=== PATIENT | male | born 1945 | race Caucasian/White ===

== ENCOUNTER → 2017-03-11 11:00 | Outpatient (CLI) | payer MEDICARE, SELFPAY ==
--- NOTE | 2017-03-11 | PROSBIL_PTH ---
PATIENT: MAXIMILIAN NIÑO LOC: [facility] U#:[id number] AGE/SX: 79/M ROOM: RE03/11/[address]: Dr. Benji Tineo MD : 1945 BED: DIS: SPEC #: [id number] RECD: 03/11/17 14:27 STATUS: SHANNA RAE #: [id number] TIMOTEO: 03/11/17 00:[address]: Benji Tineo DEPT: SURGICAL PATHOLOGY RECD BY: Yohan Celaya ENTERED: 03/11/17 14:28 SP TYPE: PROST BX SRINI DR: Dr. Dave Fajardo MD Tissues: A - PROSTATE RIGHT B - PROSTATE RIGHT C - PROSTATE RIGHT D - PROSTATE LEFT E - PROSTATE LEFT F - PROSTATE LEFT Procedures: PROSTATE BX HEADER OPERATION: Prostate biopsy PRE-OP DIAGNOSIS: Elevated PSA TISSUE SUBMITTED: A - Right apex, B - Right mid, C - Right base, D - Left apex, E - Left mid, F - Left base MICROSCOPIC DIAGNOSIS A. Right prostate, apex, core biopsy: Focal high-grade prostatic intraepithelial neoplasia (HGPIN). B. Right prostate, mid, core biopsy: Focal high-grade prostatic intraepithelial neoplasia (HGPIN). C. 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 D. Left prostate, apex, core biopsy: Prostatic tissue, negative for malignancy. E. Left prostate, mid, core biopsy: Prostatic tissue, negative for malignancy. F. Left prostate, base, core biopsy: Focal high-grade prostatic intraepithelial neoplasia (HGPIN). Focal acute and chronic inflammation. SJ:martin 03/12/17 COMMENT Please make reference to previous specimen ([id number]) right prostate, apex, right prostate, mid and left prostate, base, core biopsies with diagnosis of focal high-grade prostatic intraepithelial neoplasia. MICROSCOPIC DESCRIPTION Slides are reviewed. GROSS DESCRIPTION A - Received is one container designated prostate, right apex. The specimen consists of two elongated fragments of light monzon-white soft tissue each measuring 1 cm in length and 0.1 cm in diameter. The specimen is totally submitted in one cassette. B - Received is one container designated prostate, right mid. The specimen consists of one elongated fragment of light monzon-white soft tissue measuring 2 cm in length and 0.1 cm in diameter. The specimen is totally submitted in one cassette. C - Received is one container designated prostate, right base. The specimen consists of one elongated fragment of light monzon-white soft tissue measuring 1 cm in length and 0.1 cm in diameter. The specimen is totally submitted in one cassette. D - Received is one container designated prostate, left apex. The specimen consists of one elongated fragment of light monzon-white soft tissue measuring 1 cm in length and 0.1 cm in diameter. The specimen is totally submitted in one cassette. E - Received is one container designated prostate, left mid. The specimen consists of two elongated fragments of light monzon-white soft tissue each measuring 1 cm in length and 0.1 cm in diameter. The specimen is totally submitted in one cassette. F - Received is one container designated prostate, left base. The specimen consists of two elongated fragments of light monzon-white soft tissue each measuring 1 cm in length and 0.1 cm in diameter. The specimen is totally submitted in one cassette. / AM:martin 03/11/17 TC:5 CPT: G0146 ADDENDUM ADDENDUM ADDENDUM ADDENDUM ADDENDUM ADDENDUM ADDENDUM ADDENDUM ADDENDUM ADDENDUM 05/22/2017 14:19 ADDENDUM 05/22/2017 14:19 ADDENDUM 05/22/2017 14:19 ADDENDUM 05/22/2017 14:19 ADDENDUM 05/22/2017 14:19 CONFIRM MDX FOR PROSTATE CANCER RESULT: DNA Methylation positive (blocks A-F) The DNA methylation positive test result for this patient indicates a 67% likelihood of detecting prostate cancer, with a 29% probability for low-grade disease (GS =6) versus a 38% probability of high-grade disease (GS =7), on repeat biopsy. Please see complete report in e-chart or EMR for further details
== END ==
PROVIDERS: Family Provider Family Medicine Geriatric Medicine; PCP Family Medicine Geriatric Medicine; Visit Provider Urology
DX: R97.20 Elevated prostate specific antigen [PSA] (principal)
CPT/HCPCS: 88305; G0416

== ENCOUNTER → 2017-05-22 10:25 | Outpatient (CLI) | payer MEDICARE, OTHER, SELFPAY ==
[2017-05-22 14:01] LABS: Absolute Lymphocyte Count 2.39 X10^3/ul (0.83-4.51); Absolute Neutrophil Count 5.3 X10^3/uL (2.0-7.7); Basophil# 0.02 X10^3/uL; Basophil% 0.2 % (0-1); Eosinophil# 0.13 X10^3/uL; Eosinophils% 1.6 % (0-5); Hematocrit 41.3 % (40-54); Hemoglobin 13.6 g/dl (13.0-16.5); Lymphocyte # 2.39 X10^3/ul (4.0); Lymphocyte % 28.8 % (19-41); Mean Corp Hgb Conc 32.9 g/gl (32-36); Mean Corpuscular Hgb 31.9 pg (27.0-32.0); Mean Corpuscular Volume 96.7 fL (80-94); Monocyte# 0.48 X10^3/uL; Monocyte% 5.8 % (0-10); Neutrophil # 5.25 X10^3/uL (2.7-7.7); Neutrophil % 63.4 % (47-70); Platelet Count 208 K/mm3 (150-450); RBC Distribution Width CV 12.9 % (11.6-14.6); RBC Distribution Width SD 44.6 fl (35.1-43.9); Red Blood Count 4.27 M/mm3 (4.6-6.2); White Blood Count 8.3 K/mm3 (4.4-11.0)
[2017-05-22 14:03] LABS: POSITIVE COUNT NO; POSITIVE DIFFERENTIAL NO; POSITIVE MORPHOLOGY NO
[2017-05-22 14:14] LABS: Vitamin D,25 Hydroxy 28.1 ng/mL (29.95-100.01)
[2017-05-22 14:19] LABS: ALB/GLOB Ratio 1.2 RATIO (0.9-2.4); AST(SGOT) 19 U/L (15-37); Alanine Aminotransfer ALT/SGPT 23 U/L (16-61); Albumin, Serum 3.8 g/dL (3.2-5.0); Alkaline Phosphatase 89 U/L (45-117); Anion Gap 10 (5-15); BUN 30 mg/dL (7-18); BUN/Creat Ratio 26.8 RATIO (10-20); Calcium,Total 8.7 mg/dL (8.5-10.1); Chloride 104 mmol/L (98-107); Creatinine, Serum 1.12 mg/dL (0.70-1.30); EST Glomerular Filtration Rate 69 mL/min (>60); Est Glom Filt Rate - Afr Amer 83 mL/min (>60); Globulin 3.3 g/dL (2.2-4.2); Glucose 143 mg/dL (74-106); Potassium 4.1 mmol/L (3.5-5.1); Protein, Total 7.1 g/dL (6.4-8.2); Sodium Level 139 mmol/L (136-145); Thyroid Stim Hormone (TSH) 1.15 uIU/mL (0.358-3.74)
== END ==
PROVIDERS: Family Provider Family Medicine Geriatric Medicine; PCP Family Medicine Geriatric Medicine; Visit Provider Family Medicine Geriatric Medicine
DX: E55.9 Vitamin D deficiency, unspecified (principal); I10 Essential (primary) hypertension
CPT/HCPCS: 36415; 80053; 82306; 84443; 85025

== ENCOUNTER → 2017-06-25 12:51 | Outpatient (CLI) | payer MEDICARE, OTHER, SELFPAY ==
--- NOTE | 2017-06-25 | PROSBIL_PTH ---
PATIENT: MAXIMILIAN NIÑO LOC: [facility] U#:[id number] AGE/SX: 79/M ROOM: RE06/25/[address]: Dr. Benji Tineo MD : 1945 BED: DIS: SPEC #: [id number] RECD: 06/25/17 13:34 STATUS: SHANNA RAE #: [id number] TIMOTEO: 06/25/17 00:[address]: Benji Tineo DEPT: SURGICAL PATHOLOGY RECD BY: Romero Gilliland ENTERED: 06/25/17 13:36 SP TYPE: PROST BX SRINI DR: Dr. Dave Fajardo MD Tissues: A - PROSTATE RIGHT B - PROSTATE RIGHT C - PROSTATE RIGHT D - PROSTATE LEFT E - PROSTATE LEFT F - PROSTATE LEFT Procedures: PROSTATE BX HEADER OPERATION: Prostate biopsy PRE-OP DIAGNOSIS: Elevated PSA TISSUE SUBMITTED: A - Right apex, B - Right mid, C - Right base, D - Left apex, E - Left mid, F - Left base MICROSCOPIC DIAGNOSIS A. Right prostate, apex, core biopsy: Prostatic adenocarcinoma: [place] grade: 3+3=6 Number of cores involved: 1 out of 4 Proportion of tissue involved: <5% Perineural invasion: Not identified. Greatest tumor length: ~0.1 cm Focal high-grade prostatic intraepithelial neoplasia (HGPIN). See comment. B. 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 See comment. C. Right prostate, base, core biopsy: Prostatic tissue, negative for malignancy. D. Left prostate, apex, core biopsy: A minute focus of prostatic adenocarcinoma: [place] grade: 3+4=7 Number of cores involved: 1 out of 2 Proportion of tissue involved: <5% Perineural invasion: Not identified. Greatest tumor length: ~ 0.1 cm Focal calcification. See comment. E. Left prostate, mid, core biopsy: A minute focus of prostatic adenocarcinoma: [place] grade: 3+3=6 Number of cores involved: 1 out of 1 Proportion of tissue involved: <5% Perineural invasion: Not seen. Greatest tumor length: < 0.1 cm Focal high-grade prostatic intraepithelial neoplasia (HGPIN). See comment. F. 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 See comment. SJ:martin 06/26/17 COMMENT A, B, D, E & F - Immunohistochemistry ([id number]) supports the above diagnosis. Please make reference to previous specimen ([id number]) right prostate, apex, mid, left prostate, base, core biopsies with diagnosis of focal high-grade prostatic intraepithelial neoplasia (HGPIN). MICROSCOPIC DESCRIPTION Slides are reviewed. GROSS DESCRIPTION A - Received is one container designated prostate, right apex. The specimen consists of four variable sized pieces of monzon soft tissue measuring 0.3 to 0.5 cm in length and 0.1 cm in diameter. The specimen is totally submitted in one cassette. B - Received is one container designated prostate, right mid. The specimen consists of four variable sized pieces of monzon elongated soft tissue measuring 0.6 to 1 cm in length and 0.1 cm in diameter. The specimen is totally submitted in one cassette. C - Received is one container designated prostate, right base. The specimen consists of one fragment of monzon soft tissue measuring 1.2 cm in length and 0.1 cm in diameter. The specimen is totally submitted in one cassette. D - Received is one container designated prostate, left apex. The specimen consists of two elongated fragments of monzon soft tissue each measuring 0.8 cm in length and 0.1 cm in diameter. The specimen is totally submitted in one cassette. E - Received is one container designated prostate, left mid. The specimen consists of one elongated fragment of monzon soft tissue measuring 1.2 cm in length and 0.1 cm in diameter. The specimen is totally submitted in one cassette. F - Received is one container designated prostate, left base. The specimen consists of one elongated fragment of monzon soft tissue measuring 1.5 cm in length and 0.1 cm in diameter. The specimen is totally submitted in one cassette. / TAISHA:martin 06/25/17 TC:0 CPT: G0146
--- NOTE | 2017-06-25 | IMM_PTH ---
PATIENT: MAXIMILIAN NIÑO LOC: [facility] U#:[id number] AGE/SX: 79/M ROOM: RE06/25/[address]: Dr. Benji Tineo MD : 1945 BED: DIS: SPEC #: [id number] RECD: 06/26/17 12:46 STATUS: SHANNA REQ #: [id number] TIMOTEO: 06/25/17 00:[address]: Benji Tineo DEPT: IMMUNOHISTOCHEMISTRY RECD BY: Irasema Rubio ENTERED: 06/26/17 12:47 SP TYPE: IMMUNO OTHR DR: Dr. Dave Fajardo MD Tissues: A - PROSTATE RIGHT B - PROSTATE RIGHT D - PROSTATE LEFT E - PROSTATE LEFT F - PROSTATE LEFT Procedures: CK8 (add) 34BE12 (add) P40 (add) 34BE12 (initial) PHYSICIAN & INSTITUTION [place] [id number] SPECIMEN INFORMATION: Tissue Source: A - Right apex, B - Right mid, D - Left apex, E - Left mid, F - Left base Clinical Info: Elevated PSA Specimen Number: [id number] A, B, D-F CPT code: 45877, 02780 x10 METHODOLOGY: Deparaffinized sections of prefer/formalin-fixed tissue or PAP/DQ stained slides are incubated with monoclonal/polyclonal antibodies/oligonucleotide probes. Localization is made via biotin free immunoperoxidase method. Appropriate controls are performed and reacted as expected. Results on target cell population are indicated in the following table: RESULTS: ANTIBODY / CLONE RESULT Block A P40 (BC28) negative 34BE12 (34BE12) negative Block B P40 (BC28) positive 34BE12 (34BE12) positive Block D P40 (BC28) negative 34BE12 (34BE12) negative Block E P40 (BC28) negative 34BE12 (34BE12) negative CK8 ([id number]) positive Block F P40 (BC28) positive 34BE12 (34BE12) positive These tests were developed and their performance characteristics determined by [facility]. They may not have been cleared or approved by the U.S. Food and Drug Administration. The FDA has determined that such clearance or approval is not necessary. INTERPRETATION: A. Right prostate, apex, core biopsy: Adenocarcinoma. B. Right prostate, mid, core biopsy: Consistent with focal high-grade prostatic intraepithelial neoplasia (HGPIN). D. Left prostate, apex, core biopsy: A minute focus of adenocarcinoma. E. Left prostate, mid, core biopsy: A minute focus of adenocarcinoma. Consistent with focal high-grade prostatic intraepithelial neoplasia (HGPIN). F. Left prostate, base, core biopsy: Consistent with focal high-grade prostatic intraepithelial neoplasia (HGPIN). SJ:martin 06/26/17
== END ==
PROVIDERS: Family Provider Family Medicine Geriatric Medicine; PCP Family Medicine Geriatric Medicine; Visit Provider Urology
DX: R97.20 Elevated prostate specific antigen [PSA] (principal)
CPT/HCPCS: 88305; 88341; 88342; G0416

== ENCOUNTER → 2017-07-04 09:54 | Outpatient (CLI) | payer MEDICARE, OTHER, SELFPAY ==
--- NOTE | 2017-07-04 09:57 | CDU_ITS ---
Reason For Study: carotid stenosis Rt. Velocities/BP Lt. Velocities/BP Prox CCA 78.6/10.6 cm/sec. Prox CCA 132/27.5 cm/sec. Mid CCA 61.6/11.1 cm/sec. Mid CCA 139/23.6 cm/sec. Dist CCA 60.4/14.1 cm/sec. Dist CCA 147/19.6 cm/sec. Prox ICA 122/27.5 cm/sec. Prox ICA 190/50.3 cm/sec. Mid ICA 168/41.3 cm/sec. Mid ICA 136/48.1 cm/sec. Dist ICA 115/33.4 cm/sec. Dist ICA 118/28.5 cm/sec. Rt. ICA/CCA = 2.7. Lt. ICA/CCA = 1.4. Prox ECA 180/30.4 cm/sec. Prox ECA 207/19.6 cm/sec. Rt. Vert. 220/28.8 cm/sec. Right Extracranial There is heterogeneous, irregular atherosclerotic plaque noted in the right common carotid artery. There is heterogeneous, irregular atherosclerotic plaque noted in the right internal carotid artery. There is heterogeneous, irregular atherosclerotic plaque noted in the right external carotid artery. Antegrade flow is noted in the right vertebral artery. Left Extracranial There is heterogeneous, irregular atherosclerotic plaque noted in the left common carotid artery. There is heterogeneous, irregular atherosclerotic plaque noted in the left internal carotid artery. There is heterogeneous, irregular atherosclerotic plaque noted in the left external carotid artery. retrograde flow noted in the left vertebral artery. Procedure Carotid Duplex 38594. The exam was diagnostic. Exam performed in department. Interpretation Summary Moderate (50-69%) stenosis right extracranial internal carotid. Moderate (50-69%) stenosis left extracranial internal carotid. Flow within the right verterbral artery is antegrade. Flow within the left verterbral artery is retrograde, consistent with a subclavian steal phenomenon. Ordering Physician: Aries Garg Performed By: Asif Irvin RVT
== END ==
PROVIDERS: Family Provider Family Medicine Geriatric Medicine; PCP Family Medicine Geriatric Medicine; Visit Provider Surgery Vascular Surgery
DX: I65.23 Occlusion and stenosis of bilateral carotid arteries (principal); I10 Essential (primary) hypertension; Z87.891 Personal history of nicotine dependence
CPT/HCPCS: 93880

== ENCOUNTER → 2017-11-14 10:45 | Outpatient (CLI) | payer MEDICARE, OTHER, SELFPAY ==
--- NOTE | 2017-11-14 10:46 | ECHOD_ITS ---
Reason For Study: AVR Procedure This was a 2D Doppler, Color Flow transthoracic echocardiogram. Exam performed in department. Left Ventricle Normal LV size. Severe concentric left ventricular hypertrophy. Left ventricular systolic function is normal. The estimated ejection fraction is 65 %. Transmitral diastolic flow velocities suggest moderate (stage 2) diastolic dysfunction (pseudonormal pattern). No regional wall motion abnormalities noted. Atria The left atrium is severely enlarged. Normal right atrium. Mitral Valve There is mild to moderate mitral annular calcification. Mild (1+) eccentric mitral valve insufficiency. Tricuspid Valve Normal tricuspid valve. Mild to moderate (1-2+) tricuspid valve insufficiency. Pulmonary artery systolic pressure is 39 mmHg. Aortic Valve Mean aortic valve gradient 20 mmHg. Peak aortic valve gradient 37 mmHg. Calculated aortic valve area (continuity equation) is 1.3 cm2. Mild-Moderate (1-2+) eccentric aortic valve insufficiency. Stable appearing bioprosthetic aortic valve apparatus. Pulmonic Valve Normal pulmonic valve. Mild (1+) pulmonic valve insufficiency. Great Vessels Normal aortic root. The pulmonary artery is normal size. Normal inferior vena cava. Pericardium/Pleural No pericardial effusion. MMode/2D Measurements & Calculations LVIDd: 4.1 cm IVSd: 1.5 cm LVOT diam: 2.0 cm LVIDs: 2.4 cm LVPWd: 1.7 cm LVOT area: 3.1 cm2 RVDd: 4.1 cm FS: 40.4 % Ao root diam: 2.3 cm LAV(MOD-bp): 97.7 ml LA A4 area: 33.3 cm2 LAV(MOD-bp) Indexed: 49.4 ml/m2 LAV(MOD-sp2): 67.5 ml LAV(MOD-sp4): 129.1 ml RA A4 area: 19.6 cm2 Time Measurements MV dec time: 0.40 sec Doppler Measurements & Calculations MV E max andrea: 178.2 cm/sec Lat Peak E' Andrea: 6.5 cm/sec Med Peak E' Andrea: 5.7 cm/sec MV A max andrea: 121.5 cm/sec E/E' lat: 27.6 E/E' med: 31.4 MV E/A: 1.5 MV V2 max: 188.5 cm/sec Ao V2 max: 303.3 cm/sec LV V1 max: 122.9 cm/sec MV max P.2 mmHg Ao max P.8 mmHg LV V1 max P.0 mmHg MV V2 mean: 91.0 cm/sec Ao V2 mean: 211.1 cm/sec LV V1 mean P.3 mmHg MV mean P.3 mmHg Ao mean P.1 mmHg LV V1 mean: 83.4 cm/sec MV V2 VTI: 70.5 cm Ao V2 VTI: 69.3 cm LV V1 VTI: 32.5 cm MVA(VTI): 1.4 cm2 CESAR(I,D): 1.5 cm2 CESAR(V,D): 1.3 cm2 SV(LVOT): 101.7 ml PA V2 max: 105.7 cm/sec TR max andrea: 292.3 cm/sec TR max P.2 mmHg Interpretation Summary Normal LV size. Severe concentric left ventricular hypertrophy. Left ventricular systolic function is normal. The estimated ejection fraction is 65 %. Transmitral diastolic flow velocities suggest moderate (stage 2) diastolic dysfunction (pseudonormal pattern). Mild (1+) eccentric mitral valve insufficiency. Mild to moderate (1-2+) tricuspid valve insufficiency. Stable appearing bioprosthetic aortic valve apparatus. Peak aortic valve gradient 37 mmHg. Mild-Moderate (1-2+) eccentric aortic valve insufficiency. Ordering Physician: Valentino Machado/Kwabena Nelson Referring Physician: Dave Fajardo Chi Performed By: Maribel Her, CHINTANCS, RVT
== END ==
PROVIDERS: Family Provider Family Medicine Geriatric Medicine; PCP Family Medicine Geriatric Medicine; Referring Provider Nurse Practitioner Family; Visit Provider Nurse Practitioner Family
DX: I06.0 Rheumatic aortic stenosis (principal); I10 Essential (primary) hypertension; R06.02 Shortness of breath
CPT/HCPCS: 93306

== ENCOUNTER → 2017-11-25 12:08 | Outpatient (CLI) | payer MEDICARE, OTHER, SELFPAY ==
[2017-11-25 16:32] LABS: Absolute Lymphocyte Count 2.18 X10^3/ul (0.83-4.51); Absolute Neutrophil Count 5.9 X10^3/uL (2.0-7.7); Basophil# 0.04 X10^3/uL; Basophil% 0.4 % (0-1); Eosinophil# 0.21 X10^3/uL; Eosinophils% 2.3 % (0-5); Hematocrit 41.6 % (40-54); Hemoglobin 13.2 g/dl (13.0-16.5); Lymphocyte # 2.18 X10^3/ul (4.0); Lymphocyte % 23.5 % (19-41); Mean Corp Hgb Conc 31.7 g/gl (32-36); Mean Corpuscular Hgb 31.6 pg (27.0-32.0); Mean Corpuscular Volume 99.5 fL (80-94); Mean Platelet Vol. 10.9 fl (6.2-12.0); Monocyte# 0.98 X10^3/uL; Monocyte% 10.5 % (0-10); Neutrophil # 5.86 X10^3/uL (2.7-7.7); Neutrophil % 63.1 % (47-70); Platelet Count 211 K/mm3 (150-450); RBC Distribution Width CV 13.3 % (11.6-14.6); RBC Distribution Width SD 48.1 fl (35.1-43.9); Red Blood Count 4.18 M/mm3 (4.6-6.2); White Blood Count 9.3 K/mm3 (4.4-11.0)
[2017-11-25 16:45] LABS: Vitamin D,25 Hydroxy 26.9 ng/mL (29.95-100.01)
[2017-11-25 17:08] LABS: ALB/GLOB Ratio 1.2 RATIO (0.9-2.4); AST(SGOT) 21 U/L (15-37); Alanine Aminotransfer ALT/SGPT 24 U/L (16-61); Albumin, Serum 4.1 g/dL (3.2-5.0); Alkaline Phosphatase 93 U/L (45-117); Anion Gap 10 (5-15); BUN 27 mg/dL (7-18); BUN/Creat Ratio 23.7 RATIO (10-20); Calcium,Total 9.3 mg/dL (8.5-10.1); Chloride 105 mmol/L (98-107); Creatinine, Serum 1.14 mg/dL (0.70-1.30); EST Glomerular Filtration Rate 67 mL/min (>60); Est Glom Filt Rate - Afr Amer 81 mL/min (>60); Globulin 3.5 g/dL (2.2-4.2); Glucose 76 mg/dL (74-106); Potassium 4.7 mmol/L (3.5-5.1); Protein, Total 7.6 g/dL (6.4-8.2); Sodium Level 141 mmol/L (136-145); Thyroid Stim Hormone (TSH) 1.22 uIU/mL (0.358-3.74)
[2017-11-25 17:11] LABS: POSITIVE COUNT NO; POSITIVE DIFFERENTIAL NO; POSITIVE MORPHOLOGY NO
== END ==
PROVIDERS: Family Provider Family Medicine Geriatric Medicine; PCP Family Medicine Geriatric Medicine; Visit Provider Family Medicine Geriatric Medicine
DX: I10 Essential (primary) hypertension (principal); E55.9 Vitamin D deficiency, unspecified
CPT/HCPCS: 36415; 80053; 82306; 84443; 85025

== ENCOUNTER → 2018-01-04 07:11 | Outpatient (CLI) | payer MEDICARE, OTHER, SELFPAY | PROVIDERS: Family Provider Family Medicine Geriatric Medicine; PCP Family Medicine Geriatric Medicine; Referring Provider Urology; Visit Provider Urology | DX: C61 Malignant neoplasm of prostate (principal) | CPT/HCPCS: 36415; 84153 ==

== ENCOUNTER → 2018-01-13 17:32 | Outpatient (CLI) | payer MEDICARE, OTHER, SELFPAY ==
--- NOTE | 2018-01-13 17:37 | CT_ITS ---
STUDY: CT ABDOMEN AND PELVIS WITH CONTRAST REASON FOR EXAM: Male, 72 years old. Prostate cancer RADIATION DOSAGE (If Supplied By Facility): CTDIvol = ( 19.33 ) mGy, DLP = ( 1096.29 ) mGycm TECHNIQUE: Transaxial images were obtained from the dome of the diaphragm to the symphysis pubis without oral contrast. 100CC ml of Isovue 300 contrast was administered. Sagittal and coronal images were reconstructed. Individualized dose optimization techniques were used for this CT. COMPARISON: None. FINDINGS: The visualized lung bases are unremarkable. The visualized portions of the heart are within normal limits. Normal liver. Normal gallbladder and extrahepatic biliary system. Normal spleen. Normal pancreas. Normal bilateral adrenal glands. Normal right kidney. Normal left kidney. Normal visualized stomach. Normal small intestine. There are multiple colonic diverticula consistent with diverticulosis. There is NO acute diverticulitis or colitis. There has been an appendectomy. There is diffuse atherosclerotic calcification of the abdominal aorta, without a demonstrated aneurysm. Normal inferior vena cava. Normal retroperitoneum. Normal urinary bladder. Prostate is unremarkable. There is NO pelvic mass or fluid collection. There is NO adenopathy. There bilateral inguinal hernias containing fat only and greater on the RIGHT. Normal osseous structures. CT/Abdomen/Pelvis WITH Contrast IMPRESSION: There are multiple colonic diverticula consistent with diverticulosis. There is NO acute diverticulitis or colitis. There has been an appendectomy. There is diffuse atherosclerotic calcification of the abdominal aorta, without a demonstrated aneurysm. Prostate is unremarkable. There is NO pelvic mass or fluid collection. There is NO adenopathy. There bilateral inguinal hernias containing fat only and greater on the RIGHT. Electronically Signed: Fabian Chaudhary MD at 7:44 EST , Service support ,
[2018-01-13 17:50] LABS: CREATININE FINGERSTICK 1.4 mg/dL (0.70-1.30)
== END ==
PROVIDERS: Family Provider Family Medicine Geriatric Medicine; PCP Family Medicine Geriatric Medicine; Referring Provider Urology; Visit Provider Urology
DX: C61 Malignant neoplasm of prostate (principal)
CPT/HCPCS: 74177; Q9967

== ENCOUNTER → 2018-01-16 10:19 | Outpatient (CLI) | payer MEDICARE, OTHER, SELFPAY ==
--- NOTE | 2018-01-16 10:23 | NM_ITS ---
CLINICAL: 72-year-old male with history of carcinoma of the prostate. WHOLE BODY 99m Tc MDP RADIONUCLIDE BONE SCINTIGRAPHY COMPARISON: CT of the abdomen-pelvis report 01/13/2018 FINDINGS: Following the intravenous administration of 27.1 mCi of 99m Tc MDP, whole body bone images reveal: 1. Focal increased radiopharmaceutical concentration is defined in the left posterior ninth rib, linear-elongated in presentation. 2. An increase in uptake is visualized in the lateral glenohumeral compartment of the right shoulder, acromioclavicular and sternoclavicular compartments of both shoulders, the left elbow, right and left wrist articulations, bilateral knees, the left ankle, left sacroiliac joint, 10th thoracic vertebra posteriorly on the right, mid cervical spine posteriorly on the left and right. 3. The remaining skeletal structures are scintigraphically unremarkable with normal-appearing renal images and urinary bladder activity identified. NM/Bone Scan Whole Body IMPRESSION: 1. The increase in radiopharmaceutical concentration identified in the left posterior ninth rib may be further investigated with plain radiography secondary to the linear distribution. 2. 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 Electronically Signed: Kwaku Rivera DO at 23:50 EST Tel , Service support ,
== END ==
PROVIDERS: Family Provider Family Medicine Geriatric Medicine; PCP Family Medicine Geriatric Medicine; Referring Provider Urology; Visit Provider Urology
DX: C61 Malignant neoplasm of prostate (principal)
CPT/HCPCS: 78306

== ENCOUNTER 2018-02-21 22:28 | Inpatient (IN) | payer MEDICARE, OTHER, SELFPAY ==
[2018-02-21 22:29] VITALS: BP 115/89; PULSE 138; RESP 20; TEMP 36.9; O2SAT 95; BMI 33.3
--- NOTE | 2018-02-21 22:42 | RAD_ITS ---
STUDY: X-RAY CHEST REASON FOR EXAM: Male, 72 years old. Chest pain TECHNIQUE: Single AP portable view of the chest. COMPARISON: 10/10/2016 FINDINGS: There are areas of hyperinflation. There is no demonstrated pleural abnormality. The cardiac size and prior sternotomy. Normal mediastinum and heber. Normal visualized pulmonary arteries. There is atherosclerotic calcification of the aortic arch with tortuosity. There are diffuse degenerative changes of the visualized thoracic spine. There is degenerative osteoarthritis of the bilateral shoulders. There is no demonstrated abnormality of the visualized soft tissue structures of the upper abdomen. RAD/Chest 1 View (Portable) IMPRESSION: No pulmonary edema, congestive heart failure or confluent pneumonia. Stable findings as above. Electronically Signed: Kira Alonzo MD at 23:35 EST , Service support ,
--- NOTE | 2018-02-21 22:42 | EKG12_ITS ---
Test Reason : CHEST PAIN Blood Pressure : / mmHG Vent. Rate : 134 BPM Atrial Rate : 268 BPM P-R Int : 000 ms QRS Dur : 142 ms QT Int : 386 ms P-R-T Axes : 000 036 115 degrees QTc Int : 576 ms Atrial flutter with 2:1 A-V conduction Left ventricular hypertrophy with QRS widening and repolarization abnormality Cannot rule out Septal infarct , age undetermined Abnormal ECG Confirmed by GUERDA WILSON, CHIQUITA ([id number]), sound editor JACKELINE ABEL ([id number]) on 02/25/2018 4:36:02 PM Referred By: MELY Confirmed By:CHIQUITA CROFT MD
[2018-02-21] MEDS: Aspirin 81 MG TAB.CHEW 324 MG PO (22:53)
[2018-02-21 22:54] LABS: Absolute Neutrophil Count 8.1 X10^3/uL (2.0-7.7); Basophil# 0.03 X10^3/uL; Basophil% 0.3 % (0-1); Eosinophils% 1.7 % (0-5); Hematocrit 40.5 % (40-54); Hemoglobin 13.2 g/dl (13.0-16.5); Lymphocyte % 18.4 % (19-41); Mean Corp Hgb Conc 32.6 g/gl (32-36); Mean Corpuscular Hgb 32.3 pg (27.0-32.0); Mean Platelet Vol. 10.3 fl (6.2-12.0); Monocyte% 8.7 % (0-10); Neutrophil # 8.08 X10^3/uL (2.7-7.7); Neutrophil % 70.6 % (47-70); Platelet Count 214 K/mm3 (150-450); RBC Distribution Width SD 46.2 fl (35.1-43.9); Red Blood Count 4.09 M/mm3 (4.6-6.2); White Blood Count 11.4 K/mm3 (4.4-11.0)
[2018-02-21 22:55] VITALS: BP 129/82; PULSE 126; RESP 17; O2SAT 96
[2018-02-21] MEDS: Metoprolol Tartrate 5 MG/5 ML Vial IV ×3 (22:56→23:42)
[2018-02-21 22:57] LABS: POSITIVE COUNT NO; POSITIVE DIFFERENTIAL NO; POSITIVE MORPHOLOGY NO
[2018-02-21 23:02] VITALS: BP 98/69; PULSE 131; RESP 23; O2SAT 97
[2018-02-21 23:04] LABS: Anion Gap 9 (5-15); BUN 32 mg/dL (7-18); BUN/Creat Ratio 26.4 RATIO (10-20); Calcium,Total 8.6 mg/dL (8.5-10.1); Chloride 110 mmol/L (98-107); Creatinine, Serum 1.21 mg/dL (0.70-1.30); EST Glomerular Filtration Rate 63 mL/min (>60); Est Glom Filt Rate - Afr Amer 76 mL/min (>60); Estimated Creatinine Clearance 48.71 ml/min; Glucose 199 mg/dL (74-106); Potassium 3.9 mmol/L (3.5-5.1); Sodium Level 142 mmol/L (136-145)
--- NOTE | 2018-02-21 23:13 | ED.VISSUMM ---
- ER Visit Summary Date of Service: 02/21/18 Chief Complaint: Chest pain History of Present Illness: The patient is a 72 M presenting for evaluation secondary to chest pain. Patient reports that at 2100 this evening he was awoken suddenly with a significant burning type sensation in his chest. He reports that it is continuous and does not have any sort of exacerbating relieving factors. He has never had any prior similar episodes in the past. Denies any associated nausea lightheadedness diaphoresis or shortness of breath. Patient does have a underlying history of mild coronary artery disease with no stents, in the past aortic valve replacement. He denies any recent illnesses. Denies any recent long travel or admissions to the hospital. Physical Examination: Vital signs notable for heart rate of 131. Well-nourished male no acute distress. No conjunctival pallor or scleral icterus, moist mucous membranes no JVD. Heart was irregular and tachycardic with a 1 out of 6 systolic murmur noted. Lungs are clear. Abdomen was soft and nontender. Peripheral pulses mildly asymmetric with the left radial being +1 in the right radial being +2 which the patient states is baseline. No peripheral edema. Remainder of physical otherwise unremarkable. Test Results: EKG demonstrates A. fib with a rapid ventricular response at a rate of [address] depressions. CBC and chemistry essentially unremarkable, troponin mildly elevated at 0.04. Emergency Department Course and Treatment: Patient presented secondary to chest pain. He was found to be in new onset atrial fibrillation with rapid ventricular response. Patient is already on metoprolol, so beta-blockers were initially utilized for rate control. 2 doses of Lopressor because the patient to flip into atrial flutter with rapid ventricular response. A third dose of Lopressor because the patient to convert to sinus rhythm. The patient then spontaneously converted again back to atrial fibrillation. Patient was given a dose of Cardizem per the request of Dr. Zamudio and was started on a heparin drip. Cardizem caused the patient's rate to improved to the 80s but he continued to be in atrial fibrillation. I believe the patient requires admission. I discussed this with the hospitalist. Disposition: Admission Impression: 1. New onset A. fib with rapid ventricular response 2. Ischemic EKG changes 3. IV antiarrhythmic therapy Critical care time 40 minutes This note was generated with [employer] software. It may contain incorrect words, spelling, and punctuation that were not noted in review of the chart prior to signing ED Disposition - Plan for ED Patient: Disposition: Acute Care Hospital [facility] Chief Complaint: Chest Pain
--- NOTE | 2018-02-21 23:16 | ED.DCSUM_ITS ---
- ER Visit Summary Date of Service: 02/21/18 Chief Complaint: Chest pain History of Present Illness: The patient is a 72 M presenting for evaluation secondary to chest pain. Patient reports that at 2100 this evening he was awoken suddenly with a significant burning type sensation in his chest. He reports that it is continuous and does not have any sort of exacerbating relieving factors. He has never had any prior similar episodes in the past. Denies any associated nausea lightheadedness diaphoresis or shortness of breath. Patient does have a underlying history of mild coronary artery disease with no stents, in the past aortic valve replacement. He denies any recent illnesses. Denies any recent long travel or admissions to the hospital. Physical Examination: Vital signs notable for heart rate of 131. Well-nourished male no acute distress. No conjunctival pallor or scleral icterus, moist mucous membranes no JVD. Heart was irregular and tachycardic with a 1 out of 6 systolic murmur noted. Lungs are clear. Abdomen was soft and nontender. Peripheral pulses mildly asymmetric with the left radial being +1 in the right radial being +2 which the patient states is baseline. No peripheral edema. Remainder of physical otherwise unremarkable. Test Results: EKG demonstrates A. fib with a rapid ventricular response at a rate of [address] depressions. CBC and chemistry essentially unremarkable, troponin mildly elevated at 0.04. Emergency Department Course and Treatment: Patient presented secondary to chest pain. He was found to be in new onset atrial fibrillation with rapid ventricul ar response. Patient is already on metoprolol, so beta-blockers were initially utilized for rate control. 2 doses of Lopressor because the patient to flip into atrial flutter with rapid ventricular response. A third dose of Lopressor because the patient to convert to sinus rhythm. The patient then spontaneously converted again back to atrial fibrillation. Patient was given a dose of Cardizem per the request of Dr. Zamudio and was started on a heparin drip. Cardizem caused the patient's rate to improved to the 80s but he continued to be in atrial fibrillation. I believe the patient requires admission. I discussed this with the hospitalist. Disposition: Admission Impression: 1. New onset A. fib with rapid ventricular response 2. Ischemic EKG changes 3. IV antiarrhythmic therapy Critical care time 40 minutes This note was generated with Spontlyation software. It may contain incorrect words, spelling, and punctuation that were not noted in review of the chart prior to signing ED Disposition - Plan for ED Patient: Disposition: Acute Care Hospital [facility] Chief Complaint: Chest Pain
[2018-02-21 23:17] VITALS: BP 105/80; PULSE 128; RESP 20; O2SAT 96
--- NOTE | 2018-02-21 23:29 | EKG12_ITS ---
Test Reason : CP Blood Pressure : / mmHG Vent. Rate : 138 BPM Atrial Rate : 133 BPM P-R Int : 000 ms QRS Dur : 098 ms QT Int : 316 ms P-R-T Axes : 000 030 171 degrees QTc Int : 478 ms Atrial fibrillation with rapid ventricular response Marked ST abnormality, possible inferior subendocardial injury Marked ST abnormality, possible anterolateral subendocardial injury Abnormal ECG Confirmed by GUERDA WILSON, CHIQUITA ([id number]), editorial intern JACKELINE ABEL ([id number]) on 02/25/2018 4:36:24 PM Referred By: LATOYA Confirmed By:CHIQUITA CROFT MD
[2018-02-21 23:41] VITALS: BP 128/62; PULSE 134; RESP 20; O2SAT 96
[2018-02-22] VITALS (40 sets, daily range): BP systolic 73–158; BP diastolic 43–123; PULSE 36–142; RESP 15–25; TEMP 36.4–36.9; O2SAT 89–96; BMI 34.7
--- NOTE | 2018-02-22 | PCM.HP.STD ---
Problem List (1) Atrial fibrillation with RVR Status: Acute History of Present Illness Date of Admission: 02/22/18 Chief Complaint: palpitations The patient is a 72 year old M with a significant history of Prostate Cancer; tobacco abuse; hypertension; and aortic valve stenosis status post bovine aortic valve replacement who presented with palpitations. Symptoms started few hours before presentation.Patient reported that he woke up from sleep and was having a burning sensation from his abdomen to his chest. Also he reported a burning sensation in his arms with left worse than on right. Patient was brought to the emergency department by the paramedics. At the emergency department patient was noted to be in atrial fibrillation with rapid ventricular response. Because patient is on home metoprolol and he was given metoprolol IV x3 times. While at the emergency department patient was noted to convert to sinus rhythm with a disappearance of his chest discomfort. Patient converted back to A. fib and he was symptomatic for chest discomfort. At emergency department patient alternated between A. fib; sinus rhythm and A flutter. Cardiology was consulted and the patient received Cardizem bolus. Also patient was started on heparin drip. Past Medical History Past Medical History (Chronic Problems): Chronic Problems (Last Reviewed 02/22/18 @ 01:31 by Akbar Todd MD) Pure hypercholesterolemia (Chronic) Essential (primary) hypertension (Chronic) History of left heart catheterization (Chronic ~10/19/16) History of aortic valve replacement (Chronic) AVR with 21 mm Cuco Karimi Perimount magna valve 08/15/2012 @ [facility] per Dr. Benji Dent Aortic valve stenosis, rheumatic (Chronic) Carotid artery disease (Chronic) Occlusion and stenosis of bilateral carotid arteries (Chronic) H/O carotid endarterectomy (Chronic) 12/14/2015, Rt with patch by Dr. 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) Z79.899 Occlusion and stenosis of bilateral carotid arteries (Chronic) I65.23 Fatigue (Inactive) R53.83 Other forms of dyspnea (Inactive) R06.09 Abnormal nuclear stress test (Inactive) R94.39 Cough (Inactive) R05 History of left leg surgeries 8-9 surgeries following accident Allergies atorvastatin [From Lipitor] Adverse Reaction (Severe, Verified 02/21/18 22:35) Severe myalgias Home Medications: Ambulatory Orders Medication Instructions Recorded Nitroglycerin [Nitrostat] 0.4 mg SUBLINGUAL Q5M PRN 10/18/16 chlorthalidone 25 mg tablet 25 mg PO DAILY #90 tab 03/20/17 lisinopril 20 mg tablet 20 mg PO DAILY #90 tab 05/03/17 metoprolol tartrate 25 mg tablet 25 mg PO BID #180 tab 05/03/17 aspirin 81 mg tablet,delayed 81 mg PO .every other day tab 11/04/17 release pravastatin 40 mg tablet 40 mg PO QHS 11/04/17 Surgical History: Surgical History (Last Reviewed 02/22/18 @ 01:31 by Akbar Todd MD) History of left heart catheterization (Chronic) Onset Date: ~10/19/16 Z98.890 History of aortic valve replacement (Chronic) Z95.2 AVR with 21 mm Cuco Karimi Perimount magna valve 08/15/2012 @ [facility] per Dr. Benji Dent H/O carotid endarterectomy (Chronic) Z98.890 12/14/2015, Rt with patch by Dr. Aries Grag History of appendectomy Z90.49 Lives: Spouse/ Significant Other Smoking Status: Current every day smoker Tobacco Use: Cigarettes - *Family History Maternal Family History: Family History (Last Reviewed 02/22/18 @ 07:35 by Akbar Todd MD) Mother CAD (coronary artery disease) Myocardial infarction Brother Atrial fibrillation Cancer Brother Cancer Review of Systems Constitutional: Denies: Chills, Fever, Weight Change HEENT: Denies: Head Aches, Sinus Congestion, Sinus Drainage Cardiovascular: Reports: Palpitations. Denies: Chest Pain Respiratory: Denies: Cough, Shortness of breath at rest, Sputum production Gastrointestinal: Denies: Abdominal Pain, Nausea, Vomiting Genitourinary: Denies: Dysuria Musculoskeletal: Denies: Joint Pain, Joint Tenderness Skin: Denies: Rash, Wounds Neurological: Denies: Numbness, Tingling, Focal weakness Psychiatric: Denies: Anxiety, Depression, Homicidal Ideations, Suicidal Ideations Hematologic/ Lymphatic: Denies: Easy Bruising, Easy Bleeding VTE Information - Inpt Only VTE Present on Admission: No VTE Mechan Device Prophylaxis: None VTE Pharm Prophylaxis ordered?: No Reason prophylaxis not ordered:: Treatment Not Indicated - Started on heparin drip for A. fib. Patient Problems: Active and Suspected Problems (Last Reviewed 02/22/18 @ 01:31 by Akbar Todd MD) Atrial fibrillation with RVR (Acute) - Physical Exam General: Alert, Oriented x3, Cooperative HEENT: Atraumatic, PERRLA, EOMI, Normocephalic Neck: Supple, No JVD, Negative Carotid Bruits Lungs: Clear to auscultation, Normal air movement Cardiovascular: Regular rate, No murmurs, Irregular Rate Abdomen: Bowel Sounds Present, Soft, Non Tender Extremities: No edema, Capillary Refill Less than 3 Seconds Skin: No rashes, No breakdown Musculoskeletal: No Tenderness to Palpation of Joints or Extremities Neurological: Neuro grossly intact Psych/Mental Status: Normal Affect, Appropriate Vital Signs Temp Pulse Resp BP Pulse Ox 98.5 F 134 H 20 H 128/62 H 96 02/21/18 22:29 02/21/18 23:41 02/21/18 23:41 02/21/18 23:41 02/21/18 23:41 Oxygen Flow Rate (L/min) 2 Oxygen Delivery Method Nasal Cannula Weight: 90.718 kg Body Mass Index (BMI) 33.3 Laboratory Tests Past 24 Hrs 02/21/18 02/21/18 22:35 22:35 WBC 11.4 H RBC 4.09 L Hgb 13.2 Hct 40.5 MCV 99.0 H MCH 32.3 H MCHC 32.6 RDW 13.0 RDW Differential 46.2 H Plt Count 214 MPV 10.3 Immature Gran % (Auto) 0.300 Neut % (Auto) 70.6 H Lymph % (Auto) 18.4 L [place] % (Auto) 8.7 Eos % (Auto) 1.7 Baso % (Auto) 0.3 Absolute Neuts (auto) 8.1 H Absolute Lymphs (auto) 2.10 Total Counted Not Reportable Sodium 142 Potassium 3.9 Chloride 110 H Carbon Dioxide 23.0 Anion Gap 9 BUN 32 H Creatinine 1.21 Estim Creat Clear Calc 48.71 Est GFR (MDRD) Af Amer 76 Est GFR (MDRD) Non-Af 63 BUN/Creatinine Ratio 26.4 H Glucose 199 H Calcium 8.6 Troponin I 0.040 Assessment/Plan All Active Problems (Last Reviewed 02/22/18 @ 01:31 by Akbar Todd MD) Atrial fibrillation with RVR (Acute) [employer]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 fib with rapid ventricular response. A. fib with rapid ventricular response At emergency department after a Cardizem bolus patient was noted to have heart rate of below 90 but he was in a flutter. While on the floor nurse reported that patient's heart rate would drop into the 30s and then go back into 120s. We will start patient on amiodarone bolus and drip. Echocardiogram ordered. Patient received heparin bolus and heparin drip was started in the emergency department. Heparin drip continued. We will check magnesium and TSH. Lipid level ordered. Initial troponin was negative. Serial cardiac enzymes ordered. Cardiology consult. Hypertension On admission his blood pressure was within goal with anti-arrhythmics (Cardizem and metoprolol) Home lisinopril, metoprolol, and chlorthalidone continued with parameters. Hyperlipidemia: statin continued Tobacco abuse: Patient smokes about 3-4 sticks cigarette per day. Counseled. Nicotine patch ordered. Prostate Cancer: Patient reported that he follows with Dr. Tineo and supposed to have a PSA on 02/22/2018. And he is to follow-up with the eufemia on 02/27/2018. We will go ahead and get a PSA while patient is inpatient. Patient to follow-up with Dr. Tineo. DVT prophylaxis: Not indicated because patient is on therapeutic treatment for A. fib with heparin. Miscellaneous: I personally discussed the case with Dr. Zamudio after patient's troponin trended up to 1.89. Importantly patient is on heparin drip. Code Visit Inpatient E&M: 54571 Init Hosp L3
[2018-02-22] MEDS: dilTIAZem 25 MG/5 ML Vial 20 MG IV BOLUS (00:22)
[2018-02-22] MEDS: Heparin Injection (Vial) 5,000 UNIT/ML VIAL 6000 UNIT IV (00:27)
[2018-02-22 00:34] LABS: Partial Thromboplast Time 28.4 Seconds (24.1-36.2)
[2018-02-22] MEDS: HEPARIN/D5w 25,000 UNITS 25,000 UNITS/250 ML IV.SOLN. 12 UNITS IV (00:34)
--- NOTE | 2018-02-22 00:50 | ECHOCS_ITS ---
Reason For Study: Afib, Aflutter Procedure This was a 2D Doppler, Color Flow transthoracic echocardiogram. The study was technically difficult. Contrast injection was performed. Exam performed portable in patient room. Left Ventricle Normal LV size. Severe concentric left ventricular hypertrophy. Left ventricular systolic function is hyperdynamic. The estimated ejection fraction is 75 %. Unable to assess diastolic dysfunction. No regional wall motion abnormalities noted. Right Ventricle Normal RV size. Normal systolic function. Atria The left atrium is severely enlarged. Normal right atrium. No doppler evidence for ASD. Mitral Valve There is moderate mitral annular calcification. Extension of the mitral annular calcification onto the posterior mitral valve leaflet. Mild diffuse mitral valve thickening. The mitral valve chordae are thickened and/or calcified. Moderate mitral valve stenosis. Mild (1+) mitral valve insufficiency. Tricuspid Valve Normal tricuspid valve. Mild tricuspid valve insufficiency. Right ventricular systolic pressure estimated to be 39 mmHg. Aortic Valve Mild aortic stenosis. Stable appearing bioprosthetic aortic valve apparatus. Trivial transvalvular insufficiency of the aortic valve. Pulmonic Valve The pulmonic valve is not well visualized. Great Vessels Normal sized aortic root. Pericardium/Pleural No pericardial effusion. Medication Definity0.2ml given slow IV push to enhance endocardial definition. MMode/2D Measurements & Calculations LVIDd: 3.5 cm IVSd: 2.2 cm LVOT diam: 2.0 cm LVIDs: 1.9 cm LVPWd: 1.8 cm RVDd: 3.6 cm FS: 45.6 % LVOT area: 3.1 cm2 Ao root diam: 3.0 cm LAV(MOD-bp): 83.7 ml LVAd ap4: 25.3 cm2 LAV(MOD-bp) Indexed: 42.5 ml/m2 EDV(MOD-sp4): 68.5 ml LAV(MOD-sp2): 68.8 ml EDV(sp4-el): 70.1 ml LAV(MOD-sp4): 84.9 ml LVAs ap4: 8.5 cm2 ESV(MOD-sp4): 11.5 ml ESV(sp4-el): 11.0 ml EF(MOD-sp4): 83.2 % EF(sp4-el): 84.3 % SV(MOD-sp4): 57.0 ml SV(sp4-el): 59.1 ml LA A4 area: 27.9 cm2 LA dimension(2D): 5.5 cm RA A4 area: 15.5 cm2 Time Measurements MV dec time: 0.13 sec Doppler Measurements & Calculations MV E max bandar: 151.7 cm/sec MV V2 max: 235.4 cm/sec MV P1/2t max bandar: 241.3 cm/sec MV max P.2 mmHg MV P1/2t: 80.8 msec MV V2 mean: 138.3 cm/sec MV dec slope: 874.2 cm/sec2 MV mean P.0 mmHg MV V2 VTI: 50.2 cm MVA(P1/2t): 2.7 cm2 MVA(VTI): 1.6 cm2 Ao V2 max: 321.8 cm/sec LV V1 max: 151.6 cm/sec SV(LVOT): 82.3 ml Ao max P.5 mmHg LV V1 max P.4 mmHg Ao V2 mean: 221.4 cm/sec LV V1 mean P.7 mmHg Ao mean P.2 mmHg LV V1 mean: 111.9 cm/sec Ao V2 VTI: 60.3 cm LV V1 VTI: 26.5 cm CESAR(I,D): 1.4 cm2 CESAR(V,D): 1.5 cm2 PA V2 max: 103.5 cm/sec TR max bandar: 301.2 cm/sec TR max P.3 mmHg Interpretation Summary The study was technically difficult. Contrast injection was performed. Left ventricular systolic function is hyperdynamic. The estimated ejection fraction is 75 %. Severe concentric left ventricular hypertrophy. The left atrium is severely enlarged. There is moderate mitral annular calcification. Extension of the mitral annular calcification onto the posterior mitral valve leaflet. Mild diffuse mitral valve thickening. The mitral valve chordae are thickened and/or calcified. Moderate mitral valve stenosis. Mild (1+) mitral valve insufficiency. Mild tricuspid valve insufficiency. Stable appearing bioprosthetic aortic valve apparatus. Mild aortic stenosis. Trivial transvalvular insufficiency of the aortic valve. Right ventricular systolic pressure estimated to be 39 mmHg. Unable to assess diastolic dysfunction. Ordering Physician: Christopher Todd Referring Physician: Dave Fajardo Chi Performed By: Tabatha Machado, LYNDA, RVT
[2018-02-22 01:33] LABS: Magnesium 2.2 mg/dL (1.6-2.6); Thyroid Stim Hormone (TSH) 0.86 uIU/mL (0.358-3.74)
[2018-02-22 04:48] LABS: Hematocrit 37.7 % (40-54); Hemoglobin 12.2 g/dl (13.0-16.5); Mean Corp Hgb Conc 32.4 g/gl (32-36); Mean Corpuscular Hgb 32.2 pg (27.0-32.0); Mean Corpuscular Volume 99.5 fL (80-94); Mean Platelet Vol. 10.2 fl (6.2-12.0); Platelet Count 201 K/mm3 (150-450); RBC Distribution Width CV 13.1 % (11.6-14.6); RBC Distribution Width SD 46.4 fl (35.1-43.9); Red Blood Count 3.79 M/mm3 (4.6-6.2); White Blood Count 9.4 K/mm3 (4.4-11.0)
[2018-02-22 04:55] LABS: Scan Indicated on CBC? Y/N NO
[2018-02-22 05:06] LABS: Anion Gap 9 (5-15); BUN 30 mg/dL (7-18); BUN/Creat Ratio 29.1 RATIO (10-20); Calcium,Total 8.2 mg/dL (8.5-10.1); Chloride 112 mmol/L (98-107); Cholesterol 113 mg/dL (200); Creatinine, Serum 1.03 mg/dL (0.70-1.30); EST Glomerular Filtration Rate 76 mL/min (>60); Est Glom Filt Rate - Afr Amer 92 mL/min (>60); Estimated Creatinine Clearance 57.22 ml/min; Glucose 108 mg/dL (74-106); High Density Lipoprotein 28 mg/dL; Potassium 4.3 mmol/L (3.5-5.1); Sodium Level 143 mmol/L (136-145); Triglycerides 98 mg/dL; Very Low Density Lipoprotein 20 mg/dL (5-40)
[2018-02-22 07:38] LABS: Partial Thromboplast Time 68.3 Seconds (24.1-36.2)
--- NOTE | 2018-02-22 09:26 | EKG12_ITS ---
Test Reason : RHYTHM Blood Pressure : / mmHG Vent. Rate : 053 BPM Atrial Rate : 053 BPM P-R Int : 148 ms QRS Dur : 092 ms QT Int : 436 ms P-R-T Axes : 071 028 140 degrees QTc Int : 409 ms Sinus bradycardia Possible Left atrial enlargement Left ventricular hypertrophy with repolarization abnormality Abnormal ECG When compared with ECG of 21-FEB-2018 23:32, MANUAL COMPARISON REQUIRED, DATA IS UNCONFIRMED Confirmed by GUERDA WILSON, CHIQUITA ([id number]), science editor JACKELINE ABEL ([id number]) on 02/25/2018 5:33:09 PM Referred By: GRAY Confirmed By:CHIQUITA CROFT MD
[2018-02-22] MEDS: Chlorthalidone 50 MG Tablet 25 MG PO (09:58)
[2018-02-22] MEDS: Lisinopril 20 MG Tablet PO (09:58)
--- NOTE | 2018-02-22 10:35 | PCM.PN.HOSP ---
Patient Problems: Active and Suspected Problems (Last Reviewed 02/22/18 @ 01:31 by Akbar Todd MD) Atrial fibrillation with RVR (Acute) Subjective: Patient seen and examined. He was admitted with complaint of palpitations and found to be in A. fib with RVR. He was admitted to monitored bed and started on amiodarone drip and heparin drip. Patient seen and examined this morning. Palpitations have resolved. Labs and vitals reviewed. Cardiology on board. Vitals/I&O's: Vital Signs Temp Pulse Resp BP Pulse Ox 97.6 F L 52 L 20 H 115/54 L 95 02/22/18 10:00 02/22/18 10:00 02/22/18 10:00 02/22/18 10:00 02/22/18 10:00 Oxygen Flow Rate (L/min) 2 Oxygen Delivery Method Room Air Weight: 208 lb 5.389 oz Body Mass Index (BMI) 34.7 Intake and Output for Last 24 Hours 02/20/18 02/21/18 02/22/18 23:59 23:59 23:59 Intake Total 206.3 / 206.3 Balance 206.3 / 206.3 General: Alert, Oriented x3, Cooperative, No apparent distress HEENT: Atraumatic, PERRLA, EOMI, Normocephalic Oral: Moist Mucosa Neck: Supple, No JVD, Negative Carotid Bruits Lungs: Clear to auscultation, Normal air movement, No rhonchi, No wheeze, No rales Cardiovascular: Normal S1, Normal S2, No murmurs, Irregular Rate - and rhythm. Afib, rate controlled. On amiodarone drip Abdomen: Bowel Sounds Present, Soft, Non Tender, Non-Distended, No Hepato-splenomegaly Extremities: No clubbing, No cyanosis, No edema, Capillary Refill Less than 3 Seconds Skin: No rashes, No breakdown Musculoskeletal: No Tenderness to Palpation of Joints or Extremities Lymphatic: No Cervical, Supraclavicular, or Inguinal Adenopathy Neurological: Cranial nerves II-XII grossly intact, Neuro grossly intact, Motor Exam 5/5 strength throughout Psych/Mental Status: Normal Affect, Appropriate, Alert and oriented to time, place, person, mood and affect Laboratory Results 02/21/18 22:35: WBC 11.4 H, RBC 4.09 L, Hgb 13.2, Hct 40.5, MCV 99.0 H, MCH 32.3 H, MCHC 32.6, RDW 13.0, RDW Differential 46.2 H, Plt Count 214, MPV 10.3, Immature Gran % (Auto) 0.300, Neut % (Auto) 70.6 H, Lymph % (Auto) 18.4 L, [place] % (Auto) 8.7, Eos % (Auto) 1.7, Baso % (Auto) 0.3, Absolute Neuts (auto) 8.1 H, Absolute Lymphs (auto) 2.10, Total Counted Not Reportable 02/21/18 22:35: Sodium 142, Potassium 3.9, Chloride 110 H, Carbon Dioxide 23.0, Anion Gap 9, BUN 32 H, Creatinine 1.21, Estim Creat Clear Calc 48.71, Est GFR (MDRD) Af Amer 76, Est GFR (MDRD) Non-Af 63, BUN/Creatinine Ratio 26.4 H, Glucose 199 H, Calcium 8.6, Troponin I 0.040 02/21/18 22:35: APTT 28.4 02/21/18 22:35: Magnesium 2.2, TSH 0.86 02/22/18 01:29: Troponin I 0.436 H 02/22/18 04:36: WBC 9.4, RBC 3.79 L, Hgb 12.2 L, Hct 37.7 L, MCV 99.5 H, MCH 32.2 H, MCHC 32.4, RDW 13.1, RDW Differential 46.4 H, Plt Count 201, MPV 10.2 02/22/18 04:36: Sodium 143, Potassium 4.3, Chloride 112 H, Carbon Dioxide 22.0, Anion Gap 9, BUN 30 H, Creatinine 1.03, Estim Creat Clear Calc 57.22, Est GFR (MDRD) Af Amer 92, Est GFR (MDRD) Non-Af 76, BUN/Creatinine Ratio 29.1 H, Glucose 108 H, Calcium 8.2 L, Triglycerides 98, Cholesterol 113, LDL Cholesterol 65, VLDL Cholesterol 20, HDL Cholesterol 28 L, Total PSA 11.50 H 02/22/18 04:36: Troponin I 1.890 H* 02/22/18 06:57: APTT 68.3 H Diagnostic Data Chest X-Ray 02/21/18 22:42 IMPRESSION: No pulmonary edema, congestive heart failure or confluent pneumonia. Stable findings as above. Electronically Signed: Kira Alonzo MD at 23:35 EST , Service support , Current Medications Acetaminophen (Tylenol) 650 mg PO Q6H PRN PRN PRN Reason: Mild Pain (scale 0-3)/T>100.7 Aspirin (Ecotrin) 81 mg PO QODAY@0800 [facility] Chlorthalidone (Hygroton) 25 mg PO DAILY [facility] Last Admin: 02/22/18 09:58 Dose: 25 mg Heparin Sodium (Porcine) (Heparin Na) 0 unit IV UD PRN; Protocol Heparin Sodium/Dextrose () 25,000 units in 250 mls @ 12 mls/hr IV .[id number] [facility]; Protocol Last Admin: 02/22/18 00:34 Dose: 12 mls/hr Amiodarone HCl 360 mg/ (Dextrose) 200 mls @ 16.67 mls/hr CONT INF .Q12H1M [facility] Stop: 02/23/18 02:15 Last Admin: 02/22/18 09:22 Dose: 16.67 mls/hr Lisinopril (Zestril) 20 mg PO DAILY [facility] Last Admin: 02/22/18 09:58 Dose: 20 mg Magnesium Hydroxide (Milk Of Magnesia) 30 ml PO DAILY PRN PRN Reason: Constipation Metoprolol Tartrate (Lopressor (Beta Avery)) 25 mg PO BID [facility] Last Admin: 02/22/18 09:57 Dose: Not Given Nicotine (Nicoderm Cq (Pbkc)) 14 mg TRANSDERM. DAILY [facility] Last Admin: 02/22/18 09:57 Dose: Not Given Pravastatin Sodium (Pravachol) 40 mg PO DAILY@2200 [facility] Sodium Chloride () 5 - 15 ml IV UD PRN PRN Reason: SALINE FLUSH Medical Necessity - Tobacco Use Smoking Status: Current every day smoker Tobacco Use: Cigarettes Assessment/Plan All Active Problems (Last Reviewed 02/22/18 @ 01:31 by Akbar Todd MD) Atrial fibrillation with RVR (Acute) exterminator use of drug (Acute) 1. Afib with RVR newly diagnosed with Afib was put on amiodarone drip and heparin drip patient just converted to sinus rhythm this morning cardiology on board; 2D echo pending TSH WNL K and magnesium were also WNL. 2. NSTEMI troponins trended up from 0.040->0.436->1.890. Denies any chest pain EKG showed Afib with RVR on heparin drip and aspirin cardiology on board allergic to atorvastatin; we dont have rosuvastatin in our formulary. Will therefore continue pravastatin. elevated troponin could also be due to troponin leak from Afib 2D echo pending 3. Hypertension: controlled. On lisinopril, metoprolol and chlorthalidone. 5. Hyperlipidemia: on pravastatin. Patient allergic to atorvastatin, so cannot give high intensity statin. Lipid panel showed cholesterol of 113, LDL of 65, HDL of 20 6. history of prostate cancer follows up with Dr Tineo. PSA on admission was 11.5 to follow up with Dr Tineo on discharge 7. Nicotine abuse: counselled to quit. Nicotine patch 21mg daily DVT prophylaxis: on heparin drip Code Visit Inpatient E&M: 58209 [facility] Hosp L3
--- NOTE | 2018-02-22 10:47 | PN_ITS ---
Patient Problems: Active and Suspected Problems (Last Reviewed 02/22/18 @ 01:31 by Akbar Todd MD) Atrial fibrillation with RVR (Acute) Subjective: Patient seen and examined. He was admitted with complaint of palpitations and found to be in A. fib with RVR. He was admitted to monitored bed and started on amiodarone drip and heparin drip. Patient seen and examined this morning. Palpitations have resolved. Labs and vitals reviewed. Cardiology on board. Vitals/I&O's: Vital Signs Temp Pulse Resp BP Pulse Ox 97.6 F L 52 L 20 H 115/54 L 95 02/22/18 10:00 02/22/18 10:00 02/22/18 10:00 02/22/18 10:00 02/22/18 10:00 Oxygen Flow Rate (L/min) 2 Oxygen Delivery Method Room Air Weight: 208 lb 5.389 oz Body Mass Index (BMI) 34.7 Intake and Output for Last 24 Hours 02/20/18 02/21/18 02/22/18 23:59 23:59 23:59 Intake Total 206.3 / 206.3 Balance 206.3 / 206.3 General: Alert, Oriented x3, Cooperative, No apparent distress HEENT: Atraumatic, PERRLA, EOMI, Normocephalic Oral: Moist Mucosa Neck: Supple, No JVD, Negative Carotid Bruits Lungs: Clear to auscultation, Normal air movement, No rhonchi, No wheeze, No rales Cardiovascular: Normal S1, Normal S2, No murmurs, Irregular Rate - and rhythm. Afib, rate controlled. On amiodarone drip Abdomen: Bowel Sounds Present, Soft, Non Tender, Non-Distended, No Hepato- splenomegaly Extremities: No clubbing, No cyanosis, No edema, Capillary Refill Less than 3 Seconds Skin: No rashes, No breakdown Musculoskeletal: No Tenderness to Palpation of Joints or Extremities Lymphatic: No Cervical, Supraclavicular, or Inguinal Adenopathy Neurological: Cranial nerves II-XII grossly intact, Neuro grossly intact, Motor Exam 5/5 strength throughout Psych/Mental Status: Normal Affect, Appropriate, Alert and oriented to time, place, person, mood and affect Laboratory Results 02/21/18 22:35: WBC 11.4 H, RBC 4.09 L, Hgb 13.2, Hct 40.5, MCV 99.0 H, MCH 32.3 H, MCHC 32.6, RDW 13.0, RDW Differential 46.2 H, Plt Count 214, MPV 10.3, Immature Gran % (Auto) 0.300, Neut % (Auto) 70.6 H, Lymph % (Auto) 18.4 L, [place] % (Auto) 8.7, Eos % (Auto) 1.7, Baso % (Auto) 0.3, Absolute Neuts (auto) 8.1 H, Absolute Lymphs (auto) 2.10, Total Counted Not Reportable 02/21/18 22:35: Sodium 142, Potassium 3.9, Chloride 110 H, Carbon Dioxide 23.0, Anion Gap 9, BUN 32 H, Creatinine 1.21, Estim Creat Clear Calc 48.71, Est GFR (MDRD) Af Amer 76, Est GFR (MDRD) Non-Af 63, BUN/Creatinine Ratio 26.4 H, Glucose 199 H, Calcium 8.6, Troponin I 0.040 02/21/18 22:35: APTT 28.4 02/21/18 22:35: Magnesium 2.2, TSH 0.86 02/22/18 01:29: Troponin I 0.436 H 02/22/18 04:36: WBC 9.4, RBC 3.79 L, Hgb 12.2 L, Hct 37.7 L, MCV 99.5 H, MCH 32.2 H, MCHC 32.4, RDW 13.1, RDW Differential 46.4 H, Plt Count 201, MPV 10.2 02/22/18 04:36: Sodium 143, Potassium 4.3, Chloride 112 H, Carbon Dioxide 22.0, Anion Gap 9, BUN 30 H, Creatinine 1.03, Estim Creat Clear Calc 57.22, Est GFR (MDRD) Af Amer 92, Est GFR (MDRD) Non-Af 76, BUN/Creatinine Ratio 29.1 H, Glucose 108 H, Calcium 8.2 L, Triglycerides 98, Cholesterol 113, LDL Cholesterol 65, VLDL Cholesterol 20, HDL Cholesterol 28 L, Total PSA 11.50 H 02/22/18 04:36: Troponin I 1.890 H* 02/22/18 06:57: APTT 68.3 H Diagnostic Data Chest X-Ray 02/21/18 22:42 IMPRESSION: No pulmonary edema, congestive heart failure or confluent pneumonia. Stable findings as above. Electronically Signed: Kira Alonzo MD at 23:35 EST , Service support , Current Medications Acetaminophen (Tylenol) 650 mg PO Q6H PRN PRN PRN Reason: Mild Pain (scale 0-3)/T>100.7 Aspirin (Ecotrin) 81 mg PO QODAY@0800 [facility] Chlorthalidone (Hygroton) 25 mg PO DAILY [facility] Last Admin: 02/22/18 09:58 Dose: 25 mg Heparin Sodium (Porcine) (Heparin Na) 0 unit IV UD PRN; Protocol Heparin Sodium/Dextrose () 25,000 units in 250 mls @ 12 mls/hr IV .[id number] [facility]; Protocol Last Admin: 02/22/18 00:34 Dose: 12 mls/hr Amiodarone HCl 360 mg/ (Dextrose) 200 mls @ 16.67 mls/hr CONT INF .Q12H1M [facility] Stop: 02/23/18 02:15 Last Admin: 02/22/18 09:22 Dose: 16.67 mls/hr Lisinopril (Zestril) 20 mg PO DAILY [facility] Last Admin: 02/22/18 09:58 Dose: 20 mg Magnesium Hydroxide (Milk Of Magnesia) 30 ml PO DAILY PRN PRN Reason: Constipation Metoprolol Tartrate (Lopressor (Beta Avery)) 25 mg PO BID [facility] Last Admin: 02/22/18 09:57 Dose: Not Given Nicotine (Nicoderm Cq (Pbkc)) 14 mg TRANSDERM. DAILY [facility] Last Admin: 02/22/18 09:57 Dose: Not Given Pravastatin Sodium (Pravachol) 40 mg PO DAILY@2200 [facility] Sodium Chloride () 5 - 15 ml IV UD PRN PRN Reason: SALINE FLUSH Medical Necessity - Tobacco Use Smoking Status: Current every day smoker Tobacco Use: Cigarettes Assessment/Plan All Active Problems (Last Reviewed 02/22/18 @ 01:31 by Akbar Todd MD) Atrial fibrillation with RVR (Acute) care home use of drug (Acute) 1. Afib with RVR * newly diagnosed with Afib * was put on amiodarone drip and heparin drip * patient just converted to sinus rhythm this morning * cardiology on board; 2D echo pending * TSH WNL * K and magnesium were also WNL. 2. NSTEMI * troponins trended up from 0.040->0.436->1.890. Denies any chest pain * EKG showed Afib with RVR * on heparin drip and aspirin * cardiology on board * allergic to atorvastatin; we dont have rosuvastatin in our formulary. Will therefore continue pravastatin. * elevated troponin could also be due to troponin leak from Afib * 2D echo pending * 3. Hypertension: controlled. On lisinopril, metoprolol and chlorthalidone. 5. Hyperlipidemia: * on pravastatin. * Patient allergic to atorvastatin, so cannot give high intensity statin. * Lipid panel showed cholesterol of 113, LDL of 65, HDL of 20 6. history of prostate cancer * follows up with Dr Tineo. PSA on admission was 11.5 * to follow up with Dr Tineo on discharge * 7. Nicotine abuse: counselled to quit. Nicotine patch 21mg daily DVT prophylaxis: on heparin drip Code Visit Inpatient E&M: [id number] [facility] Hosp L3
[2018-02-22 13:47] LABS: Partial Thromboplast Time 53.3 Seconds (24.1-36.2)
--- NOTE | 2018-02-22 14:44 | PCM.CONS.C ---
Problem List (1) NSTEMI (non-ST elevated myocardial infarction) Status: Acute (2) CAD (coronary artery disease) Status: Chronic Qualifiers: Coronary Disease-Associated Artery/Lesion type: [place] artery [place] vs. transplanted heart: l[place] heart (3) Atrial flutter Status: Acute (4) History of aortic valve replacement Status: Chronic Comment: AVR with 21 mm Cuco Karimi Perimount magna valve 08/15/2012 @ [facility] per Dr. Benji Dent (5) H/O carotid endarterectomy Status: Chronic Comment: 12/14/2015, Rt with patch by Dr. Aries Garg (6) Pure hypercholesterolemia Status: Chronic (7) Essential (primary) hypertension Status: Chronic Reason for Consult Date of Consultation: 02/22/18 History of Present Illness: The patient is a 72 year old M White male with a past medical history of hyperlipidemia, hypertension, CAD (mild), aortic valve stenosis status post aortic valve replacement (bioprosthetic), status post carotid endarterectomy, who presents for concerns of chest discomfort, palpitations, subsequent findings of atrial flutter with rapid ventricular response, and subsequent abnormal troponin I levels compatible with a non-ST segment elevation PA. The patient noted that he felt fine yesterday prior to retiring for the evening. He states he awoke approximately 30 minutes later noting that something did not feel right. He states he had discomfort in his chest which may be radiated to his left upper extremity. He denied any associated nausea, emesis, or dyspnea. His states that he may have been somewhat diaphoretic. He did sound palpitations. He did not lose consciousness. He presented to [facility] for further evaluation. At that time he was found to be in atrial flutter with rapid ventricular response. He was treated medically with rate control therapy and anticoagulant therapy. He eventually required an attempted IV antiarrhythmic therapy. He was placed in the PCU for further evaluation and care. He states overall he feels better at this time. He denies any ongoing symptoms as he had prior to arriving at the hospital. He denies any history of orthopnea, PND, or peripheral pitting edema. He has not lost consciousness. His troponin I levels have been monitored. They did increase compatible with a non-ST segment elevation PA. He was noted to have subsequent spontaneous conversion to sinus rhythm with his medications. Past Medical History Allergies/Adverse Reactions: Allergies atorvastatin [From Lipitor] Adverse Reaction (Severe, Verified 02/21/18 22:35) Severe myalgias Home Medications: Ambulatory Orders Medication Instructions Recorded Nitroglycerin [Nitrostat] 0.4 mg SUBLINGUAL Q5M PRN 10/18/16 chlorthalidone 25 mg tablet 25 mg PO DAILY #90 tab 03/20/17 lisinopril 20 mg tablet 20 mg PO DAILY #90 tab 05/03/17 metoprolol tartrate 25 mg tablet 25 mg PO BID #180 tab 05/03/17 aspirin 81 mg tablet,delayed 81 mg PO .every other day tab 11/04/17 release pravastatin 40 mg tablet 40 mg PO QHS 11/04/17 Past Medical History (Chronic Problems): Chronic Problems (Last Reviewed 02/22/18 @ 01:31 by Akbar Todd MD) CAD (coronary artery disease) (Chronic) Pure hypercholesterolemia (Chronic) Essential (primary) hypertension (Chronic) History of left heart catheterization (Chronic ~10/19/16) History of aortic valve replacement (Chronic) AVR with 21 mm Cuco Karimi Perimount magna valve 08/15/2012 @ [facility] per Dr. Benji Dent Aortic valve stenosis, rheumatic (Chronic) Carotid artery disease (Chronic) Occlusion and stenosis of bilateral carotid arteries (Chronic) H/O carotid endarterectomy (Chronic) 12/14/2015, Rt with patch by Dr. Aries Garg - *Family History Maternal Family History: Family History (Last Reviewed 02/22/18 @ 07:35 by Akbar Todd MD) Mother CAD (coronary artery disease) Myocardial infarction Brother Atrial fibrillation Cancer Brother Cancer Lives: Spouse/ Significant Other Smoking Status: Current every day smoker Tobacco Use: Cigarettes Alcohol: None Drugs: None Review of Systems - Review of Systems General: Denies: Fever, Night Sweats, Fatigue Cardiovascular: Reports: Chest Discomfort, Chest Discomfort at Rest, Palpitations. Denies: Shortness of Breath, Orthopnea, PND, Peripheral Edema, Lightheadedness, Dizziness, Near Syncope, Syncope Respiratory: Denies: Cough, Sputum Production, Hemoptysis Gastrointestinal: Denies: Hematemesis, Hematochezia, Melena Genitourinary: Denies: Dysuria, Hematuria Skin: Denies: Rash Subjectve: This is a 72-year-old white male who appears to be resting comfortably at the moment in no acute distress. Objective: Vital Signs Temp Pulse Resp BP Pulse Ox 97.6 F L 52 L 20 H 115/54 L 95 02/22/18 10:00 02/22/18 11:00 02/22/18 10:00 02/22/18 10:00 02/22/18 10:00 Oxygen Flow Rate (L/min) 2 Oxygen Delivery Method Room Air Weight: 208 lb 5.389 oz Body Mass Index (BMI) 34.7 Intake and Output for Last 24 Hours 02/20/18 02/21/18 02/22/18 23:59 23:59 23:59 Intake Total 206.3 / 206.3 Balance 206.3 / 206.3 General: Awake, Alert, Oriented x 3, Cooperative, No Acute Distress HEENT: Atraumatic, Normocephalic, PERRL, EOMI, Sclera Non Icteric Oral: Moist Mucosa Neck: Supple, Good ROM, No JVD Lungs: Clear to auscultation Cardiovascular: Regular Rhythm, Normal S1, Normal S2 Murmur Murmur: Grade 2/6, Soft, Mid Systolic, LLSB, LVOT Abdomen: Bowel Sounds Present, Soft, Non Tender Extremities: No edema Psych/Mental Status: Appropriate 02/21/18 22:35: WBC 11.4 H, RBC 4.09 L, Hgb 13.2, Hct 40.5, MCV 99.0 H, MCH 32.3 H, MCHC 32.6, RDW 13.0, RDW Differential 46.2 H, Plt Count 214, MPV 10.3, Immature Gran % (Auto) 0.300, Neut % (Auto) 70.6 H, Lymph % (Auto) 18.4 L, [place] % (Auto) 8.7, Eos % (Auto) 1.7, Baso % (Auto) 0.3, Absolute Neuts (auto) 8.1 H, Total Counted Not Reportable 02/21/18 22:35: Sodium 142, Potassium 3.9, Chloride 110 H, Carbon Dioxide 23.0, Anion Gap 9, BUN 32 H, Creatinine 1.21, Est GFR (MDRD) Af Amer 76, Est GFR (MDRD) Non-Af 63, BUN/Creatinine Ratio 26.4 H, Glucose 199 H, Calcium 8.6, Troponin I 0.040 02/21/18 22:35: APTT 28.4 02/21/18 22:35: Magnesium 2.2 02/22/18 01:29: Troponin I 0.436 H 02/22/18 04:36: WBC 9.4, RBC 3.79 L, Hgb 12.2 L, Hct 37.7 L, MCV 99.5 H, MCH 32.2 H, MCHC 32.4, RDW 13.1, RDW Differential 46.4 H, Plt Count 201, MPV 10.2 02/22/18 04:36: Sodium 143, Potassium 4.3, Chloride 112 H, Carbon Dioxide 22.0, Anion Gap 9, BUN 30 H, Creatinine 1.03, Est GFR (MDRD) Af Amer 92, Est GFR (MDRD) Non-Af 76, BUN/Creatinine Ratio 29.1 H, Glucose 108 H, Calcium 8.2 L, Triglycerides 98, Cholesterol 113, LDL Cholesterol 65, VLDL Cholesterol 20, HDL Cholesterol 28 L 02/22/18 04:36: Troponin I 1.890 H* 02/22/18 06:57: APTT 68.3 H 02/22/18 13:24: APTT 53.3 H 02/22/18 14:00: Troponin I 2.780 H* Rhythm:Sinus rhythm EKG:Atrial flutter with variable ventricular response with consideration for voltage criteria for LVH with nonspecific ST and T-wave abnormality; sinus rhythm with consideration for voltage criteria for LVH with nonspecific ST and T-wave abnormality ECHO:11/14/2017: Left ventricle with normal systolic function with an LVEF of 65%; severe concentric LVH; mild MR; mild to moderate TR; stable appearing bioprosthetic aortic valve apparatus; [id number] AI; decrease diastolic compliance Stress Test:A 20 03/02/16: Stress nuclear imaging study: Considered to have ECG changes suggestive of ischemia at a moderate workload with myocardial perfusion images demonstrating no obvious ischemia and a gait and LVEF 59% Cardiac Cath:10/19/2016: Left main normal; LAD mild luminal irregularities; LCX with distal mild luminal irregularities less than 30%; OM1 with ostial 60% stenosis; intermediate ramus with ostial 50% stenosis; RCA with proximal mild luminal irregularities less than 30%, minute with minor luminal irregularities up to 50%, and distal with mild luminal irregularities less than 30%; aortic root angiographically normal; valve findings compatible with a bioprosthesis CT Surgery:08/15/2012: [facility]: Aortic valve replacement with a 21 mm Cuco-Karimi Perimount magna valve CXR:Preliminary evaluation: Post open-heart surgery changes: Please see official report Assessment/Plan 1. Non st segment elevation PA The patient presents with a clinical course and objective findings compatible with a non st segment elevation PA. It is unclear at this time whether this is a primary acute coronary syndrome or event or a secondary type 2 event possibly secondary the patient's atrial flutter with rapid ventricular response superimposed upon his underlying cardiovascular condition. At the present time the patient will continue to be monitored. His cardiac enzymes and ECG will be followed. An echocardiogram has been requested to further evaluate his left ventricular wall motion and systolic function. He will continue medical management. This will include a combination of agents which may include aspirin, antiplatelet therapy, nitrates is needed, beta blockers, lipid lowering agents, anticoagulants, except her period He should be considered for reevaluation in the cardiac catheterization laboratory. 2. CAD He does have a history of COPD. The past was considered to be mild. Again it is unclear whether this has progressed and is the culprit for his ongoing issues or if it is not significantly changed and his findings are now secondary to his atrial dysrhythmia with elevated ventricular rate. At the present time he will continue evaluation care as described above. 3. Atrial flutter The patient presented with atrial flutter with rapid ventricular response. He is now converted to sinus rhythm. He will continue to be followed. He will continue medical management. 4. Aortic valve disorder status post aortic valve replacement-bioprosthesis The patient has a bioprosthetic aortic valve. It was evaluated in November 2012 and was deemed stable at the time. It can be reassessed with echocardiographic study. The patient will need to continue [employer] antibiotic prophylaxis protocol. 5. Carotid artery disease status post carotid endarterectomy The patient will continue to have peripheral arterial occlusive disease evaluated as deemed appropriate. 6. Hyperlipidemia Patient will continue medical management. 7. Hypertension Patient's blood pressure should be followed. Continue medical therapy with adjustment as needed. Comment: The above was discussed with the patient and as multiple family members present. The above was also previously discussed with a [facility] hospital staff. This note was generated using a voice recognition system and there may be incorrect words, spelling or punctuation that were not noted when reviewing the office note prior to saving.
--- NOTE | 2018-02-22 14:49 | CON.PCM_ITS ---
Problem List (1) NSTEMI (non-ST elevated myocardial infarction) Status: Acute (2) CAD (coronary artery disease) Status: Chronic Qualifiers: Coronary Disease-Associated Artery/Lesion type: [place] artery [place] vs. transplanted heart: [place] heart (3) Atrial flutter Status: Acute (4) History of aortic valve replacement Status: Chronic Comment: AVR with 21 mm Cuco Karimi Perimount magna valve 08/15/2012 @ [facility] per Dr. Benji Dent (5) H/O carotid endarterectomy Status: Chronic Comment: 12/14/2015, Rt with patch by Dr. Aries Garg (6) Pure hypercholesterolemia Status: Chronic (7) Essential (primary) hypertension Status: Chronic Reason for Consult Date of Consultation: 02/22/18 History of Present Illness: The patient is a 72 year old M White male with a past medical history of hyperlipidemia, hypertension, CAD (mild), aortic valve stenosis status post aortic valve replacement (bioprosthetic), status post carotid endarterectomy, who presents for concerns of chest discomfort, palpitations, subsequent findings of atrial flutter with rapid ventricular response, and subsequent abnormal troponin I levels compatible with a non-ST segment elevation [place]. The patient noted that he felt fine yesterday prior to retiring for the evening. He states he awoke approximately 30 minutes later noting that something did not feel right. He states he had discomfort in his chest which may be radiated to his left upper extremity. He denied any associated nausea, emesis, or dyspnea. His states that he may have been somewhat diaphoretic. He did sound palpitations. He did not lose consciousness. He presented to [facility] for further evaluation. At that time he was found to be in atrial flutter with rapid ventricular response. He was treated medically with rate control therapy and anticoagulant therapy. He eventually required an attempted IV antiarrhythmic therapy. He was placed in the PCU for further evaluation and care. He states overall he feels better at this time. He denies any ongoing symptoms as he had prior to arriving at the hospital. He denies any history of orthopnea, PND, or peripheral pitting edema. He has not lost consciousness. His troponin I levels have been monitored. They did increase compatible with a non-ST segment elevation [place]. He was noted to have subsequent spontaneous conversion to sinus rhythm with his medications. Past Medical History Allergies/Adverse Reactions: Allergies atorvastatin [From Lipitor] Adverse Reaction (Severe, Verified 02/21/18 22:35) Severe myalgias Home Medications: Ambulatory Orders Medication Instructions Recorded Nitroglycerin [Nitrostat] 0.4 mg SUBLINGUAL Q5M PRN 10/18/16 chlorthalidone 25 mg tablet 25 mg PO DAILY #90 tab 03/20/17 lisinopril 20 mg tablet 20 mg PO DAILY #90 tab 05/03/17 metoprolol tartrate 25 mg tablet 25 mg PO BID #180 tab 05/03/17 aspirin 81 mg tablet,delayed 81 mg PO .every other day tab 11/04/17 release pravastatin 40 mg tablet 40 mg PO QHS 11/04/17 Past Medical History (Chronic Problems): Chronic Problems (Last Reviewed 02/22/18 @ 01:31 by Akbar Todd MD) CAD (coronary artery disease) (Chronic) Pure hypercholesterolemia (Chronic) Essential (primary) hypertension (Chronic) History of left heart catheterization (Chronic ~10/19/16) History of aortic valve replacement (Chronic) AVR with 21 mm Cuco Karimi Perimount magna valve 08/15/2012 @ [facility] per Dr. Benji Dent Aortic valve stenosis, rheumatic (Chronic) Carotid artery disease (Chronic) Occlusion and stenosis of bilateral carotid arteries (Chronic) H/O carotid endarterectomy (Chronic) 12/14/2015, Rt with patch by Dr. Aries Garg - *Family History Maternal Family History: Family History (Last Reviewed 02/22/18 @ 07:35 by Akbar Todd MD) Mother CAD (coronary artery disease) Myocardial infarction Brother Atrial fibrillation Cancer Brother Cancer Lives: Spouse/ Significant Other Smoking Status: Current every day smoker Tobacco Use: Cigarettes Alcohol: None Drugs: None Review of Systems - Review of Systems General: Denies: Fever, Night Sweats, Fatigue Cardiovascular: Reports: Chest Discomfort, Chest Discomfort at Rest, Palpitations. Denies: Shortness of Breath, Orthopnea, PND, Peripheral Edema, Lightheadedness, Dizziness, Near Syncope, Syncope Respiratory: Denies: Cough, Sputum Production, Hemoptysis Gastrointestinal: Denies: Hematemesis, Hematochezia, Melena Genitourinary: Denies: Dysuria, Hematuria Skin: Denies: Rash Subjectve: This is a 72-year-old white male who appears to be resting comfortably at the moment in no acute distress. Objective: Vital Signs Temp Pulse Resp BP Pulse Ox 97.6 F L 52 L 20 H 115/54 L 95 02/22/18 10:00 02/22/18 11:00 02/22/18 10:00 02/22/18 10:00 02/22/18 10:00 Oxygen Flow Rate (L/min) 2 Oxygen Delivery Method Room Air Weight: 208 lb 5.389 oz Body Mass Index (BMI) 34.7 Intake and Output for Last 24 Hours 02/20/18 02/21/18 02/22/18 23:59 23:59 23:59 Intake Total 206.3 / 206.3 Balance 206.3 / 206.3 General: Awake, Alert, Oriented x 3, Cooperative, No Acute Distress HEENT: Atraumatic, Normocephalic, PERRL, EOMI, Sclera Non Icteric Oral: Moist Mucosa Neck: Supple, Good ROM, No JVD Lungs: Clear to auscultation Cardiovascular: Regular Rhythm, Normal S1, Normal S2 Murmur Murmur: Grade 2/6, Soft, Mid Systolic, LLSB, LVOT Abdomen: Bowel Sounds Present, Soft, Non Tender Extremities: No edema Psych/Mental Status: Appropriate 02/21/18 22:35: WBC 11.4 H, RBC 4.09 L, Hgb 13.2, Hct 40.5, MCV 99.0 H, MCH 32.3 H, MCHC 32.6, RDW 13.0, RDW Differential 46.2 H, Plt Count 214, MPV 10.3, Immature Gran % (Auto) 0.300, Neut % (Auto) 70.6 H, Lymph % (Auto) 18.4 L, [place] % (Auto) 8.7, Eos % (Auto) 1.7, Baso % (Auto) 0.3, Absolute Neuts (auto) 8.1 H, Total Counted Not Reportable 02/21/18 22:35: Sodium 142, Potassium 3.9, Chloride 110 H, Carbon Dioxide 23.0, Anion Gap 9, BUN 32 H, Creatinine 1.21, Est GFR (MDRD) Af Amer 76, Est GFR (MDRD) Non-Af 63, BUN/Creatinine Ratio 26.4 H, Glucose 199 H, Calcium 8.6, Troponin I 0.040 02/21/18 22:35: APTT 28.4 02/21/18 22:35: Magnesium 2.2 02/22/18 01:29: Troponin I 0.436 H 02/22/18 04:36: WBC 9.4, RBC 3.79 L, Hgb 12.2 L, Hct 37.7 L, MCV 99.5 H, MCH 32.2 H, MCHC 32.4, RDW 13.1, RDW Differential 46.4 H, Plt Count 201, MPV 10.2 02/22/18 04:36: Sodium 143, Potassium 4.3, Chloride 112 H, Carbon Dioxide 22.0, Anion Gap 9, BUN 30 H, Creatinine 1.03, Est GFR (MDRD) Af Amer 92, Est GFR (MDRD) Non-Af 76, BUN/Creatinine Ratio 29.1 H, Glucose 108 H, Calcium 8.2 L, Triglycerides 98, Cholesterol 113, LDL Cholesterol 65, VLDL Cholesterol 20, HDL Cholesterol 28 L 02/22/18 04:36: Troponin I 1.890 H* 02/22/18 06:57: APTT 68.3 H 02/22/18 13:24: APTT 53.3 H 02/22/18 14:00: Troponin I 2.780 H* Rhythm:Sinus rhythm EKG:Atrial flutter with variable ventricular response with consideration for voltage criteria for LVH with nonspecific ST and T-wave abnormality; sinus rhythm with consideration for voltage criteria for LVH with nonspecific ST and T-wave abnormality ECHO:11/14/2017: Left ventricle with normal systolic function with an LVEF of 65%; severe concentric LVH; mild MR; mild to moderate TR; stable appearing bioprosthetic aortic valve apparatus; [id number] AI; decrease diastolic compliance Stress Test:A 20 03/02/16: Stress nuclear imaging study: Considered to have ECG changes suggestive of ischemia at a moderate workload with myocardial perfusion images demonstrating no obvious ischemia and a gait and LVEF 59% Cardiac Cath:10/19/2016: Left main normal; LAD mild luminal irregularities; LCX with distal mild luminal irregularities less than 30%; OM1 with ostial 60% stenosis; intermediate ramus with ostial 50% stenosis; RCA with proximal mild luminal irregularities less than 30%, minute with minor luminal irregularities up to 50%, and distal with mild luminal irregularities less than 30%; aortic root angiographically normal; valve findings compatible with a bioprosthesis CT Surgery:08/15/2012: [facility]: Aortic valve replacement with a 21 mm Cuco- Karimi Perimount magna valve CXR:Preliminary evaluation: Post open-heart surgery changes: Please see official report Assessment/Plan 1. Non st segment elevation AZ The patient presents with a clinical course and objective findings compatible with a non st segment elevation [place]. It is unclear at this time whether this is a primary acute coronary syndrome or event or a secondary type 2 event possibly secondary the patient's atrial flutter with rapid ventricular response superimposed upon his underlying cardiovascular condition. At the present time the patient will continue to be monitored. His cardiac enzymes and ECG will be followed. An echocardiogram has been requested to further evaluate his left ventricular wall motion and systolic function. He will continue medical management. This will include a combination of agents which may include aspirin, antiplatelet therapy, nitrates is needed, beta blockers, lipid lowering agents, anticoagulants, except her period He should be considered for reevaluation in the cardiac catheterization laboratory. 2. CAD He does have a history of COPD. The past was considered to be mild. Again it is unclear whether this has progressed and is the culprit for his ongoing issues or if it is not significantly changed and his findings are now secondary to his atrial dysrhythmia with elevated ventricular rate. At the present time he will continue evaluation care as described above. 3. Atrial flutter The patient presented with atrial flutter with rapid ventricular response. He is now converted to sinus rhythm. He will continue to be followed. He will continue medical management. 4. Aortic valve disorder status post aortic valve replacement-bioprosthesis The patient has a bioprosthetic aortic valve. It was evaluated in November 2012 and was deemed stable at the time. It can be reassessed with echocardiographic study. The patient will need to continue [employer] antibiotic prophylaxis protocol. 5. Carotid artery disease status post carotid endarterectomy The patient will continue to have peripheral arterial occlusive disease evaluated as deemed appropriate. 6. Hyperlipidemia Patient will continue medical management. 7. Hypertension Patient's blood pressure should be followed. Continue medical therapy with adjustment as needed. Comment: The above was discussed with the patient and as multiple family members present. The above was also previously discussed with a [facility] hospital staff. This note was generated using a voice recognition system and there may be incorrect words, spelling or punctuation that were not noted when reviewing the office note prior to saving.
[2018-02-22] MEDS: Clopidogrel Bisulfate 300 MG Tablet PO (15:49)
[2018-02-22] MEDS: Heparin Injection (Vial) 5,000 UNIT/ML VIAL IV (15:49)
[2018-02-22] MEDS: Amiodarone 200 MG Tablet PO ×2 (15:49→21:43)
--- NOTE | 2018-02-22 15:51 | CM.UR ---
RN CM assessment completed. Met face to face with patient, introduced myself and explained my role. Patient isn't anticipating any needs at this time however we are unsure what the hospital course will lead to. Plan is for heart cath on Saturday. There are family at bedside, patient is in a good mood and joking. Explained case management will remain available should anything arise. Verb understanding. Qasim Alvarez RN, CCM.
[2018-02-22] MEDS: 0.9% NaCl Peripheral Flush Adult/Peds IV (15:53)
[2018-02-22] MEDS: HEPARIN/D5w 25,000 UNITS 25,000 UNITS/250 ML IV.SOLN. 13 UNITS IV (21:13)
[2018-02-22] MEDS: Pravastatin 40 MG Tablet PO (21:43)
[2018-02-22] MEDS: Metoprolol Tartrate 25 MG Tablet PO (21:43)
[2018-02-23] VITALS (14 sets, daily range): BP systolic 107–135; BP diastolic 38–50; PULSE 42–60; RESP 18–20; TEMP 36.4–36.8; O2SAT 92–96
[2018-02-23 01:26] LABS: Partial Thromboplast Time 55.8 Seconds (24.1-36.2)
--- NOTE | 2018-02-23 05:55 | EKG12_ITS ---
Test Reason : AM EKG Blood Pressure : / mmHG Vent. Rate : 049 BPM Atrial Rate : 049 BPM P-R Int : 158 ms QRS Dur : 090 ms QT Int : 504 ms P-R-T Axes : 064 028 122 degrees QTc Int : 455 ms Sinus bradycardia Possible Left atrial enlargement Left ventricular hypertrophy with repolarization abnormality Abnormal ECG When compared with ECG of 22-FEB-2018 09:35, MANUAL COMPARISON REQUIRED, DATA IS UNCONFIRMED Confirmed by GUERDA WILSON, CHIQUITA ([id number]), supervising editor news reel JACKELINE ABEL ([id number]) on 02/25/2018 5:31:25 PM Referred By: DR MUNOZ Confirmed By:CHIQUITA CROFT MD
[2018-02-23 06:23] LABS: Absolute Neutrophil Count 4.6 X10^3/uL (2.0-7.7); Basophil# 0.03 X10^3/uL; Basophil% 0.4 % (0-1); Eosinophil# 0.19 X10^3/uL; Eosinophils% 2.4 % (0-5); Hemoglobin 12.4 g/dl (13.0-16.5); Lymphocyte % 31.2 % (19-41); Mean Corp Hgb Conc 31.8 g/gl (32-36); Mean Corpuscular Hgb 31.5 pg (27.0-32.0); Mean Platelet Vol. 10.5 fl (6.2-12.0); Monocyte# 0.72 X10^3/uL; Neutrophil # 4.55 X10^3/uL (2.7-7.7); Neutrophil % 56.8 % (47-70); Platelet Count 193 K/mm3 (150-450); RBC Distribution Width CV 13.3 % (11.6-14.6); RBC Distribution Width SD 48.5 fl (35.1-43.9); Red Blood Count 3.94 M/mm3 (4.6-6.2)
[2018-02-23] MEDS: Amiodarone 200 MG Tablet PO ×3 (06:26→21:28)
[2018-02-23 06:30] LABS: Partial Thromboplast Time 57.3 Seconds (24.1-36.2)
[2018-02-23 06:32] LABS: POSITIVE COUNT NO; POSITIVE DIFFERENTIAL NO; POSITIVE MORPHOLOGY NO
[2018-02-23 06:51] LABS: Anion Gap 8 (5-15); BUN 28 mg/dL (7-18); BUN/Creat Ratio 24.6 RATIO (10-20); Calcium,Total 8.3 mg/dL (8.5-10.1); Chloride 110 mmol/L (98-107); Creatinine, Serum 1.14 mg/dL (0.70-1.30); EST Glomerular Filtration Rate 67 mL/min (>60); Est Glom Filt Rate - Afr Amer 81 mL/min (>60); Glucose 103 mg/dL (74-106); Potassium 4.6 mmol/L (3.5-5.1); Sodium Level 140 mmol/L (136-145)
[2018-02-23] MEDS: Aspirin E.C. 81 MG Tablet PO (09:09)
[2018-02-23] MEDS: Clopidogrel Bisulfate 75 MG Tablet PO (09:10)
--- NOTE | 2018-02-23 10:26 | PCM.PN.HOSP ---
Patient Problems: Active and Suspected Problems (Last Reviewed 02/22/18 @ 01:31 by Akbar Todd MD) Atrial fibrillation with RVR (Acute) NSTEMI (non-ST elevated myocardial infarction) (Acute) Atrial flutter (Acute) Subjective: Patient seen and examined. He had no complaints overnight and feels well. He denies any chest pain, any palpitations, dizziness, lightheadedness, abdominal pain, diarrhea or vomiting. Review of systems otherwise negative. He is scheduled for cardiac cath tomorrow. He remains on heparin drip. Vitals/I&O's: Vital Signs Temp Pulse Resp BP Pulse Ox 97.6 F L 52 L 18 123/49 H 92 02/23/18 03:40 02/23/18 07:07 02/23/18 03:40 02/23/18 03:40 02/23/18 07:40 Oxygen Flow Rate (L/min) 2 Oxygen Delivery Method Room Air Weight: 208 lb 5.389 oz Body Mass Index (BMI) 34.7 Intake and Output for Last 24 Hours 02/21/18 02/22/18 02/23/18 23:59 23:59 23:59 Intake Total 961.3 / 961.3 404.8 / 404.8 Output Total 675 / 675 2300 / 2300 Balance 286.3 / 286.3 -1895.2 / -1895.2 General: Alert, Oriented x3, Cooperative, No apparent distress HEENT: Atraumatic, PERRLA, EOMI, Normocephalic Oral: Moist Mucosa Neck: Supple, No JVD, Negative Carotid Bruits Lungs: Clear to auscultation, Normal air movement, No rhonchi, No wheeze, No rales Cardiovascular: Normal S1, Normal S2, No murmurs, Irregular Rate - and rhythm. Afib, rate controlled. On amiodarone drip Abdomen: Bowel Sounds Present, Soft, Non Tender, Non-Distended, No Hepato-splenomegaly Extremities: No clubbing, No cyanosis, No edema, Capillary Refill Less than 3 Seconds Skin: No rashes, No breakdown Musculoskeletal: No Tenderness to Palpation of Joints or Extremities Lymphatic: No Cervical, Supraclavicular, or Inguinal Adenopathy Neurological: Cranial nerves II-XII grossly intact, Neuro grossly intact, Motor Exam 5/5 strength throughout Psych/Mental Status: Normal Affect, Appropriate, Alert and oriented to time, place, person, mood and affect Laboratory Results 02/22/18 13:24: APTT 53.3 H 02/22/18 14:00: Troponin I 2.780 H* 02/22/18 18:59: APTT 56.0 H 02/23/18 01:04: APTT 55.8 H 02/23/18 05:10: WBC 8.0, RBC 3.94 L, Hgb 12.4 L, Hct 39.0 L, MCV 99.0 H, MCH 31.5, MCHC 31.8 L, RDW 13.3, RDW Differential 48.5 H, Plt Count 193, MPV 10.5, Immature Gran % (Auto) 0.200, Neut % (Auto) 56.8, Lymph % (Auto) 31.2, [place] % (Auto) 9.0, Eos % (Auto) 2.4, Baso % (Auto) 0.4, Absolute Neuts (auto) 4.6, Absolute Lymphs (auto) 2.50, Total Counted Not Reportable 02/23/18 05:22: Sodium 140, Potassium 4.6, Chloride 110 H, Carbon Dioxide 22.0, Anion Gap 8, BUN 28 H, Creatinine 1.14, Estim Creat Clear Calc 51.70, Est GFR (MDRD) Af Amer 81, Est GFR (MDRD) Non-Af 67, BUN/Creatinine Ratio 24.6 H, Glucose 103, Calcium 8.3 L 02/23/18 05:22: APTT 57.3 H Current Medications Acetaminophen (Tylenol) 650 mg PO Q6H PRN PRN PRN Reason: Mild Pain (scale 0-3)/T>100.7 Amiodarone HCl (Cordarone) 200 mg PO TID [facility] Last Admin: 02/23/18 06:26 Dose: 200 mg Aspirin (Ecotrin) 81 mg PO QODAY@0800 [facility] Last Admin: 02/23/18 09:09 Dose: 81 mg Chlorthalidone (Hygroton) 25 mg PO DAILY [facility] Last Admin: 02/22/18 09:58 Dose: 25 mg Clopidogrel Bisulfate (Plavix) 75 mg PO DAILY [facility] Last Admin: 02/23/18 09:10 Dose: 75 mg Heparin Sodium (Porcine) (Heparin Na) 0 unit IV UD PRN; Protocol Heparin Sodium/Dextrose () 25,000 units in 250 mls @ 13 mls/hr IV .[id number] [facility]; Protocol Last Admin: 02/22/18 21:13 Dose: 13 mls/hr Lisinopril (Zestril) 20 mg PO DAILY [facility] Last Admin: 02/22/18 09:58 Dose: 20 mg Magnesium Hydroxide (Milk Of Magnesia) 30 ml PO DAILY PRN PRN Reason: Constipation Metoprolol Tartrate (Lopressor (Beta Avery)) 25 mg PO BID [facility] Last Admin: 02/22/18 21:43 Dose: 25 mg Nicotine (Nicoderm Cq (Pbkc)) 14 mg TRANSDERM. DAILY [facility] Last Admin: 02/23/18 09:10 Dose: Not Given Pravastatin Sodium (Pravachol) 40 mg PO QHS [facility] Last Admin: 02/22/18 21:43 Dose: 40 mg Sodium Chloride () 5 - 15 ml IV UD PRN PRN Reason: SALINE FLUSH Last Admin: 02/22/18 15:53 Dose: 10 ml Medical Necessity - Tobacco Use Smoking Status: Current every day smoker Tobacco Use: Cigarettes Assessment/Plan All Active Problems (Last Reviewed 02/22/18 @ 01:31 by Akbar Todd MD) Atrial fibrillation with RVR (Acute) NSTEMI (non-ST elevated myocardial infarction) (Acute) Atrial flutter (Acute) watermaster use of drug (Acute) 1. Afib with RVR newly diagnosed with Afib now off aniodarone drip. Remains on heparin drip has converted to sinur rhythm 2D echo:pending TSH was [facility] cardiology on board: for cardiac cath tomorrow now on amiodarone 200mg tid. 2. NSTEMI troponins trended up from 0.040->0.436->1.890->2.790. EKG showed Afib with RVR on heparin drip and aspirin as well as plavix cardiology on board on pravastatin 2D echo pending for cardiac cath tomorrow 3. Hypertension: controlled. On lisinopril, metoprolol and chlorthalidone. 5. Hyperlipidemia: on pravastatin. Patient allergic to atorvastatin, so cannot give high intensity statin. Lipid panel showed cholesterol of 113, LDL of 65, HDL of 20 6. history of prostate cancer follows up with Dr Tineo. PSA on admission was 11.5 to follow up with Dr Tineo on discharge 7. Aortc valve disorder s/p bioprosthetic aortic valve replacement: was done in November 2012. Echo pending. 8. Nicotine abuse: counselled to quit. Nicotine patch 21mg daily DVT prophylaxis: on heparin drip Code Visit Inpatient E&M: 58341 Subs Hosp L3
--- NOTE | 2018-02-23 10:38 | PN_ITS ---
Patient Problems: Active and Suspected Problems (Last Reviewed 02/22/18 @ 01:31 by Akbar Todd MD) Atrial fibrillation with RVR (Acute) NSTEMI (non-ST elevated myocardial infarction) (Acute) Atrial flutter (Acute) Subjective: Patient seen and examined. He had no complaints overnight and feels well. He denies any chest pain, any palpitations, dizziness, lightheadedness, abdominal pain, diarrhea or vomiting. Review of systems otherwise negative. He is scheduled for cardiac cath tomorrow. He remains on heparin drip. Vitals/I&O's: Vital Signs Temp Pulse Resp BP Pulse Ox 97.6 F L 52 L 18 123/49 H 92 02/23/18 03:40 02/23/18 07:07 02/23/18 03:40 02/23/18 03:40 02/23/18 07:40 Oxygen Flow Rate (L/min) 2 Oxygen Delivery Method Room Air Weight: 208 lb 5.389 oz Body Mass Index (BMI) 34.7 Intake and Output for Last 24 Hours 02/21/18 02/22/18 02/23/18 23:59 23:59 23:59 Intake Total 961.3 / 961.3 404.8 / 404.8 Output Total 675 / 675 2300 / 2300 Balance 286.3 / 286.3 -1895.2 / -1895.2 General: Alert, Oriented x3, Cooperative, No apparent distress HEENT: Atraumatic, PERRLA, EOMI, Normocephalic Oral: Moist Mucosa Neck: Supple, No JVD, Negative Carotid Bruits Lungs: Clear to auscultation, Normal air movement, No rhonchi, No wheeze, No rales Cardiovascular: Normal S1, Normal S2, No murmurs, Irregular Rate - and rhythm. Afib, rate controlled. On amiodarone drip Abdomen: Bowel Sounds Present, Soft, Non Tender, Non-Distended, No Hepato- splenomegaly Extremities: No clubbing, No cyanosis, No edema, Capillary Refill Less than 3 Seconds Skin: No rashes, No breakdown Musculoskeletal: No Tenderness to Palpation of Joints or Extremities Lymphatic: No Cervical, Supraclavicular, or Inguinal Adenopathy Neurological: Cranial nerves II-XII grossly intact, Neuro grossly intact, Motor Exam 5/5 strength throughout Psych/Mental Status: Normal Affect, Appropriate, Alert and oriented to time, place, person, mood and affect Laboratory Results 02/22/18 13:24: APTT 53.3 H 02/22/18 14:00: Troponin I 2.780 H* 02/22/18 18:59: APTT 56.0 H 02/23/18 01:04: APTT 55.8 H 02/23/18 05:10: WBC 8.0, RBC 3.94 L, Hgb 12.4 L, Hct 39.0 L, MCV 99.0 H, MCH 31.5, MCHC 31.8 L, RDW 13.3, RDW Differential 48.5 H, Plt Count 193, MPV 10.5, Immature Gran % (Auto) 0.200, Neut % (Auto) 56.8, Lymph % (Auto) 31.2, [place] % (Auto) 9.0, Eos % (Auto) 2.4, Baso % (Auto) 0.4, Absolute Neuts (auto) 4.6, Absolute Lymphs (auto) 2.50, Total Counted Not Reportable 02/23/18 05:22: Sodium 140, Potassium 4.6, Chloride 110 H, Carbon Dioxide 22.0, Anion Gap 8, BUN 28 H, Creatinine 1.14, Estim Creat Clear Calc 51.70, Est GFR (MDRD) Af Amer 81, Est GFR (MDRD) Non-Af 67, BUN/Creatinine Ratio 24.6 H, Glucose 103, Calcium 8.3 L 02/23/18 05:22: APTT 57.3 H Current Medications Acetaminophen (Tylenol) 650 mg PO Q6H PRN PRN PRN Reason: Mild Pain (scale 0-3)/T>100.7 Amiodarone HCl (Cordarone) 200 mg PO TID [facility] Last Admin: 02/23/18 06:26 Dose: 200 mg Aspirin (Ecotrin) 81 mg PO QODAY@0800 [facility] Last Admin: 02/23/18 09:09 Dose: 81 mg Chlorthalidone (Hygroton) 25 mg PO DAILY [facility] Last Admin: 02/22/18 09:58 Dose: 25 mg Clopidogrel Bisulfate (Plavix) 75 mg PO DAILY [facility] Last Admin: 02/23/18 09:10 Dose: 75 mg Heparin Sodium (Porcine) (Heparin Na) 0 unit IV UD PRN; Protocol Heparin Sodium/Dextrose () 25,000 units in 250 mls @ 13 mls/hr IV .[id number] [facility]; Protocol Last Admin: 02/22/18 21:13 Dose: 13 mls/hr Lisinopril (Zestril) 20 mg PO DAILY [facility] Last Admin: 02/22/18 09:58 Dose: 20 mg Magnesium Hydroxide (Milk Of Magnesia) 30 ml PO DAILY PRN PRN Reason: Constipation Metoprolol Tartrate (Lopressor (Beta Avery)) 25 mg PO BID [facility] Last Admin: 02/22/18 21:43 Dose: 25 mg Nicotine (Nicoderm Cq (Pbkc)) 14 mg TRANSDERM. DAILY [facility] Last Admin: 02/23/18 09:10 Dose: Not Given Pravastatin Sodium (Pravachol) 40 mg PO QHS [facility] Last Admin: 02/22/18 21:43 Dose: 40 mg Sodium Chloride () 5 - 15 ml IV UD PRN PRN Reason: SALINE FLUSH Last Admin: 02/22/18 15:53 Dose: 10 ml Medical Necessity - Tobacco Use Smoking Status: Current every day smoker Tobacco Use: Cigarettes Assessment/Plan All Active Problems (Last Reviewed 02/22/18 @ 01:31 by Akbar Todd MD) Atrial fibrillation with RVR (Acute) NSTEMI (non-ST elevated myocardial infarction) (Acute) Atrial flutter (Acute) shelter use of drug (Acute) 1. Afib with RVR * newly diagnosed with Afib * now off aniodarone drip. Remains on heparin drip * has converted to sinur rhythm * 2D echo:pending * TSH was WNL * cardiology on board: for cardiac cath tomorrow * now on amiodarone 200mg tid. * 2. NSTEMI * troponins trended up from 0.040->0.436->1.890->2.790. * EKG showed Afib with RVR * on heparin drip and aspirin as well as plavix * cardiology on board * on pravastatin * 2D echo pending * for cardiac cath tomorrow * * 3. Hypertension: controlled. On lisinopril, metoprolol and chlorthalidone. 5. Hyperlipidemia: * on pravastatin. * Patient allergic to atorvastatin, so cannot give high intensity statin. * Lipid panel showed cholesterol of 113, LDL of 65, HDL of 20 6. history of prostate cancer * follows up with Dr Tineo. PSA on admission was 11.5 * to follow up with Dr Tineo on discharge * 7. Aortc valve disorder s/p bioprosthetic aortic valve replacement: was done in November 2012. Echo pending. 8. Nicotine abuse: counselled to quit. Nicotine patch 21mg daily DVT prophylaxis: on heparin drip Code Visit Inpatient E&M: 93418 Subs Hosp L3
[2018-02-23] MEDS: Chlorthalidone 50 MG Tablet 25 MG PO (10:52)
[2018-02-23] MEDS: Lisinopril 20 MG Tablet PO (10:53)
--- NOTE | 2018-02-23 12:56 | PN.CARD_ITS ---
Subjectve: The patient states he feels better. He states he feels more like his normal self. He has no new acute complaints. Objective: Vital Signs Temp Pulse Resp BP Pulse Ox 97.9 F 52 L 18 132/41 H 96 02/23/18 09:15 02/23/18 11:22 02/23/18 09:15 02/23/18 10:52 02/23/18 09:15 Oxygen Flow Rate (L/min) 2 Oxygen Delivery Method Room Air Weight: 208 lb 5.389 oz Body Mass Index (BMI) 34.7 Intake and Output for Last 24 Hours 02/21/18 02/22/18 02/23/18 23:59 23:59 23:59 Intake Total 961.3 / 961.3 404.8 / 404.8 Output Total 675 / 675 2300 / 2300 Balance 286.3 / 286.3 -1895.2 / -1895.2 General: Awake, Alert, Oriented x 3, Cooperative, No Acute Distress HEENT: Atraumatic, Normocephalic, PERRL, EOMI, Sclera Non Icteric Oral: Moist Mucosa Neck: Supple, Good ROM, No JVD Lungs: Clear to auscultation Cardiovascular: Regular Rhythm, Normal S1, Normal S2 Abdomen: Bowel Sounds Present, Soft, Non Tender Extremities: No Cyanosis, No Clubbing, No edema Psych/Mental Status: Appropriate 02/22/18 13:24: APTT 53.3 H 02/22/18 14:00: Troponin I 2.780 H* 02/22/18 18:59: APTT 56.0 H 02/23/18 01:04: APTT 55.8 H 02/23/18 05:10: WBC 8.0, RBC 3.94 L, Hgb 12.4 L, Hct 39.0 L, MCV 99.0 H, MCH 31.5, MCHC 31.8 L, RDW 13.3, RDW Differential 48.5 H, Plt Count 193, MPV 10.5, Immature Gran % (Auto) 0.200, Neut % (Auto) 56.8, Lymph % (Auto) 31.2, [place] % (Auto) 9.0, Eos % (Auto) 2.4, Baso % (Auto) 0.4, Absolute Neuts (auto) 4.6, Total Counted Not Reportable 02/23/18 05:22: Sodium 140, Potassium 4.6, Chloride 110 H, Carbon Dioxide 22.0, Anion Gap 8, BUN 28 H, Creatinine 1.14, Est GFR (MDRD) Af Amer 81, Est GFR ( MDRD) Non-Af 67, BUN/Creatinine Ratio 24.6 H, Glucose 103, Calcium 8.3 L 02/23/18 05:22: APTT 57.3 H 02/23/18 11:10: Troponin I 0.873 H* Rhythm: Sinus rhythm EKG: Sinus rhythm; possible left ventricular hypertrophy; nonspecific ST and T wave abnormality ECHO: Left ventricle: Systolic function hyperdynamic; estimated LVEF 75%; severe concentric LVH; severe left atrial enlargement; moderate mitral annular calcification; mild diffuse mitral valve thickening; moderate mitral valve stenosis; mild MR; mild TR; stable appearing bioprosthetic aortic valve apparatus; mild aortic valve stenosis; trivial transvalvular aortic valve insufficiency; estimated RV systolic pressure of 39 mmHg Medical Necessity - Tobacco Use Smoking Status: Current every day smoker Tobacco Use: Cigarettes Assessment/Plan 1. Non st segment elevation LA The patient presents with a clinical course and objective findings compatible with a non st segment elevation [place]. It is unclear at this time whether this is a primary acute coronary syndrome or event or a secondary type 2 event possibly secondary the patient's atrial flutter with rapid ventricular response superimposed upon his underlying cardiovascular condition. At the present time the patient will continue to be monitored. His cardiac enzymes have decreased. His ECG is as noted above. His transthoracic echocardiogram is as noted above. He will continue medical management. This will include a combination of agents which may include aspirin, antiplatelet therapy, nitrates is needed, beta blockers, lipid lowering agents, anticoagulants, except her period He should be considered for reevaluation in the cardiac catheterization laboratory. 2. CAD He does have a history of COPD. The past was considered to be mild. Again it is unclear whether this has progressed and is the culprit for his ongoing issues or if it is not significantly changed and his findings are now secondary to his atrial dysrhythmia with elevated ventricular rate. At the present time he will continue evaluation care as described above. 3. Atrial flutter The patient presented with atrial flutter with rapid ventricular response. He is now converted to sinus rhythm. He will continue to be followed. He will continue medical management. His IV medications can be converted to oral medications-with respect to his antiarrhythmic therapy. 4. Aortic valve disorder status post aortic valve replacement-bioprosthesis The patient has a bioprosthetic aortic valve. It was evaluated in November 2012 and was deemed stable at the time. Based upon his transthoracic echocardiogram his aortic valve prosthesis appears to be stable. The patient will need to continue [place] [employer] antibiotic prophylaxis protocol. 5. Carotid artery disease status post carotid endarterectomy The patient will continue to have peripheral arterial occlusive disease evaluated as deemed appropriate. 6. Hyperlipidemia Patient will continue medical management. 7. Hypertension Patient's blood pressure should be followed. Continue medical therapy with adjustment as needed. Comment: The above was discussed with the patient and as multiple family members present. This note was generated using a voice recognition system and there may be incorrect words, spelling or punctuation that were not noted when reviewing the office note prior to saving.
[2018-02-23] MEDS: HEPARIN/D5w 25,000 UNITS 25,000 UNITS/250 ML IV.SOLN. 13 UNITS IV (16:52)
[2018-02-23] MEDS: Metoprolol Tartrate 25 MG Tablet PO (21:28)
[2018-02-23] MEDS: Pravastatin 40 MG Tablet PO (21:28)
[2018-02-24] VITALS (18 sets, daily range): BP systolic 107–140; BP diastolic 42–56; PULSE 43–55; RESP 12–18; TEMP 36.6–36.8; O2SAT 92–97
[2018-02-24 02:39] LABS: Bacteria 0 SEEN /hpf (None Seen); Mucous, Urine 0 SEEN /hpf (<or=2+); Red Blood Cells-Urine 0 SEEN /hpf (0-5); Squamous Epithelial Cells - UA 0 SEEN /hpf (0-5); White Blood Cells 0 SEEN /hpf (0-5)
[2018-02-24 02:41] LABS: Color, Urine Yellow (Yellow); Glucose, Dipstick Normal (Normal); Ketone-Dipstick Negative (Negative); Leukocyte Esterase-Dipstick Negative /ul (Negative); Nitrite-Dipstick Negative (Negative); Occult Blood-Urine Negative /ul (Negative); Protein-Dipstick Negative (Negative); Specific Gravity, Urine 1.015 (1.002-1.030); Urine Bilirubin Dipstick Negative (Negative); Urine Clarity Sl. Cloudy (Clear); Urine Urobilinogen Normal (Normal)
[2018-02-24 03:28] LABS: Amorphous Sediment 1+
--- NOTE | 2018-02-24 05:55 | EKG12_ITS ---
Test Reason : AM EKG Blood Pressure : / mmHG Vent. Rate : 053 BPM Atrial Rate : 053 BPM P-R Int : 152 ms QRS Dur : 096 ms QT Int : 484 ms P-R-T Axes : 067 026 115 degrees QTc Int : 454 ms Sinus bradycardia Possible Left atrial enlargement Left ventricular hypertrophy with repolarization abnormality Abnormal ECG When compared with ECG of 23-FEB-2018 05:58, MANUAL COMPARISON REQUIRED, DATA IS UNCONFIRMED Confirmed by GUERDA WILSON, CHIQUITA ([id number]), video editor JACKELINE ABEL ([id number]) on 02/25/2018 5:31:10 PM Referred By: ALEXANDER Confirmed By:CHIQUITA CROFT MD
[2018-02-24 06:18] LABS: Prothrombin Time (Protime)PT. 13.6 SECONDS (11.7-14.9)
[2018-02-24 06:19] LABS: Partial Thromboplast Time 28.2 Seconds (24.1-36.2)
[2018-02-24 06:26] LABS: Anion Gap 10 (5-15); BUN 28 mg/dL (7-18); BUN/Creat Ratio 23.9 RATIO (10-20); Calcium,Total 8.6 mg/dL (8.5-10.1); Chloride 110 mmol/L (98-107); Creatinine, Serum 1.17 mg/dL (0.70-1.30); EST Glomerular Filtration Rate 65 mL/min (>60); Est Glom Filt Rate - Afr Amer 79 mL/min (>60); Estimated Creatinine Clearance 50.37 ml/min; Glucose 93 mg/dL (74-106); Potassium 4.7 mmol/L (3.5-5.1); Sodium Level 143 mmol/L (136-145)
[2018-02-24] MEDS: Clopidogrel Bisulfate 75 MG Tablet PO (06:52)
[2018-02-24] MEDS: Amiodarone 200 MG Tablet PO ×2 (06:52→10:20)
[2018-02-24] MEDS: Lisinopril 20 MG Tablet PO (06:53)
--- NOTE | 2018-02-24 08:04 | NURSING ---
report called to geophysical laboratory chief
--- NOTE | 2018-02-24 09:06 | PN.CARD_ITS ---
Subjectve: Patient seen and evaluated. Underwent cardiac catheterization today Objective: Vital Signs Temp Pulse Resp BP Pulse Ox 97.9 F 55 L 18 122/45 H 92 02/24/18 06:34 02/24/18 07:00 02/24/18 06:34 02/24/18 06:34 02/24/18 07:27 Oxygen Flow Rate (L/min) 2 Oxygen Delivery Method Room Air Weight: 208 lb 5.389 oz Body Mass Index (BMI) 34.7 Intake and Output for Last 24 Hours 02/22/18 02/23/18 02/24/18 23:59 23:59 23:59 Intake Total 961.3 / 961.3 1256.8 / 1256.8 205.5 / 205.5 Output Total 675 / 675 2300 / 2300 1100 / 1100 Balance 286.3 / 286.3 -1043.2 / -1043.2 -894.5 / -894.5 General: Awake, Alert, Oriented x 3 HEENT: PERRL, EOMI, Sclera Non Icteric Neck: Supple, Good ROM, No Lymph Node Enlargement Lungs: Clear to auscultation Cardiovascular: Regular Rhythm, Normal S1, Normal S2, No Rubs, No Gallops Murmur Murmur: Grade 2/6, Soft, Mid Systolic, LLSB, LVOT Vascular: No Carotid Bruits, Normal Femoral Pulses, Normal Radial Pulses, Normal Dorsalis Pedal Pulse, Normal Posterior Tibial Pulses Abdomen: Bowel Sounds Present, Soft, Non Tender, No HSM, No Organomegaly Extremities: No Cyanosis, No Clubbing, No edema Neurological: No Focal Motor or Sensory Deficit 02/23/18 11:10: Troponin I 0.873 H* 02/24/18 02:30: Urine Color Yellow, Urine Clarity Sl. Cloudy, Urine pH 6.0, Ur Specific [place] 1.015, Urine Protein Negative, Urine Glucose (UA) Normal, Urine Ketones Negative, Urine Occult Blood Negative, Urine Nitrite Negative, Urine Bilirubin Negative, Urine Urobilinogen Normal, Ur Leukocyte Esterase Negative, Urine RBC 0 SEEN, Urine WBC 0 SEEN 02/24/18 04:50: Sodium 143, Potassium 4.7, Chloride 110 H, Carbon Dioxide 23.0, Anion Gap 10, BUN 28 H, Creatinine 1.17, Est GFR (MDRD) Af Amer 79, Est GFR (MDRD) Non-Af 65, BUN/Creatinine Ratio 23.9 H, Glucose 93, Calcium 8.6 02/24/18 04:50: PT 13.6, INR 1.0, APTT 28.2 Rhythm: EKG: ECHO: Stress Test: Cardiac Cath: PCI: CT Surgery: Holter monitor: EPS: PPM: CXR: Chest CT Scan: Medical Necessity - Tobacco Use Smoking Status: Current every day smoker Tobacco Use: Cigarettes Assessment/Plan 1. Non st segment elevation FL The patient presents with a clinical course and objective findings compatible with a non st segment elevation FL. It is unclear at this time whether this is a primary acute coronary syndrome or event or a secondary type 2 event possibly secondary the patient's atrial flutter with rapid ventricular response superimposed upon his underlying cardiovascular condition. He underwent cardiac catheterization today which demonstrated no obstructive coronary disease. The above was likely secondary to the atrial flutter with a rapid ventricular response rate. He can be discharged later today for outpatient follow-up. 2. CAD He does have a history of COPD. The past was considered to be mild. Again it is unclear whether this has progressed and is the culprit for his ongoing issues or if it is not significantly changed and his findings are now secondary to his atrial dysrhythmia with elevated ventricular rate. At the present time he will continue evaluation care as described above. 3. Atrial flutter The patient presented with atrial flutter with rapid ventricular response. He is now converted to sinus rhythm. We will continue him on the amiodarone at 200 twice daily for a week and then 200 daily. He will continue to be followed. He will continue medical management. 4. Aortic valve disorder status post aortic valve replacement-bioprosthesis The patient has a bioprosthetic aortic valve. It was evaluated in November 2012 and was deemed stable at the time. Echocardiographic assessments demonstrated preserved ejection fraction and no valvular abnormalities. The patient will need to continue [place] [employer] antibiotic prophylaxis protocol. 5. Carotid artery disease status post carotid endarterectomy The patient will continue to have peripheral arterial occlusive disease evaluated as deemed appropriate. 6. Hyperlipidemia Patient will continue medical management. 7. Hypertension Patient's blood pressure should be followed. Continue medical therapy with adjustment as needed. Thank you for allowing me to participate in the care of your patient. Please don't hesitate to call if any issues arise
--- NOTE | 2018-02-24 09:56 | CL.D_ITS ---
Patient Name: MAXIMILIAN NIÑO Study Date: 02/24/2018 Performing: Kwabena Nelson MD Ht: 65 inches 165.1 cm : 1945 Wt: 208.3 lbs 94.34 kg Age: 72 Gender: male BSA: 2.01 PROCEDURE(S) PERFORMED BC65-ABS/COR CLINICAL PROFILE AND INDICATIONS Indications: Suspected CAD Heart Failure: None Stress/Imaging Stress/Image Study Performed: No CONCLUSIONS Mild nonobstructive coronary artery disease. RECOMMENDATIONS Risk factor modification DESCRIPTION OF PROCEDURE The patient arrived to the procedure lab. The risks and benefits of the procedure as well as a full d escription of our services here and current unavailability of surgical backup were fully explained to the patient and/or their significant other prior to the catheterization. The Timeout was completed, verifying the correct patient and procedure. The patient's procedural site was prepped and draped in the usual fashion. Local anesthetic was given subcutaneously to right radial region with Lidocaine 2% . Local anesthetic was given subcutaneously to right groin region with Lidocaine 2%. Using a modified Seldinger technique, arterial access was obtained via the right femoral artery, a 5Fr sheath was ins erted. Left Coronary Artery selective angiography was performed in multiple views using a 5 Fr. JL4 catheter. Right Coronary Artery selective angiography was then performed in multiple views using a 5 Fr. 3DRC (Satinder) catheter.The arterial sheath was pulled and manual compression applied until hemostasis is achieved. CORONARY ANGIOGRAPHY DOMINANCE: Left Dominant LEFT HEART ASSESSMENT Left Ventricular Ejection Fraction: by Echo 65 % Normal LV wall motion Normal Left Ventricular systolic function LEFT MAIN: Angiographically normal LEFT ANTERIOR DECENDING ARTERY: Mild luminal irregularities less than 30% CIRCUMFLEX ARTERY: Mild luminal irregularities less than 30% OM 1: Ostial - 60 % Stenosis RIGHT CORONARY ARTERY: Mild luminal irregularities less than 30% COMPLICATIONS No Complications PROCEDURE MEDICATIONS Fentanyl 25 mcg IV Versed 0.5 mg IV Oxygen: 2 L/min via nasal cannula Baby Aspirin (81mg) 1 Tabs PO @ 02/24/2018 08:29:57 SUMMARY OF HEMODYNAMIC DATA Time AIR REST ECG 08:27:23 AO 132/53 (77) SA 08:42:32 Signed By Kwabena Nelson MD On 02/24/2018 09:12:12 Kwabena Nelson MD
[2018-02-24] MEDS: Chlorthalidone 50 MG Tablet 25 MG PO (10:20)
--- NOTE | 2018-02-24 11:25 | DCINST_ITS ---
- Discharge Diagnoses Current Active Problems: Current Active and Chronic Problems (Last Reviewed 02/22/18 @ 01:31 by Akbar Todd MD) Atrial fibrillation with RVR (Acute) NSTEMI (non-ST elevated myocardial infarction) (Acute) Atrial flutter (Acute) CAD (coronary artery disease) (Chronic) You will use the following diet at home:: Cardiac Discharge Activity: May Not Drive Call your doctor if you observe: Fever of 101 or Higher, Shortness of breath, Dizziness, Fainting spells, Swelling in the ankles, Chest pain, Increased palpitations (irregular heartbeat), Calf discomfort Allergies/Adverse Reactions: Allergies atorvastatin [From Lipitor] Adverse Reaction (Severe, Verified 02/21/18 22:35) Severe myalgias Medications to take at Discharge Nitroglycerin [Nitrostat] 0.4 mg SUBLINGUAL Q5M PRN 10/18/16 chlorthalidone 25 mg tablet 25 mg PO DAILY #90 tab 03/20/17 metoprolol tartrate 25 mg tablet 25 mg PO BID #180 tab 05/03/17 aspirin 81 mg tablet,delayed release 81 mg PO .every other day tab 11/04/17 pravastatin 40 mg tablet 40 mg PO QHS 11/04/17 Amiodarone HCl [Cordarone] 200 mg PO BID #60 tablet 02/24/18 Lisinopril [Zestril] 20 mg PO DAILY #90 tab 02/24/18 The following prescriptions were given: Amiodarone HCl [Cordarone] 200 mg PO BID #60 tablet Primary Care Physician: Dave Fajardo Chi, MD [Primary Care Provider] - Please follow up with your Primary Care Physician in: in 1-2 weeks Test Results: Test results from this visit will be discussed in further detail at your follow- up appointment, if applicable. Please Follow Up With: Kwabena Nelson MD When: in 4 week
--- NOTE | 2018-02-24 11:25 | PCM.DC.SUM ---
Discharge Date and Diagnosis Date of Admission: 02/22/18 Date of Discharge: 02/24/18 - Primary Discharge Diagnosis Active and Suspected Problems (Last Reviewed 02/22/18 @ 01:31 by Akbar Todd MD) Atrial fibrillation with RVR (Acute) NSTEMI (non-ST elevated myocardial infarction) (Acute) Atrial flutter (Acute) - Secondary Discharge Diagnosis Chronic Problems (Last Reviewed 02/22/18 @ 01:31 by Akbar Todd MD) CAD (coronary artery disease) (Chronic) Pure hypercholesterolemia (Chronic) Essential (primary) hypertension (Chronic) History of left heart catheterization (Chronic ~10/19/16) History of aortic valve replacement (Chronic) AVR with 21 mm Cuco Karimi Perimount magna valve 08/15/2012 @ [facility] per Dr. Benji Dent Aortic valve stenosis, rheumatic (Chronic) Carotid artery disease (Chronic) Occlusion and stenosis of bilateral carotid arteries (Chronic) H/O carotid endarterectomy (Chronic) 12/14/2015, Rt with patch by Dr. Aries Garg [facility] Course and Treatment Summary of Care Provided: The patient is a 72 year old M who was admitted with atrial flutter with rapid ventricular response. Patient was managed in PCU, on amiodarone drip which was transitioned gradually to oral 200 mg twice daily and metoprolol. Patient spontaneously converted to normal sinus rhythm. TSH within normal limit. Patient troponin was elevated in the range of non-STEMI. Patient was on heparin drip and had a heart catheter today. Cardiac cath shows no obstructive coronary artery disease therefore elevated troponin most likely secondary to rapid ventricular response. Blood pressure is controlled on lisinopril and chlorthalidone and metoprolol. Lipid panel shows total cholesterol of 113, LDL of 65, HDL of 20. On pravastatin because of allergy to high intensity statins, atorvastatin. Patient had bioprosthetic aortic wall replacement in November 2012. Echo was done and shows preserved EF with no valvular abnormalities. Patient other comorbidities include prostate cancer history recommended follow with Dr. Tineo as an outpatient. Discharge medication reconciliation done. Discharge follow-up instructions completed. Discharge process discussed with the patient and his near the bedside. Patient was advised not to drive for 1 week and avoid exertional work for 1 week Total time spent, exact 35 minutes on discharge meds reconciliation, examination, review of imaging and blood test and discussion with the patient on follow-up instructions. Subjective: Seen and examined. Patient returned from morning cardiac cath through right groin access. Denies chest pressure/shortness of breath. Patient works as a petrol tanker driver of bus. - Physical Exam General: Alert, Oriented x3, Cooperative HEENT: Atraumatic, PERRLA, EOMI, Normocephalic Neck: Supple, No JVD, Negative Carotid Bruits Lungs: Clear to auscultation, Normal air movement, No rhonchi, No wheeze, No rales Cardiovascular: Regular rate, Regular Rhythm, Normal S1, Normal S2, No murmurs Abdomen: Bowel Sounds Present, Soft, Non Tender, Non-Distended Extremities: No edema, Capillary Refill Less than 3 Seconds Skin: No rashes, No breakdown, - - Right femoral access for cardiac cath. No hematoma or active bleeding. Dressing is dry Musculoskeletal: No Tenderness to Palpation of Joints or Extremities, Arthritic Changes Neurological: Cranial nerves II-XII grossly intact Psych/Mental Status: Normal Affect, Appropriate Vital Signs Temp Pulse Resp BP Pulse Ox 98.2 F 47 L 14 113/45 L 93 02/24/18 10:45 02/24/18 10:45 02/24/18 10:45 02/24/18 10:45 02/24/18 10:45 Oxygen Flow Rate (L/min) 2 Oxygen Delivery Method Room Air Weight: 208 lb 5.389 oz Body Mass Index (BMI) 34.7 Intake and Output for Last 24 Hours 02/22/18 02/23/18 02/24/18 23:59 23:59 23:59 Intake Total 961.3 / 961.3 1256.8 / 1256.8 205.5 / 205.5 Output Total 675 / 675 2300 / 2300 1100 / 1100 Balance 286.3 / 286.3 -1043.2 / -1043.2 -894.5 / -894.5 Laboratory Tests Past 24 Hrs 02/23/18 02/24/18 02/24/18 11:10 02:30 04:50 PT INR APTT Sodium 143 Potassium 4.7 Chloride 110 H Carbon Dioxide 23.0 Anion Gap 10 BUN 28 H Creatinine 1.17 Estim Creat Clear Calc 50.37 Est GFR (MDRD) Af Amer 79 Est GFR (MDRD) Non-Af 65 BUN/Creatinine Ratio 23.9 H Glucose 93 Calcium 8.6 Troponin I 0.873 H* Urine Color Yellow Urine Clarity Sl. Cloudy Urine pH 6.0 Ur Specific [place] 1.015 Urine Protein Negative Urine Glucose (UA) Normal Urine Ketones Negative Urine Occult Blood Negative Urine Nitrite Negative Urine Bilirubin Negative Urine Urobilinogen Normal Ur Leukocyte Esterase Negative Urine RBC 0 SEEN Urine WBC 0 SEEN Ur Squamous Epith Cells 0 SEEN Amorphous Sediment 1+ Urine Bacteria 0 SEEN Urine Mucus 0 SEEN 02/24/18 04:50 PT 13.6 INR 1.0 APTT 28.2 Sodium Potassium Chloride Carbon Dioxide Anion Gap BUN Creatinine Estim Creat Clear Calc Est GFR (MDRD) Af Amer Est GFR (MDRD) Non-Af BUN/Creatinine Ratio Glucose Calcium Troponin I Urine Color Urine Clarity Urine pH Ur Specific [place] Urine Protein Urine Glucose (UA) Urine Ketones Urine Occult Blood Urine Nitrite Urine Bilirubin Urine Urobilinogen Ur Leukocyte Esterase Urine RBC Urine WBC Ur Squamous Epith Cells Amorphous Sediment Urine Bacteria Urine Mucus Discharge Activity: May Not Drive Call your doctor if you observe: Fever of 101 or Higher, Shortness of breath, Dizziness, Fainting spells, Swelling in the ankles, Chest pain, Increased palpitations (irregular heartbeat), Calf discomfort Home Medications: Medications to take at Discharge Nitroglycerin [Nitrostat] 0.4 mg SUBLINGUAL Q5M PRN 10/18/16 chlorthalidone 25 mg tablet 25 mg PO DAILY #90 tab 03/20/17 metoprolol tartrate 25 mg tablet 25 mg PO BID #180 tab 05/03/17 aspirin 81 mg tablet,delayed release 81 mg PO .every other day tab 11/04/17 pravastatin 40 mg tablet 40 mg PO QHS 11/04/17 Amiodarone HCl 200 mg PO BID #60 tablet 02/24/18 Lisinopril [Zestril] 20 mg PO DAILY #90 tab 02/24/18 Following Prescrptions Were Given to Patient: Amiodarone HCl 200 mg PO BID #60 tablet Primary Care Physician: Dave Fajardo Chi, MD [Primary Care Provider] - Please follow up with your Primary Care Physician in: in 1-2 weeks Please Follow Up With: Kwabena Nelson MD When: in 4 week Medical Necessity - Tobacco Use Smoking Status: Current every day smoker Tobacco Use: Cigarettes Meaningful Use Info Meaningful Use Diagnoses (Choose all that apply): None applicable Code Visit Inpatient E&M: 26283 Disch Hosp
--- NOTE | 2018-02-24 15:25 | NURSING ---
1430 pt walked halls with this RN after bedrest complete. pt tolerated well. no signs of bleeding or hematoma noted.
--- NOTE | 2018-02-25 13:26 | CASEMGMT ---
RN JUAN C DC NOTE DC DATE: 02/24/18 Disposition: Home LACE/STRATA: 11/13 Intro role of CM to via phone. Pt was not home, but was able to speak. She states pt is doing well. No questions re: medications, f/u or instructions. also stated staff was wonderful and it was a comfort to have such excellent care. Syl PURDYN RN AC
== END 2018-02-24 15:15 | disposition home or self-care (01) | DRG 281 ==
LOC: ED 22:47 → PCU 02-22 00:13
PROVIDERS: Internal Medicine Cardiovascular Disease; Student in an Organized Health Care Education/Training Program; Admitting Provider Hospitalist; Emergency Provider Emergency Medicine; Family Provider Family Medicine Geriatric Medicine; PCP Family Medicine Geriatric Medicine; Visit Provider Internal Medicine
DX: I21.4 Non-ST elevation (NSTEMI) myocardial infarction (principal); I48.92 Unspecified atrial flutter; I48.91 Unspecified atrial fibrillation; E78.00 Pure hypercholesterolemia, unspecified; I10 Essential (primary) hypertension; F17.210 Nicotine dependence, cigarettes, uncomplicated; Z95.2 Presence of prosthetic heart valve; C61 Malignant neoplasm of prostate; I25.10 Atherosclerotic heart disease of native coronary artery without angina pectoris
CPT/HCPCS: 36415; 71045; 80048; 80061; 81001; 83735; 84153; 84443; 84484; 85025; 85027; 85610; 85730; 93005; 93306; 93454; 97116; 97161; 97165; 97802; 99152; 99153; 99285; 99406; J7030; Q9957; Q9967; A4216; C1769; C1894; C8929

== ENCOUNTER 2018-03-07 06:52 | Day surgery (SDC) | payer MEDICARE, OTHER, SELFPAY ==
[2018-02-22 00:56] VITALS: BMI 34.7
[2018-03-05 15:27] VITALS: BMI 34.7
[2018-03-07 07:45] VITALS: BP 101/33; PULSE 47; RESP 18; TEMP 36.7; O2SAT 93; BMI 34.5
[2018-03-07 08:14] VITALS: PULSE 50; RESP 18
[2018-03-07] MEDS: Albuterol 2.5 MG/3 ML VIAL.NEB. INHALATION (08:14)
[2018-03-07] MEDS: Cefazolin 2 GM in 0.9% Normal Saline 100 ML IV (08:34)
[2018-03-07] MEDS: Lubricating Jelly 60 GM Tube 30 GM TOPICAL (08:48)
--- NOTE | 2018-03-07 09:11 | PCM.OPRPT ---
Report of Operation Date of Procedure: 03/07/18 Pre-Operative Diagnosis: Prostate cancer Post-Operative Diagnosis: Same Surgery/Procedure Performed:: Transrectal ultrasound guided placement of 3 fiducial markers, transrectal ultrasound-guided placement of the spacer O AR Description of Surgical Findings:: 72-year-old male taken back to the operating room today with plan to place 3 fiducial markers for treatment for his prostate cancer and also implant to place a spacer to protect the rectum from the radiation therapy. 72-year-old male taken back to the operating room after smooth induction of anesthesia he was placed supine on the table and then we placed his legs in dorsal lithotomy position the perineum was prepped and draped in usual sterile fashion we tried the perineum and then used a [place] to hold of the testicles and penis out of the field I then placed a ultrasound probe into the rectum performed ultrasonography of the prostate identified the prostate the tenotomies fascia lateral edge of the prostate and seminal vesicles prostate was normal Gram, 40 g in size. I then used the first fiducial marker advanced through the skin into the right lateral base of the prostate and place a marker there and then went to the left side place a marker in the left lateral base and then placed a third marker at the apex anteriorly after all 3 markers were placed then we prepared the spacer O AR gel according the manufactures instructions. Once the gel was prepared then I used a finder needle traced a finder needle in the midline down through the skin through the the muscles and then into fascia below the prostate, once we located the proper fascial plane we injected saline which then created a nice puff and looked like we are in good space we were not in the rectal wall, I then injected the spacer O AR gel over 10 seconds into the space which then formed a gel space to push the rectum off the prostate immediately. The most of the gel went to the prostate right side a little bit on the left side. But this looked to be a successful injection and the patient's anesthetic was reversed and is taken back to PACU good condition he will follow-up in the office for checkup and then he was going to proceed with radiation therapy. Type of Anesthesia:: General - Admit VTE Documentation VTE Present on Admission: No VTE Mechan Device Prophylaxis: SCD's
--- NOTE | 2018-03-07 09:15 | DCINST_ITS ---
Discharge Diet: Light diet - advance as tolerated Discharge Activity: Return to Normal Activity, May not drive while taking narcotic pain medications. Call your doctor if your incision/area has: Continuous Slow Oozing, Sudden Increased Bleeding, Increased Pain/ Swelling, Increased Redness, Foul Smelling Discharge, Swelling at the incision site Call your doctor if you observe: Fever of 101 or Higher Suture Line Care: Avoid Pulling/Pushing, Avoid Pinching/Bending Allergies/Adverse Reactions: Allergies atorvastatin [From Lipitor] Adverse Reaction (Severe, Verified 03/05/18 13:18) Severe myalgias Medications to take at Discharge Nitroglycerin [Nitrostat] 0.4 mg SUBLINGUAL Q5M PRN 10/18/16 chlorthalidone 25 mg tablet 25 mg PO DAILY #90 tab 03/20/17 metoprolol tartrate 25 mg tablet 25 mg PO BID #180 tab 05/03/17 aspirin 81 mg tablet,delayed release 81 mg PO .every other day tab 11/04/17 pravastatin 40 mg tablet 40 mg PO QHS 11/04/17 Amiodarone HCl 200 mg PO BID #60 tablet 02/24/18 Lisinopril [Zestril] 20 mg PO DAILY #90 tab 02/24/18 apixaban 5 mg tablet 5 mg PO BID #60 tab 03/06/18 Primary Care Physician: Dave Fajardo Chi, MD [Primary Care Provider] - Test Results: Test results from this visit will be discussed in further detail at your follow- up appointment, if applicable. Please Follow Up With: Benji Tineo MD When: in 2 weeks, please call to make an appointment.
[2018-03-07 09:16] VITALS: BP 101/33; BP 99/55; PULSE 52; RESP 16; TEMP 36.4; O2SAT 92
[2018-03-07 09:30] VITALS: BP 101/33; BP 123/52; PULSE 51; RESP 17; O2SAT 92
[2018-03-07 09:37] VITALS: BP 101/33; BP 98/59; PULSE 46; RESP 16; TEMP 36; O2SAT 93
[2018-03-07 10:40] VITALS: BP 101/33; BP 116/56; PULSE 48; RESP 16; TEMP 36.3; O2SAT 93
== END 2018-03-07 10:49 | disposition home or self-care (01) ==
LOC: SDC 06:53 → AC 06:55
PROVIDERS: Family Provider Family Medicine Geriatric Medicine; PCP Family Medicine Geriatric Medicine; Referring Provider Urology; Visit Provider Urology
PROC: (CPT 55874; principal; 2018-03-07 08:35)
DX: C61 Malignant neoplasm of prostate (principal); N40.2 Nodular prostate without lower urinary tract symptoms; R97.20 Elevated prostate specific antigen [PSA]; I48.91 Unspecified atrial fibrillation; I11.9 Hypertensive heart disease without heart failure; E78.00 Pure hypercholesterolemia, unspecified; F17.210 Nicotine dependence, cigarettes, uncomplicated; Z79.82 Long term (current) use of aspirin; Z79.899 Other long term (current) drug therapy
CPT/HCPCS: 00902; 55874; 55876; 94640; J7120; J2405; J3490

== ENCOUNTER → 2018-03-27 11:18 | Outpatient (CLI) | payer MEDICARE, OTHER, SELFPAY ==
[2018-03-07 07:45] VITALS: BMI 34.5
[2018-03-27 11:53] LABS: Absolute Lymphocyte Count 2.11 X10^3/ul (0.83-4.51); Absolute Neutrophil Count 5.7 X10^3/uL (2.0-7.7); Basophil# 0.04 X10^3/uL; Basophil% 0.4 % (0-1); Eosinophil# 0.22 X10^3/uL; Eosinophils% 2.5 % (0-5); Hematocrit 39.2 % (40-54); Hemoglobin 12.5 g/dl (13.0-16.5); Lymphocyte # 2.11 X10^3/ul (4.0); Lymphocyte % 23.6 % (19-41); Mean Corp Hgb Conc 31.9 g/gl (32-36); Mean Corpuscular Hgb 32.1 pg (27.0-32.0); Mean Corpuscular Volume 100.8 fL (80-94); Mean Platelet Vol. 9.9 fl (6.2-12.0); Monocyte# 0.81 X10^3/uL; Monocyte% 9.1 % (0-10); Neutrophil # 5.73 X10^3/uL (2.7-7.7); Neutrophil % 64.1 % (47-70); Platelet Count 226 K/mm3 (150-450); RBC Distribution Width CV 13.2 % (11.6-14.6); RBC Distribution Width SD 47.6 fl (35.1-43.9); Red Blood Count 3.89 M/mm3 (4.6-6.2); White Blood Count 8.9 K/mm3 (4.4-11.0)
[2018-03-27 11:55] LABS: POSITIVE COUNT NO; POSITIVE DIFFERENTIAL NO; POSITIVE MORPHOLOGY NO
[2018-03-27 12:17] LABS: Creatinine, Serum 1.32 mg/dL (0.70-1.30); EST Glomerular Filtration Rate 57 mL/min (>60); Est Glom Filt Rate - Afr Amer 69 mL/min (>60)
== END ==
PROVIDERS: Family Provider Family Medicine Geriatric Medicine; PCP Family Medicine Geriatric Medicine; Referring Provider Radiology Radiation Oncology; Visit Provider Radiology Radiation Oncology
DX: Z01.818 Encounter for other preprocedural examination (principal); C61 Malignant neoplasm of prostate
CPT/HCPCS: 36415; 82565; 84153; 85025

== ENCOUNTER → 2018-03-28 12:23 | Outpatient (CLI) | payer MEDICARE, OTHER, SELFPAY ==
[2018-03-07 07:45] VITALS: BMI 34.5
--- NOTE | 2018-03-28 12:26 | CT_ITS ---
STUDY: CT PELVIS WITH CONTRAST REASON FOR EXAM: Male, 72 years old. Radiation treatment planning examination for prostate carcinoma. RADIATION DOSAGE (If Supplied By Facility): CTDIvol = ( 24.62 ) mGy, DLP = ( 727.22 ) mGycm TECHNIQUE: Transaxial imaging of the pelvis was performed without oral contrast. Isovue 300 100ML IV was administered intravenously. Individualized dose optimization techniques were used for this CT. COMPARISON: Comparison is made with prior study dated January 13, 2018. FINDINGS: The urinary bladder is of small capacity. Diffuse bladder wall thickening and possible trabeculation. Inhomogeneous prostatic enlargement. This measures 5 cm x 5.4 cm. Central prostatic calcifications are seen. Metallic seeds are seen within the prostate. The urethra is unremarkable. Normal visualized small intestine. Normal visualized colon. There is no pelvic fluid. There is no pelvic lymphadenopathy or mass lesion. There is diffuse atherosclerotic calcification of the pelvic arteries. Bilateral inguinal hernias containing fat more prominent on the right side. There are diffuse degenerative changes of the visualized lumbar spine. CT/Pelvis WITH IV Contrast IMPRESSION: Small capacity bladder with diffuse bladder wall thickening. Inhomogeneous enlargement of the prostate with central calcification. Metallic seeds are seen within the prostate. Electronically Signed: Jorge A Sierra MD at 10:40 EST , Service support ,
== END ==
PROVIDERS: Family Provider Family Medicine Geriatric Medicine; PCP Family Medicine Geriatric Medicine; Referring Provider Radiology Radiation Oncology; Visit Provider Radiology Radiation Oncology
DX: C61 Malignant neoplasm of prostate (principal)
CPT/HCPCS: 72193; Q9965; Q9967

== ENCOUNTER → 2018-04-22 10:31 | Outpatient (CLI) | payer MEDICARE, OTHER, SELFPAY ==
[2018-04-22 11:54] LABS: Absolute Lymphocyte Count 2.03 X10^3/ul (0.83-4.51); Absolute Neutrophil Count 7.2 X10^3/uL (2.0-7.7); Basophil# 0.02 X10^3/uL; Basophil% 0.2 % (0-1); Eosinophil# 0.14 X10^3/uL; Eosinophils% 1.4 % (0-5); Hematocrit 39.8 % (40-54); Hemoglobin 12.6 g/dl (13.0-16.5); Lymphocyte # 2.03 X10^3/ul (4.0); Lymphocyte % 19.6 % (19-41); Mean Corp Hgb Conc 31.7 g/gl (32-36); Mean Corpuscular Hgb 32.1 pg (27.0-32.0); Mean Corpuscular Volume 101.3 fL (80-94); Mean Platelet Vol. 10.2 fl (6.2-12.0); Monocyte# 0.91 X10^3/uL; Monocyte% 8.8 % (0-10); Neutrophil # 7.24 X10^3/uL (2.7-7.7); Neutrophil % 69.8 % (47-70); POSITIVE COUNT NO; POSITIVE DIFFERENTIAL NO; POSITIVE MORPHOLOGY NO; Platelet Count 197 K/mm3 (150-450); RBC Distribution Width CV 14.1 % (11.6-14.6); RBC Distribution Width SD 51.7 fl (35.1-43.9); Red Blood Count 3.93 M/mm3 (4.6-6.2); White Blood Count 10.4 K/mm3 (4.4-11.0)
== END ==
PROVIDERS: Family Provider Family Medicine Geriatric Medicine; PCP Family Medicine Geriatric Medicine; Referring Provider Radiology Radiation Oncology; Visit Provider Radiology Radiation Oncology
DX: E11.9 Type 2 diabetes mellitus without complications (principal); I10 Essential (primary) hypertension; E78.49 Other hyperlipidemia; E55.9 Vitamin D deficiency, unspecified
CPT/HCPCS: 36415; 85025

== ENCOUNTER → 2018-05-06 12:57 | Outpatient (CLI) | payer MEDICARE, OTHER, SELFPAY | PROVIDERS: Family Provider Family Medicine Geriatric Medicine; PCP Family Medicine Geriatric Medicine; Referring Provider Nurse Practitioner Family; Visit Provider Nurse Practitioner Family | DX: I48.0 Paroxysmal atrial fibrillation (principal) | CPT/HCPCS: 93225; 93226 ==

== ENCOUNTER → 2018-05-22 13:54 | Outpatient (CLI) | payer MEDICARE, OTHER, SELFPAY ==
[2018-05-22 16:39] LABS: Absolute Lymphocyte Count 1.53 X10^3/ul (0.83-4.51); Absolute Neutrophil Count 5.4 X10^3/uL (2.0-7.7); Basophil# 0.03 X10^3/uL; Basophil% 0.4 % (0-1); Eosinophil# 0.19 X10^3/uL; Eosinophils% 2.3 % (0-5); Hemoglobin 13.3 g/dl (13.0-16.5); Lymphocyte # 1.53 X10^3/ul (4.0); Lymphocyte % 18.9 % (19-41); Mean Corp Hgb Conc 31.7 g/gl (32-36); Mean Corpuscular Hgb 32.4 pg (27.0-32.0); Mean Corpuscular Volume 102.2 fL (80-94); Mean Platelet Vol. 10.2 fl (6.2-12.0); Monocyte# 0.93 X10^3/uL; Monocyte% 11.5 % (0-10); Neutrophil # 5.41 X10^3/uL (2.7-7.7); Neutrophil % 66.7 % (47-70); Platelet Count 200 K/mm3 (150-450); RBC Distribution Width CV 14.7 % (11.6-14.6); RBC Distribution Width SD 54.5 fl (35.1-43.9); Red Blood Count 4.11 M/mm3 (4.6-6.2); White Blood Count 8.1 K/mm3 (4.4-11.0)
[2018-05-22 16:44] LABS: POSITIVE COUNT NO; POSITIVE DIFFERENTIAL NO; POSITIVE MORPHOLOGY NO
[2018-05-22 17:35] LABS: Vitamin D,25 Hydroxy 13.5 ng/mL (29.95-100.01)
[2018-05-22 17:50] LABS: ALB/GLOB Ratio 1.1 RATIO (0.9-2.4); AST(SGOT) 19 U/L (15-37); Alanine Aminotransfer ALT/SGPT 24 U/L (16-61); Albumin, Serum 3.7 g/dL (3.2-5.0); Alkaline Phosphatase 95 U/L (45-117); Anion Gap 7 (5-15); BUN 28 mg/dL (7-18); BUN/Creat Ratio 20.7 RATIO (10-20); Calcium,Total 8.7 mg/dL (8.5-10.1); Chloride 106 mmol/L (98-107); Creatinine, Serum 1.35 mg/dL (0.70-1.30); EST Glomerular Filtration Rate 55 mL/min (>60); Est Glom Filt Rate - Afr Amer 67 mL/min (>60); Globulin 3.4 g/dL (2.2-4.2); Glucose 85 mg/dL (74-106); Potassium 4.1 mmol/L (3.5-5.1); Protein, Total 7.1 g/dL (6.4-8.2); Sodium Level 139 mmol/L (136-145); Thyroid Stim Hormone (TSH) 0.92 uIU/mL (0.358-3.74)
== END ==
PROVIDERS: Family Provider Family Medicine Geriatric Medicine; PCP Family Medicine Geriatric Medicine; Visit Provider Family Medicine Geriatric Medicine
DX: I10 Essential (primary) hypertension (principal); E55.9 Vitamin D deficiency, unspecified
CPT/HCPCS: 36415; 80053; 82306; 84443; 85025

== ENCOUNTER → 2018-06-04 11:12 | Outpatient (CLI) | payer MEDICARE, OTHER, SELFPAY | PROVIDERS: Family Provider Family Medicine Geriatric Medicine; PCP Family Medicine Geriatric Medicine; Referring Provider Nurse Practitioner Family; Visit Provider Nurse Practitioner Family | DX: I48.0 Paroxysmal atrial fibrillation (principal) | CPT/HCPCS: 93225; 93226 ==

== ENCOUNTER → 2018-07-05 07:28 | Outpatient (CLI) | payer MEDICARE, OTHER, SELFPAY ==
[2018-06-24 10:13] VITALS: BMI 34.7
[2018-07-05 08:25] LABS: Anion Gap 7 (5-15); BUN 39 mg/dL (7-18); BUN/Creat Ratio 28.3 RATIO (10-20); Calcium,Total 8.9 mg/dL (8.5-10.1); Chloride 110 mmol/L (98-107); Creatinine, Serum 1.38 mg/dL (0.70-1.30); EST Glomerular Filtration Rate 54 mL/min (>60); Est Glom Filt Rate - Afr Amer 65 mL/min (>60); Glucose 149 mg/dL (74-106); Potassium 4.6 mmol/L (3.5-5.1); Sodium Level 142 mmol/L (136-145)
== END ==
PROVIDERS: Nurse Practitioner Family; Family Provider Family Medicine Geriatric Medicine; PCP Family Medicine Geriatric Medicine; Referring Provider Internal Medicine Cardiovascular Disease; Visit Provider Internal Medicine Cardiovascular Disease
DX: I48.0 Paroxysmal atrial fibrillation (principal); Z79.899 Other long term (current) drug therapy
CPT/HCPCS: 36415; 80048

== ENCOUNTER 2018-07-09 10:41 | Day surgery (SDC) | payer MEDICARE, OTHER, SELFPAY ==
[2018-06-24 10:13] VITALS: BMI 34.7
[2018-07-08 10:40] VITALS: BMI 34.7
--- NOTE | 2018-07-09 12:16 | CARDIOVERS ---
Cardioversion Cardioversion: DC cardioversion. 72-year-old man with a history of atrial flutter. The patient was brought to the catheterization lab in the postabsorptive nonsedated state. The patient was seen by Dr. Cortez of the critical care division. Informed consent was obtained. The patient was then administered 40 mg of intravenous propofol. Anterior-posterior pads were applied and 200 J of synchronized DC cardioversion energy were delivered with prompt reversal to sinus rhythm. Patient tolerated the procedure well. Conclusion: Successful DC cardioversion from atrial flutter to sinus rhythm.
--- NOTE | 2018-07-09 14:16 | PCM.OP.PRO ---
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 Aries Garg (8) History of aortic valve replacement Status: Chronic Comment: AVR with 21 mm Cuco Karimi Perimount magna valve 08/15/2012 @ [facility] per Dr. Benji Dent (9) correction current use of antiarrhythmic drug Status: Chronic (10) Occlusion and stenosis of bilateral carotid arteries Status: Chronic Procedure Report Date of Procedure: 07/09/18 - Conscious sedation CONSCIOUS SEDATION REPORT BRIEF HISTORY OF PRESENT ILLNESS: The patient is a 72-year-old male who presented to [facility] for an elective outpatient cardioversion due to underlying atrial fibrillation. The patient reports no PO intake since midnight. The patient does not have a history of obstructive sleep apnea, but reportedly does snore at baseline. The patient reports a history of smoking, but denies COPD. The patient denies any recent constitutional symptoms such as fevers, chills, nausea or vomiting. The patient denies previous anesthetic complications. Patient's last known ejection fraction was 75%. Patient's heart rate was noted to be 130 bpm PHYSICAL EXAMINATION: VITAL SIGNS: Reviewed and were acceptable. GENERAL: The patient is a male, in no apparent distress, speaking in full sentences. HEENT: Normocephalic, atraumatic. Mucous membranes are moist and pink. Good mouth opening noted. Trachea is midline. Good neck mobility. MP IV CHEST: S1, S2 irregularly irregular. No murmurs, rubs or gallops were noted. LUNGS: Wheezing noted in both lung pickett. No rales or rhonchi were appreciated. Symmetric expansion. ABDOMEN: Soft, nontender, nondistended. Positive bowel sounds. EXTREMITIES: There is no clubbing, cyanosis or edema. ASA Class: II DESCRIPTION OF PROCEDURE: After confirmation of informed consent, the patient's anesthesia plan was reviewed in detail. Propofol was chosen. Risks and benefits were reviewed and the patient agreed to proceed. At 11:38 AM, the patient was given 40 mg of propofol. The patient achieved an appropriate level of sedation and received 1 attempt synchronized cardioversion, at [address] Nelson at the bedside. This was successful in achieving normal sinus rhythm. The patient was monitored until 11:45 AM, at which time the patient reached their baseline mental status and function. The patient tolerated the procedure well. COMPLICATIONS: None ESTIMATED BLOOD LOSS: None RECOMMENDATIONS: Okay to recover in usual fashion. Code Visit 9xxxx: Other Procedure See Report - 18440 - 7 minutes conscious sedation
--- NOTE | 2018-07-09 14:19 | PRO.PCM_ITS ---
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 Aries Garg (8) History of aortic valve replacement Status: Chronic Comment: AVR with 21 mm Cuco Karimi Perimount magna valve 08/15/2012 @ [facility] per Dr. Benji Dent (9) shelter current use of antiarrhythmic drug Status: Chronic (10) Occlusion and stenosis of bilateral carotid arteries Status: Chronic Procedure Report Date of Procedure: 07/09/18 - Conscious sedation CONSCIOUS SEDATION REPORT BRIEF HISTORY OF PRESENT ILLNESS: The patient is a 72-year-old male who presented to [facility] for an elective outpatient cardioversion due to underlying atrial fibrillation. The patient reports no PO intake since midnight. The patient does not have a history of obstructive sleep apnea, but reportedly does snore at baseline. The patient reports a history of smoking, but denies COPD. The patient denies any recent constitutional symptoms such as fevers, chills, nausea or vomiting. The patient denies previous anesthetic complications. Patient's last known ejection fraction was 75%. Patient's heart rate was noted to be 130 bpm PHYSICAL EXAMINATION: VITAL SIGNS: Reviewed and were acceptable. GENERAL: The patient is a male, in no apparent distress, speaking in full sentences. HEENT: Normocephalic, atraumatic. Mucous membranes are moist and pink. Good mouth opening noted. Trachea is midline. Good neck mobility. MP IV CHEST: S1, S2 irregularly irregular. No murmurs, rubs or gallops were noted. LUNGS: Wheezing noted in both lung pickett. No rales or rhonchi were appreciated. Symmetric expansion. ABDOMEN: Soft, nontender, nondistended. Positive bowel sounds. EXTREMITIES: There is no clubbing, cyanosis or edema. ASA Class: II DESCRIPTION OF PROCEDURE: After confirmation of informed consent, the patient's anesthesia plan was reviewed in detail. Propofol was chosen. Risks and benefits were reviewed and the patient agreed to proceed. At 11:38 AM, the patient was given 40 mg of propofol. The patient achieved an appropriate level of sedation and received 1 attempt synchronized cardioversion, at [address] Nelson at the bedside. This was successful in achieving normal sinus rhythm. The patient was monitored until 11:45 AM, at which time the patient reached their baseline mental status and function. The patient tolerated the procedure well. COMPLICATIONS: None ESTIMATED BLOOD LOSS: None RECOMMENDATIONS: Okay to recover in usual fashion. Code Visit 9xxxx: Other Procedure See Report - 30111 - 7 minutes conscious sedation
== END 2018-07-09 13:10 | disposition home or self-care (01) ==
LOC: CLSP 10:43
PROVIDERS: Family Provider Family Medicine Geriatric Medicine; PCP Family Medicine Geriatric Medicine; Referring Provider Internal Medicine Cardiovascular Disease; Visit Provider Internal Medicine Cardiovascular Disease
DX: I48.0 Paroxysmal atrial fibrillation (principal); I25.10 Atherosclerotic heart disease of native coronary artery without angina pectoris; I06.0 Rheumatic aortic stenosis; I10 Essential (primary) hypertension; E78.00 Pure hypercholesterolemia, unspecified; I73.9 Peripheral vascular disease, unspecified; R94.39 Abnormal result of other cardiovascular function study; F17.200 Nicotine dependence, unspecified, uncomplicated; Z79.01 Long term (current) use of anticoagulants; Z79.82 Long term (current) use of aspirin; Z79.899 Other long term (current) drug therapy; Z95.2 Presence of prosthetic heart valve; Z85.46 Personal history of malignant neoplasm of prostate; Z92.3 Personal history of irradiation
CPT/HCPCS: 92960; 93005; J7040

== ENCOUNTER → 2018-07-16 10:16 | Outpatient (CLI) | payer MEDICARE, OTHER, SELFPAY ==
[2018-07-08 10:40] VITALS: BMI 34.7
--- NOTE | 2018-07-16 10:19 | RAD_ITS ---
STUDY: X-RAY CHEST REASON FOR EXAM: Male, 72 years old. Cough and crackles. TECHNIQUE: Frontal and lateral views of the chest. COMPARISON: 10/10/2016, 02/21/2018. FINDINGS: There is hyperexpansion consistent with COPD. Mild diffuse density in both lungs consistent with mild congestion and interstitial edema. Findings are worse on the right. Mild atelectasis or less likely infiltrate in the right lung base. Small bilateral pleural effusions. Sternal cerclage wires are present from a prior sternotomy. There is a prosthetic aortic valve. Normal mediastinum and heber. Normal visualized pulmonary arteries. Normal visualized aortic arch and descending thoracic aorta. There are diffuse degenerative changes of the visualized thoracic spine. Normal visualized ribs, clavicles, and shoulders. There is no demonstrated abnormality of the visualized soft tissue structures of the upper abdomen. RAD/Chest PA and Lateral IMPRESSION: COPD with probable mild congestion/edema, mild atelectasis in the right lung base, and small bilateral pleural effusions. Electronically Signed: Basilio Casey MD at 22:38 EDT , Service support ,
[2018-07-16 11:48] LABS: Absolute Lymphocyte Count 1.13 X10^3/ul (0.83-4.51); Absolute Neutrophil Count 6.3 X10^3/uL (2.0-7.7); Basophil# 0.02 X10^3/uL; Basophil% 0.2 % (0-1); Eosinophil# 0.08 X10^3/uL; Lymphocyte # 1.13 X10^3/ul (4.0); Lymphocyte % 13.6 % (19-41); Mean Corp Hgb Conc 31.7 g/gl (32-36); Mean Corpuscular Hgb 32.6 pg (27.0-32.0); Mean Corpuscular Volume 102.8 fL (80-94); Mean Platelet Vol. 9.8 fl (6.2-12.0); Monocyte# 0.77 X10^3/uL; Monocyte% 9.3 % (0-10); Neutrophil # 6.27 X10^3/uL (2.7-7.7); Neutrophil % 75.5 % (47-70); Platelet Count 181 K/mm3 (150-450); RBC Distribution Width CV 14.8 % (11.6-14.6); RBC Distribution Width SD 54.5 fl (35.1-43.9); Red Blood Count 3.99 M/mm3 (4.6-6.2); White Blood Count 8.3 K/mm3 (4.4-11.0)
[2018-07-16 11:50] LABS: POSITIVE COUNT NO; POSITIVE DIFFERENTIAL NO; POSITIVE MORPHOLOGY NO
[2018-07-16 12:38] LABS: Anion Gap 4 (5-15); BUN 32 mg/dL (7-18); Calcium,Total 8.6 mg/dL (8.5-10.1); Chloride 109 mmol/L (98-107); Creatinine, Serum 1.28 mg/dL (0.70-1.30); EST Glomerular Filtration Rate 59 mL/min (>60); Est Glom Filt Rate - Afr Amer 71 mL/min (>60); Glucose 105 mg/dL (74-106); Potassium 4.7 mmol/L (3.5-5.1); Sodium Level 141 mmol/L (136-145)
[2018-07-16 12:47] LABS: BNP,B-Type NATRIURETIC PEPTIDE 834.4 pg/mL (0-100)
== END ==
PROVIDERS: Family Provider Family Medicine Geriatric Medicine; PCP Family Medicine Geriatric Medicine; Referring Provider Nurse Practitioner Family; Visit Provider Nurse Practitioner Family
DX: I10 Essential (primary) hypertension (principal); R06.09 Other forms of dyspnea; R53.83 Other fatigue; I48.0 Paroxysmal atrial fibrillation; R05 Cough; Z95.2 Presence of prosthetic heart valve
CPT/HCPCS: 36415; 71046; 80048; 83880; 85025

== ENCOUNTER → 2018-09-12 09:47 | Outpatient (CLI) | payer MEDICARE, OTHER, SELFPAY ==
[2018-07-08 10:40] VITALS: BMI 34.7
[2018-09-09 10:01] VITALS: BMI 34.9
--- NOTE | 2018-09-12 09:49 | CDU_ITS ---
Reason For Study: carotid stenosis Rt. Velocities/BP Lt. Velocities/BP Prox CCA 88.2/9.7 cm/sec. Prox CCA 169.6/18.2 cm/sec. Mid CCA 82.7/13.3 cm/sec. Mid CCA 147.7/16.0. cm/sec. Dist CCA 55.6/13.9 cm/sec. Dist CCA 127.9/27.0 cm/sec. Prox ICA 97.4/20.6 cm/sec. Prox ICA 171.8/42.4 cm/sec. Mid ICA 152.1/35.8 cm/sec. Mid ICA 189.4/51.1 cm/sec. Dist ICA 136.8/31.4 cm/sec. Dist ICA 93.7/26.1 cm/sec. Rt. ICA/CCA = 1.8. Lt. ICA/CCA = 1.3. Prox ECA 99.2/11.5 cm/sec. Prox ECA 167.4/16.0 cm/sec. Rt. Vert. 143.3/20.4 cm/sec. Right Extracranial There is heterogeneous, irregular atherosclerotic plaque noted in the right common carotid artery. There is heterogeneous, irregular atherosclerotic plaque noted in the right internal carotid artery. There is heterogeneous, irregular atherosclerotic plaque noted in the right external carotid artery. Antegrade flow is noted in the right vertebral artery. Left Extracranial There is heterogeneous, irregular atherosclerotic plaque noted in the left common carotid artery. There is heterogeneous, irregular atherosclerotic plaque noted in the left internal carotid artery. There is heterogeneous, irregular atherosclerotic plaque noted in the left external carotid artery. Retrograde flow noted in the left vertebral artery. Procedure Carotid Duplex [id number]. The exam was diagnostic. Exam performed in department. Interpretation Summary Moderate (50-69%) stenosis right extracranial internal carotid. Moderate (50-69%) stenosis left extracranial internal carotid. Flow within the right verterbral artery is antegrade. Flow within the left verterbral artery is retrograde, consistent with a subclavian steal phenomenon. Ordering Physician: Aries Garg Performed By: Asif Irvin RVT
== END ==
PROVIDERS: Family Provider Family Medicine Geriatric Medicine; PCP Family Medicine Geriatric Medicine; Referring Provider Surgery Vascular Surgery; Visit Provider Surgery Vascular Surgery
DX: I65.23 Occlusion and stenosis of bilateral carotid arteries (principal); I10 Essential (primary) hypertension; Z87.891 Personal history of nicotine dependence
CPT/HCPCS: 93880

== ENCOUNTER → 2018-11-11 09:49 | Outpatient (CLI) | payer MEDICARE, OTHER, SELFPAY ==
[2018-09-09 10:01] VITALS: BMI 34.9
--- NOTE | 2018-11-11 09:52 | RAD_ITS ---
STUDY: X-RAY CHEST REASON FOR EXAM: Male, 73 years old. Shortness of breath TECHNIQUE: Frontal and lateral views of the chest COMPARISON: None. FINDINGS: There are mild congestive changes noted. The lungs are otherwise clear. There are no pleural effusions. There is no pneumothorax. The heart is enlarged. The patient is status post sternotomy. The visualized osseous structures are within normal limits. RAD/Chest PA and Lateral IMPRESSION: Cardiomegaly with mild pulmonary vascular congestion. Electronically Signed: Xavier Milian, at 17:05 EDT Tel , Service support ,
[2018-11-11 11:11] LABS: PSA,Total- Diagnostic 4.04 ng/mL (0.0-4.0)
[2018-11-11 12:07] LABS: BNP,B-Type NATRIURETIC PEPTIDE 580.8 pg/mL (0-100)
== END ==
PROVIDERS: Family Provider Family Medicine Geriatric Medicine; PCP Family Medicine Geriatric Medicine; Referring Provider Nurse Practitioner Family; Visit Provider Nurse Practitioner Family
DX: I25.10 Atherosclerotic heart disease of native coronary artery without angina pectoris (principal); I48.0 Paroxysmal atrial fibrillation; R06.09 Other forms of dyspnea; R97.20 Elevated prostate specific antigen [PSA]
CPT/HCPCS: 36415; 71046; 83880; 84153

== ENCOUNTER → 2018-11-26 10:50 | Outpatient (CLI) | payer MEDICARE, OTHER, SELFPAY ==
[2018-09-09 10:01] VITALS: BMI 34.9
[2018-11-26 12:44] LABS: Absolute Lymphocyte Count 1.41 X10^3/uL (0.83-4.51); Absolute Neutrophil Count 5.4 X10^3/uL (2.0-7.7); Basophil# 0.03 X10^3/uL; Basophil% 0.4 % (0-1); Eosinophil# 0.11 X10^3/uL; Eosinophils% 1.4 % (0-5); Hematocrit 39.4 % (40-54); Hemoglobin 12.4 g/dL (13.0-16.5); Lymphocyte # 1.41 X10^3/ul (4.0); Lymphocyte % 18.1 % (19-41); Mean Corp Hgb Conc 31.5 g/dL (32-36); Mean Corpuscular Hgb 33.2 pg (27.0-32.0); Mean Corpuscular Volume 105.6 fL (80-94); Monocyte# 0.82 X10^3/uL; Monocyte% 10.5 % (0-10); NRBC Flagged by Analyzer 0 % (0-5); Neutrophil # 5.37 X10^3/uL (2.7-7.7); Platelet Count 196 K/mm3 (150-450); RBC Distribution Width CV 13.2 % (11.6-14.6); RBC Distribution Width SD 51.8 fl (35.1-43.9); Red Blood Count 3.73 M/mm3 (4.6-6.2); White Blood Count 7.8 K/mm3 (4.4-11.0)
[2018-11-26 13:06] LABS: Vitamin D,25 Hydroxy 26.4 ng/mL (29.95-100.01)
[2018-11-26 13:27] LABS: ALB/GLOB Ratio 1.1 RATIO (0.9-2.4); AST(SGOT) 18 U/L (15-37); Alanine Aminotransfer ALT/SGPT 20 U/L (16-61); Albumin, Serum 3.7 g/dL (3.2-5.0); Alkaline Phosphatase 88 U/L (45-117); Anion Gap 7 (5-15); BUN 39 mg/dL (7-18); BUN/Creat Ratio 27.5 RATIO (10-20); Calcium,Total 8.8 mg/dL (8.5-10.1); Chloride 110 mmol/L (98-107); Creatinine, Serum 1.42 mg/dL (0.70-1.30); EST Glomerular Filtration Rate 52 mL/min (>60); Est Glom Filt Rate - Afr Amer 63 mL/min (>60); Globulin 3.4 g/dL (2.2-4.2); Glucose 87 mg/dL (74-106); Potassium 4.7 mmol/L (3.5-5.1); Protein, Total 7.1 g/dL (6.4-8.2); Sodium Level 142 mmol/L (136-145); Thyroid Stim Hormone (TSH) 0.64 uIU/mL (0.358-3.74)
== END ==
PROVIDERS: Family Provider Family Medicine Geriatric Medicine; PCP Family Medicine Geriatric Medicine; Visit Provider Family Medicine Geriatric Medicine
DX: I10 Essential (primary) hypertension (principal); E55.9 Vitamin D deficiency, unspecified
CPT/HCPCS: 36415; 80053; 82306; 84443; 85025

== ENCOUNTER → 2019-03-30 09:31 | Outpatient (CLI) | payer MEDICARE, OTHER, SELFPAY ==
[2019-03-12 10:47] VITALS: BMI 34.9
--- NOTE | 2019-03-30 16:24 | PFTCOMP_ITS ---
COMPLETE PULMONARY FUNCTION TEST INTERPRETATION Brief HPI: Patient is a 78 year old male, currently under the care of Geovanna Magallanes, who presents to [facility] for complete pulmonary function tests secondary to diagnosis of A. fib. Respiratory therapist reports good effort and reproducible results. Interpretation: Forced expiration spirometry shows a mild large airways obstructive ventilatory defect with an FEV1 of 87% predicted. There is no significant bronchodilator response by strict ATS criteria. Spirograms are of good quality and plateau slowly, indicating slowly emptying areas of the lungs. The respiratory flow volume loop shows decreased expiratory flow rates at all lung volumes consistent with airway obstruction. Lung volumes by body plethysmography show a normal total lung capacity at 5.52 L, 105% predicted. All other lung volumes are within normal limits. Diffusion capacity by carbon monoxide is decreased at 53% predicted. The airway resistance is normal. No previous pulmonary function tests were available for review. Impression: Irreversible mild large airways obstructive ventilatory defect with a decrease in DLCO that is out of proportion.
== END ==
PROVIDERS: PCP Family Medicine Geriatric Medicine; Referring Provider Physician Assistant Medical; Visit Provider Physician Assistant Medical
DX: I48.0 Paroxysmal atrial fibrillation (principal); I48.92 Unspecified atrial flutter
CPT/HCPCS: 94060; 94726; 94729

== ENCOUNTER → 2019-07-20 07:44 | Outpatient (CLI) | payer MEDICARE, OTHER, SELFPAY ==
[2019-03-12 10:47] VITALS: BMI 34.9
[2019-07-20 08:47] LABS: PSA,Total- Diagnostic 1.93 ng/mL (0.0-4.0)
== END ==
PROVIDERS: PCP Family Medicine Geriatric Medicine; Referring Provider Urology; Visit Provider Urology
DX: C61 Malignant neoplasm of prostate (principal)
CPT/HCPCS: 36415; 84153

== ENCOUNTER → 2019-07-27 11:09 | Outpatient (CLI) | payer MEDICARE, OTHER, SELFPAY ==
[2019-03-12 10:47] VITALS: BMI 34.9
[2019-07-27 11:39] LABS: Anion Gap 7 (5-15); BUN 44 mg/dL (7-18); BUN/Creat Ratio 30.6 RATIO (10-20); Calcium,Total 9.2 mg/dL (8.5-10.1); Chloride 109 mmol/L (98-107); Creatinine, Serum 1.44 mg/dL (0.70-1.30); EST Glomerular Filtration Rate 51 mL/min (>60); Est Glom Filt Rate - Afr Amer 62 mL/min (>60); Glucose 101 mg/dL (74-106); Potassium 5.2 mmol/L (3.5-5.1); Sodium Level 138 mmol/L (136-145)
== END ==
PROVIDERS: PCP Family Medicine Geriatric Medicine; Referring Provider Internal Medicine Cardiovascular Disease; Visit Provider Internal Medicine Cardiovascular Disease
DX: I10 Essential (primary) hypertension (principal); I25.10 Atherosclerotic heart disease of native coronary artery without angina pectoris; I48.0 Paroxysmal atrial fibrillation; I48.92 Unspecified atrial flutter; Z95.2 Presence of prosthetic heart valve
CPT/HCPCS: 36415; 80048

== ENCOUNTER → 2019-08-06 10:15 | Outpatient (CLI) | payer MEDICARE, OTHER, SELFPAY ==
[2019-03-12 10:47] VITALS: BMI 34.9
[2019-08-06 12:29] LABS: Absolute Lymphocyte Count 1.77 X10^3/uL (0.83-4.51); Absolute Neutrophil Count 7.3 X10^3/uL (2.0-7.7); Basophil# 0.04 X10^3/uL; Basophil% 0.4 % (0-1); Eosinophil# 0.16 X10^3/uL; Eosinophils% 1.5 % (0-5); Hematocrit 35.7 % (40-54); Hemoglobin 11.5 g/dL (13.0-16.5); Lymphocyte # 1.77 X10^3/ul (4.0); Mean Corp Hgb Conc 32.2 g/dL (32-36); Mean Corpuscular Hgb 33.5 pg (27.0-32.0); Mean Corpuscular Volume 104.1 fL (80-94); Mean Platelet Vol. 10.6 fl (6.2-12.0); Monocyte# 1.04 X10^3/uL; NRBC Flagged by Analyzer 0 % (0-5); Neutrophil # 7.32 X10^3/uL (2.7-7.7); Neutrophil % 70.5 % (47-70); Platelet Count 187 K/mm3 (150-450); RBC Distribution Width CV 13.2 % (11.6-14.6); Red Blood Count 3.43 M/mm3 (4.6-6.2); White Blood Count 10.4 K/mm3 (4.4-11.0)
[2019-08-06 12:41] LABS: Vitamin D,25 Hydroxy 31.6 ng/mL
[2019-08-06 12:56] LABS: ALB/GLOB Ratio 1.2 RATIO (0.9-2.4); AST(SGOT) 17 U/L (15-37); Alanine Aminotransfer ALT/SGPT 24 U/L (16-61); Albumin, Serum 3.8 g/dL (3.2-5.0); Alkaline Phosphatase 78 U/L (45-117); Anion Gap 6 (5-15); BUN 50 mg/dL (7-18); BUN/Creat Ratio 34.5 RATIO (10-20); Calcium,Total 9.1 mg/dL (8.5-10.1); Chloride 108 mmol/L (98-107); Creatinine, Serum 1.45 mg/dL (0.70-1.30); EST Glomerular Filtration Rate 51 mL/min (>60); Est Glom Filt Rate - Afr Amer 61 mL/min (>60); Globulin 3.3 g/dL (2.2-4.2); Glucose 94 mg/dL (74-106); Potassium 5.9 mmol/L (3.5-5.1); Protein, Total 7.1 g/dL (6.4-8.2); Sodium Level 138 mmol/L (136-145); Thyroid Stim Hormone (TSH) 0.77 uIU/mL (0.358-3.74)
== END ==
PROVIDERS: PCP Family Medicine Geriatric Medicine; Visit Provider Family Medicine Geriatric Medicine
DX: I10 Essential (primary) hypertension (principal); E55.9 Vitamin D deficiency, unspecified
CPT/HCPCS: 36415; 80053; 82306; 84443; 85025

== ENCOUNTER → 2019-08-08 15:05 | Outpatient (CLI) | payer MEDICARE, OTHER, SELFPAY ==
[2019-03-12 10:47] VITALS: BMI 34.9
[2019-08-08 15:49] LABS: Anion Gap 8 (5-15); BUN 56 mg/dL (7-18); BUN/Creat Ratio 26.9 RATIO (10-20); Calcium,Total 9.1 mg/dL (8.5-10.1); Chloride 109 mmol/L (98-107); Creatinine, Serum 2.08 mg/dL (0.70-1.30); EST Glomerular Filtration Rate 34 mL/min (>60); Est Glom Filt Rate - Afr Amer 41 mL/min (>60); Glucose 98 mg/dL (74-106); Potassium 4.8 mmol/L (3.5-5.1); Sodium Level 141 mmol/L (136-145)
== END ==
PROVIDERS: PCP Family Medicine Geriatric Medicine; Visit Provider Family Medicine Geriatric Medicine
DX: E87.5 Hyperkalemia (principal)
CPT/HCPCS: 36415; 80048

== ENCOUNTER → 2019-08-10 16:50 | Outpatient (CLI) | payer MEDICARE, OTHER, SELFPAY ==
[2019-03-12 10:47] VITALS: BMI 34.9
[2019-08-10 17:08] LABS: Absolute Lymphocyte Count 1.12 X10^3/uL (0.83-4.51); Absolute Neutrophil Count 5.5 X10^3/uL (2.0-7.7); Basophil# 0.02 X10^3/uL; Basophil% 0.3 % (0-1); Eosinophil# 0.11 X10^3/uL; Eosinophils% 1.5 % (0-5); Hematocrit 34.5 % (40-54); Hemoglobin 11.1 g/dL (13.0-16.5); Lymphocyte # 1.12 X10^3/ul (4.0); Lymphocyte % 14.8 % (19-41); Mean Corp Hgb Conc 32.2 g/dL (32-36); Mean Corpuscular Hgb 32.9 pg (27.0-32.0); Mean Corpuscular Volume 102.4 fL (80-94); Mean Platelet Vol. 10.2 fl (6.2-12.0); Monocyte# 0.83 X10^3/uL; Monocyte% 10.9 % (0-10); NRBC Flagged by Analyzer 0 % (0-5); Neutrophil # 5.47 X10^3/uL (2.7-7.7); Neutrophil % 72.1 % (47-70); Platelet Count 198 K/mm3 (150-450); RBC Distribution Width CV 12.9 % (11.6-14.6); Red Blood Count 3.37 M/mm3 (4.6-6.2); White Blood Count 7.6 K/mm3 (4.4-11.0)
[2019-08-10 19:10] LABS: Anion Gap 7 (5-15); BUN 55 mg/dL (7-18); BUN/Creat Ratio 22.4 RATIO (10-20); Calcium,Total 8.5 mg/dL (8.5-10.1); Chloride 108 mmol/L (98-107); Creatinine, Serum 2.45 mg/dL (0.70-1.30); EST Glomerular Filtration Rate 28 mL/min (>60); Est Glom Filt Rate - Afr Amer 34 mL/min (>60); Ferritin 257 ng/mL (26-388); Glucose 79 mg/dL (74-106); Iron 89 ug/dL (65-175); Iron Binding Capacity,Total 355 ug/dL (250-450); Potassium 5.2 mmol/L (3.5-5.1); Sodium Level 139 mmol/L (136-145)
== END ==
PROVIDERS: PCP Family Medicine Geriatric Medicine; Visit Provider Family Medicine Geriatric Medicine
DX: N17.0 Acute kidney failure with tubular necrosis (principal); D64.9 Anemia, unspecified
CPT/HCPCS: 36415; 80048; 82728; 82746; 83540; 83550; 85025

== ENCOUNTER → 2019-08-11 10:13 | Outpatient (CLI) | payer MEDICARE, OTHER, SELFPAY ==
[2019-03-12 10:47] VITALS: BMI 34.9
--- NOTE | 2019-08-11 10:31 | US_ITS ---
STUDY: RENAL ULTRASOUND - COMPLETE REASON FOR EXAM: Male, 73 years old. ABNORMAL RENAL FUNCTION TECHNIQUE: Ultrasound evaluation of the kidneys was performed with real-time and static ocampo-scale imaging. COMPARISON: None. FINDINGS: RIGHT KIDNEY: Normal location of the right kidney, which is normal in size. The right kidney measures 8.7 cm x 4.9 cm x 4.6 cm. There is a normal cortex of the right kidney. The renal cortex measures 1.4 cm. There is a 1.5 cm x 1.2 cm renal cyst. There are no right renal calculi. There is no right hydronephrosis. DISTAL RIGHT URETER: There is non-visualization of the distal right ureter. There is no demonstrated right ureterovesical junction calculus. There is no demonstrated right ureteral jet. LEFT KIDNEY: Normal location of the left kidney, which is normal in size. The left kidney measures 9.9 cm x 5.9 cm x 5.7 cm. There is a normal cortex of the left kidney. The renal cortex measures 1.6 cm. There is no left renal mass or cyst. Findings suggestive of a 5 mm x 4 mm nonobstructive intrarenal calculus. There is no left hydronephrosis. DISTAL LEFT URETER: There is non-visualization of the distal left ureter. There is no demonstrated left ureterovesical junction calculus. There is no demonstrated left ureteral jet. BLADDER: The bladder was not evaluated. The bladder was not adequately distended. US/Kidney and Bladder IMPRESSION: Small right renal cyst. Nonobstructive left intrarenal calculus. Electronically Signed: Jorge A Sierra, at 12:24 EDT , Service support ,
[2019-08-11 13:31] LABS: Anion Gap 6 (5-15); BUN 53 mg/dL (7-18); BUN/Creat Ratio 29.4 RATIO (10-20); Calcium,Total 8.2 mg/dL (8.5-10.1); Chloride 114 mmol/L (98-107); EST Glomerular Filtration Rate 40 mL/min (>60); Est Glom Filt Rate - Afr Amer 48 mL/min (>60); Glucose 82 mg/dL (74-106); Potassium 5.6 mmol/L (3.5-5.1); Sodium Level 142 mmol/L (136-145)
== END ==
PROVIDERS: PCP Family Medicine Geriatric Medicine; Referring Provider Family Medicine Geriatric Medicine; Visit Provider Family Medicine Geriatric Medicine
DX: R94.4 Abnormal results of kidney function studies (principal)
CPT/HCPCS: 36415; 76770; 80048

== ENCOUNTER → 2019-08-12 11:38 | Outpatient (CLI) | payer MEDICARE, OTHER, SELFPAY ==
[2019-03-12 10:47] VITALS: BMI 34.9
[2019-08-12 12:33] LABS: Albumin, Serum 3.6 g/dL (3.2-5.0); BUN 37 mg/dL (7-18); BUN/Creat Ratio 28.2 RATIO (10-20); Calcium,Total 8.5 mg/dL (8.5-10.1); Chloride 111 mmol/L (98-107); Creatinine, Serum 1.31 mg/dL (0.70-1.30); EST Glomerular Filtration Rate 57 mL/min (>60); Est Glom Filt Rate - Afr Amer 69 mL/min (>60); Glucose 88 mg/dL (74-106); Phosphorus 2.9 mg/dL (2.5-4.9); Potassium 5.1 mmol/L (3.5-5.1); Sodium Level 140 mmol/L (136-145)
[2019-08-17 16:07] LABS: Alpha-2-Globulins, Ur 24.2 % (.); Gamma Globulin, Ur 14.9 % (.); M-Spike, Ur % Not Observed % (Not Observed)
== END ==
PROVIDERS: PCP Family Medicine Geriatric Medicine; Visit Provider Internal Medicine Nephrology
DX: N17.9 Acute kidney failure, unspecified (principal); N18.3 Chronic kidney disease, stage 3 (moderate)
CPT/HCPCS: 36415; 80069; 84166; 86335

== ENCOUNTER → 2019-08-21 08:49 | Outpatient (CLI) | payer MEDICARE, OTHER, SELFPAY ==
[2019-03-12 10:47] VITALS: BMI 34.9
--- NOTE | 2019-08-21 08:54 | RDU_ITS ---
Reason For Study: Chronic kidney disease Right Renal Artery Left Renal Artery Right renal artery ostium Left renal artery ostium 132.9/18.9 137.3/23.3 RSV/EDV. PSV/EDV. Right renal artery proximal Left renal artery proximal PSV/EDV 126.4/14.5 PSV/EDV. 132.9/16.7 . Right renal artery mid 106.7/14.5 Left renal artery mid 86.8/15.4 PSV/EDV. PSV/EDV . Right renal artery distal Left renal artery distal 103.8/13.8 122.1/16.7 PSV/EDV. PSV/EDV. Right RAR 1.81. Left RAR 1.75. Right Renal Parenchyma Left Renal Parenchyma Upper Pole Medula 32.3/5.3 PSV/EDV. Left upper pole medulla 39.2/8.1 Right upper pole medulla EDR 0.16 . PSV/EDV . Right upper pole medulla R.I. Left upper pole medulla EDR 0.21 . 0.84 . Left upper pole medulla R.I. 0.79 . Upper Sarmad Cortx 25.5/4.7 PSV/EDV. UP Cortex 25.5/7.2 PSV/EDV. Right upper pole cortex EDR 0.18 . Left upper pole cortex EDR 0.28 . Right upper pole cortex R.I. 0.82 . Left upper pole cortex R.I. 0.72 . Right lower Pole medulla 28/5.3 Left lower Pole medulla 32.4/7.1 PSV/EDV . PSV/EDV . Right lower pole medulla EDR 0.19 . Left lower pole medulla EDR 0.22 . Right lower pole medulla R.I. Left lower pole medulla R.I. 0.78 . 0.81 . Lower Pole Cortx 17/3.8 PSV/EDV. Lower Pole Cortex 23.7/4.1 PSV/EDV. Left lower pole cortex EDR 0.22 . Right lower pole cortex EDR 0.17 . Left lower pole cortex R.I. 0.78 . Right lower pole cortex R.I. 0.83 . Left Renal Hilar Right Renal Hilar LT Hilar avg 43.7/10.9 PSV/EDV . Right Hilar avg 56.3/6.5 PSV/EDV. Left hilar acceleration time 30 Right hilar acceleration time 50 m/sec. m/sec. Left Renal Dimensions Right Renal Dimensions Left kidney size 9.81 cm . Right kidney size 9.38 cm . Left cortical dimension 1.68 cm . Right cortical dimension 1.49 cm . Aorta Proximal abdominal aorta 1.64 x 1.73 cm . Proximal abdominal aorta peak systolic velocity is 76 cm/sec . Distal abdominal aorta 1.43 x 1.41 cm . Distal abdominal aorta peak systolic velocity is 130.8 cm/sec . Interpretation Summary Dimensions of the intra-abdominal aorta appear normal, without evidence of aneurysmal dilatation. Renal artery velocities are bilaterally normal. Acceleration times are normal bilaterally. Renal- aortic ratios are also bilaterally normal. There is no evidence of hemodynamically significant renal artery stenosis on either side. Renovascular resistance appears to be bilaterally elevated . The right cortical dimension is normal. The left cortical dimension is increased. Kidneys appear normal in size bilaterally. Ordering Physician: Elena Yang Referring Physician: Dave Fajardo Chi Performed By: Mahi Blum RVT
== END ==
PROVIDERS: PCP Family Medicine Geriatric Medicine; Referring Provider Internal Medicine Nephrology; Visit Provider Internal Medicine Nephrology
DX: N18.3 Chronic kidney disease, stage 3 (moderate) (principal)
CPT/HCPCS: 93975

== ENCOUNTER → 2019-09-09 07:37 | Outpatient (CLI) | payer MEDICARE, OTHER, SELFPAY ==
[2019-03-12 10:47] VITALS: BMI 34.9
[2019-09-09 09:00] LABS: Albumin, Serum 3.8 g/dL (3.2-5.0); BUN 26 mg/dL (7-18); Calcium,Total 8.8 mg/dL (8.5-10.1); Chloride 111 mmol/L (98-107); Creatinine, Serum 1.18 mg/dL (0.70-1.30); EST Glomerular Filtration Rate 64 mL/min (>60); Est Glom Filt Rate - Afr Amer 78 mL/min (>60); Glucose 94 mg/dL (74-106); Phosphorus 2.8 mg/dL (2.5-4.9); Potassium 4.2 mmol/L (3.5-5.1); Sodium Level 141 mmol/L (136-145)
== END ==
PROVIDERS: PCP Family Medicine Geriatric Medicine; Referring Provider Internal Medicine Nephrology; Visit Provider Internal Medicine Nephrology
DX: N17.9 Acute kidney failure, unspecified (principal)
CPT/HCPCS: 36415; 80069

== ENCOUNTER → 2019-10-15 09:13 | Outpatient (CLI) | payer MEDICARE, OTHER, SELFPAY ==
[2019-10-08 13:46] VITALS: BMI 33.6
== END ==
PROVIDERS: PCP Family Medicine Geriatric Medicine; Referring Provider Internal Medicine Cardiovascular Disease; Visit Provider Internal Medicine Cardiovascular Disease
DX: I48.0 Paroxysmal atrial fibrillation (principal)
CPT/HCPCS: 93225; 93226

== ENCOUNTER → 2019-11-30 09:58 | Outpatient (CLI) | payer MEDICARE, OTHER, SELFPAY ==
[2019-11-30 12:20] LABS: Absolute Lymphocyte Count 2.06 X10^3/uL (0.83-4.51); Absolute Neutrophil Count 5.1 X10^3/uL (2.0-7.7); Basophil# 0.03 X10^3/uL; Basophil% 0.4 % (0-1); Eosinophil# 0.12 X10^3/uL; Eosinophils% 1.5 % (0-5); Hematocrit 41.3 % (40-54); Hemoglobin 13.1 g/dL (13.0-16.5); Lymphocyte # 2.06 X10^3/ul (4.0); Mean Corp Hgb Conc 31.7 g/dL (32-36); Mean Corpuscular Volume 100.7 fL (80-94); Mean Platelet Vol. 10.7 fl (6.2-12.0); Monocyte# 0.85 X10^3/uL; Monocyte% 10.3 % (0-10); NRBC Flagged by Analyzer 0 % (0-5); Neutrophil # 5.14 X10^3/uL (2.7-7.7); Neutrophil % 62.4 % (47-70); Platelet Count 224 K/mm3 (150-450); RBC Distribution Width CV 12.6 % (11.6-14.6); RBC Distribution Width SD 46.9 fl (35.1-43.9); White Blood Count 8.2 K/mm3 (4.4-11.0)
[2019-11-30 12:28] LABS: Vitamin D,25 Hydroxy 25.1 ng/mL
[2019-11-30 12:39] LABS: ALB/GLOB Ratio 1.1 RATIO (0.9-2.4); AST(SGOT) 22 U/L (15-37); Alanine Aminotransfer ALT/SGPT 23 U/L (16-61); Albumin, Serum 3.7 g/dL (3.2-5.0); Alkaline Phosphatase 97 U/L (45-117); Anion Gap 8 (5-15); BUN 29 mg/dL (7-18); BUN/Creat Ratio 23.6 RATIO (10-20); Calcium,Total 8.6 mg/dL (8.5-10.1); Chloride 105 mmol/L (98-107); Creatinine, Serum 1.23 mg/dL (0.70-1.30); EST Glomerular Filtration Rate 61 mL/min (>60); Est Glom Filt Rate - Afr Amer 74 mL/min (>60); Globulin 3.5 g/dL (2.2-4.2); Glucose 71 mg/dL (74-106); Potassium 4.2 mmol/L (3.5-5.1); Protein, Total 7.2 g/dL (6.4-8.2); Sodium Level 139 mmol/L (136-145); Thyroid Stim Hormone (TSH) 0.41 uIU/mL (0.358-3.74)
== END ==
LOC: POLAB3 06-02 00:17
PROVIDERS: PCP Family Medicine Geriatric Medicine; Visit Provider Family Medicine Geriatric Medicine
DX: I10 Essential (primary) hypertension (principal); E55.9 Vitamin D deficiency, unspecified
CPT/HCPCS: 36415; 80053; 82306; 84443; 85025

== ENCOUNTER → 2019-12-21 08:18 | Outpatient (CLI) | payer MEDICARE, OTHER, SELFPAY ==
[2019-10-08 13:46] VITALS: BMI 33.6
[2019-12-21 09:36] LABS: Albumin, Serum 3.7 g/dL (3.2-5.0); BUN 27 mg/dL (7-18); BUN/Creat Ratio 22.1 RATIO (10-20); Calcium,Total 9.1 mg/dL (8.5-10.1); Chloride 111 mmol/L (98-107); Creatinine, Serum 1.22 mg/dL (0.70-1.30); EST Glomerular Filtration Rate 62 mL/min (>60); Est Glom Filt Rate - Afr Amer 75 mL/min (>60); Glucose 104 mg/dL (74-106); Phosphorus 3.1 mg/dL (2.5-4.9); Potassium 4.3 mmol/L (3.5-5.1); Sodium Level 144 mmol/L (136-145)
== END ==
PROVIDERS: PCP Family Medicine Geriatric Medicine; Referring Provider Internal Medicine Nephrology; Visit Provider Internal Medicine Nephrology
DX: N18.30 Chronic kidney disease, stage 3 unspecified (principal)
CPT/HCPCS: 36415; 80069

== ENCOUNTER → 2019-12-25 08:49 | Outpatient (CLI) | payer MEDICARE, OTHER, SELFPAY ==
[2019-10-08 13:46] VITALS: BMI 33.6
--- NOTE | 2019-12-25 08:52 | CDU_ITS ---
Reason For Study: Carotid stenosis Rt. Velocities/BP Lt. Velocities/BP Prox CCA 87.7/14.7 cm/sec. Prox CCA 125.1/24.1 cm/sec. Mid CCA 86.4/22.6 cm/sec. Mid CCA 151/24.1 cm/sec. Dist CCA 70.8/13.4 cm/sec. Dist CCA 122.5/24.1 cm/sec. Prox ICA 104.7/26.7 cm/sec. Prox ICA 172.5/45.6 cm/sec. Mid ICA 160.9/35.8 cm/sec. Mid ICA 157/45.6 cm/sec. Dist ICA 90.7/20.4 cm/sec. Dist ICA 114.8/24.1 cm/sec. Rt. ICA/CCA = 1.86. Lt. ICA/CCA = 1.38. Prox ECA 44.7/6 cm/sec. Prox ECA 197.6/26.7 cm/sec. Rt. Vert. 284/38.3 cm/sec. Right Extracranial There is heterogeneous, irregular atherosclerotic plaque noted in the right common carotid artery. There is heterogeneous, irregular atherosclerotic plaque noted in the right internal carotid artery. There is heterogeneous, irregular atherosclerotic plaque noted in the right external carotid artery. Antegrade flow is noted in the right vertebral artery. Left Extracranial There is heterogeneous, irregular atherosclerotic plaque noted in the left common carotid artery. There is heterogeneous, irregular atherosclerotic plaque noted in the left internal carotid artery. There is heterogeneous, irregular atherosclerotic plaque noted in the left external carotid artery. Retrograde flow noted in the left vertebral artery. Procedure Carotid Duplex [id number]. This is a Carotid Duplex examination using B-mode, color flow and specral Doppler. Exam performed in department. Interpretation Summary Moderate (50-69%) stenosis right extracranial internal carotid. Moderate (50-69%) stenosis left extracranial internal carotid. Flow within the left verterbral artery is retrograde, consistent with a subclavian steal phenomenon. Ordering Physician: Aries Garg Referring Physician: Dave Fajardo Chi Performed By: Mahi Blum RVT
== END ==
PROVIDERS: PCP Family Medicine Geriatric Medicine; Referring Provider Surgery Vascular Surgery; Visit Provider Surgery Vascular Surgery
DX: I65.23 Occlusion and stenosis of bilateral carotid arteries (principal); G45.8 Other transient cerebral ischemic attacks and related syndromes
CPT/HCPCS: 93880

== ENCOUNTER → 2020-01-13 09:19 | Outpatient (CLI) | payer MEDICARE, OTHER, SELFPAY ==
[2020-01-12 08:38] VITALS: BMI 33.7
[2020-01-13 10:53] LABS: PSA,Total- Diagnostic 1.18 ng/mL (0.0-4.0)
== END ==
PROVIDERS: PCP Family Medicine Geriatric Medicine; Referring Provider Urology; Visit Provider Urology
DX: C61 Malignant neoplasm of prostate (principal)
CPT/HCPCS: 36415; 84153

== ENCOUNTER → 2020-02-16 18:05 | Outpatient (CLI) | payer MEDICARE, OTHER, SELFPAY ==
[2020-01-12 08:38] VITALS: BMI 33.7
== END ==
PROVIDERS: PCP Family Medicine Geriatric Medicine; Referring Provider Family Medicine Geriatric Medicine; Visit Provider Family Medicine Geriatric Medicine
DX: R68.83 Chills (without fever) (principal)
CPT/HCPCS: 87633; 87635; C9803; U0002

== ENCOUNTER 2020-04-14 14:41 | Outpatient (RCR) | payer MEDICARE, OTHER, SELFPAY ==
[2020-01-12 08:38] VITALS: BMI 33.7
[2020-04-14] MEDS: COVID-19 VACC, MRNA(PFIZER)/PF 30 MCG/0.3 ML SYRINGE IM (11:38)
[2020-05-05] MEDS: COVID-19 VACC, MRNA(PFIZER)/PF 30 MCG/0.3 ML SYRINGE IM (07:15)
== END 2020-04-14 23:59 ==
LOC: IMMUN 14:41
PROVIDERS: PCP Family Medicine Geriatric Medicine; Visit Provider Family Medicine
DX: Z23 Encounter for immunization (principal)
CPT/HCPCS: 0001A; 0002A

== ENCOUNTER → 2020-05-26 12:20 | Outpatient (CLI) | payer MEDICARE, OTHER, SELFPAY ==
[2020-01-12 08:38] VITALS: BMI 33.7
--- NOTE | 2020-05-26 12:26 | RAD_ITS ---
STUDY: X-RAY CHEST REASON FOR EXAM: Male, 74 years old. CONGESTION OF MUCOSA . Cough. TECHNIQUE: PA and lateral views of the chest. COMPARISON: Comparison is made with prior examination dated 11/11/2018. FINDINGS: The lungs are clear and expanded. There is no demonstrated pleural abnormality. Sternal cerclage wires are present from a prior sternotomy. The patient is status post aortic valve replacement. Borderline cardiomegaly. Normal mediastinum and heber. Normal visualized pulmonary arteries. Normal visualized aortic arch and descending thoracic aorta. There are diffuse degenerative changes of the visualized thoracic spine. Normal visualized ribs, clavicles, and shoulders. There is no demonstrated abnormality of the visualized soft tissue structures of the upper abdomen. RAD/Chest PA and Lateral IMPRESSION: No acute abnormality is seen. Electronically Signed: Jorge A Sierra MD at 14:45 EDT , Service support ,
== END ==
PROVIDERS: PCP Family Medicine Geriatric Medicine; Referring Provider Family Medicine Geriatric Medicine; Visit Provider Family Medicine Geriatric Medicine
DX: R09.89 Other specified symptoms and signs involving the circulatory and respiratory systems (principal); R05 Cough
CPT/HCPCS: 71046

== ENCOUNTER → 2020-05-27 | Outpatient (CLI) | payer MEDICARE, OTHER, SELFPAY ==
[2020-01-12 08:38] VITALS: BMI 33.7
== END | disposition home or self-care (01) ==
LOC: LABSPEC 14:52
PROVIDERS: PCP Family Medicine Geriatric Medicine; Referring Provider Family Medicine Geriatric Medicine; Visit Provider Family Medicine Geriatric Medicine
DX: R05 Cough (principal)
CPT/HCPCS: 87635; 87804; C9803; U0002

== ENCOUNTER → 2020-05-30 10:02 | Outpatient (CLI) | payer MEDICARE, OTHER, SELFPAY ==
[2020-01-12 08:38] VITALS: BMI 33.7
[2020-05-30 11:27] LABS: Absolute Lymphocyte Count 1.37 X10^3/uL (0.83-4.51); Absolute Neutrophil Count 9.9 X10^3/uL (2.0-7.7); Basophil# 0.04 X10^3/uL; Basophil% 0.3 % (0-1); Hemoglobin 14.6 g/dL (13.0-16.5); Lymphocyte # 1.37 X10^3/ul (0.83-4.51); Lymphocyte % 10.9 % (19-41); Mean Corp Hgb Conc 32.4 g/dL (32-36); Mean Corpuscular Hgb 31.7 pg (27.0-32.0); Mean Corpuscular Volume 97.8 fL (80-94); Mean Platelet Vol. 10.3 fl (6.2-12.0); Monocyte# 1.04 X10^3/uL; Monocyte% 8.3 % (0-10); NRBC Flagged by Analyzer 0 % (0-5); Neutrophil # 9.94 X10^3/uL (2.7-7.7); Neutrophil % 79.3 % (47-70); Platelet Count 256 K/mm3 (150-450); RBC Distribution Width CV 13.1 % (11.6-14.6); RBC Distribution Width SD 46.5 fl (35.1-43.9); White Blood Count 12.5 K/mm3 (4.4-11.0)
[2020-05-30 11:40] LABS: Vitamin D,25 Hydroxy 30.1 ng/mL
[2020-05-30 11:55] LABS: ALB/GLOB Ratio 1.1 RATIO (0.9-2.4); AST(SGOT) 15 U/L (15-37); Alanine Aminotransfer ALT/SGPT 27 U/L (16-61); Albumin, Serum 3.9 g/dL (3.2-5.0); Alkaline Phosphatase 104 U/L (45-117); Anion Gap 7 (5-15); BUN 28 mg/dL (7-18); BUN/Creat Ratio 25.7 RATIO (10-20); Chloride 105 mmol/L (98-107); Creatinine, Serum 1.09 mg/dL (0.70-1.30); EST Glomerular Filtration Rate 70 mL/min (>60); Est Glom Filt Rate - Afr Amer 85 mL/min (>60); Globulin 3.5 g/dL (2.2-4.2); Glucose 81 mg/dL (74-106); Potassium 4.2 mmol/L (3.5-5.1); Protein, Total 7.4 g/dL (6.4-8.2); Sodium Level 138 mmol/L (136-145); Thyroid Stim Hormone (TSH) 0.12 uIU/mL (0.358-3.74)
[2020-05-31 05:24] LABS: T3 Uptake 41 % (33-40); T4 Free Direct 1.39 ng/dL (0.76-1.46)
[2020-05-31 06:30] LABS: T7 / Free Thyroxin Index 0.6 (1.4-4.5)
== END ==
PROVIDERS: PCP Family Medicine Geriatric Medicine; Visit Provider Family Medicine Geriatric Medicine
DX: I10 Essential (primary) hypertension (principal); E03.9 Hypothyroidism, unspecified; E55.9 Vitamin D deficiency, unspecified
CPT/HCPCS: 36415; 80053; 82306; 84439; 84443; 84479; 85025

== ENCOUNTER → 2020-07-12 14:13 | Outpatient (CLI) | payer MEDICARE, OTHER, SELFPAY ==
[2020-01-12 08:38] VITALS: BMI 33.7
[2020-07-12 15:34] LABS: PSA,Total- Diagnostic 0.78 ng/mL (0.0-4.0)
== END ==
PROVIDERS: PCP Family Medicine Geriatric Medicine; Referring Provider Urology; Visit Provider Urology
DX: C61 Malignant neoplasm of prostate (principal)
CPT/HCPCS: 36415; 84153

== ENCOUNTER → 2020-11-01 08:16 | Outpatient (CLI) | payer MEDICARE, OTHER, SELFPAY ==
--- NOTE | 2020-11-01 08:19 | CT_ITS ---
STUDY: CT RIGHT LOWER EXTREMITY WITHOUT CONTRAST REASON FOR EXAM: Right knee osteoarthritis, surgical planning. TECHNIQUE: Transaxial CT imaging of the lower extremity was performed. Coronal and sagittal images were reformatted. Individualized dose optimization techniques were used for this CT. COMPARISON: None. FINDINGS: Knee: There are small marginal osteophytes, mild subchondral eburnation and moderate joint space narrowing of the medial femorotibial compartment (coronal reconstructions 23-27). Normal lateral femoral condyle and lateral tibial plateau. There is preservation of the articular joint space of the lateral knee compartment. There are small marginal osteophytes, mild joint space narrowing of the lateral aspect of the patellofemoral articulation and mild lateral tilt of the patella (axial image 294). Normal proximal tibiofibular articulation. There is a moderate-sized joint effusion. The quadriceps tendon is grossly normal. The patellar tendon is grossly normal. Normal Hoffa''s fat pad. There is a small popliteal cyst containing intra-articular bodies (sagittal reconstructions 46-49). There is vascular calcification. Hip: There is preservation of the right hip articular space. There is a herniation pit in the lateral aspect of the right femoral neck (coronal reconstruction 32). Ankle: There is an osteochondral lesion of the posterior lateral talar dome with an adjacent intra-articular body (coronal reconstructions 29-31). Normal posterior subtalar, talonavicular and calcaneocuboid articulations. CT/Extremity Lower without Contra IMPRESSION: Osteoarthritis of the right knee. Electronically Signed: Anil Little MD at 14:51 EDT Tel , Service support ,
== END ==
PROVIDERS: PCP Family Medicine Geriatric Medicine; Referring Provider Orthopaedic Surgery; Visit Provider Orthopaedic Surgery
DX: M17.11 Unilateral primary osteoarthritis, right knee (principal); M21.161 Varus deformity, not elsewhere classified, right knee
CPT/HCPCS: 73700

== ENCOUNTER 2020-11-14 07:25 | Day surgery (SDC) | payer MEDICARE, OTHER, SELFPAY ==
--- NOTE | 2020-10-31 13:00 | HP.PCM_ITS ---
History and Physical History and Physical [facility] Patient Name: Aaron Wheeler Sr : 1945 From: PA ROQUE PA-C DATE OF SURGERY: 11/14/2020 SCHEDULED PROCEDURE: right total knee arthroplasty HISTORY OF PRESENT ILLNESS: This is a 75-year-old male who has been having ongoing pain in his right knee for several years. Pain is been intermittent, aching, sore. Patient has increased pain going up and down stairs, driving, sitting and walking. Pain can reach as high as a 7/10 with activities. His pain has been progressively been getting worse. He gets intermittent swelling. Pain is increased with activities of daily living including housework and shopping. He feels unsafe going up and down stairs and carrying things due to the knee pain. Patient has tried rest, elevation with minimal relief. He has been through home exercises and oral medications including Tylenol and Advil. He denies previous surgeries on his right knee. Patient has had previous disco supplementation injections with the last injection on July 12, 2020. Minimal relief with these injections. Patient is currently on Eliquis secondary to paroxysmal atrial fibrillation. He has clearance from the key punch teacher Dr. Nelson. Fitness/Wellness Director does give recommendations stopping the Eliquis 3-5 days prior to surgery. Patient has medical problems consisting of hypertension, accessible atrial fibrillation, hypercholesterolemia, previous prostate cancer, previous heart valve replacement in 2012. He denies any recent chest pain, shortness of breath, fevers chills or recent infections. We are also obtaining surgical clearance from the primary care physician Dr. Fajardo. After failure of conservative measures and discussion with Dr. Henry Calderon, the patient does wish to proceed with a right total knee arthroplasty. REVIEW OF SYSTEMS: ROS: Const: Denies change in appetite, fever and weight change. CV: Denies chest pain, heart murmur and irregular heartbeat. Resp: Reports cough, pneumonia and shortness of breath, but denies tuberculosis and wheezing. GI: Denies constipation, diarrhea, heartburn, nausea, rectal itching, bloody stools and vomiting. : Denies incontinence. Musculo: Reports pain and trouble walking, but denies leg swelling and weakness. Skin: Reports history of shingles, but denies Raynaud's and tattoo. Neuro: Reports numbness/tingling but denies ambulatory dysfunction, dizziness and tremor. Psych: Denies anxiety, insomnia and stress. Tim/Lymph: Denies anemia, bleeding/bruising tendency and past transfusion. Reviewed, no changes. 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 SOCIAL HISTORY: SH: Marital: .Occupation: Retired.Work Status: Retired.Hand Dominance: Right- handed. Personal Habits: Cigarette Use: Former.Smokeless Tobacco: Never Used Smokeless Tobacco.Alcohol: Denies use.Drug Use: Denies Use.Enjoy Exercising: Exercises 1-3 x/month. Reviewed, no changes. VITALS: Ht: 66 Wt: 194lb Wt k.998 BMI: 31.3 BP: 151/71 Pulse: 63 Resp: 16 T: 97.6 T: 36.4C Pain Level: 5 ALLERGIES: No Known Drug Allergy MEDICATIONS: Pravastatin Sodium 40 mg 1 tab PO daily, Amiodarone HCL 200 mg 1 by mouth every day, Eliquis 5 mg 1/2 tab PO bid, Multivitamin take one(1) tablet daily. PRE-OP EXAM: General appearance:NORMAL Other: Eyes: Conjunctivae and lids: NORMAL Pupils: ERR Ears, Nose, Mouth, and Throat: NORMAL Other: Inspection of lips, teeth and gums: NORMAL Other: Neck: Examination of neck: no masses noted. Respiratory: Assessment of respiratory effort: NORMAL Other: Auscultation of lungs: clear to auscultation no wheezes, rhonchi or rales. Cardiovascular: Auscultation of heart: regular rate and rhythm, no murmurs, gallops or rubs. Exam of carotid arteries: NORMAL Other: PHYSICAL EXAMINATION: Patient walks with an antalgic gait. Right knee is cool to touch without erythema or signs of infection. There is varus deformity. Tenderness to palpation along the medial joint line. Range of motion: 0 extension to 108 flexion. Sensation intact to light touch. Neurovascularly intact. IMAGING STUDIES: Previous x-rays of the right knee reveal varus alignment with [id number] medial joint space narrowing, subchondral sclerosis, osteophyte formation consis tent with severe stage IV osteoarthritis. Severe patellofemoral osteoarthritis. IMPRESSION: 1. Severe right knee osteoarthritis 2. Hypertension 3. Paroxysmal atrial fibrillation: Currently on Eliquis 4. Hypercholesterolemia 5. History of prostate cancer 6. History of heart valve replacement 2012 PLAN: Dr. Henry Calderon did discuss and review with the patient all treatment options including surgical versus nonsurgical options. Patient does wish to proceed with the above-stated procedure. Potential risks, benefits, and complications of the procedure were discussed in detail including but not limited to , infection, nerve and blood vessel damage, persistent pain, numbness, tingling, paresthesias, blood clot, pulmonary embolism, and requirement for possible further surgery. The patient expressed full understanding and has no further questions for the doctor. Patient does agree to proceed with the above-stated procedure and has signed the surgery consent form. We discussed the current risks associated with COVID 19. This does include the risk of exposure while in the hospital. Patient was reassured local hospitals have low infection rates and are taking all necessary precautions to avoid exposure to patients. In addition, we discussed strategies that can be used to help limit exposure including those that limit the patient's time in the hospital. Also using strategies to limit the patient's need for continued inpatient services after being discharged from the hospital. Patient was notified that we will need to comply with any screening or testing the hospital wishes to perform or that surgery may be delayed for any positive results. This dictation was created using voice recognition software. Phonetic and/or grammatical errors may exist. ___ I have re-examined the patient. There are no clinical changes since date of exam. ___ See progress notes for changes. ___ Dictated on admission Date: Time: Signature:
--- NOTE | 2020-11-01 08:22 | EKG12_ITS ---
Test Reason : PRE OP Blood Pressure : / mmHG Vent. Rate : 065 BPM Atrial Rate : 065 BPM P-R Int : 124 ms QRS Dur : 096 ms QT Int : 438 ms P-R-T Axes : 040 019 103 degrees QTc Int : 455 ms Normal sinus rhythm ST & T wave abnormality, consider lateral ischemia Abnormal ECG Confirmed by GUERDA WILSON, CHIQUITA ([id number]), movie editor VERONIKA KELLER ([id number]) on 11/02/2020 10:52:41 AM Referred By: Henry Calderon Confirmed By:CHIQUITA CROFT MD
[2020-11-01 09:52] LABS: Absolute Lymphocyte Count 1.75 X10^3/uL (0.83-4.51); Absolute Neutrophil Count 6.1 X10^3/uL (2.0-7.7); Basophil# 0.06 X10^3/uL; Basophil% 0.7 % (0-1); Eosinophil# 0.17 X10^3/uL; Eosinophils% 1.9 % (0-5); Hematocrit 42.4 % (40-54); Hematocrit 43.3 % (40-54); Hemoglobin 13.7 g/dL (13.0-16.5); Hemoglobin 13.8 g/dL (13.0-16.5); Lymphocyte # 1.75 X10^3/ul (0.83-4.51); Lymphocyte % 19.3 % (19-41); Mean Corp Hgb Conc 31.6 g/dL (32-36); Mean Corp Hgb Conc 32.5 g/dL (32-36); Mean Corpuscular Hgb 31.6 pg (27.0-32.0); Mean Corpuscular Hgb 32.2 pg (27.0-32.0); Mean Corpuscular Volume 99.1 fL (80-94); Mean Platelet Vol. 10.1 fl (6.2-12.0); Monocyte# 0.92 X10^3/uL; Monocyte% 10.2 % (0-10); NRBC Flagged by Analyzer 0 % (0-5); Neutrophil # 6.13 X10^3/uL (2.7-7.7); Neutrophil % 67.6 % (47-70); Platelet Count 228 K/mm3 (150-450); Platelet Count 231 K/mm3 (150-450); RBC Distribution Width CV 12.7 % (11.6-14.6); RBC Distribution Width CV 12.8 % (11.6-14.6); RBC Distribution Width SD 46.6 fl (35.1-43.9); RBC Distribution Width SD 47.3 fl (35.1-43.9); Red Blood Count 4.28 M/mm3 (4.6-6.2); Red Blood Count 4.33 M/mm3 (4.6-6.2); White Blood Count 8.8 K/mm3 (4.4-11.0); White Blood Count 9.1 K/mm3 (4.4-11.0)
[2020-11-01 10:07] LABS: International Normalized Ratio 1.2; Partial Thromboplast Time 31.9 Seconds (24.1-36.2); Prothrombin Time (Protime)PT. 14.6 SECONDS (11.7-14.9)
[2020-11-01 10:17] LABS: AST(SGOT) 17 U/L (15-37); Alanine Aminotransfer ALT/SGPT 19 U/L (16-61); Albumin, Serum 3.4 g/dL (3.2-5.0); Alkaline Phosphatase 120 U/L (45-117); Anion Gap 5 (5-15); BUN 23 mg/dL (7-18); BUN/Creat Ratio 21.1 RATIO (10-20); Bilirubin, Direct 0.11 mg/dL (0.00-0.30); Calcium,Total 8.7 mg/dL (8.5-10.1); Chloride 107 mmol/L (98-107); Creatinine, Serum 1.09 mg/dL (0.70-1.30); EST Glomerular Filtration Rate 70 mL/min (>60); Est Glom Filt Rate - Afr Amer 85 mL/min (>60); Globulin 3.7 g/dL (2.2-4.2); Glucose 88 mg/dL (74-106); Magnesium 2.1 mg/dL (1.6-2.6); Potassium 4.3 mmol/L (3.5-5.1); Protein, Total 7.1 g/dL (6.4-8.2); Sodium Level 139 mmol/L (136-145)
[2020-11-14] VITALS (15 sets, daily range): BP systolic 109–151; BP diastolic 50–70; PULSE 60–81; RESP 16–18; TEMP 36.1–37.2; O2SAT 93–100; BMI 32.1
[2020-11-14] MEDS: Acetaminophen 500 MG Tablet 1000 MG PO ×3 (08:32→21:47)
[2020-11-14] MEDS: Gabapentin 600 MG Tablet PO (08:32)
[2020-11-14] MEDS: Lactated Ringers 1,000 ML 999 ML IV (08:33)
[2020-11-14 09:00] LABS: Bedside Glucose 87 mg/dL (70-110)
--- NOTE | 2020-11-14 09:30 | KNEE_PTH ---
PATIENT: MAXIMILIAN NIÑO LOC: [facility] [place] U#:[id number] AGE/SX: 75/M ROOM: RE11/14/[address]: Dr. Henry Calderon DO : 1945 BED: DIS: 11/15/2020 SPEC #: [id number] RECD: 11/14/20 12:56 STATUS: SHANNA RESandy #: [id number] TIMOTEO: 11/14/20 09:[address]: Henry Calderon DEPT: SURGICAL PATHOLOGY RECD BY: Teresa Blunt ENTERED: 11/14/20 13:12 SP TYPE: TOTAL KNEE OTHR DR: Dr. Dave Fajardo MD Tissues: Knee, NOS Procedures: Decalcification bone/plaque Surgery Specimen Level IV HEADER OPERATION: ERAS, total right knee replacement robotic arm assist PRE-OP DIAGNOSIS: Severe osteoarthritis right knee TISSUE SUBMITTED: Bone and tissue right knee MICROSCOPIC DIAGNOSIS Bone and tissue of right knee, total knee resection: Severe degenerative joint disease. Mild synovial hyperplasia. AM:martin 11/17/2020 MICROSCOPIC DESCRIPTION Slides are reviewed. GROSS DESCRIPTION Received is one container designated bone and tissue right knee. The specimen consists of multiple fragments of monzon-yellow bone measuring in aggregate 14 x 13 x 1.5 cm. Also in the specimen container are multiple fragments of yellow-white soft tissue measuring in aggregate 12 x 8 x 2 cm. A number of bony fragments contain articular surfaces consistent with tibial plateau and femoral condyle and displaying prominent osteophyte formation, eburnation, and bone erosion. Apprentice Technician sections are submitted in two cassettes as follows: 1 - soft tissue, 2 - bone after decalcification. / AM:martin 11/14/20 TC:5 [facility]: [id number]
[2020-11-14] MEDS: Lactated Ringers 1,000 ML 75 ML IV (10:01)
[2020-11-14] MEDS: Cefazolin 2 GM in 0.9% Normal Saline 100 ML IV (10:18)
[2020-11-14] MEDS: dexAMETHasone 10 MG/ML Vial IV (10:26)
[2020-11-14] MEDS: Lactated Ringers 1,000 ML 125 ML IV ×2 (11:31→16:18)
--- NOTE | 2020-11-14 11:37 | OP.PCM_ITS ---
Report of Operation Date of Procedure: 11/14/20 Pre-Operative Diagnosis: OA right knee Post-Operative Diagnosis: same Surgery/Procedure Performed:: Right TKR Description of Surgical Findings:: Report of Operation Date of Procedure: 11/14/2020 Preoperative Diagnosis: [ right ] knee primary osteoarthritis Postoperative Diagnosis: [right ] knee primary osteoarthritis Operation: Robotic Assisted Knee Total Arthroplasty, [ Right ] knee Surgeon: Dr Henry Calderon DO Construction Plant Operator: Alphonse Kenny PA-C Anesthesia: spinal Anesthesiologist: Laz Robb M.D. Findings: Stable knee with good patella tracking Specimen(s): Bony cuts Complications: No intraoperative complications Estimated Blood Loss: 20 cc IV Fluids: 1000 cc crystalloid Implants Used: 1. Alessio Triathlon size 4 CR press-fit femur 2. Alton Triathlon size 5 tibia 3. 35 mm patella 4. 9 mm CS polyethylene Brief History Operative Indications: [ (75 y/o male) ] with history of [ right ] knee osteoarthrosis with radiographic findings with loss of joint space, osteophyte formation and subchondral sclerosis. Failed conservative measures as mentioned in the H&P. Discussion of total knee arthroplasty as well as risk and benefits were discussed with the patient including but not limited to blood loss, DVTs, PEs, neurovascular damage, general risk of anesthesia including loss of life, and stiffness or instability were also discussed with the patient. Patient demonstrated understanding and was able to sign informed consent. Procedure: On the date of procedure, patient's [ right ] lower extremity was marked in the preoperative area. The patient was then taken back to the operating room where that patient was placed on the table in the supine position. All bony prominences were identified and well-padded. Anesthesia assumed control of the C-spine and airway throughout the remainder of the procedure. A tourniquet was placed on the [right ] upper thigh and the leg was prepped in a sterile fashion. The surgeon then scrubbed at this time. Upon reentering the room, the [right ] lower extremity was draped in a standard orthopedic fashion. A timeout was then called and everyone agreed upon the side, the site, the procedure to be performed, patient's identity and antibiotics given. Esmarch bandage was used to exsanguinate the extremity and the tourniquet was placed up to 250 mmHg with the knee in flexion. A midline skin incision was made and a sharp dissection was taken down through skin, subcutaneous tissue and fat. The standard medial parapatellar incision was made and the patella was subluxed laterally. An appropriate deep MCL release was done and the fat pad was resected. Our attention was then directed to the patella. The patella was everted and a flat resection was made. The knee was then flexed up and 2 femoral pins were placed inside the incision and 2 tibial pins were placed outside the incision in the medial tibia bicortically. Once this was completed, the 2 checkpoints in the femur and tibia were placed. Knee was then flexed up and the bony landmarks were registered. Once the was completed, the knee taken through range of motion and manually stressed allowing us to plan for an appropriate tibial cut. The robotic arm was brought into the field sterilely and checkpoint and saw were registered. Based on the patient's deformity, the tibial cut was made in [ 1 degree varus ]. At this time, the tensioner was then placed in the joint and ligament tension was checked at 90 degrees and full extension. Based on the patient's ligamentous tension, appropriate adjustments were made to the operative plan and ligament releases were done. Once we were happy with our operative plan with balanced flexion and extension gaps, our attention was directed to the femur. The robot was brought into the field sterilely and registered. Posterior condylar cuts, anterior chamfer cuts and anterior cuts were appropriately made for a [size 4 ] femur. When these were completed, the saws were switched out in the distal femoral and posterior chamfer cuts were made. Protecting the soft tissue throughout this time. A [size 5 ] base plate was selected. The knee was flexed to 90 degrees and soft tissues and posterior osteophytes were removed from the joint. 40 cc of the periarticular injection was injected into the posterior medial corner of the joint. The appropriate trials were then placed on the femur and tibia. A trial polyethylene was trialed to ensure proper balancing and stability of the knee. The appropriate tibial internal rotation was then marked with a bovie. Our attention was then directed to the patella. The lug holes were drilled and the patella trial was placed. Patellar tracking was checked and deemed appropriate. Once we were happy, lug holes were drilled for the femur and trial components were removed. The tibia was subluxed and pinned into place and the keel was punched and drilled appropriately. Final components were verified and opened. The wound was copiously irrigated with normal saline. The components were impacted into place with the tibia, femur and finally the patella. The trial poly component was placed and the knee was placed in full extension. The tracking, alignment and balance were verified and a [ 9 mm CS ] polyethylene component was placed. Once the final components were placed an Irrisept lavage was performed and the wound was copiously irrigated with normal saline solution and the periarticular injection was given. the wound was closed in a layer-landry fashion using #1 vicr yl interrupted sutures for the arthrotomy, 2-0 interrupted vicryl suture for the subcuticular layer and john for final skin closure. A sterile compressive dressing was then placed. The patient was then awakened from anesthesia, transferred to the rdunlap and transferred to the PACU for recovery. My physician legal assistant was a vital part of this case. He was important in appropriate retraction during the case, and protection of soft tissues during bony cuts. His intimate knowledge of the case and my steps aided in safe and expedient completion of the procedure as well as appropriate position of the leg during the case. He was also vital in assisting with closure under my direct supervision. Due to the complexity of this case, robotic arm was used to assist in the surgery to improve accuracy and clinical outcomes. Post-op Plan: DVT ppx; ASA 81 mg BID, thigh high compression stockings Follow up: in office in 2 weeks for wound check PT: to start POD #0 at hospital, outpatient PT should be arranged. Preoperative antibiotic: Ancef 2 grams IV Henry Calderon DO Surgeon: Henry Calderon pediatric psychiatrist: Alphonse Kenny Type of Anesthesia: Spinal Anesthesiologist: Laz Robb Estimated Blood Loss (mL): 20 cc Fluids Replaced: 1000 cc crystalloid Admit VTE Documentation VTE Present on Admission: No VTE Mechan Device Prophylaxis: SCD's and Thigh High ELLIOT Hose VTE Pharm Prophylaxis ordered?: Yes
--- NOTE | 2020-11-14 12:40 | RAD_ITS ---
STUDY: X-RAY - RIGHT KNEE REASON FOR EXAM: Male, 75 years old. post op -- AP and Lateral xray of operative knee in PACU TECHNIQUE: 2 view(s) of the knee. COMPARISON: None. FINDINGS: Normal visualized distal femur. Normal visualized proximal tibia and fibula. Normal proximal tibiofibular articulation. Status post recent total knee arthroplasty with skin john and subcutaneous emphysema.. The soft tissue structures are unremarkable. RAD/Knee 1 or 2 Views IMPRESSION: Status post recent total knee arthroplasty. Electronically Signed: Kwaku Murillo MD at 14:00 EDT Tel , Service support ,
[2020-11-14] MEDS: Cefazolin 1 GM/50 ML BAG IV (18:34)
[2020-11-14] MEDS: APIXABAN 2.5 MG TABLET PO (21:47)
[2020-11-14] MEDS: Senna/Docusate Sodium 1 Tablet 2 TABLET PO (21:48)
[2020-11-15 02:45] VITALS: BP 109/61; PULSE 73; RESP 18; TEMP 36.6; O2SAT 97
[2020-11-15] MEDS: Cefazolin 1 GM/50 ML BAG IV (02:46)
[2020-11-15 06:38] LABS: Hematocrit 33.3 % (40-54); Mean Corpuscular Hgb 32.4 pg (27.0-32.0); Mean Corpuscular Volume 98.2 fL (80-94); Mean Platelet Vol. 9.8 fl (6.2-12.0); Platelet Count 192 K/mm3 (150-450); RBC Distribution Width CV 12.9 % (11.6-14.6); RBC Distribution Width SD 46.1 fl (35.1-43.9); Red Blood Count 3.39 M/mm3 (4.6-6.2); White Blood Count 13.6 K/mm3 (4.4-11.0)
[2020-11-15] MEDS: Acetaminophen 500 MG Tablet 1000 MG PO ×2 (06:43→13:28)
[2020-11-15] MEDS: 0.9% NaCl Peripheral Flush Adult/Peds IV (06:44)
[2020-11-15 06:46] VITALS: BP 129/62; PULSE 68; RESP 18; TEMP 36.5; O2SAT 94
[2020-11-15 06:53] LABS: Anion Gap 5 (5-15); BUN 24 mg/dL (7-18); BUN/Creat Ratio 20.2 RATIO (10-20); Calcium,Total 8.1 mg/dL (8.5-10.1); Chloride 109 mmol/L (98-107); Creatinine, Serum 1.19 mg/dL (0.70-1.30); EST Glomerular Filtration Rate 64 mL/min (>60); Est Glom Filt Rate - Afr Amer 77 mL/min (>60); Estimated Creatinine Clearance 47.37 ml/min; Glucose 127 mg/dL (74-106); Potassium 4.6 mmol/L (3.5-5.1); Sodium Level 138 mmol/L (136-145)
--- NOTE | 2020-11-15 07:51 | PN.ORTHO_ITS ---
Subjective Subjective Patient sitting at bedside. Patient states pain is been very well managed. Patient has refused narcotic chronic pain medication he feels that Tylenol is working very well. Patient denies chest pain, shortness of breath, calf pain, nausea vomiting. Patient has no complaints at this time. Patient states he is regular rate return home. He will continue with physical therapy at [facility] [place] as scheduled. Objective Data Objective Data Vital Signs: Vital Signs Temp Pulse Resp BP Pulse Ox 97.7 F L 68 18 129/62 H 94 11/15/20 06:46 11/15/20 06:46 11/15/20 06:46 11/15/20 06:46 11/15/20 06:46 Oxygen Flow Rate (L/min) 6 Oxygen Delivery Method Room Air Weight: 87.4 kg Body Mass Index (BMI) 32.1 Intake & Output: Intake and Output for Last 24 Hours 11/13/20 11/14/20 11/15/20 23:59 23:59 23:59 Intake Total 3566.75 / 3566.75 50 / 50 Output Total 450 / 750 1000 / 1000 Balance 3116.75 / 2816.75 -950 / -950 Lab / Micro Data Result Diagrams: 11/15/20 06:28 11/15/20 06:28 Labs: Laboratory Results - last 24 hr 11/14/20 08:07: POC Glucose 87 11/15/20 06:28: WBC 13.6 H, RBC 3.39 L, Hgb 11.0 L, Hct 33.3 L, MCV 98.2 H, MCH 32.4 H, MCHC 33.0, RDW Std Deviation 46.1 H, RDW Coeff of Phani 12.9, Plt Count 192, MPV 9.8 11/15/20 06:28: Sodium 138, Potassium 4.6, Chloride 109 H, Carbon Dioxide 24.0, Anion Gap 5, BUN 24 H, Creatinine 1.19, Estim Creat Clear Calc 47.37, Est GFR (MDRD) Af Amer 77, Est GFR (MDRD) Non-Af 64, BUN/Creatinine Ratio 20.2 H, Glucose 127 H, Calcium 8.1 L Micro: Microbiology 11/01/20 08:53 Swab (Method) Nasal Screen MRSA/MSSA - Final Radiography Diagnostic Testing: Radiology Impression Knee X-Ray 11/14/20 12:40 IMPRESSION: Status post recent total knee arthroplasty. Electronically Signed: Kwaku Murillo MD at 14:00 EDT Tel , Service support , Physical Exam Narrative Exam, I found patient sitting comfortably in the chair at bedside. Patient is no respiratory distress. Patient speaking full sentences. Patient's dressing had been saturated postoperatively but has now been replaced. There is no active bleeding at this time. The calf is nontender, no signs or symptoms of DVT. Vital signs labs patient has good flexion-extension of the foot and ankle of the operative leg. Const alert and oriented x3 Eyes PERRL Extremity normal capillary refill Neuro CN's II-XII intact bilaterally Psych mental status grossly normal and affect normal Assessment & Plan Assessment/Plan (1) S/P total knee arthroplasty: PLAN: 1. Continue all pain medications as prescribed 2. Continue physical therapy discharge after p.m. therapy 3. Resume and continue Eliquis for postop DVT prophylaxis 4. Encourage incentive spirometry 5. Follow-up as scheduled with Dr. Calderon as scheduled, see pink sheet 6. Patient can shower 11/18/2020 7. Begin outpatient therapy at [facility] [place] as scheduled
--- NOTE | 2020-11-15 08:02 | PCM.DC ---
Discharge Instructions Follow Up Care Test Results: Test results from this visit will be discussed in further detail at your follow-up appointment, if applicable. Discharge Plan Admission Primary Reason for Your Visit: Total knee arthroplasty Attending Provider: Henry Calderon Primary Care Provider: Dave Fajardo Chi Discharge Orders/Prescriptions Prescriptions: New acetaminophen 500 mg Tablet 1,000 mg PO Q8 30 Days Qty: 180 RF: 0 oxycodone 5 mg Tablet 5 - 10 mg PO Q4H PRN PRN (Reason: Pain Score 4-10) 7 Days Qty: 84 RF: 0 Continued multivitamin [One Daily Multivitamin] Tablet 1 tab PO DAILY RF: 0 nitroglycerin 0.4 MG tablet 0.4 mg SUBLINGUAL Q5M PRN (Reason: Chest Pain) RF: 0 pravastatin 40 mg tablet 40 mg PO QODAY RF: 0 amiodarone 200 mg tablet 100 mg PO DAILY RF: 0 Eliquis 2.5 mg tablet 2.5 mg PO BID Qty: 180 RF: 3 Referrals / Follow Up: Dave Fajardo Chi, MD [Primary Care Provider] - Disposition Disposition (needs filled in before D/C Order can be placed): Home, Self Care
[2020-11-15 08:20] VITALS: BP 131/59; PULSE 67; RESP 16; TEMP 36.6; O2SAT 92
[2020-11-15] MEDS: Amiodarone 200 MG Tablet 100 MG PO (08:59)
[2020-11-15] MEDS: Senna/Docusate Sodium 1 Tablet 2 TABLET PO (08:59)
[2020-11-15] MEDS: APIXABAN 2.5 MG TABLET PO (08:59)
[2020-11-15] MEDS: oxyCODONE 5 MG Tablet PO (09:00)
--- NOTE | 2020-11-15 10:39 | CASEMGMT ---
S/w patient and spouse at bedside. Patient sitting up in chair, NAD. States has walker at bedside and set up with outpatient PT with [facility]. Denies any issues, questions or concerns with going home. to transport patient home. Waldo Ibarra RNCM
[2020-11-15 13:57] VITALS: BP 125/74; PULSE 69; RESP 18; TEMP 36.8; O2SAT 97
== END 2020-11-15 14:13 | disposition home or self-care (01) ==
LOC: SDC 07:26 → AC 07:26 → MS2 11-15 08:01
PROVIDERS: Anesthesiology; PCP Family Medicine Geriatric Medicine; Referring Provider Orthopaedic Surgery; Visit Provider Orthopaedic Surgery
PROC: 0SRC0JZ Replacement of Right Knee Joint with Synthetic Substitute, Open Approach (ICD-10-PCS; CPT 27447; principal; 2020-11-14 09:00)
DX: M17.11 Unilateral primary osteoarthritis, right knee (principal); I48.0 Paroxysmal atrial fibrillation; I10 Essential (primary) hypertension; E78.5 Hyperlipidemia, unspecified; Z79.01 Long term (current) use of anticoagulants; Z79.899 Other long term (current) drug therapy; Z85.46 Personal history of malignant neoplasm of prostate; Z95.2 Presence of prosthetic heart valve
CPT/HCPCS: 01402; 27447; S2900; 36415; 73560; 80048; 80076; 82962; 83735; 85025; 85027; 85610; 85730; 87081; 88305; 88311; 93005; 97110; 97162; 97166; 97530; 99251; C1776; J7120; A4216; G0463; J2405

== ENCOUNTER → 2020-12-01 14:08 | Outpatient (CLI) | payer MEDICARE, OTHER, SELFPAY ==
[2019-10-08 13:46] VITALS: BMI 33.6
[2020-12-01 16:11] LABS: Absolute Lymphocyte Count 1.14 X10^3/uL (0.83-4.51); Absolute Neutrophil Count 6.7 X10^3/uL (2.0-7.7); Basophil# 0.03 X10^3/uL; Basophil% 0.3 % (0-1); Eosinophil# 0.08 X10^3/uL; Eosinophils% 0.9 % (0-5); Hematocrit 32.7 % (40-54); Hemoglobin 10.2 g/dL (13.0-16.5); Lymphocyte # 1.14 X10^3/ul (0.83-4.51); Lymphocyte % 13.3 % (19-41); Mean Corp Hgb Conc 31.2 g/dL (32-36); Mean Corpuscular Hgb 31.5 pg (27.0-32.0); Mean Corpuscular Volume 100.9 fL (80-94); Mean Platelet Vol. 9.6 fl (6.2-12.0); Monocyte# 0.57 X10^3/uL; Monocyte% 6.6 % (0-10); NRBC Flagged by Analyzer 0 % (0-5); Neutrophil # 6.71 X10^3/uL (2.7-7.7); Neutrophil % 78.2 % (47-70); Platelet Count 394 K/mm3 (150-450); RBC Distribution Width CV 14.2 % (11.6-14.6); RBC Distribution Width SD 51.4 fl (35.1-43.9); Red Blood Count 3.24 M/mm3 (4.6-6.2); White Blood Count 8.6 K/mm3 (4.4-11.0)
[2020-12-01 16:39] LABS: Vitamin D,25 Hydroxy 31.4 ng/mL
[2020-12-01 16:45] LABS: ALB/GLOB Ratio 0.9 RATIO (0.9-2.4); AST(SGOT) 18 U/L (15-37); Alanine Aminotransfer ALT/SGPT 24 U/L (16-61); Albumin, Serum 3.2 g/dL (3.2-5.0); Alkaline Phosphatase 109 U/L (45-117); Anion Gap 7 (5-15); BUN 27 mg/dL (7-18); BUN/Creat Ratio 25.5 RATIO (10-20); Calcium,Total 8.8 mg/dL (8.5-10.1); Chloride 106 mmol/L (98-107); Creatinine, Serum 1.06 mg/dL (0.70-1.30); EST Glomerular Filtration Rate 73 mL/min (>60); Est Glom Filt Rate - Afr Amer 88 mL/min (>60); Globulin 3.7 g/dL (2.2-4.2); Glucose 132 mg/dL (74-106); Phosphorus 4.2 mg/dL (2.5-4.9); Potassium 3.9 mmol/L (3.5-5.1); Protein, Total 6.9 g/dL (6.4-8.2); Sodium Level 140 mmol/L (136-145); Thyroid Stim Hormone (TSH) 0.77 uIU/mL (0.358-3.74)
== END ==
PROVIDERS: PCP Family Medicine Geriatric Medicine; Visit Provider Internal Medicine Nephrology
DX: I12.9 Hypertensive chronic kidney disease with stage 1 through stage 4 chronic kidney disease, or unspecified chronic kidney disease (principal); N18.31 Chronic kidney disease, stage 3a; E55.9 Vitamin D deficiency, unspecified
CPT/HCPCS: 36415; 80053; 82306; 84100; 84443; 85025

== ENCOUNTER 2020-12-25 10:10 | Inpatient (IN) | payer MEDICARE, OTHER, SELFPAY ==
[2020-12-25] VITALS (16 sets, daily range): BP systolic 105–159; BP diastolic 35–63; PULSE 47–119; RESP 16–30; TEMP 36.1–36.8; O2SAT 3–96; BMI 33.1; BMI 33.3
--- NOTE | 2020-12-25 10:24 | RAD_ITS ---
STUDY: X-RAY CHEST REASON FOR EXAM: Male, 75 years old. dyspnea TECHNIQUE: Single AP portable view of the chest. COMPARISON: 05/26/2020 FINDINGS: Status post median sternotomy. Poor inspiration with some bibasilar atelectasis. There is no demonstrated pleural abnormality. There is moderate cardiac enlargement. Normal mediastinum and heber. Normal visualized pulmonary arteries. Normal visualized aortic arch and descending thoracic aorta. Normal visualized thoracic spine. Normal visualized ribs, clavicles, and shoulders. There is no demonstrated abnormality of the visualized soft tissue structures of the upper abdomen. RAD/Chest 1 View (Portable) IMPRESSION: Poor inspiration with some bibasilar atelectasis. Electronically Signed: Kwaku Murillo MD at 10:55 EST Tel , Service support ,
--- NOTE | 2020-12-25 10:25 | EKG12_ITS ---
Test Reason : SOB Blood Pressure : / mmHG Vent. Rate : 094 BPM Atrial Rate : 066 BPM P-R Int : 000 ms QRS Dur : 104 ms QT Int : 402 ms P-R-T Axes : 000 034 111 degrees QTc Int : 502 ms Sinus rhythm with PAF and PVC's ST & T wave abnormality, consider lateral ischemia Prolonged QT Abnormal ECG Confirmed by GUERDA WILSON, CHIQUITA ([id number]), dictionary editor VERONIKA KELLER ([id number]) on 12/26/2020 11:03:17 AM Referred By: VIDYA Confirmed By:CHIQUITA CROFT MD
--- NOTE | 2020-12-25 10:28 | EX.ED.DYSGE1 ---
HPI History of Present Illness Chief Complaint: Shortness of Breath Informant: patient and spouse/S.O. Narrative Narrative: 75-year-old male presented to the emergency department shortness of breath. Patient states its been present for about 3 to 4 days. He notes that he has a history of an aortic valve replacement as well as atrial fibrillation and is on amiodarone and Eliquis. He states that he has never been diagnosed with congestive heart failure. 6 weeks ago he underwent a right knee replacement and notes that his right leg is swollen. Other than at the time of surgery he has not missed any doses of his Eliquis. He denies swelling of the left leg. He notes a cough with occasional sputum production. He denies any fever sore throat diarrhea nausea vomiting. He does endorse some mild rhinorrhea. He is Covid vaccinated. The patient's informs me that they spoke with the on-call financial accounting analyst and was sent to the emergency room. 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 Wears dentures Wears glasses Wears hearing aid Home Medications multivitamin 1 tab PO DAILY 09/09/18 [History Last Taken Unknown] apixaban 2.5 mg tablet 2.5 mg PO BID #180 tab 05/12/20 [Rx Last Taken 12/09/19] amiodarone 100 mg PO DAILY 10/31/20 [History Last Taken 11/14/20] pravastatin 40 mg PO QODAY 10/31/20 [History Last Taken 11/13/20] acetaminophen 1,000 mg PO Q8 30 Days #180 tab 11/15/20 [Rx Last Taken Unknown] Allergy/AdvReac Type Severity Reaction Status Date / Time mushroom Allergy Vomiting Verified 12/25/20 10:14 atorvastatin [From Lipitor] AdvReac Severe Severe Verified 12/25/20 10:14 myalgias Family History Mother , of [place] CAD (coronary artery disease) Myocardial infarction Brother Atrial fibrillation Cancer prostate Brother Cancer prostate Surgical History History of aortic valve replacement (08/15/12) History of appendectomy History of cardioversion (07/09/18) History of left heart catheterization (02/2018) History of left leg surgeries History of right-sided carotid endarterectomy (12/14/15) Social History Smoking Status: Light Smoker (<10/day) alcohol intake: current alcohol intake frequency: holidays/special occasions only caffeine: Yes Type: coffee Number of servings: 3 ROS ROS ED Constitutional Constitutional ED: Denies chills, fever(s) or weight loss Eyes Eyes: Denies change in vision or diplopia ENT ENT ED: Reports rhinorrhea; Denies ear pain or sore throat Cardiovascular Cardiovascular: Denies chest pain, orthopnea, palpitations or racing heartbeat Respiratory/Chest Respiratory/Chest: Reports cough, dyspnea, dyspnea on exertion and sputum; Denies orthopnea Gastrointestinal Gastrointestinal: Denies abdominal pain, diarrhea, nausea or vomiting Genitourinary Genitourinary ED: Denies dysuria, hematuria or urinary frequency Musculoskeletal Musculoskeletal: Denies arthralgias or myalgias Integumentary Denies abscess or rash Neurologic Neurologic: Denies headache(s) or weakness Psychiatric Psychiatric: Denies anxiety, depression, suicidal ideation or suicidal thoughts Endocrine Endocrinology: Denies polydipsia, polyphagia or polyuria Allergic/Immunologic Allergic/Immunologic ED: Denies mouth swelling, tongue swelling or urticaria EXAM Physical Exam Const Vital Signs: 12/25/20 10:14 12/25/20 10:16 12/25/20 10:23 Temperature 97.0 F L 97.0 F L Temperature Source Temporal Temporal Pulse Rate 64 64 119 H Respiratory Rate 24 H 22 H 23 H Respiratory Effort Respiratory Pattern Blood Pressure 143/47 H 143/47 H 159/63 H Blood Pressure Mean 79 79 95 Pulse Ox 78 91 92 Oxygen Delivery Method Room Air Nasal Cannula Nasal Cannula Oxygen Flow Rate (L/min) 2 2 12/25/20 10:26 12/25/20 10:28 12/25/20 11:13 Temperature Temperature Source Pulse Rate 82 Respiratory Rate 21 H Respiratory Effort Short of Breath Respiratory Pattern Tachypnea Blood Pressure 143/60 H Blood Pressure Mean 87 Pulse Ox 93 92 Oxygen Delivery Method Nasal Cannula Nasal Cannula Nasal Cannula Oxygen Flow Rate (L/min) 2 2 2 12/25/20 11:59 Temperature Temperature Source Pulse Rate 91 Respiratory Rate 23 H Respiratory Effort Respiratory Pattern Blood Pressure 130/50 H Blood Pressure Mean 76 Pulse Ox 92 Oxygen Delivery Method Nasal Cannula Oxygen Flow Rate (L/min) 2 Positive well nourished, well developed and obese General Appearance ED: well developed Nutritional Appearance: obese HEENT Reports normocephalic, head/scalp atraumatic, TM's clear and moist mucous membranes Negative for trauma Tympanic Membrane ED: Yes TM's clear Eyes PERRL and EOMs intact bilaterally Neck no lymphadenopathy, supple and no JVD Resp normal respiratory effort and clear to auscultation bilaterally Cardio no murmurs Rate: tachycardic Rhythm: abnormal rhythm irregularly irregular GI normal to inspection, nondistended, normoactive bowel sounds and non-tender Palpation: soft Back/Spine no CVA tenderness and normal ROM Extremity normal to inspection Extremity Narrative: There is right greater than left edema. The calves are nontender. 1+ pitting edema is noted of the left leg General Extremety ED: Yes edema General Extremity: edema Neuro oriented x3 and CN's II-XII intact bilaterally Sensorium / Orientation: alert Motor Exam: strength 5/5 throughout Psych mental status grossly normal Mood & Affect: Negative for depressed or tearful Skin no rashes or lesions noted and no wounds MDM MDM MDM Narrative Medical decision making narrative: Patient is not normally in atrial fibrillation. He is in atrial fibrillation with rate control now. His beta natruretic peptide is elevated at 977.6. My interpretation of the chest x-ray is vascular congestion. Patient received Lasix and supplemental oxygen. Plan will be admission into the hospital for further management. Lab Data Attestation: I reviewed the patient's lab results. Labs: Laboratory Results - last 24 hr 12/25/20 12/25/20 12/25/20 10:25 10:25 10:25 WBC 10.6 RBC 3.59 L Hgb 11.5 L Hct 37.0 L MCV 103.1 H MCH 32.0 MCHC 31.1 L RDW Std Deviation 55.9 H RDW Coeff of Phani 14.7 H Plt Count 263 MPV 9.8 Immature Gran % (Auto) 0.500 Neut % (Auto) 77.6 H Lymph % (Auto) 12.2 L Wayne % (Auto) 8.9 Eos % (Auto) 0.3 Baso % (Auto) 0.5 Absolute Neuts (auto) 8.3 H Absolute Lymphs (auto) 1.29 Nucleated RBC % 0 PT 15.8 H INR 1.3 APTT 33.1 Sodium 141 Potassium 4.0 Chloride 110 H Carbon Dioxide 25.0 Anion Gap 6 BUN 23 H Creatinine 1.22 Estim Creat Clear Calc 46.21 Est GFR (MDRD) Af Amer 75 Est GFR (MDRD) Non-Af 62 BUN/Creatinine Ratio 18.9 Glucose 144 H Lactic Acid Calcium 8.4 L Total Bilirubin 0.50 AST 17 ALT 23 Alkaline Phosphatase 109 Troponin I High Sens 31 B-Natriuretic Peptide Total Protein 6.9 Albumin 3.3 Globulin 3.6 Albumin/Globulin Ratio 0.9 Urine Color Urine Clarity Urine pH Ur Specific [place] Urine Protein Urine Glucose (UA) Urine Ketones Urine Occult Blood Urine Nitrite Urine Bilirubin Urine Urobilinogen Ur Leukocyte Esterase Urine RBC Urine WBC Ur Squamous Epith Cells Urine Bacteria Urine Mucus 12/25/20 12/25/20 12/25/20 10:25 10:25 11:54 WBC RBC Hgb Hct MCV MCH MCHC RDW Std Deviation RDW Coeff of Phani Plt Count MPV Immature Gran % (Auto) Neut % (Auto) Lymph % (Auto) Wayne % (Auto) Eos % (Auto) Baso % (Auto) Absolute Neuts (auto) Absolute Lymphs (auto) Nucleated RBC % PT INR APTT Sodium Potassium Chloride Carbon Dioxide Anion Gap BUN Creatinine Estim Creat Clear Calc Est GFR (MDRD) Af Amer Est GFR (MDRD) Non-Af BUN/Creatinine Ratio Glucose Lactic Acid 1.9 Calcium Total Bilirubin AST ALT Alkaline Phosphatase Troponin I High Sens B-Natriuretic Peptide 977.6 H Total Protein Albumin Globulin Albumin/Globulin Ratio Urine Color Yellow Urine Clarity Clear Urine pH 6.0 Ur Specific [place] 1.015 Urine Protein 15 H Urine Glucose (UA) Normal Urine Ketones Negative Urine Occult Blood Negative Urine Nitrite Negative Urine Bilirubin Negative Urine Urobilinogen Normal Ur Leukocyte Esterase Negative Urine RBC 0 SEEN Urine WBC 0 SEEN Ur Squamous Epith Cells 0 SEEN Urine Bacteria 0 SEEN Urine Mucus 0 SEEN Radiography Diagnostic Testing: Clinical Impression(s) from Imaging Studies Chest X-Ray 12/25/20 10:24 IMPRESSION: Poor inspiration with some bibasilar atelectasis. Electronically Signed: Kwaku Murillo MD at 10:55 EST Tel , Service support , EKG Initial EKG: Attestation: I personally reviewed and interpreted this EKG as follows: Comments: Atrial fibrillation with PACs and a ventricular rate of 94 bpm Discharge Plan Dx/Rx/DC Orders Clinical Impression: Acute hypoxemic respiratory failure, Congestive heart failure, Paroxysmal atrial fibrillation Disposition Disposition: Acute Care Hospital [facility]
--- NOTE | 2020-12-25 10:30 | EKG12_ITS ---
Test Reason : SOB Blood Pressure : / mmHG Vent. Rate : 094 BPM Atrial Rate : 094 BPM P-R Int : 146 ms QRS Dur : 098 ms QT Int : 406 ms P-R-T Axes : 070 037 102 degrees QTc Int : 507 ms Sinus rhythm with frequent Premature ventricular complexes and Premature atrial complexes ST & T wave abnormality, consider lateral ischemia Prolonged QT Abnormal ECG Confirmed by GUERDA WILSON, CHIQUITA ([id number]), scientific editor VERONIKA KELLER ([id number]) on 12/26/2020 11:03:45 AM Referred By: VIDYA Confirmed By:CHIQUITA CROFT MD
[2020-12-25 10:42] LABS: Absolute Lymphocyte Count 1.29 X10^3/uL (0.83-4.51); Absolute Neutrophil Count 8.3 X10^3/uL (2.0-7.7); Basophil# 0.05 X10^3/uL; Basophil% 0.5 % (0-1); Eosinophil# 0.03 X10^3/uL; Eosinophils% 0.3 % (0-5); Hemoglobin 11.5 g/dL (13.0-16.5); Lymphocyte # 1.29 X10^3/ul (0.83-4.51); Lymphocyte % 12.2 % (19-41); Mean Corp Hgb Conc 31.1 g/dL (32-36); Mean Corpuscular Volume 103.1 fL (80-94); Mean Platelet Vol. 9.8 fl (6.2-12.0); Monocyte# 0.94 X10^3/uL; Monocyte% 8.9 % (0-10); NRBC Flagged by Analyzer 0 % (0-5); Neutrophil # 8.25 X10^3/uL (2.7-7.7); Neutrophil % 77.6 % (47-70); Platelet Count 263 K/mm3 (150-450); RBC Distribution Width CV 14.7 % (11.6-14.6); RBC Distribution Width SD 55.9 fl (35.1-43.9); Red Blood Count 3.59 M/mm3 (4.6-6.2); White Blood Count 10.6 K/mm3 (4.4-11.0)
[2020-12-25 10:48] LABS: International Normalized Ratio 1.3; Partial Thromboplast Time 33.1 Seconds (24.1-36.2); Prothrombin Time (Protime)PT. 15.8 SECONDS (11.7-14.9)
[2020-12-25 10:56] LABS: Lactic Acid 1.9 mmol/L (0.4-1.9)
[2020-12-25 10:59] LABS: ALB/GLOB Ratio 0.9 RATIO (0.9-2.4); AST(SGOT) 17 U/L (15-37); Alanine Aminotransfer ALT/SGPT 23 U/L (16-61); Albumin, Serum 3.3 g/dL (3.2-5.0); Alkaline Phosphatase 109 U/L (45-117); Anion Gap 6 (5-15); BNP,B-Type NATRIURETIC PEPTIDE 977.6 pg/mL (0-100); BUN 23 mg/dL (7-18); BUN/Creat Ratio 18.9 RATIO (10-20); Calcium,Total 8.4 mg/dL (8.5-10.1); Chloride 110 mmol/L (98-107); Creatinine, Serum 1.22 mg/dL (0.70-1.30); EST Glomerular Filtration Rate 62 mL/min (>60); Est Glom Filt Rate - Afr Amer 75 mL/min (>60); Estimated Creatinine Clearance 46.21 ml/min; Globulin 3.6 g/dL (2.2-4.2); Glucose 144 mg/dL (74-106); Protein, Total 6.9 g/dL (6.4-8.2); Sodium Level 141 mmol/L (136-145); Troponin-I HS 31 pg/mL (3.0-78.0)
[2020-12-25] MEDS: Furosemide 100 MG/10 ML Vial 80 MG IV (11:33)
[2020-12-25 11:55] LABS: Bacteria 0 SEEN /hpf (None Seen); Mucous, Urine 0 SEEN /hpf (<or=2+); Red Blood Cells-Urine 0 SEEN /hpf (0-5); Squamous Epithelial Cells - UA 0 SEEN /hpf (0-5); White Blood Cells 0 SEEN /hpf (0-5)
[2020-12-25 11:59] LABS: Color, Urine Yellow (Yellow); Glucose, Dipstick Normal (Normal); Ketone-Dipstick Negative (Negative); Leukocyte Esterase-Dipstick Negative /ul (Negative); Nitrite-Dipstick Negative (Negative); Occult Blood-Urine Negative /ul (Negative); Protein-Dipstick 15 mg/dl (Negative); Specific Gravity, Urine 1.015 (1.002-1.030); Urine Bilirubin Dipstick Negative (Negative); Urine Clarity Clear (Clear); Urine Urobilinogen Normal (Normal)
--- NOTE | 2020-12-25 12:34 | HP.PCM.HOS_ITS ---
Documented by User: Valentino GAMING 12/25/20 13:01 HPI - General General Date of Admission: 12/25/20 Date of Service: 12/25/20 Chief Complaint: Shortness of breath HPI Narrative MAXIMILIAN NIÑO is a 76-year-old male who presents to the ED at [facility] on 12/25/2020 with a chief complaint of shortness of breath. Patient reports that for the past 4 days he has been experiencing progressively worsening shortness of breath that is worse with exertion and resolves with rest. Patient denies any orthopnea, paroxysmal nocturnal dyspnea, chest pain or purulent sputum production. Past medical history is significant for aortic valve replacement and atrial fibrillation for which the patient is on amiodarone and Eliquis, patient does follow with Dr. Nelson. Of note, patient recently underwent right knee replacement, and other than ongoing pain has been relatively uncomplicated. Vital signs in the ED are temperature of 97.0 ?F, HR of 63, BP of 138/57, RR of 30 and patient is currently satting 93% on 2 L via nasal cannula. CBC is unremarkable: WBC is currently 10,000, hemoglobin 11.5 and at baseline and platelets are 263,000. BMP is unremarkable. High- sensitivity troponins not elevated. BNP is 977. Chest x-ray shows moderate cardiac enlargement and some bibasilar atelectasis on inspiration. Rapid Covid is negative and patient has been fully vaccinated against COVID-19. Patient has received 1 dose of IV Lasix in the ED and already reports significant improvement in his shortness of breath. 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 Wears dentures Wears glasses Wears hearing aid Home Medications multivitamin 1 tab PO DAILY 09/09/18 [History Last Taken Unknown] apixaban 2.5 mg tablet 2.5 mg PO BID #180 tab 05/12/20 [Rx Last Taken 12/09/19] amiodarone 100 mg PO DAILY 10/31/20 [History Last Taken 11/14/20] pravastatin 40 mg PO QODAY 10/31/20 [History Last Taken 11/13/20] acetaminophen 1,000 mg PO Q8 30 Days #180 tab 11/15/20 [Rx Last Taken Unknown] Allergy/AdvReac Type Severity Reaction Status Date / Time mushroom Allergy Vomiting Verified 12/25/20 10:14 atorvastatin [From Lipitor] AdvReac Severe Severe Verified 12/25/20 10:14 myalgias Family History Mother , of ID CAD (coronary artery disease) Myocardial infarction Brother Atrial fibrillation Cancer prostate Brother Cancer prostate Father Myocardial infarction Surgical History History of aortic valve replacement (08/15/12) History of appendectomy History of cardioversion (07/09/18) History of left heart catheterization (02/2018) History of left leg surgeries History of right-sided carotid endarterectomy (12/14/15) Social History Smoking Status: Light Smoker (<10/day) alcohol intake: current alcohol intake frequency: holidays/special occasions o nly caffeine: Yes Type: coffee Number of servings: 3 ROS Constitutional Constitutional: Denies anorexia, change in weight, chills, fatigue, fever(s), malaise, night sweats, weakness or other Eyes Eyes: Denies blurry vision, change in eye color, change in vision, discharge from eye(s), double vision, erythema, eye pain, loss of vision or other ENT HEENT: Denies abnormal hearing, dysphagia, ear pain, epistaxis, headache(s), hearing loss, nasal congestion, nasal discharge, post nasal drip, sinus pressure, sore throat or other Cardiovascular Cardiovascular: Reports dyspnea on exertion; Denies chest pain, claudication, edema, lightheadedness, orthopnea, palpitations, paroxysmal nocturnal dyspnea, rapid heart rate, syncope or other Respiratory/Chest Respiratory/Chest: Reports shortness of breath with exertion; Denies cough, dyspnea, excessive phlegm production, hemoptysis, productive cough, shortness of breath at rest, wheezing or other Gastrointestinal Gastrointestinal: Denies abdominal pain, coffee ground emesis, constipation, diarrhea, dyspepsia, hematemesis, hematochezia, loose stools, melena, nausea, vomiting or other Genitourinary Genitourinary: Denies burning urination, difficulty urinating, dysuria, hematur ia, nocturia, urinary frequency, urinary hesitancy, urinary incontinence, urinary urgency or other Musculoskeletal Musculoskeletal: Denies arthralgias, back pain, joint pain, joint stiffness, joint swelling, myalgias, neck pain or other Neurologic Neurologic: Denies abnormal gait, abnormal speech, confusion, disequilibrium, dizziness, focal weakness, headache(s), numbness, paresthesias, seizure-like activity, seizures, syncope, tingling, tremor(s) or other Psychiatric Psychiatric: Denies anxiety, depression, homicidal ideation, suicidal ideation or other Endocrine Endocrinology: Denies change in body appearance, cold intolerance, excessive sweating, heat intolerance, polydipsia, polyuria or other Vital Signs Vital Signs Vital Signs: 12/25/20 10:14 12/25/20 10:16 12/25/20 10:23 Temperature 97.0 F L 97.0 F L Temperature Source Temporal Temporal Pulse Rate 64 64 119 H Respiratory Rate 24 H 22 H 23 H Respiratory Effort Respiratory Pattern Blood Pressure 143/47 H 143/47 H 159/63 H Blood Pressure Mean 79 79 95 Pulse Ox 78 91 92 Oxygen Delivery Method Room Air Nasal Cannula Nasal Cannula Oxygen Flow Rate (L/min) 2 2 12/25/20 10:26 12/25/20 10:28 12/25/20 11:13 Temperature Temperature Source Pulse Rate 82 Respiratory Rate 21 H Respiratory Effort Short of Breath Respiratory Pattern Tachypnea Blood Pressure 143/60 H Blood Pressure Mean 87 Pulse Ox 93 92 Oxygen Delivery Method Nasal Cannula Nasal Cannula Nasal Cannula Oxygen Flow Rate (L/min) 2 2 2 12/25/20 11:59 12/25/20 12:23 Temperature 97.0 F L Temperature Source Temporal Pulse Rate 91 63 Respiratory Rate 23 H 30 H Respiratory Effort Respiratory Pattern Blood Pressure 130/50 H 138/57 H Blood Pressure Mean 76 84 Pulse Ox 92 93 Oxygen Delivery Method Nasal Cannula Nasal Cannula Oxygen Flow Rate (L/min) 2 2 Weight Weight: 199 lb Body Mass Index (BMI) 33.1 Physical Exam Const alert and oriented x3 General Appearance: cooperative HEENT normocephalic, head/scalp atraumatic, hearing grossly normal bilaterally and moist oral mucous membranes Eyes PERRL, EOMs intact bilaterally and conjunctivae normal Neck no lymphadenopathy, supple and no JVD Resp normal respiratory effort, no retractions and no use of accessory muscles Auscultation: diminished lung sounds Cardio regular rate, regular rhythm, no murmurs and no JVD GI normal to inspection, nondistended, normoactive bowel sounds, soft to palpation and non-tender Extremity normal to inspection, full ROM and no clubbing, cyanosis or edema Peripheral Pulses: Yes pulses 2+ throughout Skin no rashes or lesions noted, no wounds, skin turgor normal and no jaundice Neuro CN's II-XII intact bilaterally Psych affect normal Results Lab / Micro Data Result Diagrams: 12/25/20 10:25 12/25/20 10:25 Labs: Laboratory Results - last 24 hr 12/25/20 10:25: WBC 10.6, RBC 3.59 L, Hgb 11.5 L, Hct 37.0 L, MCV 103.1 H, MCH 32.0, MCHC 31.1 L, RDW Std Deviation 55.9 H, RDW Coeff of Phani 14.7 H, Plt Count 263, MPV 9.8, Immature Gran % (Auto) 0.500, Neut % (Auto) 77.6 H, Lymph % (Auto) 12.2 L, [place] % (Auto) 8.9, Eos % (Auto) 0.3, Baso % (Auto) 0.5, Absolute Neuts (auto) 8.3 H, Absolute Lymphs (auto) 1.29, Nucleated RBC % 0 12/25/20 10:25: PT 15.8 H, INR 1.3, APTT 33.1 12/25/20 10:25: Sodium 141, Potassium 4.0, Chloride 110 H, Carbon Dioxide 25.0, Anion Gap 6, BUN 23 H, Creatinine 1.22, Estim Creat Clear Calc 46.21, Est GFR (MDRD) Af Amer 75, Est GFR (MDRD) Non-Af 62, BUN/Creatinine Ratio 18.9, Glucose 144 H, Calcium 8.4 L, Total Bilirubin 0.50, AST 17, ALT 23, Alkaline Phosphatase 109, Troponin I High Sens 31, Total Protein 6.9, Albumin 3.3, Globulin 3.6, Albumin/Globulin Ratio 0.9 12/25/20 10:25: Lactic Acid 1.9 12/25/20 10:25: B-Natriuretic Peptide 977.6 H 12/25/20 11:54: Urine Color Yellow, Urine Clarity Clear, Urine pH 6.0, Ur Specific [place] 1.015, Urine Protein 15 H, Urine Glucose (UA) Normal, Urine Ketones Negative, Urine Occult Blood Negative, Urine Nitrite Negative, Urine Bilirubin Negative, Urine Urobilinogen Normal, Ur Leukocyte Esterase Negative, Urine RBC 0 SEEN, Urine WBC 0 SEEN, Ur Squamous Epith Cells 0 SEEN, Urine Bacteria 0 SEEN, Urine Mucus 0 SEEN Micro: Microbiology 12/25/20 10:30 Nasal Secretion SARS-CoV-2 Antigen (Rapid) - Final Radiology Impression Chest X-Ray 12/25/20 10:24 IMPRESSION: Poor inspiration with some bibasilar atelectasis. Electronically Signed: Kwaku Murillo MD at 10:55 EST Tel , Service support , Assessment & Plan Assessment/Plan (1) Acute hypoxemic respiratory failure: (2) Congestive heart failure: (3) S/P total knee arthroplasty: PLAN: Patient is a 75-year-old male who presents to the ED on 12/25/2020 with a chief complaint of progressively worsening shortness of breath x4 days. Patient will be admitted for management of CHF exacerbation. 1) acute hypoxic respiratory failure secondary to acute on chronic CHF exacerbation, unclear type Patient presents to the ED with 4 days of progressively worsening shortness of breath. Respirations have been elevated at 30 breaths/min and patient was initially hypoxic on room air. After receiving 1 dose of Lasix in the ED, respiratory rate currently 30 breaths/min, however patient is satting 93% on 2 L via nasal cannula. Chest x-ray demonstrates moderate cardiac enlargement with some bibasilar atelectasis on inspiration. BNP is elevated at 711. Rapid Covid is negative. Echocardiogram from 2019 demonstrated hyperdynamic LV systolic function, an estimated EF of 75%, severe left ventricular hypertrophy, moderate mitral annular calcification, moderate mitral valve stenosis, stable appearing bioprosthetic aortic valve, RVSP of 39 mmHg and indeterminate diastolic dysfunction. Plan; admit to PCU for cardiac telemetry monitoring, continue IV Lasix, obtain new echocardiogram in a.m., strict I's and O's, daily weights, O2 per protocol, CBC and BMP in a.m., trend enzymes, heart healthy diet ordered, PT/OT eval ordered, case management consult ordered. 2) atrial fibrillation Rate is currently controlled. Patient is on amiodarone for rate control and Mary jada for anticoagulation. Continue home A. fib regimen. 3) status post right TKA Surgery performed on November 14, 2020, appropriate follows have been performed and no complications noted. 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 Vaccination status: Patient and patient's have been fully vaccinated against COVID-19. Patient seen by Valentino Calixto PA-C, under the supervision of Dr. Aguilar. Documented by User: Dr. Vianey Aguilar MD 12/25/20 15:57 HPI - General General Date of Admission: 12/25/20 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 Wears dentures Wears glasses Wears hearing aid Home Medications multivitamin 1 tab PO DAILY 09/09/18 [History Last Taken Unknown] apixaban 2.5 mg tablet 2.5 mg PO BID #180 tab 04/01/21 [Rx Last Taken 12/09/19] amiodarone 100 mg PO DAILY 10/31/20 [History Last Taken 11/14/20] pravastatin 40 mg PO QODAY 10/31/20 [History Last Taken 11/13/20] acetaminophen 1,000 mg PO Q8 30 Days #180 tab 11/15/20 [Rx Last Taken Unknown] Allergy/AdvReac Type Severity Reaction Status Date / Time mushroom Allergy Vomiting Verified 12/25/20 10:14 atorvastatin [From Lipitor] AdvReac Severe Severe Verified 12/25/20 10:14 myalgias Family History Mother , of ID CAD (coronary artery disease) Myocardial infarction Brother Atrial fibrillation Cancer prostate Brother Cancer prostate Father Myocardial infarction Surgical History History of aortic valve replacement (08/15/12) History of appendectomy History of cardioversion (07/09/18) History of left heart catheterization (02/2018) History of left leg surgeries History of right-sided carotid endarterectomy (12/14/15) Social History Smoking Status: Light Smoker (<10/day) alcohol intake: current alcohol intake frequency: holidays/special occasions only caffeine: Yes Type: coffee Number of servings: 3 Results Lab / Micro Data Result Diagrams: 12/25/20 10:25 12/25/20 10:25 Charges/Coding Addendum Addendum: This patient was seen in conjunction with MEKHI Mack. I have independently interviewed and examined the patient and reviewed pertinent historical, laboratory, and other data. Please refer to MEKHI Mack's note for his patient's presentation, findings, and recommendations. I have reviewed and his note and concur with his documentation 75-year-old old male with past medical history of paroxysmal atrial fibrillation/flutter status post successful cardioversion in 2019, status post aortic valve replacement, PAD status post right carotid endarterectomy, history of nonischemic cardiomyopathy, EF of 75%, moderate mitral stenosis, LVH who comes in with progressive shortness of breath ongoing for a couple of days. Patient admitted to having gained about 10 pounds in about a month. He also admitted to progressive shortness of breath with exertion. Denied any chest pain or dizziness or palpitations or orthopnea or PND or leg swelling. He has chronic right leg swelling status post his recent knee replacement. In the ED, he was found to be in RVR. His BNP Was elevated more than 600. Chest x-ray shows bibasilar atelectasis. On the floor, patient was found to be in normal sinus rhythm strip PVCs Physical Exam: Gen: Comfortable, on 2 L of oxygen, not pale, not jaundiced CVS:HS I +II, regular, no murmurs RESP: Diminished at lung bases GI: BS present and normal, soft, nontender, no palpable organs EXT: Bilateral leg edema +1, worse in the right lower extremity ASSESSMENT: 1. Acute exacerbation of heart failure with preserved EF, last echo in 2019 showed EF of 75%, LVH 2. A. fib with RVR, appears resolved on the floor, in normal sinus rhythm, with PVCs 3. Valvular heart disease, status post aortic valve repair 4. Rheumatic mitral stenosis 5. PAD status post right carotid endarterectomy, stenosis of the left subclavian vein 6. Hypertension 7. Hyperlipidemia Plan: Check magnesium, TSH Continue on amiodarone, Lasix, CHF protocol Increase Eliquis to 5 mg p.o. twice daily If patient continues to have tachy-bradycardia episodes on telemetry, consider cardiology consult for EP evaluation I discussed and explained in details the various types of CODE STATUS-full code, DNR CCA, DNR CC. Patient chose full code Time spent discussing CODE STATUS 16 minutes Visit Charges Inpatient E&M: 85779 Init Hosp L3 Procedures Hospitalists Procedures: 73562 Advncd Care Plan 30 Min
--- NOTE | 2020-12-25 13:03 | ECHOD_ITS ---
Reason For Study: CHF Procedure This was a 2D Doppler, Color Flow transthoracic echocardiogram. Definity deferred due to elevated PAP. Exam performed portable in patient room. Left Ventricle Normal LV size. Moderate concentric left ventricular hypertrophy. Left ventricular systolic function is normal. The estimated ejection fraction is 65 %. No regional wall motion abnormalities noted. Right Ventricle Normal RV size. Normal systolic function. Atria The left atrium is severely enlarged. Normal right atrium. Mitral Valve There is moderate mitral annular calcification. The mitral valve chordae are thickened and/or calcified. Mild (1+) eccentric mitral valve insufficiency. Tricuspid Valve Normal tricuspid valve. Moderate (2+) tricuspid valve insufficiency. Pulmonary artery systolic pressure is 62 mmHg. Moderate pulmonary hypertension. Aortic Valve Peak aortic valve gradient 44 mmHg. Mean aortic valve gradient 20 mmHg. Mild aortic stenosis. Bioprosthetic aortic valve. Great Vessels Normal aortic root. The pulmonary artery is normal size. Normal inferior vena cava. Pericardium/Pleural No pericardial effusion. MMode/2D Measurements & Calculations LVIDd: 4.2 cm IVSd: 1.4 cm LVOT diam: 2.0 cm LVIDs: 2.2 cm LVPWd: 1.4 cm LVOT area: 3.0 cm2 RVDd: 3.2 cm FS: 47.3 % Ao root diam: 2.8 cm LAV(MOD-bp): 123.1 ml LVAd ap4: 37.9 cm2 LAV(MOD-bp) Indexed: 62.5 ml/m2 LVLd ap4: 8.9 cm LAV(MOD-sp2): 108.2 ml EDV(MOD-sp4): 138.3 ml LAV(MOD-sp4): 124.5 ml EDV(sp4-el): 137.2 ml LVAs ap4: 22.0 cm2 LVLs ap4: 7.2 cm ESV(MOD-sp4): 57.1 ml ESV(sp4-el): 57.4 ml EF(MOD-sp4): 58.7 % EF(sp4-el): 58.1 % SV(MOD-sp4): 81.2 ml SV(sp4-el): 79.7 ml LA A4 area: 31.9 cm2 LA dimension(2D): 6.0 cm RA A4 area: 14.9 cm2 Doppler Measurements & Calculations MV V2 max: 245.2 cm/sec Ao V2 max: 328.1 cm/sec LV V1 max: 135.1 cm/sec MV max P.4 mmHg Ao max P.0 mmHg LV V1 max P.6 mmHg MV V2 mean: 125.7 cm/sec Ao V2 mean: 210.8 cm/sec LV V1 mean P.3 mmHg MV mean P.1 mmHg Ao mean P.9 mmHg LV V1 mean: 95.6 cm/sec MV V2 VTI: 94.0 cm Ao V2 VTI: 65.1 cm LV V1 VTI: 28.8 cm MVA(VTI): 0.92 cm2 CESAR(I,D): 1.3 cm2 CESAR(V,D): 1.2 cm2 SV(LVOT): 86.8 ml PA V2 max: 191.8 cm/sec TR max bandar: 378.2 cm/sec PA V2 mean: 97.2 cm/sec TR max P.3 mmHg PA V2 VTI: 113.0 cm MV P1/2t-pr_phl: 133.5 msec ECHO/Echo Complete Interpretation Summary Normal LV size. Moderate concentric left ventricular hypertrophy. Left ventricular systolic function is normal. The estimated ejection fraction is 65 %. Pulmonary artery systolic pressure is 62 mmHg. Moderate pulmonary hypertension. Mean aortic valve gradient 20 mmHg. Compared to the previous the above parameters of the aortic valve appeared to b e essentially unchanged by the right ventricular systolic pressure and pulmonary pressures ar e elevated. Ordering Physician: Vianey Aguilar Referring Physician: TRESA IRELAND Performed By: Maribel Her, LYNDA, RVT
[2020-12-25 13:56] LABS: Troponin-I HS 32 pg/mL (3.0-78.0)
[2020-12-25] MEDS: Acetaminophen 500 MG Tablet 1000 MG PO ×2 (15:10→22:05)
[2020-12-25 16:32] LABS: Magnesium 2.1 mg/dL (1.6-2.6); Thyroid Stim Hormone (TSH) 0.57 uIU/mL (0.358-3.74); Troponin-I HS 35 pg/mL (3.0-78.0)
[2020-12-25] MEDS: Pravastatin 40 MG Tablet PO (22:10)
[2020-12-25] MEDS: APIXABAN 5 MG TABLET PO (22:10)
[2020-12-26] VITALS (11 sets, daily range): BP systolic 101–131; BP diastolic 39–65; PULSE 36–138; RESP 16–18; TEMP 36.6–37; O2SAT 90–96
--- NOTE | 2020-12-26 04:17 | PCS.PANDOC ---
PANDEMIC DOCUMENTATION INITIATED: Date: 09/26/2020 Time: 190
[2020-12-26] MEDS: Acetaminophen 500 MG Tablet 1000 MG PO ×3 (07:00→21:06)
[2020-12-26 07:18] LABS: Absolute Lymphocyte Count 1.28 X10^3/uL (0.83-4.51); Absolute Neutrophil Count 6.6 X10^3/uL (2.0-7.7); Basophil# 0.04 X10^3/uL; Basophil% 0.5 % (0-1); Eosinophil# 0.11 X10^3/uL; Eosinophils% 1.2 % (0-5); Hematocrit 34.2 % (40-54); Hemoglobin 10.8 g/dL (13.0-16.5); Lymphocyte # 1.28 X10^3/ul (0.83-4.51); Lymphocyte % 14.4 % (19-41); Mean Corp Hgb Conc 31.6 g/dL (32-36); Mean Corpuscular Hgb 32.2 pg (27.0-32.0); Mean Corpuscular Volume 102.1 fL (80-94); Mean Platelet Vol. 9.9 fl (6.2-12.0); Monocyte# 0.85 X10^3/uL; Monocyte% 9.6 % (0-10); NRBC Flagged by Analyzer 0 % (0-5); Neutrophil # 6.56 X10^3/uL (2.7-7.7); Platelet Count 247 K/mm3 (150-450); RBC Distribution Width CV 14.8 % (11.6-14.6); RBC Distribution Width SD 55.6 fl (35.1-43.9); Red Blood Count 3.35 M/mm3 (4.6-6.2); White Blood Count 8.9 K/mm3 (4.4-11.0)
[2020-12-26] MEDS: Multivitamins,Therapeutic Tablet 1 TABLET PO (07:47)
[2020-12-26 07:53] LABS: ALB/GLOB Ratio 0.9 RATIO (0.9-2.4); AST(SGOT) 13 U/L (15-37); Alanine Aminotransfer ALT/SGPT 18 U/L (16-61); Albumin, Serum 3.1 g/dL (3.2-5.0); Alkaline Phosphatase 100 U/L (45-117); Anion Gap 5 (5-15); BUN 27 mg/dL (7-18); Calcium,Total 8.4 mg/dL (8.5-10.1); Chloride 106 mmol/L (98-107); Cholesterol 126 mg/dL (200); Creatinine, Serum 1.23 mg/dL (0.70-1.30); EST Glomerular Filtration Rate 61 mL/min (>60); Est Glom Filt Rate - Afr Amer 74 mL/min (>60); Estimated Creatinine Clearance 44.12 ml/min; Globulin 3.3 g/dL (2.2-4.2); Glucose 85 mg/dL (74-106); High Density Lipoprotein 30 mg/dL; Potassium 3.9 mmol/L (3.5-5.1); Protein, Total 6.4 g/dL (6.4-8.2); Sodium Level 138 mmol/L (136-145); Triglycerides 96 mg/dL; Very Low Density Lipoprotein 19 mg/dL (5-40)
[2020-12-26] MEDS: APIXABAN 5 MG TABLET PO ×2 (09:15→21:06)
--- NOTE | 2020-12-26 10:55 | CASEMGMT ---
JOHN IRIZARRY assessment: Face to Face with patient for initial transition planning/care coordination assessment. JOHN IRIZARRY introduced self and role at [facility], pt voices understanding and consents to assessment. Pt is sitting up in bed in no distress on room air. Pt's is at bedside during assessment. Pt is A/Ox4 and answers all questions appropriately. Care providers, pharmacy, and demographics verified. Presentation: Pt c/o yellow productive cough, SOB and sl weight gain Admitting dx: Acute CHF PCP: Scotty Specialists: Leslie cardio Preferred Pharmacy: [facility] Insurance: MCR A/B, [employer] Prescription Benefit: [employer] Living Will/HPOA: Pt has LW/HPOA and is aware that they are on file at [facility]. Pt's , Leslie Wheeler, is HPOA. LNOK: Leslie Wheeler, ; Aaron Wheeler Jr, son Living Arrangements: Pt lives with in mobile home with 3 steps in and states no concerns at home. Pt is independent with ADL's. Transportation: Pt states drives self and states no transportation concerns. DME/HHC: Pt has the following DME: cane, crutches, walker, and shower chair. Pt states no need for any further DME. Pt states is currently doing OP therapy with [facility] s/p right knee replacement. Pt states no hx of HHC or SNF. Pt states no concerns with going home at time of discharge. Pt is retired. Pt states does not smoke cigarettes or drink ETOH. Pt voices no further concerns/needs. CM to follow for any further discharge planning/needs. Advised pt to ask for CM if any further questions/concerns/need arise, voices understanding. Pt Goal: Home Plan[place] JOHN IRIZARRY
--- NOTE | 2020-12-26 13:40 | CASEMGMT ---
Palliative screening tool completed and pt does not qualify for palliative referral at this time. SStrosa elena LOPEZ CM
--- NOTE | 2020-12-26 14:38 | CON.PCM.CA_ITS ---
Assessment & Plan Assessment/Plan (1) Congestive heart failure: PLAN: He does have evidence of congestive heart failure which is likely diastolic and mediated as well as valvular heart disease. 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 He also has had occasional paroxysms of atrial fibrillation. * My recommendation at this time be to continue to observe him and as an outpatient when he is discharged to have a 48-hour Holter (3) History of aortic valve replacement: PLAN: He does have a history of aortic valve replacement which is stable at this time I would not recommend any changes (4) Paroxysmal atrial fibrillation: PLAN: He does have paroxysmal atrial fibrillation, and is largely maintaining sinus rhythm. He is on low-dose amiodarone as well as Eliquis. We will continue the above. Thank you for allowing me to participate in the care of your patient. Please don't hesitate to call if any issues arise. HPI Consult Data Date of Consult: 12/26/20 HPI Narrative HPI Narrative: MAXIMILIAN NIÑO, is a 75 M who presented to the emergency room with shortness of breath and a cough which had been going on for the preceding 4 or 5 days. He denied any chest pain or paroxysmal nocturnal dyspnea or pedal edema he recently underwent right knee replacement. In the emergency room he was noted to be in sinus rhythm with no acute changes he underwent treatment with intravenous Lasix and said that he was feeling quite well. While on the telemetry unit he was noted to have bradycardia arrhythmias especially during sleep and cardiology was called for evaluation and management. He has a history of rheumatic heart disease, aortic valve disease, nonobstructive coronary artery disease, status post aortic valve replacement with a 21 mm Cuco Karimi Barre magna valve in August 2012, paroxysmal atrial fibrillation, and peripheral vascular disease status post right carotid endarterectomy in December 2015. He also has a history of radiation therapy for prostate cancer via Dr. Jmail. You remember that he did have an episode of atrial fibrillation flutter in June 2018 and underwent successful DC cardioversion. He has remained in sinus rhythm since then. His echocardiogram at that time had demonstrated preserved ejection fraction of 75%, severe concentric left ventricular hypertrophy, moderate mitral stenosis and a stable aortic valve. A subsequent Holter monitor demonstrated no evidence of atrial fibrillation. A repeat echocardiogram during those visits demonstrated nearly identical findings but with moderate pulmonary hypertension. He denies chest, arm, jaw, or neck discomfort. His exercise tolerance is stable. He denies symptoms of palpitations, lightheadedness, dizziness, near syncope, or syncopal episodes. He denies edema or claudication issues. He denies orthopnea, PND, blood in urine, blood in stool, epistaxis, myalgia, or unexplainable fatigue. He states SOB with activity and that is a little worse than before. 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 Wears dentures Wears glasses Wears hearing aid Home Medications multivitamin 1 tab PO DAILY 09/09/18 [History Last Taken Unknown] apixaban 2.5 mg tablet 2.5 mg PO BID #180 tab 05/12/20 [Rx Last Taken 12/09/19] amiodarone 100 mg PO DAILY 10/31/20 [History Last Taken 11/14/20] pravastatin 40 mg PO QODAY 10/31/20 [History Last Taken 11/13/20] acetaminophen 1,000 mg PO Q8 30 Days #180 tab 11/15/20 [Rx Last Taken Unknown] Allergy/AdvReac Type Severity Reaction Status Date / Time mushroom Allergy Vomiting Verified 12/25/20 10:14 atorvastatin [From Lipitor] AdvReac Severe Severe Verified 12/25/20 10:14 myalgias Family History Mother , of [place] CAD (coronary artery disease) Myocardial infarction Brother Atrial fibrillation Cancer prostate Brother Cancer prostate Father Myocardial infarction Surgical History History of aortic valve replacement (08/15/12) History of appendectomy History of cardioversion (07/09/18) History of left heart catheterization (02/2018) History of left leg surgeries History of right-sided carotid endarterectomy (12/14/15) Social History Smoking Status: Light Smoker (<10/day) alcohol intake: current alcohol intake frequency: holidays/special occasions only caffeine: Yes Type: coffee Number of servings: 3 ROS Constitutional Constitutional: Denies fever(s) or weight loss Eyes Eyes: Reports systems reviewed and no addt'l complaints, except as documented ENT HEENT: Reports systems reviewed and no addt'l complaints, except as documented Cardiovascular Cardiovascular: Denies chest pain at rest, chest pain with activity, dyspnea at rest, dyspnea on exertion, edema, palpitations or paroxysmal nocturnal dyspnea Respiratory/Chest Respiratory/Chest: Reports dyspnea on exertion, productive cough, shortness of breath at rest and shortness of breath with exertion Gastrointestinal Gastrointestinal: Denies change in bowel habits, nausea, vomiting or weight changes Genitourinary Genitourinary: Denies difficulty urinating Musculoskeletal Musculoskeletal: Denies joint stiffness or muscle weakness Integumentary Integumentary: Denies lesions Neurologic Neurologic: Denies dizziness or syncope Psychiatric Psychiatric: Denies anxiety Endocrine Endocrinology: Denies excessive sweating or fatigue Hematologic/Lymphatic Hematologic/Lymphatic: Denies anemia Allergic/Immunologic Allergic/Immunologic: Denies seasonal rhinorrhea Physical Exam Const alert, oriented x3 and no apparent distress General Appearance: cooperative HEENT hearing grossly normal bilaterally Head and Scalp: atraumatic Eyes EOMs intact bilaterally Neck General: normal visual inspection Chest inspection of chest normal and palpation of chest normal Resp normal respiratory effort Auscultation: clear to auscultation bilaterally Cardio regular rate, regular rhythm, S1 normal heart sound and S2 normal heart sound Jugular Venous Distention: JVD Heart Sounds: murmur GI normal to inspection, nondistended, normoactive bowel sounds Extremity normal capillary refill and no pedal edema Peripheral Pulses: Yes pulses 2+ throughout and femoral pulses present Skin no rashes or lesions noted Neuro oriented x3 and CN's II-XII intact bilaterally Psych Appearance: grossly normal and appropriate Risk Stratification Risk Stratification Applicable: No Objective Data Vital Signs: Vital Signs Temp Pulse Resp BP Pulse Ox 97.8 F 54 L 16 131/45 H 96 12/26/20 11:05 12/26/20 11:05 12/26/20 11:05 12/26/20 11:05 12/26/20 11:05 Oxygen Flow Rate (L/min) 1 Oxygen Delivery Method Room Air Weight: 199 lb 8.293 oz Body Mass Index (BMI) 33.3 Intake & Output: Intake and Output for Last 24 Hours 12/24/20 12/25/20 12/26/20 23:59 23:59 23:59 Intake Total 640 / 640 520 / 520 Output Total 800 / 800 Balance -160 / -160 520 / 520 Lab / Micro Data Result Diagrams: 12/26/20 05:50 12/26/20 05:50 Labs: Laboratory Results - last 24 hr 12/25/20 16:00: Magnesium 2.1, Troponin I High Sens 35, TSH 0.57 12/26/20 05:50: WBC 8.9, RBC 3.35 L, Hgb 10.8 L, Hct 34.2 L, MCV 102.1 H, MCH 32.2 H, MCHC 31.6 L, RDW Std Deviation 55.6 H, RDW Coeff of Phani 14.8 H, Plt Count 247, MPV 9.9, Immature Gran % (Auto) 0.300, Neut % (Auto) 74.0 H, Lymph % (Auto) 14.4 L, [place] % (Auto) 9.6, Eos % (Auto) 1.2, Baso % (Auto) 0.5, Absolute Neuts (auto) 6.6, Absolute Lymphs (auto) 1.28, Nucleated RBC % 0 12/26/20 05:50: Sodium 138, Potassium 3.9, Chloride 106, Carbon Dioxide 27.0, Anion Gap 5, BUN 27 H, Creatinine 1.23, Estim Creat Clear Calc 44.12, Est GFR (MDRD) Af Amer 74, Est GFR (MDRD) Non-Af 61, BUN/Creatinine Ratio 22.0 H, Glucose 85, Calcium 8.4 L, Total Bilirubin 0.60, AST 13 L, ALT 18, Alkaline Phosphatase 100, Total Protein 6.4, Albumin 3.1 L, Globulin 3.3, Albumin/Globulin Ratio 0.9, Triglycerides 96, Cholesterol 126, LDL Cholesterol 77, VLDL Cholesterol 19, HDL Cholesterol 30 L Micro: Microbiology 12/25/20 10:30 Nasal Secretion SARS-CoV-2 Antigen (Rapid) - Final Cardiology Labs/Tests 12/25/20 16:00: Magnesium 2.1 12/26/20 05:50: WBC 8.9, RBC 3.35 L, Hgb 10.8 L, Hct 34.2 L, MCV 102.1 H, MCH 32.2 H, MCHC 31.6 L, Plt Count 247, MPV 9.9, Immature Gran % (Auto) 0.300, Neut % (Auto) 74.0 H, Lymph % (Auto) 14.4 L, [place] % (Auto) 9.6, Eos % (Auto) 1.2, Baso % (Auto) 0.5, Absolute Neuts (auto) 6.6, Nucleated RBC % 0 12/26/20 05:50: Sodium 138, Potassium 3.9, Chloride 106, Carbon Dioxide 27.0, Anion Gap 5, BUN 27 H, Creatinine 1.23, Est GFR (MDRD) Af Amer 74, Est GFR (MDRD) Non-Af 61, BUN/Creatinine Ratio 22.0 H, Glucose 85, Calcium 8.4 L, Total Bilirubin 0.60, Triglycerides 96, Cholesterol 126, LDL Cholesterol 77, VLDL Cholesterol 19, HDL Cholesterol 30 L Rhythm: EKG: ECHO: Stress Test: Cardiac Cath: PCI: CT Surgery: Holter monitor: EPS: PPM: CXR: Chest CT Scan: Radiography Diagnostic Testing: Radiology Impression Echocardiogram 12/25/20 13:03 Interpretation Summary Normal LV size. Moderate concentric left ventricular hypertrophy. Left ventricular systolic function is normal. The estimated ejection fraction is 65 %. Pulmonary artery systolic pressure is 62 mmHg. Moderate pulmonary hypertension. Mean aortic valve gradient 20 mmHg. Compared to the previous the above parameters of the aortic valve appeared to be essentially unchanged by the right ventricular systolic pressure and pulmonary pressures are elevated. Ordering Physician: Vianey Aguilar Referring Physician: TRESA IRELAND Performed By: Maribel Her, LYNDA, RVT
--- NOTE | 2020-12-26 15:00 | VDLE_ITS ---
Reason For Study: SWELLING RIGHT LEFT GSV is normal. GSV is normal. CFV is compressible, spontaneous, phasic, CFV is compressible, spontaneous, phasic, competent and demonstrates normal competent, and demonstrates normal augmentation. augmentation. FV is compressible, spontaneous, phasic, FV is compressible, spontaneous, phasic, competent and demonstrates normal competent and demonstrates normal augmentation. augmentation. POP V is compressible, spontaneous, phasic, POP V is compressible, spontaneous, phasic, competent and demonstrates normal competent and demonstrates normal augmentation. augmentation. T/P Trunk is compressible. T/P Trunk is compressible. PTV is compressible. PTV is compressible. RT PerV is compressible. LT PerV is compressible. Procedure This is a venous duplex using B-mode, color flow and spectral Doppler. Exam performed portable in patient room. The study was technically difficult. A preliminary report was called and/or faxed to [facility]. VL/Venous Duplex US, Unilateral Interpretation Summary Deep veins of the lower extremities are bilaterally patent and compressible seg mentally. There is no evidence of deep vein thrombosis on either side. Valvular competence appears in tact within the proximal deep venous systems bilaterally. The great saphenous veins appear bila terally patent and compressible segmentally. Ordering Physician: Peyton Doe Referring Physician: Dave Fajardo Chi Performed By: Sigrid Sparrow, RDCS, RVT
--- NOTE | 2020-12-26 15:04 | NURSING ---
This RN reviewed SN charting
--- NOTE | 2020-12-26 16:22 | PN.HOSP_ITS ---
Documented by User: Valentino GAMING 12/26/20 16:27 Subjective Subjective Patient is a 75-year-old male comfortably resting in bed, alert and orient x3. Patient reports resolution of his shortness of breath and admission and denies development of any new symptoms overnight. Does not appear in acute distress. Objective Data Objective Data Vital Signs: Vital Signs Temp Pulse Resp BP Pulse Ox 97.8 F 138 H 16 131/45 H 96 12/26/20 11:05 12/26/20 14:43 12/26/20 11:05 12/26/20 11:05 12/26/20 11:05 Oxygen Flow Rate (L/min) 1 Oxygen Delivery Method Room Air Weight: 199 lb 8.293 oz Body Mass Index (BMI) 33.3 Intake & Output: Intake and Output for Last 24 Hours 12/24/20 12/25/20 12/26/20 23:59 23:59 23:59 Intake Total 640 / 640 520 / 520 Output Total 800 / 800 Balance -160 / -160 520 / 520 Lab / Micro Data Result Diagrams: 12/26/20 05:50 12/26/20 05:50 Labs: Laboratory Results - last 24 hr 12/25/20 16:00: Magnesium 2.1, Troponin I High Sens 35, TSH 0.57 12/26/20 05:50: WBC 8.9, RBC 3.35 L, Hgb 10.8 L, Hct 34.2 L, MCV 102.1 H, MCH 32.2 H, MCHC 31.6 L, RDW Std Deviation 55.6 H, RDW Coeff of Phani 14.8 H, Plt Count 247, MPV 9.9, Immature Gran % (Auto) 0.300, Neut % (Auto) 74.0 H, Lymph % (Auto) 14.4 L, [place] % (Auto) 9.6, Eos % (Auto) 1.2, Baso % (Auto) 0.5, Absolute Neuts (auto) 6.6, Absolute Lymphs (auto) 1.28, Nucleated RBC % 0 12/26/20 05:50: Sodium 138, Potassium 3.9, Chloride 106, Carbon Dioxide 27.0, Anion Gap 5, BUN 27 H, Creatinine 1.23, Estim Creat Clear Calc 44.12, Est GFR (MDRD) Af Amer 74, Est GFR (MDRD) Non-Af 61, BUN/Creatinine Ratio 22.0 H, Glucose 85, Calcium 8.4 L, Total Bilirubin 0.60, AST 13 L, ALT 18, Alkaline Phosphatase 100, Total Protein 6.4, Albumin 3.1 L, Globulin 3.3, Albumin/Globulin Ratio 0.9, Triglycerides 96, Cholesterol 126, LDL Cholesterol 77, VLDL Cholesterol 19, HDL Cholesterol 30 L Micro: Microbiology 12/25/20 10:30 Nasal Secretion SARS-CoV-2 Antigen (Rapid) - Final Radiography Diagnostic Testing: Radiology Impression Echocardiogram 12/25/20 13:03 Interpretation Summary Normal LV size. Moderate concentric left ventricular hypertrophy. Left ventricular systolic function is normal. The estimated ejection fraction is 65 %. Pulmonary artery systolic pressure is 62 mmHg. Moderate pulmonary hypertension. Mean aortic valve gradient 20 mmHg. Compared to the previous the above parameters of the aortic valve appeared to be essentially unchanged by the right ventricular systolic pressure and pulmonary pressures are elevated. Ordering Physician: Vianey Aguilar Referring Physician: TRESA IRELAND Performed By: Maribel Her, LYNDA, RVT Physical Exam Const alert, oriented x3 and no apparent distress HEENT head/scalp atraumatic, moist oral mucous membranes and oropharynx normal Head and Scalp: normocephalic Eyes PERRL, EOMs intact bilaterally and conjunctivae normal Neck no lymphadenopathy, supple and no JVD Resp normal respiratory effort, no retractions, no use of accessory muscles and clear to auscultation bilaterally Cardio regular rhythm, no murmurs and no JVD Cardio Narrative: Patient's heart rate has been variable throughout admission has been as low as 38 and most recent vital sign check shows HR of 138. GI normal to inspection, nondistended, normoactive bowel sounds, soft to palpation and non-tender Extremity normal to inspection, full ROM and no clubbing, cyanosis or edema Skin no rashes or lesions noted, no wounds, skin turgor normal and no jaundice Neuro CN's II-XII intact bilaterally Psych affect normal Assessment & Plan Assessment/Plan (1) Congestive heart failure: PLAN: Day 1 Discharge planning: Patient to be discharged home tomorrow 12/27/2020. 1) acute on chronic CHF exacerbation, unclear type Patient's respiratory distress from mission has resolved, currently satting 96% on room air and respirations are 16 breaths/min. Echocardiogram was obtained and is documented as above, results are more or less unchanged from prior study. Cardiology consulted on patient and would like to resume diuresis as well as other medications. We will continue to monitor I's and O's and daily weights. 2) bradycardia tacky syndrome Patient's heart rate has been variable throughout admission and has been as low as 38 and as high as 140. Cardiology consulted and would like patient to be discharged on a 48-hour Holter monitor and outpatient follow-up. Doppler ultrasound has been ordered and results are pending to rule out DVT. 3) atrial fibrillation Patient is on amiodarone for rate control and Eliquis for anticoagulation. Continue home A. fib regimen. 4) status post right TKA Surgery performed on November 14, 2020, appropriate follows have been performed and no complications noted. DVT prophylaxis - Eliquis Patient seen by Valentino Calixto PA-C, under the supervision of Dr. Doe. Documented by User: Dr. Peyton Doe MD 12/26/20 16:50 Objective Data Lab / Micro Data Result Diagrams: 12/26/20 05:50 12/26/20 05:50 Charges/Coding Addendum Addendum: Patient seen by Valentino Calixto PA-C under my supervision Patient seen and examined. He feels well. His shortness of breath has resolved. Review of systems otherwise negative. He has been noted to get intermittently bradycardic, with HR going down to the 30s. He has remained hemodynamically stable. O/E: Const alert, oriented x3 and no apparent distress HEENT head/scalp atraumatic, moist oral mucous membranes and oropharynx normal Head and Scalp: normocephalic Eyes PERRL, EOMs intact bilaterally and conjunctivae normal Neck no lymphadenopathy, supple and no JVD Resp normal respiratory effort, no retractions, no use of accessory muscles and clear to auscultation bilaterally Cardio regular rhythm, no murmurs and no JVD Cardio Narrative: Patient's heart rate has been variable throughout admission has been as low as 38 and most recent vital sign check shows HR of 138. GI normal to inspection, nondistended, normoactive bowel sounds, soft to palpation and non-tender Extremity normal to inspection, full ROM and no clubbing, cyanosis or edema Skin no rashes or lesions noted, no wounds, skin turgor normal and no jaundice Neuro CN's II-XII intact bilaterally Psych affect normal Patient is being managed for acute on chronic heart failure with preserved EF. 2D echo showed EF of 65%, with PA systolic pressure of 62mmHg, with moderate LV hypertrophy. He is noted to be bradycardic, intermittent tachycardia. He is noted to have tachy-latonya syndrome. Cardiology consulted, and recommends a 48 hour Holter monitor at discharge. Duplex of the LEs done o/.a of RLE swelling is negative for DVT. Continue amiodarone and Eliquis. Rest as per Valentino Calixto PA-C's note, which I have reviewed and endorsed. Visit Charges Inpatient E&M: 16399 Subs Hosp L2
[2020-12-26] MEDS: Furosemide 40 MG/4 ML Vial IV (17:02)
[2020-12-27] VITALS (9 sets, daily range): BP systolic 108–130; BP diastolic 46–56; PULSE 38–86; RESP 18; TEMP 36.5–37.1; O2SAT 93–95
--- NOTE | 2020-12-27 04:03 | EKG12_ITS ---
Test Reason : RHY CHANGE Blood Pressure : / mmHG Vent. Rate : 037 BPM Atrial Rate : 037 BPM P-R Int : 158 ms QRS Dur : 100 ms QT Int : 626 ms P-R-T Axes : 069 031 093 degrees QTc Int : 491 ms Marked sinus bradycardia Nonspecific ST and T wave abnormality Prolonged QT Abnormal ECG Confirmed by SOLE WILSON, FANNY ([id number]), industrial editor VERONIKA KELLER ([id number]) on 12/28/2020 10:03:09 AM Referred By: ALEXANDER Confirmed By:FANNY WHIPPLE MD
[2020-12-27 05:47] LABS: Absolute Lymphocyte Count 1.26 X10^3/uL (0.83-4.51); Absolute Neutrophil Count 5.8 X10^3/uL (2.0-7.7); Basophil# 0.05 X10^3/uL; Basophil% 0.6 % (0-1); Eosinophil# 0.11 X10^3/uL; Eosinophils% 1.4 % (0-5); Hematocrit 32.9 % (40-54); Hemoglobin 10.7 g/dL (13.0-16.5); Lymphocyte # 1.26 X10^3/ul (0.83-4.51); Lymphocyte % 15.7 % (19-41); Mean Corp Hgb Conc 32.5 g/dL (32-36); Mean Corpuscular Hgb 32.2 pg (27.0-32.0); Mean Corpuscular Volume 99.1 fL (80-94); Monocyte# 0.77 X10^3/uL; Monocyte% 9.6 % (0-10); NRBC Flagged by Analyzer 0 % (0-5); Neutrophil # 5.79 X10^3/uL (2.7-7.7); Neutrophil % 72.1 % (47-70); Platelet Count 251 K/mm3 (150-450); RBC Distribution Width CV 14.6 % (11.6-14.6); RBC Distribution Width SD 52.9 fl (35.1-43.9); Red Blood Count 3.32 M/mm3 (4.6-6.2)
[2020-12-27] MEDS: Acetaminophen 500 MG Tablet 1000 MG PO (06:03)
[2020-12-27 06:18] LABS: ALB/GLOB Ratio 0.9 RATIO (0.9-2.4); AST(SGOT) 10 U/L (15-37); Alanine Aminotransfer ALT/SGPT 20 U/L (16-61); Albumin, Serum 3.1 g/dL (3.2-5.0); Alkaline Phosphatase 99 U/L (45-117); Anion Gap 6 (5-15); BUN 39 mg/dL (7-18); BUN/Creat Ratio 29.8 RATIO (10-20); Calcium,Total 8.6 mg/dL (8.5-10.1); Chloride 107 mmol/L (98-107); Creatinine, Serum 1.31 mg/dL (0.70-1.30); EST Glomerular Filtration Rate 57 mL/min (>60); Est Glom Filt Rate - Afr Amer 69 mL/min (>60); Estimated Creatinine Clearance 41.42 ml/min; Globulin 3.5 g/dL (2.2-4.2); Glucose 97 mg/dL (74-106); Potassium 4.1 mmol/L (3.5-5.1); Protein, Total 6.6 g/dL (6.4-8.2); Sodium Level 138 mmol/L (136-145)
[2020-12-27] MEDS: Multivitamins,Therapeutic Tablet 1 TABLET PO (08:05)
[2020-12-27 08:12] LABS: Magnesium 2.2 mg/dL (1.6-2.6)
[2020-12-27] MEDS: Furosemide 40 MG Tablet PO (09:32)
[2020-12-27] MEDS: APIXABAN 5 MG TABLET PO (09:33)
--- NOTE | 2020-12-27 11:03 | PCM.DC ---
Discharge Instructions Diet Discharge Diet: No restrictions Activity Discharge Activity: Return to Normal Activity Weight Bearing Status: Weight bearing as tolerated Dressing / Incision Call your doctor if you observe: Fever of 101 or Higher, Numbness or Tingling, Shortness of breath, Dizziness, Chest pain, Increased palpitations (irregular heartbeat) and Calf discomfort Follow Up Care Please Follow Up With: Primary care provider When: Within the next two weeks. Test Results: Test results from this visit will be discussed in further detail at your follow-up appointment, if applicable. Discharge Plan Admission Admit Date/Time: 12/25/20 12:01 Primary Reason for Your Visit: Shortness of breath Attending Provider: Peyton Doe Primary Care Provider: Dave Fajardo Chi Consulting Providers: Pineda Zamudio Discharge Orders/Prescriptions Prescriptions: New Eliquis 5 mg tablet 5 mg PO BID Qty: 60 RF: 0 furosemide [Lasix] 20 mg tablet 20 mg PO DAILY Qty: 30 RF: 0 Continued multivitamin [One Daily Multivitamin] Tablet 1 tab PO DAILY RF: 0 pravastatin 40 mg tablet 40 mg PO QODAY RF: 0 amiodarone 200 mg tablet 100 mg PO DAILY RF: 0 acetaminophen 500 mg Tablet 1,000 mg PO Q8 30 Days Qty: 180 RF: 0 Discontinued Eliquis 2.5 mg tablet 2.5 mg PO BID Qty: 180 RF: 3 Other Ambulatory Orders: Cardiac Holter Monitor, Set-Up (Routine) Location: None Selected Ordered By: Valentino GAMING Referrals / Follow Up: Kwabena Nelson MD [STAFF PHYSICIAN] - Within 2 Weeks Dave Fajardo Chi, MD [Primary Care Provider] - Within 2 Weeks Disposition Disposition (needs filled in before D/C Order can be placed): Home, Self Care
--- NOTE | 2020-12-27 12:00 | PHA.DC.MC ---
Pharmacy Service has performed discharge medication reconciliation and counseling for this patient. 1. FUROSEMIDE 20MG PO DAILY The patient's discharge medication list was reviewed for discrepancies and discrepancies were resolved. Patient told this [facility] he just picked up a 90 day supply of Eliquis 2.5mg for ~$300 and does not want to fill the 5mg strength at this time. States he will take (2) 2.5mg tablets to equal 5mg PO BID until 2.5mg tablets are gone. MEKHI Avelar and RN CM aware. Patient to have an appointment with Dr Nelson in the next couple of weeks and can get a new prescription for 5mg tablets at that time. Home Medications multivitamin 1 tab PO DAILY 09/09/18 amiodarone 100 mg PO DAILY 10/31/20 pravastatin 40 mg PO QODAY 10/31/20 acetaminophen 1,000 mg PO Q8 30 Days #180 tab 11/15/20 apixaban [Eliquis] 5 mg PO BID #60 tab 12/27/20 furosemide [Lasix] 20 mg PO DAILY #30 tab 12/27/20 The patient was counseled on the following discharge medications and changes in medications for homegoing were reviewed. The Reason for Use, instructions for use, and potential side effects were reviewed for all new medications. The patient's questions regarding all of their medications were answered. The patient was able to verbally demonstrate an understanding of their discharge medications.
--- NOTE | 2020-12-27 12:36 | CASEMGMT ---
New scripts e-scribed to [facility] retail pharmacy and pt to be sent home on new dose of Eliquis 5mg bid and per Gene in pharmacy, pt is in gap coverage and co-pay is $132.62 and pt has already used month free trial card. This JOHN IRIZARRY to room to update pt and and states they just received 90 day script for the 2.5mg Eliquis. inquires if pt can just take 2 tabs twice daily and per [place] pharmacist and Ty MARTINEZ, pt can finish out his Eliquis 2.5mg taking 2 tabs twice daily. Pt/ aware, voice understanding. Gene in retail pharmacy updated that pt will not be filling Eliquis here today and states lasix co-pay is $.91. Pt/ voice no further concerns with going home at discharge and are aware will f/u with Dr. Nelson in a couple weeks. Pt/ voice no further questions/concerns/needs. [place] JOHN IRIZARRY
--- NOTE | 2020-12-27 12:43 | DS.PCM_ITS ---
Documented by User: Valentino GAMING 12/27/20 12:53 Providers Date of Admission: 12/25/20 Primary Care Physician: Dr. Dave Fajardo MD Consultations 12/26/20 13:59 Consult: Cardiology Routine Consulting Provider: Pineda Zamudio Reason for Consult: Asymptomatic Bradycardia EMERGENT Consult: No MD Notified: Yes Date Notified: 12/26/20 Time Notified: 13:59 Method of Notification: Text Comments:: Current HR 54, has gone as low as 36. Reason For Visit: ACUTE CHF Diagnosis Discharge Diagnosis (1) Congestive heart failure: Status: Acute Code(s): I50.9 - Heart failure, unspecified Medications at Discharge Home Medications multivitamin 1 tab PO DAILY 09/09/18 amiodarone 100 mg PO DAILY 10/31/20 pravastatin 40 mg PO QODAY 10/31/20 acetaminophen 1,000 mg PO Q8 30 Days #180 tab 11/15/20 apixaban [Eliquis] 5 mg PO BID #60 tab 12/27/20 furosemide [Lasix] 20 mg PO DAILY #30 tab 12/27/20 Hospital Course Procedures 2-D Echocardiogram and Transthoracic echo Summary of Care Provided Minutes Spent on Discharge: 35 Hospital Course: Patient is a 75-year-old male who was admitted to the hospital on 12/25/2020 with a chief complaint of shortness of breath secondary to acute on chronic exacerbation of heart failure with preserved ejection fraction. Patient was given IV Lasix, to which his symptoms immediately improved upon receiving. Repeat echocardiogram was obtained and results are noted as above, results are more or less unchanged from prior study. While patient's respiratory status was very responsive to therapy, patient was observed having asymptomatic variable periods of sinus tachycardia and sinus bradycardia with rates as high as 140 and as low as 38. Given patient's extensive cardiac history, cardiology was consulted. 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 Patient is to follow-up with primary care provider and Dr. Nelson within the next 2 weeks for appropriate follow-up and Holter monitor evaluation. Patient's Eliquis was incr eased to 5 mg p.o. twice daily, as was previously 2.5 mg. Low-dose Lasix were also added to patient's home medication regimen. Patient seen by Valentino Calixto PA-C, under the supervision of Dr. Doe. Physical Exam Narrative Patient is a 75-year-old male comfortably resting in bed, alert and orient x3. Patient reports significant improvement in shortness of breath and admission. Denies development of any new symptoms overnight. Does not appear in acute distress. Const alert, oriented x3 and no apparent distress HEENT normocephalic, head/scalp atraumatic and hearing grossly normal bilaterally Eyes PERRL, EOMs intact bilaterally and conjunctivae normal Neck no lymphadenopathy, supple and no JVD Resp normal respiratory effort, no retractions, no use of accessory muscles and clear to auscultation bilaterally Cardio regular rate, regular rhythm, no murmurs and no JVD GI normal to inspection, nondistended, normoactive bowel sounds, soft to palpation and non-tender Extremity normal to inspection, full ROM and no clubbing, cyanosis or edema Skin no rashes or lesions noted, no wounds, skin turgor normal and no jaundice Neuro CN's II-XII intact bilaterally Psych affect normal Weight / BMI Weight Weight: 196 lb 13.965 oz Body Mass Index (BMI) 33.3 ABG / Lab / Microbiology Data Result Diagrams: 12/27/20 05:06 12/27/20 05:06 Laboratory: Laboratory Results - last 24 hr 12/27/20 05:06: WBC 8.0, RBC 3.32 L, Hgb 10.7 L, Hct 32.9 L, MCV 99.1 H, MCH 32.2 H, MCHC 32.5, RDW Std Deviation 52.9 H, RDW Coeff of Phani 14.6, Plt Count 251, MPV 10.0, Immature Gran % (Auto) 0.600, Neut % (Auto) 72.1 H, Lymph % (Auto) 15.7 L, Routt % (Auto) 9.6, Eos % (Auto) 1.4, Baso % (Auto) 0.6, Absolute Neuts (auto) 5.8, Absolute Lymphs (auto) 1.26, Nucleated RBC % 0 12/27/20 05:06: Sodium 138, Potassium 4.1, Chloride 107, Carbon Dioxide 25.0, Anion Gap 6, BUN 39 H, Creatinine 1.31 H, Estim Creat Clear Calc 41.42, Est GFR (MDRD) Af Amer 69, Est GFR (MDRD) Non-Af 57 L, BUN/Creatinine Ratio 29.8 H, Glucose 97, Calcium 8.6, Total Bilirubin 0.30, AST 10 L, ALT 20, Alkaline Phosphatase 99, Total Protein 6.6, Albumin 3.1 L, Globulin 3.5, Albumin/Globulin Ratio 0.9 12/27/20 05:06: Magnesium 2.2 Microbiology: Microbiology 12/25/20 10:30 Nasal Secretion SARS-CoV-2 Antigen (Rapid) - Final Radiography Diagnostic Testing: Radiology Impression Echocardiogram 12/25/20 13:03 Interpretation Summary Normal LV size. Moderate concentric left ventricular hypertrophy. Left ventricular systolic function is normal. The estimated ejection fraction is 65 %. Pulmonary artery systolic pressure is 62 mmHg. Moderate pulmonary hypertension. Mean aortic valve gradient 20 mmHg. Compared to the previous the above parameters of the aortic valve appeared to be essentially unchanged by the right ventricular systolic pressure and pulmonary pressures are elevated. ____ Ordering Physician: Vianey Aguilar Referring Physician: DAVE FAJARDO Performed By: Maribel Her, CHINTANCS, RVT Venous Doppler Study 12/26/20 15:00 Interpretation Summary Deep veins of the lower extremities are bilaterally patent and compressible segmentally. There is no evidence of deep vein thrombosis on either side. Valvular competence appears intact within the proximal deep venous systems bilaterally. The great saphenous veins appear bilaterally patent and compressible segmentally. Ordering Physician: Peyton Doe Referring Physician: Dave Fajardo Chi Performed By: Sigrid Sparrow, LYNDA, RVT D/C Instructions Discharge Diet: No restrictions Weight Bearing Status: Weight bearing as tolerated Call your doctor if you observe: Fever of 101 or Higher, Numbness or Tingling, Shortness of breath, Dizziness, Chest pain, Increased palpitations (irregular heartbeat) and Calf discomfort Please Follow Up With: Primary care provider When: Within the next two weeks. Meaningful Use Info Meaningful Use Diagnoses (Choose all that apply): None applicable Discharge Plan Admission Admit Date/Time: 12/25/20 12:01 Primary Reason for Your Visit: Shortness of breath Attending Provider: Peyton Doe Primary Care Provider: Dave Fajardo Chi Consulting Providers: Pineda Zamudio Instructions Additional Instructions / Restrictions: Patient Problems: Altered Health Status related to Hospitalization Patient Goals: *Optimal Level of Health *Keep Appointments *Medication Compliance *Remain Safe Come to the Hospital to have 48hr Holter Monitor applied on 01/03/21 at 1230. Discharge Orders/Prescriptions Prescriptions: New Eliquis 5 mg tablet 5 mg PO BID Qty: 60 RF: 0 furosemide [Lasix] 20 mg tablet 20 mg PO DAILY Qty: 30 RF: 0 Continued multivitamin [One Daily Multivitamin] Tablet 1 tab PO DAILY RF: 0 pravastatin 40 mg tablet 40 mg PO QODAY RF: 0 amiodarone 200 mg tablet 100 mg PO DAILY RF: 0 acetaminophen 500 mg Tablet 1,000 mg PO Q8 30 Days Qty: 180 RF: 0 Discontinued Eliquis 2.5 mg tablet 2.5 mg PO BID Qty: 180 RF: 3 Other Ambulatory Orders: Cardiac Holter Monitor, Set-Up (Routine) Location: None Selected Ordered By: Valentino GAMING Referrals / Follow Up: Kwabena Nelson MD [STAFF PHYSICIAN] - 01/11/21 2:30 pm Dave Fajardo Chi, MD [Primary Care Provider] - 01/02/21 10:00 am Disposition Disposition (needs filled in before D/C Order can be placed): Home, Self Care Documented by User: Dr. Peyton Doe MD 12/27/20 15:36 Providers Date of Admission: 12/25/20 Reason For Visit: ACUTE CHF Medications at Discharge Home Medications multivitamin 1 tab PO DAILY 09/09/18 amiodarone 100 mg PO DAILY 10/31/20 pravastatin 40 mg PO QODAY 10/31/20 acetaminophen 1,000 mg PO Q8 30 Days #180 tab 11/15/20 apixaban [Eliquis] 5 mg PO BID #60 tab 12/27/20 furosemide [Lasix] 20 mg PO DAILY #30 tab 12/27/20 ABG / Lab / Microbiology Data Result Diagrams: 12/27/20 05:06 12/27/20 05:06 Discharge Plan Admission Admit Date/Time: 12/25/20 12:01 Primary Reason for Your Visit: Shortness of breath Attending Provider: Peyton Doe Primary Care Provider: Dave Fajardo Chi Consulting Providers: Pineda Zamudio Instructions Additional Instructions / Restrictions: Patient Problems: Altered Health Status related to Hospitalization Patient Goals: *Optimal Level of Health *Keep Appointments *Medication Compliance *Remain Safe Come to the Hospital to have 48hr Holter Monitor applied on 01/03/21 at 1230. Discharge Orders/Prescriptions Prescriptions: New Eliquis 5 mg tablet 5 mg PO BID Qty: 60 RF: 0 furosemide [Lasix] 20 mg tablet 20 mg PO DAILY Qty: 30 RF: 0 Continued multivitamin [One Daily Multivitamin] Tablet 1 tab PO DAILY RF: 0 pravastatin 40 mg tablet 40 mg PO QODAY RF: 0 amiodarone 200 mg tablet 100 mg PO DAILY RF: 0 acetaminophen 500 mg Tablet 1,000 mg PO Q8 30 Days Qty: 180 RF: 0 Discontinued Eliquis 2.5 mg tablet 2.5 mg PO BID Qty: 180 RF: 3 Other Ambulatory Orders: Cardiac Holter Monitor, Set-Up (Routine) Location: None Selected Ordered By: Valentino GAMING Referrals / Follow Up: Kwabena Nelson MD [STAFF PHYSICIAN] - 01/11/21 2:30 pm Dave Fajardo Chi, MD [Primary Care Provider] - 01/02/21 10:00 am Disposition Disposition (needs filled in before D/C Order can be placed): Home, Self Care Charges/Coding Addendum Addendum: Patient seen by Valentino Calixto PA-C under my supervision Patient is a 76-year-old male with a past medical history as outlined was admitted through the ED on 12/25/2020 with a complaint of shortness of breath which have been going on for about 4 days and not gradually worsened. He denied any orthopnea or PND. BNP was elevated at 977 and chest x-ray showed moderate cardiac enlargement and bibasilar atelectasis on inspiration. Rapid Covid test was negative. He was admitted and managed for acute on chronic exacerbation of heart failure with preserved ejection fraction. He was diuresed with IV Lasix. Hospital course was complicated by bradycardia with heart rate going as low as the mid 30s. 2D echo showed EF of 65% with pulmonary systolic pressure of 60 mmHg and moderate left ventricular hypertrophy. 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 Cardiology recommended a 48-hour Holter monitor at discharge. Patient also had right lower extremity swelling and a duplex was done to rule out a DVT on account of recent right knee replacement; duplex was negative. Amiodarone was held on account of bradycardia. Patient remained stable and shortness of breath completely resolved. He was discharged home on 12/27/2020 with a 48-hour Holter monitor and is to follow-up with cardiology as well as his PCP in 1 to 2 weeks. Patient seen and examined prior to discharge. He had no active complaint and was eager to be discharged home. Review of systems otherwise negative. Labs and vitals reviewed. Home medication reviewed and reconciled. O/E: Const alert, oriented x3 and no apparent distress HEENT head/scalp atraumatic, moist oral mucous membranes and oropharynx normal Head and Scalp: normocephalic Eyes PERRL, EOMs intact bilaterally and conjunctivae normal Neck no lymphadenopathy, supple and no JVD Resp normal respiratory effort, no retractions, no use of accessory muscles and clear to auscultation bilaterally Cardio regular rhythm, no murmurs and no JVD Cardio Narrative: bradycardic. normal S1 and S2, no murmurs. GI normal to inspection, nondistended, normoactive bowel sounds, soft to palpation and non-tender Extremity normal to inspection, full ROM and no clubbing, cyanosis or edema Skin no rashes or lesions noted, no wounds, skin turgor normal and no jaundice Neuro CN's II-XII intact bilaterally Psych affect normal Plan is for discharge home today with 48 hour Holter monitor. Rest as per Valentino Calixto PA-C's note, which I have reviewed and endorsed. Visit Charges Inpatient E&M: 05905 Disch Hosp
--- NOTE | 2020-12-27 12:56 | CHAPLAIN ---
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
== END 2020-12-27 12:48 | disposition home or self-care (01) | DRG 291 ==
LOC: ED 12:18 → PCU 12:21
PROVIDERS: Admitting Provider Internal Medicine; Emergency Provider Emergency Medicine; PCP Family Medicine Geriatric Medicine; Visit Provider Student in an Organized Health Care Education/Training Program
DX: I11.0 Hypertensive heart disease with heart failure (principal); I50.33 Acute on chronic diastolic (congestive) heart failure; J96.01 Acute respiratory failure with hypoxia; I49.5 Sick sinus syndrome; I27.20 Pulmonary hypertension, unspecified; I42.8 Other cardiomyopathies; I48.0 Paroxysmal atrial fibrillation; I08.0 Rheumatic disorders of both mitral and aortic valves; I25.10 Atherosclerotic heart disease of native coronary artery without angina pectoris; E78.5 Hyperlipidemia, unspecified; M79.89 Other specified soft tissue disorders; Z20.822 Contact with and (suspected) exposure to COVID-19; E66.9 Obesity, unspecified; F17.200 Nicotine dependence, unspecified, uncomplicated; I25.2 Old myocardial infarction; Z79.01 Long term (current) use of anticoagulants; Z79.899 Other long term (current) drug therapy; Z85.46 Personal history of malignant neoplasm of prostate; Z92.3 Personal history of irradiation; Z95.2 Presence of prosthetic heart valve; Z96.651 Presence of right artificial knee joint
CPT/HCPCS: 36415; 71045; 80053; 80061; 81001; 83605; 83735; 83880; 84443; 84484; 85025; 85610; 85730; 87426; 93005; 93306; 93971; 97162; 97166; 97802; 99251; 99285; Q9957; A4216; C8929; G0463; J1940; J3490

== ENCOUNTER → 2021-01-03 12:20 | Outpatient (CLI) | payer MEDICARE, OTHER, SELFPAY | PROVIDERS: PCP Family Medicine Geriatric Medicine; Referring Provider Internal Medicine Cardiovascular Disease; Visit Provider Internal Medicine Cardiovascular Disease | DX: I48.0 Paroxysmal atrial fibrillation (principal); I48.92 Unspecified atrial flutter; I49.5 Sick sinus syndrome; Z79.899 Other long term (current) drug therapy | CPT/HCPCS: 93225; 93226 ==

== ENCOUNTER → 2021-01-04 11:28 | Outpatient (CLI) | payer MEDICARE, OTHER, SELFPAY ==
[2021-01-04 12:31] LABS: Albumin, Serum 3.7 g/dL (3.2-5.0); BUN 24 mg/dL (7-18); BUN/Creat Ratio 18.5 RATIO (10-20); Calcium,Total 9.5 mg/dL (8.5-10.1); Chloride 104 mmol/L (98-107); EST Glomerular Filtration Rate 57 mL/min (>60); Est Glom Filt Rate - Afr Amer 69 mL/min (>60); Glucose 98 mg/dL (74-106); Phosphorus 4.3 mg/dL (2.5-4.9); Sodium Level 139 mmol/L (136-145)
== END ==
PROVIDERS: PCP Family Medicine Geriatric Medicine; Visit Provider Internal Medicine Nephrology
DX: N17.9 Acute kidney failure, unspecified (principal)
CPT/HCPCS: 36415; 80069

== ENCOUNTER → 2021-01-10 10:30 | Outpatient (CLI) | payer MEDICARE, OTHER, SELFPAY ==
[2021-01-10 11:30] LABS: PSA,Total- Diagnostic 0.56 ng/mL (0.0-4.0)
== END ==
PROVIDERS: PCP Family Medicine Geriatric Medicine; Referring Provider Urology; Visit Provider Urology
DX: C61 Malignant neoplasm of prostate (principal)
CPT/HCPCS: 36415; 84153

== ENCOUNTER → 2021-01-30 07:30 | Outpatient (CLI) | payer MEDICARE, OTHER, SELFPAY ==
[2021-01-30 09:31] LABS: Anion Gap 6 (5-15); BUN 31 mg/dL (7-18); BUN/Creat Ratio 29.5 RATIO (10-20); Calcium,Total 8.9 mg/dL (8.5-10.1); Chloride 105 mmol/L (98-107); Creatinine, Serum 1.05 mg/dL (0.70-1.30); EST Glomerular Filtration Rate 73 mL/min (>60); Est Glom Filt Rate - Afr Amer 89 mL/min (>60); Glucose 89 mg/dL (74-106); Potassium 3.7 mmol/L (3.5-5.1); Sodium Level 139 mmol/L (136-145)
[2021-01-30 09:38] LABS: Albumin, Serum 3.8 g/dL (3.2-5.0); BUN 30 mg/dL (7-18); BUN/Creat Ratio 28.6 RATIO (10-20); Calcium,Total 8.8 mg/dL (8.5-10.1); Chloride 106 mmol/L (98-107); Creatinine, Serum 1.05 mg/dL (0.70-1.30); EST Glomerular Filtration Rate 73 mL/min (>60); Est Glom Filt Rate - Afr Amer 89 mL/min (>60); Glucose 90 mg/dL (74-106); Phosphorus 2.8 mg/dL (2.5-4.9); Potassium 3.7 mmol/L (3.5-5.1); Sodium Level 139 mmol/L (136-145)
== END ==
PROVIDERS: Physician Assistant Medical; PCP Family Medicine Geriatric Medicine; Referring Provider Internal Medicine Nephrology; Visit Provider Internal Medicine Nephrology
DX: I13.10 Hypertensive heart and chronic kidney disease without heart failure, with stage 1 through stage 4 chronic kidney disease, or unspecified chronic kidney disease (principal); N18.31 Chronic kidney disease, stage 3a; I25.10 Atherosclerotic heart disease of native coronary artery without angina pectoris; I06.2 Rheumatic aortic stenosis with insufficiency; I48.92 Unspecified atrial flutter; E78.00 Pure hypercholesterolemia, unspecified
CPT/HCPCS: 36415; 80048; 80069

== ENCOUNTER → 2021-06-15 | Outpatient (CLI) | payer MEDICARE, OTHER, SELFPAY ==
[2021-06-15 16:52] LABS: Absolute Lymphocyte Count 2.31 X10^3/uL (0.83-4.51); Absolute Neutrophil Count 6.1 X10^3/uL (2.0-7.7); Basophil# 0.03 X10^3/uL; Basophil% 0.3 % (0-1); Eosinophil# 0.15 X10^3/uL; Eosinophils% 1.6 % (0-5); Hemoglobin 14.4 g/dL (13.0-16.5); Lymphocyte # 2.31 X10^3/ul (0.83-4.51); Lymphocyte % 24.9 % (19-41); Mean Corp Hgb Conc 33.5 g/dL (32-36); Mean Corpuscular Hgb 33.1 pg (27.0-32.0); Mean Corpuscular Volume 98.9 fL (80-94); Mean Platelet Vol. 10.8 fl (6.2-12.0); Monocyte# 0.65 X10^3/uL; NRBC Flagged by Analyzer 0 % (0-5); Neutrophil # 6.08 X10^3/uL (2.7-7.7); Neutrophil % 65.7 % (47-70); Platelet Count 210 K/mm3 (150-450); RBC Distribution Width CV 12.9 % (11.6-14.6); RBC Distribution Width SD 46.9 fl (35.1-43.9); Red Blood Count 4.35 M/mm3 (4.6-6.2); White Blood Count 9.3 K/mm3 (4.4-11.0)
[2021-06-15 17:07] LABS: Vitamin D,25 Hydroxy 30.2 ng/mL
[2021-06-15 17:14] LABS: ALB/GLOB Ratio 1.2 RATIO (0.9-2.4); AST(SGOT) 18 U/L (15-37); Alanine Aminotransfer ALT/SGPT 27 U/L (16-61); Albumin, Serum 3.8 g/dL (3.2-5.0); Alkaline Phosphatase 98 U/L (45-117); Anion Gap 7 (5-15); BUN 28 mg/dL (7-18); BUN/Creat Ratio 19.3 RATIO (10-20); Calcium,Total 8.8 mg/dL (8.5-10.1); Chloride 106 mmol/L (98-107); Creatinine, Serum 1.45 mg/dL (0.70-1.30); EST Glomerular Filtration Rate 51 mL/min (>60); Est Glom Filt Rate - Afr Amer 61 mL/min (>60); Globulin 3.2 g/dL (2.2-4.2); Glucose 93 mg/dL (74-106); Potassium 4.3 mmol/L (3.5-5.1); Sodium Level 140 mmol/L (136-145); Thyroid Stim Hormone (TSH) 1.18 uIU/mL (0.358-3.74)
== END | disposition home or self-care (01) ==
LOC: POLAB3 14:14
PROVIDERS: PCP Family Medicine Geriatric Medicine; Visit Provider Family Medicine Geriatric Medicine
DX: E55.9 Vitamin D deficiency, unspecified (principal); I10 Essential (primary) hypertension
CPT/HCPCS: 36415; 80053; 82306; 84443; 85025

== ENCOUNTER → 2021-06-27 | Outpatient (CLI) | payer MEDICARE, OTHER, SELFPAY ==
[2021-06-27 11:33] LABS: Anion Gap 7 (5-15); BUN 28 mg/dL (7-18); BUN/Creat Ratio 24.1 RATIO (10-20); Calcium,Total 8.9 mg/dL (8.5-10.1); Chloride 110 mmol/L (98-107); Creatinine, Serum 1.16 mg/dL (0.70-1.30); EST Glomerular Filtration Rate 65 mL/min (>60); Est Glom Filt Rate - Afr Amer 79 mL/min (>60); Glucose 99 mg/dL (74-106); Sodium Level 142 mmol/L (136-145)
== END | disposition home or self-care (01) ==
LOC: LAB 06:13
PROVIDERS: PCP Family Medicine Geriatric Medicine; Referring Provider Internal Medicine Nephrology; Visit Provider Internal Medicine Nephrology
DX: N18.2 Chronic kidney disease, stage 2 (mild) (principal)
CPT/HCPCS: 36415; 80048

== ENCOUNTER → 2021-07-19 | Outpatient (CLI) | payer MEDICARE, OTHER, SELFPAY ==
[2021-07-19 07:38] LABS: PSA,Total- Diagnostic 0.41 ng/mL (0.0-4.0)
== END | disposition home or self-care (01) ==
LOC: LAB 06:06
PROVIDERS: PCP Family Medicine Geriatric Medicine; Referring Provider Urology; Visit Provider Urology
DX: C61 Malignant neoplasm of prostate (principal)
CPT/HCPCS: 36415; 84153

== ENCOUNTER → 2021-10-04 | Outpatient (CLI) | payer MEDICARE, OTHER, SELFPAY ==
[2021-10-04 10:05] LABS: Hematocrit 41.9 % (40-54); Mean Corp Hgb Conc 33.4 g/dL (32-36); Mean Corpuscular Hgb 32.3 pg (27.0-32.0); Mean Corpuscular Volume 96.8 fL (80-94); Mean Platelet Vol. 10.3 fl (6.2-12.0); Platelet Count 208 K/mm3 (150-450); RBC Distribution Width CV 12.3 % (11.6-14.6); Red Blood Count 4.33 M/mm3 (4.6-6.2); White Blood Count 8.3 K/mm3 (4.4-11.0)
[2021-10-04 10:39] LABS: Albumin, Serum 3.5 g/dL (3.2-5.0); BUN 29 mg/dL (7-18); BUN/Creat Ratio 20.1 RATIO (10-20); Calcium,Total 8.9 mg/dL (8.5-10.1); Chloride 111 mmol/L (98-107); Creatinine, Serum 1.44 mg/dL (0.70-1.30); EST Glomerular Filtration Rate 51 mL/min (>60); Est Glom Filt Rate - Afr Amer 62 mL/min (>60); Glucose 111 mg/dL (74-106); Phosphorus 3.2 mg/dL (2.5-4.9); Sodium Level 140 mmol/L (136-145)
== END | disposition home or self-care (01) ==
LOC: LAB 09:40
PROVIDERS: PCP Family Medicine Geriatric Medicine; Visit Provider Internal Medicine Nephrology
DX: N18.2 Chronic kidney disease, stage 2 (mild) (principal)
CPT/HCPCS: 36415; 80069; 85027

== ENCOUNTER → 2021-10-27 | Outpatient (CLI) | payer MEDICARE, OTHER, SELFPAY ==
[2021-10-27 11:49] LABS: Anion Gap 7 (5-15); BUN 29 mg/dL (7-18); BUN/Creat Ratio 23.2 RATIO (10-20); Calcium,Total 9.3 mg/dL (8.5-10.1); Chloride 107 mmol/L (98-107); Creatinine, Serum 1.25 mg/dL (0.70-1.30); EST Glomerular Filtration Rate 60 mL/min (>60); Est Glom Filt Rate - Afr Amer 72 mL/min (>60); Glucose 114 mg/dL (74-106); Magnesium 2.3 mg/dL (1.6-2.6); Potassium 4.5 mmol/L (3.5-5.1); Sodium Level 142 mmol/L (136-145); Thyroid Stim Hormone (TSH) 0.53 uIU/mL (0.358-3.74)
== END | disposition home or self-care (01) ==
PROVIDERS: PCP Family Medicine Geriatric Medicine; Referring Provider Internal Medicine Cardiovascular Disease; Visit Provider Internal Medicine Cardiovascular Disease
DX: I48.0 Paroxysmal atrial fibrillation (principal); I48.92 Unspecified atrial flutter; I49.5 Sick sinus syndrome; R42 Dizziness and giddiness; Z51.81 Encounter for therapeutic drug level monitoring; Z79.899 Other long term (current) drug therapy
CPT/HCPCS: 36415; 80048; 83735; 84436; 84443

== ENCOUNTER → 2021-11-06 | Outpatient (CLI) | payer MEDICARE, OTHER, SELFPAY ==
--- NOTE | 2021-11-06 12:32 | RAD_ITS ---
STUDY: X-RAY CHEST REASON FOR EXAM: Male, 76 years old. SOB TECHNIQUE: PA and lateral views of the chest. COMPARISON: Comparison is made with prior examination dated 12/25/2020. FINDINGS: There is hyperinflation of the lungs consistent with chronic obstructive lung disease (COPD). There is no demonstrated pleural abnormality. Sternal cerclage wires are present from a prior sternotomy. The patient is status post aortic valve replacement. Normal mediastinum and heber. Normal visualized pulmonary arteries. There is atherosclerotic calcification of the aortic arch with tortuosity. There is demineralization of the osseous structures. There is degenerative osteoarthritis of the bilateral shoulders. There is no demonstrated abnormality of the visualized soft tissue structures of the upper abdomen. RAD/Chest PA and Lateral IMPRESSION: Status post aortic valve replacement. No acute abnormality is seen. Electronically Signed: Jorge A Sierra MD at 13:30 EDT ,
== END | disposition home or self-care (01) ==
PROVIDERS: PCP Family Medicine Geriatric Medicine; Referring Provider Family Medicine Geriatric Medicine; Visit Provider Family Medicine Geriatric Medicine
DX: R06.02 Shortness of breath (principal)
CPT/HCPCS: 71046

== ENCOUNTER 2021-11-20 17:11 | Inpatient (IN) | payer MEDICARE, OTHER, SELFPAY ==
[2021-11-20 17:12] VITALS: BP 176/67; PULSE 49; RESP 18; TEMP 36.6; O2SAT 98; BMI 32.4
--- NOTE | 2021-11-20 17:44 | EKG12_ITS ---
Test Reason : SYNCOPE Blood Pressure : / mmHG Vent. Rate : 075 BPM Atrial Rate : 075 BPM P-R Int : 138 ms QRS Dur : 094 ms QT Int : 428 ms P-R-T Axes : 051 012 097 degrees QTc Int : 477 ms Sinus rhythm with frequent Premature ventricular complexes Possible Left atrial enlargement Nonspecific ST and T wave abnormality Abnormal ECG Confirmed by GUERDA WILSON, CHIQUITA ([id number]), editor city VERONIKA KELLER ([id number]) on 11/21/2021 9:20:19 AM Referred By: SUELLEN Confirmed By:CHIQUITA CROFT MD
--- NOTE | 2021-11-20 17:54 | CT_ITS ---
STUDY: CT BRAIN WITHOUT CONTRAST REASON FOR EXAM: Male, 76 years old. headache on blood thinner TECHNIQUE: Transaxial CT imaging of the brain was performed without administration of intravenous contrast material. Individualized dose optimization techniques were used for this CT. COMPARISON: None FINDINGS: Normal calvarium. Normal soft tissues. Normal size ventricles and extra-axial spaces for the patient''s age. There are areas of decreased attenuation within the white matter tracts of the supratentorial brain, consistent with microvascular disease changes. Normal basal ganglia and thalami. Normal brainstem. Normal cerebellum. There is no intracranial hemorrhage. There are no findings of an acute ischemic infarction. There are calcifications noted in the distal vertebral arteries. There are calcifications noted in the cavernous carotid arteries. This is consistent for atherosclerotic disease. Normal visualized paranasal sinuses. ASPECTS 10 CT/Brain/Head without Contrast IMPRESSION: There are no acute intracranial findings. Electronically Signed: Gabriele Pan MD at 18:31 EDT ,
[2021-11-20 17:55] VITALS: BP 152/84; PULSE 71; RESP 14; O2SAT 94
--- NOTE | 2021-11-20 17:55 | EX.ED.DYSGE1 ---
HPI History of Present Illness Chief Complaint: Syncope Detail of Chief Complaint: Passed out at home unloading firewood. Informant: patient and spouse/S.O. Onset/Context/Timing Onset: Today Context: Sudden Onset Current Severity: Gone Narrative Narrative: 26-year-old male history of A. fib, bradycardia tacky syndrome, CHF, AK on the blood thinner Eliquis. Today he was unloading wood at his home and had a syncopal event. Lasted seconds. Denies any injuries. Said he had no symptoms before it came on. He was not having any chest pain, shortness of breath or nausea. He did not feel lightheaded. He had near syncopal episodes several weeks ago at the [facility]. He did not fall or lose consciousness during any of those events. He has had a posterior right-sided headache recently. 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 Wears dentures Wears glasses Wears hearing aid Home Medications multivitamin (One Daily Multivitamin tablet) 1 tab PO DAILY vitamin 09/09/18 [History Last Taken Unknown] amiodarone 200 mg tablet 100 mg PO DAILY heart 10/31/20 [History Last Taken 11/14/20] pravastatin 40 mg tablet 40 mg PO QODAY cholesterol #45 tabs 01/11/21 [Rx Last Taken Unknown] ascorbic acid (vitamin C) 500 mg tablet 500 mg PO DAILY 03/24/21 [History Last Taken Unknown] cholecalciferol (vitamin D3) 25 mcg (1,000 unit) tablet 25 mcg PO DAILY 03/24/21 [History Last Taken Unknown] apixaban 2.5 mg tablet (Eliquis) 2.5 mg PO BID #180 tabs 07/27/21 [Rx Last Taken Unknown] furosemide 20 mg tablet 20 mg PO DAILY 11/20/21 [History Last Taken Unknown] zinc 10 mg tablet 10 mg PO DAILY 11/20/21 [History Last Taken Unknown] Allergy/AdvReac Type Severity Reaction Status Date / Time mushroom Allergy Vomiting Verified 11/20/21 17:11 atorvastatin [From Lipitor] AdvReac Severe Severe Verified 11/20/21 17:11 myalgias lisinopril AdvReac hyperkalemi Verified 11/20/21 17:11 a Family History Mother , of AK CAD (coronary artery disease) Myocardial infarction Brother Atrial fibrillation Cancer prostate Brother Cancer prostate Father Myocardial infarction Surgical History H/O arthroscopic knee surgery History of aortic valve replacement (08/15/12) History of appendectomy History of cardioversion (07/09/18) History of left heart catheterization (02/2018) History of left leg surgeries History of right-sided carotid endarterectomy (12/14/15) Social History Smoking Status: Former smoker alcohol intake: current alcohol intake frequency: holidays/special occasions only caffeine: Yes Type: coffee Number of servings: 3 ROS ROS ED ROS Narrative Denies recent illness other than he had COVID several weeks ago. Review of Systems ROS Unobtainable: Denies due to encephalopathy Constitutional Constitutional ED: Denies chills or fever(s) Eyes Eyes: Denies blurry vision ENT ENT ED: Denies ear pain Cardiovascular Cardiovascular: Denies chest pain Respiratory/Chest Respiratory/Chest: Denies cough Gastrointestinal Gastrointestinal: Denies abdominal pain Genitourinary Genitourinary ED: Denies dysuria Musculoskeletal Musculoskeletal: Denies arthralgias Integumentary Denies abscess Neurologic Neurologic: Reports headache(s) Psychiatric Psychiatric: Denies anxiety Endocrine Endocrinology: Denies cold intolerance Hematologic/Lymphatic Hematologic/Lymphatic: Reports none Allergic/Immunologic Allergic/Immunologic ED: Denies mouth swelling or tongue swelling EXAM Physical Exam Narrative Exam Narrative: Well-appearing 36-year-old male. Vital signs stable afebrile other than his pulse is 49. Blood pressure 176/67. Pulse ox 90% on room air no hypoxia. H EENT exam give dry reactive light no signs of facial trauma. Scalp nontender. Neck nontender. Trachea midline. Lungs clear to auscultation bilaterally. Heart bradycardic rate about 50 no murmur. Abdomen soft nontender. No peritoneal signs. Moving all 4 extremities. Nontender no edema. Neurologically is awake and alert. Answering questions following commands. Normal motor strength to his hands and feet. He cannot do dorsi or plantar flexion with his left ankle because he has a fused ankle. Const Vital Signs: 11/20/21 17:12 11/20/21 17:55 11/20/21 17:55 Temperature 97.9 F Temperature Source Temporal Pulse Rate 49 L 71 Respiratory Rate 18 14 Respiratory Effort Respiratory Pattern Blood Pressure 176/67 H 152/84 H Blood Pressure Mean 103 106 Pulse Ox 98 94 Oxygen Delivery Method Room Air Room Air Room Air 11/20/21 17:57 Temperature Temperature Source Pulse Rate Respiratory Rate Respiratory Effort Normal Non-Labored Respiratory Pattern Normal Blood Pressure Blood Pressure Mean Pulse Ox Oxygen Delivery Method Positive well nourished, well developed and obese; Negative for cachectic, contractures or unkempt General Appearance ED: well developed and NAD; Negative for unkempt, cachectic, contractures, cyanotic or diaphoretic Nutritional Appearance: obese; Negative for cachectic HEENT Reports moist mucous membranes; Denies dry mucous membranes Negative for trauma or tenderness Mouth ED: No dry mucous membranes Mouth: No dry mucous membranes Eyes PERRL and EOMs intact bilaterally General Eye ED: Negative for pale conjunctiva, scleral icterus or other Neck no lymphadenopathy, supple and no JVD General: Negative for tenderness Lymph Lymphatic: Negative for other Chest Wall inspection of chest normal and palpation of chest normal Chest: Negative for other Resp normal respiratory effort and clear to auscultation bilaterally Effort and Inspection: Negative for retractions Auscultation: Negative for rales, rhonchi or wheezes Cardio regular rate, regular rhythm, S1 normal heart sound, S2 normal heart sound and no murmurs Palpation: Negative for palpable S3 Rate: Negative for bradycardia Rhythm: Negative for abnormal rhythm GI normal to inspection, nondistended, normoactive bowel sounds, non-tender, non-distended and no masses Inspection: Negative for abdominal distention Auscultation: normoactive bowel sounds Palpation: soft; Negative for tender Back/Spine no CVA tenderness General Back: Negative for CVA tenderness Cervical Spine: Negative for cervical spine tenderness Thoracic Spine / Upper Back: Negative for thoracic spinal tenderness Lumbar Spine / Lower Back: Negative for lumbar spinal tenderness Extremity normal to inspection General Extremety ED: Negative for edema or tenderness General Extremity: Negative for edema Neuro oriented x3 and CN's II-XII intact bilaterally Sensorium / Orientation: alert; Negative for orientation impaired, lethargic or stuporous Motor Exam: strength 5/5 throughout; Negative for general weakness or strength abnormal Psych mental status grossly normal Appearance: Negative for unkempt Attitude: No agitated Mood & Affect: Negative for depressed, anxious or tearful Skin no rashes or lesions noted and no wounds Lesions: No lesion noted Rashes: No rashes noted Trauma: Negative for abrasion Wounds: Negative for wounds noted MDM MDM MDM Narrative Medical decision making narrative: 76-year-old male with a history of A. fib on Eliquis had a syncopal episode today. Cardiac work-up will be done. Also a CAT scan due to headache he has had recently being on the blood thinner and having a fall today. Repeat exam patient doing well at 7:05 PM. When the nurses went to do his orthostatic vital signs and I laid him flat he had a 10 beat run of what appeared to be V. tach or at least a wide-complex tachycardia. He felt that but did not have any significant change. I discussed all test results with he and his he will be admitted for syncope and further evaluation. I spoke to his crew chief and he will discuss with the patient and family possible pacemaker placement. Lab Data Attestation: I reviewed the patient's lab results. Lab results narrative: CBC shows white count 8.9 H&H 12.8 and 39. Electrolytes unremarkable gap is 6 BUN and creatinine 27 1.24. Glucose of 106. Initial troponin 27. Chest x-ray negative. CAT scan of the brain showed no acute bleed. Labs: Laboratory Results - last 24 hr 11/20/21 11/20/21 17:55 17:55 WBC 8.9 RBC 4.02 L Hgb 12.8 L Hct 39.0 L MCV 97.0 H MCH 31.8 MCHC 32.8 RDW Std Deviation 46.6 H RDW Coeff of [place] 13.1 Plt Count 177 MPV 10.6 Immature Gran % (Auto) 0.600 Neut % (Auto) 70.5 H Lymph % (Auto) 15.6 L [place] % (Auto) 11.5 H Eos % (Auto) 1.5 Baso % (Auto) 0.3 Absolute Neuts (auto) 6.3 Absolute Lymphs (auto) 1.39 Nucleated RBC % 0 Sodium 143 Potassium 3.7 Chloride 110 H Carbon Dioxide 27.0 Anion Gap 6 BUN 27 H Creatinine 1.24 Estim Creat Clear Calc 44.77 Est GFR (MDRD) Af Amer 73 Est GFR (MDRD) Non-Af 60 BUN/Creatinine Ratio 21.8 H Glucose 106 Calcium 9.0 Troponin I High Sens 27 Radiography Chest X-Ray - ED: 1 View, Read by ED Physician, Read by Radiologist, Heart, Lungs, Mediastinum, Bony Structures, No Acute Disease and Chronic Changes Diagnostic Testing: Clinical Impression(s) from Imaging Studies Brain CT 11/20/21 17:54 IMPRESSION: There are no acute intracranial findings. Electronically Signed: Gabriele Pan MD at 18:31 EDT , Chest X-Ray 11/20/21 18:18 IMPRESSION: There are no acute findings. Electronically Signed: Gabriele Pan MD at 18:30 EDT , Chest x-ray, portable, single view interpreted myself and radiologist shows no acute abnormality. Normal cardiac silhouette. No infiltrates. No pulmonary edema. Rhythm Strip Rhythm Strip: Sinus Rhythm Rate: 75 Ectopy: PVC(s) EKG Initial EKG: Attestation: I personally reviewed and interpreted this EKG as follows: Interpretation: Sinus Rhythm and No Acute Injury Pattern Comments: Sinus rhythm rate of 75 frequent PVCs. No acute signs of AK or ischemia. Discharge Plan Triage Chief Complaint: Syncope ED Provider: Logan Alejandre Dx/Rx/DC Orders Clinical Impression: Syncope, Non-sustained ventricular tachycardia, History of atrial fibrillation, Chronic anticoagulation Prescriptions: No Action multivitamin [One Daily Multivitamin] Tablet 1 tab PO DAILY cholecalciferol (vitamin D3) 25 mcg (1,000 unit) tablet 25 mcg PO DAILY ascorbic acid (vitamin C) 500 mg tablet 500 mg PO DAILY pravastatin 40 mg tablet 40 mg PO QODAY Qty: 45 3RF Rx Instructions: 40 mg PO every other day; amiodarone 200 mg tablet 100 mg PO DAILY Rx Instructions: zinc 10 mg Tablet 10 mg PO DAILY furosemide 20 mg tablet 20 mg PO DAILY Eliquis 2.5 mg tablet 2.5 mg PO BID Qty: 180 3RF Primary Care Provider: Dave Fajardo Chi Referrals: Dave Fajardo Chi, MD [Primary Care Provider] - Disposition Disposition: Acute Care Hospital [facility]
[2021-11-20 18:04] LABS: Absolute Lymphocyte Count 1.39 X10^3/uL (0.83-4.51); Absolute Neutrophil Count 6.3 X10^3/uL (2.0-7.7); Basophil# 0.03 X10^3/uL; Basophil% 0.3 % (0-1); Eosinophil# 0.13 X10^3/uL; Eosinophils% 1.5 % (0-5); Hemoglobin 12.8 g/dL (13.0-16.5); Lymphocyte # 1.39 X10^3/ul (0.83-4.51); Lymphocyte % 15.6 % (19-41); Mean Corp Hgb Conc 32.8 g/dL (32-36); Mean Corpuscular Hgb 31.8 pg (27.0-32.0); Mean Platelet Vol. 10.6 fl (6.2-12.0); Monocyte# 1.03 X10^3/uL; Monocyte% 11.5 % (0-10); NRBC Flagged by Analyzer 0 % (0-5); Neutrophil # 6.29 X10^3/uL (2.7-7.7); Neutrophil % 70.5 % (47-70); Platelet Count 177 K/mm3 (150-450); RBC Distribution Width CV 13.1 % (11.6-14.6); RBC Distribution Width SD 46.6 fl (35.1-43.9); Red Blood Count 4.02 M/mm3 (4.6-6.2); White Blood Count 8.9 K/mm3 (4.4-11.0)
--- NOTE | 2021-11-20 18:18 | RAD_ITS ---
STUDY: X-RAY CHEST REASON FOR EXAM: Male, 76 years old. chest pain TECHNIQUE: XR Chest 1 View COMPARISON: 11.06.21 FINDINGS: There is atherosclerotic calcification of the aortic arch with tortuosity. There are diffuse degenerative changes of the visualized thoracic spine. There is degenerative osteoarthritis of the bilateral shoulders. There is no demonstrated pleural abnormality. There are multiple median sternotomy wires. Prosthetic heart valve. Normal size heart. Normal mediastinum and heber. Normal visualized pulmonary arteries. There is no demonstrated abnormality of the visualized soft tissue structures of the upper abdomen. RAD/Chest 1 View (Portable) IMPRESSION: There are no acute findings. Electronically Signed: Gabriele Pan MD at 18:30 EDT ,
--- NOTE | 2021-11-20 18:22 | ED.RN ---
Placed pt in supine position to obtain orthostatic vital signs. After lying supine for approx 30 seconds pt had an 8 beat run of VT, reported feeling warm. Pt back up to sitting position, back into SR w/PVC's as previously noted. Dr Alejandre notified of episode, stated do not perform orthostatics.
[2021-11-20 18:29] LABS: Anion Gap 6 (5-15); BUN 27 mg/dL (7-18); BUN/Creat Ratio 21.8 RATIO (10-20); Chloride 110 mmol/L (98-107); Creatinine, Serum 1.24 mg/dL (0.70-1.30); EST Glomerular Filtration Rate 60 mL/min (>60); Est Glom Filt Rate - Afr Amer 73 mL/min (>60); Estimated Creatinine Clearance 44.77 ml/min; Glucose 106 mg/dL (74-106); Potassium 3.7 mmol/L (3.5-5.1); Sodium Level 143 mmol/L (136-145); Troponin-I HS (w/2H Reflex) 27 pg/mL (3.0-78.0)
[2021-11-20 19:21] VITALS: BP 165/68; PULSE 71; RESP 22; O2SAT 94
--- NOTE | 2021-11-20 19:32 | PCM.HP.STD ---
HPI - General General Date of Admission: 11/20/21 Date of Service: 11/20/21 Chief Complaint: Syncopal episode HPI Narrative MAXIMILIAN NIÑO, is a 76 M who presents to the emergency room following a brief syncopal episode at home. Patient has significant past medical history of coronary artery disease and AR along with atrial fibrillation and sometimes bradycardia arrhythmia. Patient was apparently unloading wood from a pickup truck when he temporarily passed out was witnessed by family member. He did not hit his head or have any other trauma from the fall. He currently denies any chest pain shortness of breath fever or chills he is status post COVID virus infection in mid to late October. Chest x-ray and CT scan of head are negative for acute findings. Laboratory studies are unremarkable ,however,the patient was laying flat and getting orthostatic vital signs tested when he had a 10 beat run of V. tach and was symptomatic. The patient's vice president of news was notified and requested admission for the patient to have a pacemaker placed the following day. 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 Wears dentures Wears glasses Wears hearing aid Home Medications multivitamin (One Daily Multivitamin tablet) 1 tab PO DAILY vitamin 09/09/18 [History Last Taken Unknown] amiodarone 200 mg tablet 100 mg PO DAILY heart 10/31/20 [History Last Taken 11/14/20] pravastatin 40 mg tablet 40 mg PO QODAY cholesterol #45 tabs 01/11/21 [Rx Last Taken Unknown] ascorbic acid (vitamin C) 500 mg tablet 500 mg PO DAILY 03/24/21 [History Last Taken Unknown] cholecalciferol (vitamin D3) 25 mcg (1,000 unit) tablet 25 mcg PO DAILY 03/24/21 [History Last Taken Unknown] apixaban 2.5 mg tablet (Eliquis) 2.5 mg PO BID #180 tabs 07/27/21 [Rx Last Taken Unknown] furosemide 20 mg tablet 20 mg PO DAILY 11/20/21 [History Last Taken Unknown] zinc 10 mg tablet 10 mg PO DAILY 11/20/21 [History Last Taken Unknown] Allergy/AdvReac Type Severity Reaction Status Date / Time mushroom Allergy Vomiting Verified 11/20/21 17:11 atorvastatin [From Lipitor] AdvReac Severe Severe Verified 11/20/21 17:11 myalgias lisinopril AdvReac hyperkalemi Verified 11/20/21 17:11 a Family History Mother , of AR CAD (coronary artery disease) Myocardial infarction Brother Atrial fibrillation Cancer prostate Brother Cancer prostate Father Myocardial infarction Surgical History H/O arthroscopic knee surgery History of aortic valve replacement (08/15/12) History of appendectomy History of cardioversion (07/09/18) History of left heart catheterization (02/2018) History of left leg surgeries History of right-sided carotid endarterectomy (12/14/15) Social History Smoking Status: Former smoker alcohol intake: current alcohol intake frequency: holidays/special occasions only caffeine: Yes Type: coffee Number of servings: 3 ROS Constitutional Constitutional: Denies chills or fever(s) Eyes Eyes: Denies change in vision ENT HEENT: Denies abnormal hearing Cardiovascular Cardiovascular: Reports syncope; Denies chest pain Respiratory/Chest Respiratory/Chest: Denies shortness of breath at rest Gastrointestinal Gastrointestinal: Denies abdominal pain Genitourinary Genitourinary: Denies dysuria Musculoskeletal Musculoskeletal: Denies back pain Integumentary Integumentary: Denies wounds Neurologic Neurologic: Denies abnormal speech Psychiatric Psychiatric: Denies anxiety Vital Signs Vital Signs Vital Signs: 11/20/21 17:12 11/20/21 17:55 11/20/21 17:55 Temperature 97.9 F Temperature Source Temporal Pulse Rate 49 L 71 Respiratory Rate 18 14 Respiratory Effort Respiratory Pattern Blood Pressure 176/67 H 152/84 H Blood Pressure Mean 103 106 Pulse Ox 98 94 Oxygen Delivery Method Room Air Room Air Room Air 11/20/21 17:57 11/20/21 19:21 Temperature Temperature Source Pulse Rate 71 Respiratory Rate 22 H Respiratory Effort Normal Non-Labored Respiratory Pattern Normal Blood Pressure 165/68 H Blood Pressure Mean 100 Pulse Ox 94 Oxygen Delivery Method Room Air Weight Weight: 195 lb Body Mass Index (BMI) 32.4 Physical Exam Const oriented x3 and no apparent distress General Appearance: cooperative and well developed HEENT normocephalic and head/scalp atraumatic Eyes PERRL Neck supple Lymph Lymphatic: no lymphadenopathy noted Resp normal respiratory effort, normal air movement and clear to auscultation bilaterally Cardio regular rate, regular rhythm, S1 normal heart sound and S2 normal heart sound GI normal to inspection, nondistended, normoactive bowel sounds Extremity normal capillary refill Skin General Skin Exam: no breakdown Neuro CN's II-XII intact bilaterally Psych thought process normal, cooperative and affect normal Appearance: appropriate Results Lab / Micro Data Result Diagrams: 11/20/21 17:55 11/20/21 17:55 Labs: Laboratory Results - last 24 hr 11/20/21 17:55: WBC 8.9, RBC 4.02 L, Hgb 12.8 L, Hct 39.0 L, MCV 97.0 H, MCH 31.8, MCHC 32.8, RDW Std Deviation 46.6 H, RDW Coeff of Phani 13.1, Plt Count 177, MPV 10.6, Immature Gran % (Auto) 0.600, Neut % (Auto) 70.5 H, Lymph % (Auto) 15.6 L, [place] % (Auto) 11.5 H, Eos % (Auto) 1.5, Baso % (Auto) 0.3, Absolute Neuts (auto) 6.3, Absolute Lymphs (auto) 1.39, Nucleated RBC % 0 11/20/21 17:55: Sodium 143, Potassium 3.7, Chloride 110 H, Carbon Dioxide 27.0, Anion Gap 6, BUN 27 H, Creatinine 1.24, Estim Creat Clear Calc 44.77, Est GFR (MDRD) Af Amer 73, Est GFR (MDRD) Non-Af 60, BUN/Creatinine Ratio 21.8 H, Glucose 106, Calcium 9.0, Troponin I High Sens 27 Rhythm Strip Rhythm Strip: Sinus Rhythm Rate: 75 Ectopy: PVC(s) Radiology Impression Brain CT 11/20/21 17:54 IMPRESSION: There are no acute intracranial findings. Electronically Signed: Gabriele Pan MD at 18:31 EDT , Chest X-Ray 11/20/21 18:18 IMPRESSION: There are no acute findings. Electronically Signed: Gabriele Pan MD at 18:30 EDT , Assessment & Plan Assessment/Plan (1) Syncope: (2) Non-sustained ventricular tachycardia: (3) History of atrial fibrillation: (4) Chronic anticoagulation: PLAN: Plan 1. Syncopal episode?admit patient to progressive care unit continue telemetry monitoring, consult Dr. Nelson, make patient n.p.o. at midnight and hold Eliquis as of now. Repeat CBC BMP and coag panels in the morning 2. Nonsustained V. tach?continue telemetry we will add a magnesium level with next laboratory studies 3. History of atrial fibrillation patient is currently in normal sinus rhythm with PVCs 4. DVT prophylaxis?SCDs Charges/Coding Visit Charges Inpatient E&M: 90782 Init Hosp L3
[2021-11-20 19:33] VITALS: BMI 33.3
[2021-11-20 19:33] LABS: Magnesium 2.2 mg/dL (1.6-2.6)
[2021-11-20 19:44] VITALS: BP 165/68; PULSE 68; RESP 22; TEMP 36.8; O2SAT 95
[2021-11-20 19:59] LABS: Reflex Troponin-HS? (from REC) Y
[2021-11-20 20:00] VITALS: BP 173/59; PULSE 71; RESP 18; TEMP 36.4; O2SAT 95
[2021-11-20 20:50] VITALS: PULSE 76
[2021-11-20 21:08] LABS: Troponin-I HS 34 pg/mL (3.0-78.0)
[2021-11-21] VITALS (17 sets, daily range): BP systolic 102–146; BP diastolic 50–84; PULSE 55–69; RESP 12–18; TEMP 36.6–37.1; O2SAT 92–98; BMI 32.4
[2021-11-21 06:37] LABS: Absolute Lymphocyte Count 1.21 X10^3/uL (0.83-4.51); Absolute Neutrophil Count 6.1 X10^3/uL (2.0-7.7); Basophil# 0.02 X10^3/uL; Basophil% 0.2 % (0-1); Eosinophil# 0.12 X10^3/uL; Eosinophils% 1.4 % (0-5); Hematocrit 36.6 % (40-54); Hemoglobin 11.9 g/dL (13.0-16.5); Lymphocyte # 1.21 X10^3/ul (0.83-4.51); Lymphocyte % 14.5 % (19-41); Mean Corp Hgb Conc 32.5 g/dL (32-36); Mean Corpuscular Hgb 31.7 pg (27.0-32.0); Mean Corpuscular Volume 97.6 fL (80-94); Mean Platelet Vol. 10.6 fl (6.2-12.0); Monocyte# 0.88 X10^3/uL; Monocyte% 10.6 % (0-10); NRBC Flagged by Analyzer 0 % (0-5); Neutrophil # 6.05 X10^3/uL (2.7-7.7); Neutrophil % 72.8 % (47-70); Platelet Count 174 K/mm3 (150-450); RBC Distribution Width CV 13.2 % (11.6-14.6); RBC Distribution Width SD 47.4 fl (35.1-43.9); Red Blood Count 3.75 M/mm3 (4.6-6.2); White Blood Count 8.3 K/mm3 (4.4-11.0)
[2021-11-21 06:53] LABS: International Normalized Ratio 1.1; Prothrombin Time (Protime)PT. 14.3 SECONDS (11.7-14.9)
[2021-11-21 06:58] LABS: Anion Gap 8 (5-15); BUN 20 mg/dL (7-18); BUN/Creat Ratio 20.5 RATIO (10-20); Calcium,Total 8.2 mg/dL (8.5-10.1); Chloride 111 mmol/L (98-107); Creatinine, Serum 0.98 mg/dL (0.70-1.30); EST Glomerular Filtration Rate 80 mL/min (>60); Est Glom Filt Rate - Afr Amer 96 mL/min (>60); Estimated Creatinine Clearance 56.65 ml/min; Glucose 95 mg/dL (74-106); Magnesium 2.1 mg/dL (1.6-2.6); Potassium 3.9 mmol/L (3.5-5.1); Sodium Level 143 mmol/L (136-145)
--- NOTE | 2021-11-21 07:33 | ECHOLC_ITS ---
Version 2 Reason For Study: ARRYTHMIA Procedure This was a limited 2D transthoracic echocardiogram. The study was technically difficult. Contrast injection was performed. Exam performed portable in patient room. Left Ventricle Normal LV size. Severe concentric left ventricular hypertrophy. Left ventricular systolic function is normal. The estimated ejection fraction is 60 %. No regional wall motion abnormalities noted. Right Ventricle Normal RV size. Normal systolic function. Atria The left atrium is moderately enlarged. Normal right atrium. Mitral Valve There is moderate to severe mitral annular calcification. Tricuspid Valve Normal tricuspid valve. Aortic Valve Bioprosthetic aortic valve. Pulmonic Valve Normal pulmonic valve. Great Vessels Normal aortic root. The pulmonary artery is normal size. Normal inferior vena cava. Pericardium/Pleural No pericardial effusion. Medication Diluted definity 2ml given slow IV push to enhance endocardial definition. MMode/2D Measurements & Calculations LVIDd: 4.1 cm IVSd: 1.8 cm Ao root diam: 2.9 cm LVIDs: 2.7 cm LVPWd: 1.7 cm FS: 33.5 % LAV(MOD-sp4): 119.7 ml LA A4 area: 35.5 cm2 LA dimension(2D): 5.7 cm RA A4 area: 20.8 cm2 ECHO/Echo Limited w/Contrast Interpretation Summary Normal LV size. Left ventricular systolic function is normal. The estimated ejection fraction is 60 %. The left atrium is moderately enlarged. Bioprosthetic aortic valve. Severe concentric left ventricular hypertrophy. Contrast injection was performed. Ordering Physician: Kwabena Nelson Referring Physician: Dave Fajardo Chi Performed By: Mae Gordon RCS
--- NOTE | 2021-11-21 07:35 | CON.PCM.CA_ITS ---
Assessment & Plan Assessment/Plan (1) Syncope: PLAN: He did present with syncope and was noted to have occasional ventricular arrhythmias as well as periods of AV block. On the basis of the above and his left bundle branch block I suspect that he has conduction system disease and I recommend at this time permanent pacemaker implantation. Risk-benefit and alternatives have been explained to him he understands and agrees to proceed. (2) Non-sustained ventricular tachycardia: PLAN: He has had some nonsustained ventricular tachyarrhythmia which we monitored. We will obtain an echocardiogram to assess his ventricular function. (3) History of atrial fibrillation: PLAN: He does have a history of atrial fibrillation and was on anticoagulation for this. This to be temporarily held for the procedure. (4) History of aortic valve replacement: PLAN: He does have a history of aortic valve replacement. On his last echocardiogram this appears to be functioning well. I would not recommend that we make any major changes at this particular time. (5) Essential (primary) hypertension: PLAN: He has a history of hypertension. He will be restarted on his medications. (6) Nonobstructive atherosclerosis of coronary artery: PLAN: He did have minimal atherosclerotic cardiovascular disease. At this time I do not think that this is secondary to obstructive coronary disease and I would not recommend we make any changes. Thank you for allowing me to participate in the care of your patient. Please don't hesitate to call if any issues arise. HPI Consult Data Date of Consult: 11/21/21 HPI Narrative HPI Narrative: MAXIMILIAN NIÑO, is a 76 M who presents with a syncopal episode while he was unloading firewood.? He has a history of rheumatic heart disease, aortic valve disease, nonobstructive coronary artery disease, aortic valve replacement with a 21 mm Cuco [place] magna valve in August 2012, paroxysmal atrial fibrillation, peripheral vascular disease post right carotid endarterectomy in 2016.? He also has a history of prostate cancer with radiation therapy. On his last visit to the office he apparently was doing quite well. He had this episode yesterday was brought into the emergency room and was noted to be in sinus rhythm with frequent premature ventricular complexes. His cardiac enzymes and blood work was noted to be normal. While admitted to the telemetry floor he did have some high-grade AV block noted. He denies chest, arm, jaw, or neck discomfort. He denies symptoms of shortness of breath with exertion, shortness of breath at rest, orthopnea, PND, sudden weight gain, or bilateral lower extremity edema. He denies chronic cough. He denies palpitations, lightheadedness, dizziness, near syncope, or syncopal episodes. He denies claudication issues. He denies fever or chills. He denies blood in urine, blood in stool, or epistaxis. He denies myalgia. He denies unexplainable fatigue. His exercise tolerance is stable. 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 Wears dentures Wears glasses Wears hearing aid Home Medications multivitamin (One Daily Multivitamin tablet) 1 tab PO DAILY vitamin 09/09/18 [History Last Taken 11/20/21] amiodarone 200 mg tablet 100 mg PO DAILY heart 10/31/20 [History Last Taken 11/20/21] pravastatin 40 mg tablet 40 mg PO QODAY cholesterol #45 tabs 01/11/21 [Rx Last Taken 11/19/21] ascorbic acid (vitamin C) 500 mg tablet 500 mg PO DAILY supplement 03/24/21 [History Last Taken 11/20/21] cholecalciferol (vitamin D3) 25 mcg (1,000 unit) tablet 25 mcg PO DAILY supplement 03/24/21 [History Last Taken 11/20/21] apixaban 2.5 mg tablet (Eliquis) 2.5 mg PO BID blood thinner 11/20/21 [History Last Taken 11/20/21] furosemide 20 mg tablet 20 mg PO DAILY water 11/20/21 [History Last Taken 11/20/21] zinc 10 mg tablet 10 mg PO DAILY supplement 11/20/21 [History Last Taken 11/20/21] Allergy/AdvReac Type Severity Reaction Status Date / Time mushroom Allergy Vomiting Verified 11/20/21 20:15 atorvastatin [From Lipitor] AdvReac Severe Severe Verified 11/20/21 20:15 myalgias lisinopril AdvReac hyperkalemi Verified 11/20/21 20:15 a Family History Mother , of [place] CAD (coronary artery disease) Myocardial infarction Brother Atrial fibrillation Cancer prostate Brother Cancer prostate Father Myocardial infarction Surgical History H/O arthroscopic knee surgery History of aortic valve replacement (08/15/12) History of appendectomy History of cardioversion (07/09/18) History of left heart catheterization (02/2018) History of left leg surgeries History of right-sided carotid endarterectomy (12/14/15) Social History Smoking Status: Former smoker alcohol intake: current alcohol intake frequency: holidays/special occasions only caffeine: Yes Type: coffee Number of servings: 3 ROS Constitutional Constitutional: Denies fever(s) or weight loss Eyes Eyes: Reports systems reviewed and no addt'l complaints, except as documented ENT HEENT: Reports systems reviewed and no addt'l complaints, except as documented Cardiovascular Cardiovascular: Denies chest pain at rest, chest pain with activity, dyspnea at rest, dyspnea on exertion, edema, palpitations or paroxysmal nocturnal dyspnea Respiratory/Chest Respiratory/Chest: Denies dyspnea on exertion, productive cough, shortness of breath at rest or shortness of breath with exertion Gastrointestinal Gastrointestinal: Denies change in bowel habits, nausea, vomiting or weight changes Genitourinary Genitourinary: Denies difficulty urinating Musculoskeletal Musculoskeletal: Denies joint stiffness or muscle weakness Integumentary Integumentary: Denies lesions Neurologic Neurologic: Reports dizziness and syncope Psychiatric Psychiatric: Denies anxiety Endocrine Endocrinology: Denies excessive sweating or fatigue Hematologic/Lymphatic Hematologic/Lymphatic: Denies anemia Allergic/Immunologic Allergic/Immunologic: Denies seasonal rhinorrhea Physical Exam Const alert, oriented x3 and no apparent distress General Appearance: cooperative HEENT hearing grossly normal bilaterally Head and Scalp: atraumatic Eyes EOMs intact bilaterally Neck General: normal visual inspection Chest inspection of chest normal and palpation of chest normal Resp normal respiratory effort Auscultation: clear to auscultation bilaterally Cardio regular rate, regular rhythm, S1 normal heart sound and S2 normal heart sound Jugular Venous Distention: JVD GI normal to inspection, nondistended, normoactive bowel sounds Extremity normal capillary refill and no pedal edema Peripheral Pulses: Yes pulses 2+ throughout and femoral pulses present Skin no rashes or lesions noted Neuro oriented x3 and CN's II-XII intact bilaterally Psych Appearance: grossly normal and appropriate Risk Stratification Risk Stratification Applicable: No Objective Data Vital Signs: Vital Signs Temp Pulse Resp BP Pulse Ox O2 Del Method 98.0 F 55 L 16 104/52 L 94 Room Air 11/21/21 05:34 11/21/21 05:34 11/21/21 05:34 11/21/21 05:34 11/21/21 05:34 11/21/21 05:34 Oxygen Delivery Method Room Air Weight: 200 lb 2.876 oz Body Mass Index (BMI) 33.3 Intake & Output: Intake and Output for Last 24 Hours 11/19/21 11/20/21 11/21/21 23:59 23:59 23:59 Output Total 650 / 650 Balance -650 / -650 Lab / Micro Data Result Diagrams: 11/21/21 06:10 11/21/21 06:10 Labs: Laboratory Results - last 24 hr 11/20/21 17:55: WBC 8.9, RBC 4.02 L, Hgb 12.8 L, Hct 39.0 L, MCV 97.0 H, MCH 31.8, MCHC 32.8, RDW Std Deviation 46.6 H, RDW Coeff of Phani 13.1, Plt Count 177, MPV 10.6, Immature Gran % (Auto) 0.600, Neut % (Auto) 70.5 H, Lymph % (Auto) 15.6 L, [place] % (Auto) 11.5 H, Eos % (Auto) 1.5, Baso % (Auto) 0.3, Absolute Neuts (auto) 6.3, Absolute Lymphs (auto) 1.39, Nucleated RBC % 0 11/20/21 17:55: Sodium 143, Potassium 3.7, Chloride 110 H, Carbon Dioxide 27.0, Anion Gap 6, BUN 27 H, Creatinine 1.24, Estim Creat Clear Calc 44.77, Est GFR (MDRD) Af Amer 73, Est GFR (MDRD) Non-Af 60, BUN/Creatinine Ratio 21.8 H, Glucose 106, Calcium 9.0, Troponin I High Sens 27 11/20/21 17:55: Magnesium 2.2 11/20/21 20:40: Troponin I High Sens 34 11/21/21 06:10: WBC 8.3, RBC 3.75 L, Hgb 11.9 L, Hct 36.6 L, MCV 97.6 H, MCH 31.7, MCHC 32.5, RDW Std Deviation 47.4 H, RDW Coeff of Phani 13.2, Plt Count 174, MPV 10.6, Immature Gran % (Auto) 0.500, Neut % (Auto) 72.8 H, Lymph % (Auto) 14.5 L, [place] % (Auto) 10.6 H, Eos % (Auto) 1.4, Baso % (Auto) 0.2, Absolute Neuts (auto) 6.1, Absolute Lymphs (auto) 1.21, Nucleated RBC % 0 11/21/21 06:10: PT 14.3, INR 1.1 11/21/21 06:10: Sodium 143, Potassium 3.9, Chloride 111 H, Carbon Dioxide 24.0, Anion Gap 8, BUN 20 H, Creatinine 0.98, Estim Creat Clear Calc 56.65, Est GFR (MDRD) Af Amer 96, Est GFR (MDRD) Non-Af 80, BUN/Creatinine Ratio 20.5 H, Glucose 95, Calcium 8.2 L, Magnesium 2.1 Rhythm Strip Rhythm Strip: Sinus Rhythm Rate: 75 Ectopy: PVC(s) Cardiology Labs/Tests 11/20/21 17:55: WBC 8.9, RBC 4.02 L, Hgb 12.8 L, Hct 39.0 L, MCV 97.0 H, MCH 31.8, MCHC 32.8, Plt Count 177, MPV 10.6, Immature Gran % (Auto) 0.600, Neut % (Auto) 70.5 H, Lymph % (Auto) 15.6 L, [place] % (Auto) 11.5 H, Eos % (Auto) 1.5, Baso % (Auto) 0.3, Absolute Neuts (auto) 6.3, Nucleated RBC % 0 11/20/21 17:55: Sodium 143, Potassium 3.7, Chloride 110 H, Carbon Dioxide 27.0, Anion Gap 6, BUN 27 H, Creatinine 1.24, Est GFR (MDRD) Af Amer 73, Est GFR (MDR D) Non-Af 60, BUN/Creatinine Ratio 21.8 H, Glucose 106, Calcium 9.0 11/20/21 17:55: Magnesium 2.2 11/21/21 06:10: WBC 8.3, RBC 3.75 L, Hgb 11.9 L, Hct 36.6 L, MCV 97.6 H, MCH 31.7, MCHC 32.5, Plt Count 174, MPV 10.6, Immature Gran % (Auto) 0.500, Neut % (Auto) 72.8 H, Lymph % (Auto) 14.5 L, [place] % (Auto) 10.6 H, Eos % (Auto) 1.4, Baso % (Auto) 0.2, Absolute Neuts (auto) 6.1, Nucleated RBC % 0 11/21/21 06:10: PT 14.3, INR 1.1 11/21/21 06:10: Sodium 143, Potassium 3.9, Chloride 111 H, Carbon Dioxide 24.0, Anion Gap 8, BUN 20 H, Creatinine 0.98, Est GFR (MDRD) Af Amer 96, Est GFR (MDRD) Non-Af 80, BUN/Creatinine Ratio 20.5 H, Glucose 95, Calcium 8.2 L, Magnesium 2.1 Rhythm: EKG: ECHO: Stress Test: Cardiac Cath: PCI: CT Surgery: Holter monitor: EPS: PPM: CXR: Chest CT Scan: Radiography Diagnostic Testing: Radiology Impression Brain CT 11/20/21 17:54 IMPRESSION: There are no acute intracranial findings. Electronically Signed: Gabriele Pan MD at 18:31 EDT , Chest X-Ray 11/20/21 18:18 IMPRESSION: There are no acute findings. Electronically Signed: Gabriele Pan MD at 18:30 EDT ,
[2021-11-21] MEDS: Ascorbic Acid 500 MG Tablet PO (09:55)
[2021-11-21] MEDS: Cholecalciferol (VIT D3) 25 MCG TABLET (1,000 UNITS) PO (09:55)
[2021-11-21] MEDS: Furosemide 20 MG Tablet PO (09:55)
[2021-11-21] MEDS: Amiodarone 200 MG Tablet 100 MG PO (09:55)
[2021-11-21] MEDS: Multivitamins,Therapeutic Tablet 1 TABLET PO (09:55)
[2021-11-21] MEDS: Pravastatin 40 MG Tablet PO (09:57)
[2021-11-21] MEDS: 0.9% Normal Saline 1,000 ML 75 ML IV ×2 (10:02→23:40)
--- NOTE | 2021-11-21 11:00 | CASEMGMT ---
JOHN IRIZARRY assessment: Face to Face with patient for initial transition planning/care coordination assessment. JOHN IRIZARRY introduced self and role at [facility], pt voices understanding and consents to assessment.? Pt is sitting up in bed in no distress on room air. Pt is A/Ox4 and answers all questions appropriately. Care providers, pharmacy,?and demographics verified. ? Presentation: Pt had syncopal episode when unloading wood, states dizzy spells for last couple weeks Admitting dx: Syncope, NSVT PCP: Scotty Specialists: Leslie, cardio Preferred Pharmacy: [facility] Insurance: [facility] A/B, [employer] Prescription Benefit:?[employer] Living Will/HPOA: Pt has LW/HPOA on file and is aware. Pt's , Leslie Wheeler, is HPOA. LNOK: Leslie Wheeler, ; Aaron Wheeler Jr, son Living Arrangements: Pt lives with in mobile home with 2 steps in and states no concerns at home. Pt is independent with ADL's. Transportation: Pt drives self and states no transportation concerns. DME/HHC: Pt has no current DME or need for any further DME. Pt states no hx of HHC or SNF. Pt states no concerns with going home at discharge. Pt is retired. Pt does not smoke cigarettes or drink ETOH. Pt voices no further concerns/needs. CM to follow for any further discharge planning/needs. Advised pt to ask for CM if any further questions/concerns/needs arise, voices understanding. Pt Goal: ?Home [place] JOHN IRIZARRY
[2021-11-21] MEDS: 0.9% Normal Saline 1,000 ML 15 ML IV (11:27)
--- NOTE | 2021-11-21 11:49 | PN.HOSP_ITS ---
Subjective Subjective Follow-up on syncope/nonsustained V. tach: Patient was seen and examined. He was seen after his pacemaker procedure. Denied any new complaints. Objective Data Objective Data Vital Signs: Vital Signs Temp Pulse Resp BP Pulse Ox O2 Del Method 98.8 F 62 18 125/50 H 92 Room Air 11/21/21 09:46 11/21/21 09:46 11/21/21 09:46 11/21/21 09:46 11/21/21 09:46 11/21/21 10:00 Oxygen Delivery Method Room Air Weight: 88.451 kg Body Mass Index (BMI) 32.4 Intake & Output: Intake and Output for Last 24 Hours 11/19/21 11/20/21 11/21/21 23:59 23:59 23:59 Intake Total 102.5 / 102.5 Output Total 650 / 650 Balance -547.5 / -547.5 Lab / Micro Data Result Diagrams: 11/21/21 06:10 11/21/21 06:10 Labs: Laboratory Results - last 24 hr 11/20/21 17:55: WBC 8.9, RBC 4.02 L, Hgb 12.8 L, Hct 39.0 L, MCV 97.0 H, MCH 31.8, MCHC 32.8, RDW Std Deviation 46.6 H, RDW Coeff of Phani 13.1, Plt Count 177, MPV 10.6, Immature Gran % (Auto) 0.600, Neut % (Auto) 70.5 H, Lymph % (Auto) 15. 6 L, [place] % (Auto) 11.5 H, Eos % (Auto) 1.5, Baso % (Auto) 0.3, Absolute Neuts (auto) 6.3, Absolute Lymphs (auto) 1.39, Nucleated RBC % 0 11/20/21 17:55: Sodium 143, Potassium 3.7, Chloride 110 H, Carbon Dioxide 27.0, Anion Gap 6, BUN 27 H, Creatinine 1.24, Estim Creat Clear Calc 44.77, Est GFR ( MDRD) Af Amer 73, Est GFR (MDRD) Non-Af 60, BUN/Creatinine Ratio 21.8 H, Glucose 106, Calcium 9.0, Troponin I High Sens 27 11/20/21 17:55: Magnesium 2.2 11/20/21 20:40: Troponin I High Sens 34 11/21/21 06:10: WBC 8.3, RBC 3.75 L, Hgb 11.9 L, Hct 36.6 L, MCV 97.6 H, MCH 31.7, MCHC 32.5, RDW Std Deviation 47.4 H, RDW Coeff of Phani 13.2, Plt Count 174, MPV 10.6, Immature Gran % (Auto) 0.500, Neut % (Auto) 72.8 H, Lymph % (Auto) 14.5 L, [place] % (Auto) 10.6 H, Eos % (Auto) 1.4, Baso % (Auto) 0.2, Absolute Neuts (auto) 6.1, Absolute Lymphs (auto) 1.21, Nucleated RBC % 0 11/21/21 06:10: PT 14.3, INR 1.1 11/21/21 06:10: Sodium 143, Potassium 3.9, Chloride 111 H, Carbon Dioxide 24.0, Anion Gap 8, BUN 20 H, Creatinine 0.98, Estim Creat Clear Calc 56.65, Est GFR (MDRD) Af Amer 96, Est GFR (MDRD) Non-Af 80, BUN/Creatinine Ratio 20.5 H, Glucose 95, Calcium 8.2 L, Magnesium 2.1 Radiography Diagnostic Testing: Radiology Impression Brain CT 11/20/21 17:54 IMPRESSION: There are no acute intracranial findings. Electronically Signed: Gabriele Pan MD at 18:31 EDT , Chest X-Ray 11/20/21 18:18 IMPRESSION: There are no acute findings. Electronically Signed: Gabriele Pan MD at 18:30 EDT , Echocardiogram 11/21/21 07:33 Interpretation Summary Normal LV size. Left ventricular systolic function is normal. The estimated ejection fraction is 60 %. The left atrium is moderately enlarged. Bioprosthetic aortic valve. Severe concentric left ventricular hypertrophy. Contrast injection was performed. Ordering Physician: Kwabena Nelson Referring Physician: Dave Fajardo Chi Performed By: Mae Gordon RCS Rhythm Strip Rhythm Strip: Sinus Rhythm Rate: 75 Ectopy: PVC(s) Physical Exam Narrative Physical exam: General: Alert, Oriented x3, Cooperative, No apparent distress HEENT: Atraumatic Oral: Moist Mucosa Neck: Supple Lungs: Clear to auscultation Cardiovascular: HS I+II, regular, no murmurs, dressing over the left upper chest Abdomen: Bowel Sounds Present, Soft, Non Tender Extremities: No edema Skin: No rashes, No breakdown Neurological: Grossly intact Psych/Mental Status: Appropriate Assessment & Plan Assessment/Plan (1) Non-sustained ventricular tachycardia: PLAN: Plan 1. Acute symptomatic bradycardia status post pacemaker Cardiology following, will follow up on post pacemaker recommendations 2. Non-sustained V-tach, 2D echo shows EF of 60%, moderate to severe mitral calcification, bioprosthetic aortic valve Magnesium is 2.1 Continue on oral amiodarone 3. Hyperlipidemia, continue statin 4. DVT PPx- SCDs; post procedure Charges/Coding Visit Charges Inpatient E&M: 33401 [facility] L3
--- NOTE | 2021-11-21 11:52 | NURSING ---
Report called to JOHN Benito in calibration laboratory technician at [id number].
--- NOTE | 2021-11-21 13:20 | CL.IE_ITS ---
Patient: MAXIMILIAN NIÑO Study Date: 11/21/2021 Performing: Kwabena Nelson MD : 1945 Age: 76 Gender: male PROCEDURES PERFORMED [id number])INITIAL PACER INSERT+DUAL LEADS INDICATIONS Syncope PROCEDURE DETAILS The patient was brought to the Catheterization Lab in the postabsorptive nonsedated state. Informed consent was obtained prior to the procedure. Incision was made to the left upper chest. Access was achieved and a guidewire was advanced into the left subclavian vein. A peel-away sheath was inserted into the left subclavian vein. PPM ventricular lead was inserted / positioned to right ventricular apex. A peel-away sheath was inserted into the left subclavian vein. PPM atrial lead was inserted / positioned to the right atrial appendage. PPM atrial lead testing performed. The Ventricular PM lead sutured in place with 4-0 Vicryl. The Atrial lead sutured in place with 4-0 Vicryl. Device pocket was irrigated with antibiotic. PPM generator was attached to the lead(s) and inserted into the pocket. PPM generator was then interrogated by the senior sas programmer. Subcutaneous closure was completed. Skin closure was completed. Steri-strips applied to Lt chest area. The patient tolerated the procedure well. Estimated Blood Loss: 4 ml's IMPLANTED / EX-PLANTED DEVICES IMPLANTED DEVICE(S): PPM Ventricular lead - Color Checker Roving Or Yarn: [employer]Sol, Model # [id number] , Serial # [id number] PPM Atrial lead - Color Checker Roving Or Yarn: [employer]Sol, Model # [id number] , Serial # [id number] PPM Generator - Color Checker Roving Or Yarn: [employer]Sol, Model # [id number] , Serial # [id number] DEVICE PARAMETERS ATRIAL LEAD PARAMETERS: P wave- 3.7 (mV) Current- 1.1 (mA) threshold- .6 (V) impedence- 547 (OHMS) VENTRICULAR LEAD PARAMETERS: R wave- 13 (mV) Current- 1.4 (mA) threshold- 1.0 (V) impedence- 800 (OHMS) DEVICE PARAMETERS: Mode- ddd Lower rate- 60 Upper rate- 120 CONCLUSIONS / RECOMMENDATIONS Device Conclusions: Successful implantation of a dual chamber pacemaker Device Recommendations: Follow up with Primary Care Physician PROCEDURE MEDICATIONS Versed 1 mg IV Fentanyl 50 mcg IV Versed 1 mg IV Versed 1 mg IV Oxygen: 2 L/min via nasal cannula Ancef 2 Gm IV @ 11/21/2021 12:17:14 Signed By Kwabena Nelson MD On 11/21/2021 13:19:44 Kwabena Nelson MD
--- NOTE | 2021-11-21 15:42 | CHAPLAIN ---
Type of Pastoral Visit _x__ Initial Visit ___ Follow-up Visit ___ On-call Visit ___ General Patient Visit ___ Spiritual Assessment ___ Family Conference ___ Bereavement ___ Rapid Response ___ Code Blue ___ Other (describe below) Pastoral Care Referral From _x__ Patient ___ Family ___ Nurse ___ Physician ___ Regional Facilities Specialist ___ Energy Systems Engineer ___ Other (describe below) Sacrament/Intervention _x__ Active listening ___ Anointing ___ Jainism ___ Bereavement ___ Communion ___ Jenny exploration ___ _x__ Life review _x__ Prayer ___ Reconciliation ___ Sacrament of Sick ___ Supportive presence ___ Wedding ___ Other (describe below) Pastoral Comments patient and spouse in the room after heart procedure; pt has been seen before in previous admissions and he gives update on his health; also talkative about life and health in their home; pt welcomes presence and prayers of this work force advisor
[2021-11-21] MEDS: Acetaminophen 325 MG Tablet 650 MG PO (20:26)
[2021-11-22 02:18] VITALS: BP 128/56; PULSE 65; RESP 16; TEMP 36.6; O2SAT 92
[2021-11-22 03:00] VITALS: PULSE 81
[2021-11-22] MEDS: Acetaminophen 325 MG Tablet 650 MG PO (04:28)
--- NOTE | 2021-11-22 05:07 | NURSING ---
Checked pacemaker site at 0230, blood was noted (none previously). Marked blood with marker. Re- assessed at 0, area of bleeding had grown, marked site again and placed sandbag. Re-assessed at 0, bleeding had continued. Pt also has had bigeminal PVCs. Pt is asymptomatic, and vital signs are stable. Called Dr. Nelson and made him aware of bleeding and PVCs.
[2021-11-22 05:18] VITALS: BP 144/64; PULSE 61; RESP 16; TEMP 36.5; O2SAT 93
--- NOTE | 2021-11-22 05:55 | RAD_ITS ---
EXAM: XR CHEST, 3 VIEWS CLINICAL INDICATION: Post permanant ICD/Pacemaker -- inspiration/expiration. Arms Down. Wet read to MD Post permanant ICD/Pacemaker -- inspiration/expiration. Arms Down. Wet read to MD TECHNIQUE: Frontal, lateral and one additional view of the chest. This report was created using [employer] report generation technology. COMPARISON: Chest x-ray 11/20/2021. FINDINGS: LUNGS AND PLEURAL SPACES: Unremarkable. No consolidation or edema. No pneumothorax. No effusion. HEART: Unremarkable. Cardiac silhouette not enlarged. MEDIASTINUM: Central airways and mediastinal contour are unremarkable. BONES/JOINTS: There are multilevel degenerative changes in the visualized spine. SOFT TISSUES: Unremarkable. VASCULATURE: There is atherosclerotic calcification of the aortic arch. TUBES, LINES AND DEVICES: There is an atrioventricular pacemaker. There are sternotomy wires. RAD/Chest 3 View IMPRESSION: 1. New finding of an atrioventricular pacemaker. No demonstrated pneumothorax. 2. No evidence for acute cardiopulmonary pathology. Electronically Signed: Bahman Hale MD at 6:43 EDT Reading Location ID and State: [facility] / [place] , Service support ,
[2021-11-22 06:38] VITALS: PULSE 70
--- NOTE | 2021-11-22 09:00 | PCM.PN.CARD ---
Subjective Subjective Patient seen and evaluated. Appears to be doing quite well. Objective Data Vital Signs: Vital Signs Temp Pulse Resp BP Pulse Ox O2 Del Method 97.7 F L 70 16 144/64 H 93 Room Air 11/22/21 05:18 11/22/21 06:38 11/22/21 05:18 11/22/21 05:18 11/22/21 05:18 11/22/21 08:23 Oxygen Delivery Method Room Air Weight: 195 lb Body Mass Index (BMI) 32.4 Intake & Output: Intake and Output for Last 24 Hours 11/20/21 11/21/21 11/22/21 23:59 23:59 23:59 Intake Total 1504.50 / 1504.50 Output Total 2049 / 2049 300 / 300 Balance -545.50 / -545.50 -300 / -300 Lab / Micro Data Result Diagrams: 11/21/21 06:10 11/21/21 06:10 Rhythm Strip Rhythm Strip: Sinus Rhythm Rate: 75 Ectopy: PVC(s) Cardiology Labs/Tests Rhythm: EKG: ECHO: Stress Test: Cardiac Cath: PCI: CT Surgery: Holter monitor: EPS: PPM: CXR: Chest CT Scan: Radiography Diagnostic Testing: Radiology Impression Echocardiogram 11/21/21 07:33 Interpretation Summary Normal LV size. Left ventricular systolic function is normal. The estimated ejection fraction is 60 %. The left atrium is moderately enlarged. Bioprosthetic aortic valve. Severe concentric left ventricular hypertrophy. Contrast injection was performed. Ordering Physician: Kwabena Nelson Referring Physician: Dave Fajardo Chi Performed By: Mae Gordon RCS Chest X-Ray 11/22/21 05:55 IMPRESSION: 1. New finding of an atrioventricular pacemaker. No demonstrated pneumothorax. 2. No evidence for acute cardiopulmonary pathology. Electronically Signed: Bahman Hale MD at 6:43 EDT Reading Location ID and State: [facility] / [place] , Service support , Physical Exam Const alert, oriented x3 and no apparent distress General Appearance: cooperative HEENT hearing grossly normal bilaterally Head and Scalp: atraumatic Eyes EOMs intact bilaterally Neck General: normal visual inspection Chest inspection of chest normal and palpation of chest normal Resp normal respiratory effort Auscultation: clear to auscultation bilaterally Cardio regular rate, regular rhythm, S1 normal heart sound and S2 normal heart sound Jugular Venous Distention: JVD GI normal to inspection, nondistended, normoactive bowel sounds Extremity normal capillary refill and no pedal edema Peripheral Pulses: Yes pulses 2+ throughout and femoral pulses present Skin no rashes or lesions noted Neuro oriented x3 and CN's II-XII intact bilaterally Psych Appearance: grossly normal and appropriate Assessment & Plan Assessment/Plan (1) Syncope: PLAN: He did present with syncope and was noted to have occasional ventricular arrhythmias as well as periods of AV block. He underwent permanent pacemaker implantation successfully. Chest x-ray this morning demonstrates normal placement and interrogation demonstrates normal pacemaker function. The patient will be discharged for outpatient follow-up. (2) Non-sustained ventricular tachycardia: PLAN: He has had some nonsustained ventricular tachyarrhythmia which we monitored. We will obtain an echocardiogram to assess his ventricular function. (3) History of atrial fibrillation: PLAN: He does have a history of atrial fibrillation and was on anticoagulation for this. This to be temporarily held for the procedure. (4) History of aortic valve replacement: PLAN: He does have a history of aortic valve replacement. On his last echocardiogram this appears to be functioning well. I would not recommend that we make any major changes at this particular time. (5) Essential (primary) hypertension: PLAN: He has a history of hypertension. He will be restarted on his medications. (6) Nonobstructive atherosclerosis of coronary artery: PLAN: He did have minimal atherosclerotic cardiovascular disease. At this time I do not think that this is secondary to obstructive coronary disease and I would not recommend we make any changes. Thank you for allowing me to participate in the care of your patient. Please don't hesitate to call if any issues arise.
--- NOTE | 2021-11-22 09:03 | DCINST_ITS ---
Discharge Instructions Diet Discharge Diet: No restrictions Activity Discharge Activity: May Not Drive May shower in (days): 3 Additional Activity Instructions:: May shower or bathe on [day 3]. Do not scrub the incision or soak in the tub. Just wash with soap and let the water run over the incision. Gently pat dry with towel. Medications: Take your pain medication as directed. Refer to your discharge instruction sheet for a list of medications you are to take. Dressing / Incision Call your doctor if your incision/area has: Continuous Slow Oozing, Sudden Increased Bleeding, Increased Pain/ Swelling, Increased Redness, Foul Smelling Discharge and Swelling at the incision site Call your doctor if you observe: Fever of 101 or Higher, Shortness of breath, Dizziness, Fainting spells, Swelling in the ankles, Chest pain, Prolonged hiccupping and Increased palpitations (irregular heartbeat) Suture Line Care: Avoid Pulling/Pushing and Avoid Pinching/Bending Additional Dressing/Incision Instructions:: When dressing is removed, wash and dry incision. Keep covered with a light bandage if it is rubbing against your clothing. Do not cover the incision with an airtight bandage. Change the bandage daily. Do not remove steri strips. The strips will fall off on their own. Follow Up Care Please Follow Up With: Kwabena Nelson MD When: Pacer follow up on December 04 at 3 PM Test Results: Test results from this visit will be discussed in further detail at your follow- up appointment, if applicable. Discharge Plan Admission Admit Date/Time: 11/20/21 19:39 Attending Provider: Vianey Aguilar Primary Care Provider: Dave Fajardo Chi Consulting Providers: Kwabena Nelson ; Pineda Sanchez Discharge Orders/Prescriptions Prescriptions: No Action multivitamin [One Daily Multivitamin] Tablet 1 tab PO DAILY cholecalciferol (vitamin D3) 25 mcg (1,000 unit) tablet 25 mcg PO DAILY ascorbic acid (vitamin C) 500 mg tablet 500 mg PO DAILY pravastatin 40 mg tablet 40 mg PO QODAY Qty: 45 3RF Rx Instructions: 40 mg PO every other day; amiodarone 200 mg tablet 100 mg PO DAILY Rx Instructions: zinc 10 mg Tablet 10 mg PO DAILY furosemide 20 mg tablet 20 mg PO DAILY Eliquis 2.5 mg tablet 2.5 mg PO BID Referrals / Follow Up: Dave Fajardo Chi, MD [Primary Care Provider] -
[2021-11-22 09:27] LABS: ALB/GLOB Ratio 0.9 RATIO (0.9-2.4); AST(SGOT) 18 U/L (15-37); Alanine Aminotransfer ALT/SGPT 19 U/L (16-61); Alkaline Phosphatase 95 U/L (45-117); Anion Gap 6 (5-15); BUN 20 mg/dL (7-18); BUN/Creat Ratio 18.9 RATIO (10-20); Calcium,Total 8.3 mg/dL (8.5-10.1); Chloride 107 mmol/L (98-107); Creatinine, Serum 1.06 mg/dL (0.70-1.30); EST Glomerular Filtration Rate 72 mL/min (>60); Est Glom Filt Rate - Afr Amer 88 mL/min (>60); Estimated Creatinine Clearance 52.38 ml/min; Globulin 3.4 g/dL (2.2-4.2); Glucose 92 mg/dL (74-106); Potassium 3.9 mmol/L (3.5-5.1); Protein, Total 6.4 g/dL (6.4-8.2); Sodium Level 139 mmol/L (136-145)
[2021-11-22] MEDS: Amiodarone 200 MG Tablet 100 MG PO (09:42)
[2021-11-22] MEDS: Multivitamins,Therapeutic Tablet 1 TABLET PO (09:42)
[2021-11-22] MEDS: Ascorbic Acid 500 MG Tablet PO (09:42)
[2021-11-22] MEDS: Cholecalciferol (VIT D3) 25 MCG TABLET (1,000 UNITS) PO (09:42)
[2021-11-22] MEDS: Furosemide 20 MG Tablet PO (09:42)
--- NOTE | 2021-11-22 10:01 | PCM.DC.SUM ---
Providers Date of Admission: 11/20/21 Date of Discharge: 11/22/21 Primary Care Physician: Dr. Dave Fajardo MD Consultations 11/20/21 20:06 Consult: Cardiology Routine Consulting Provider: Kwabena Nelson Reason for Consult: Syncope, ventricular tachycardia EMERGENT Consult: Yes MD Notified: Yes Date Notified: 11/20/21 Time Notified: 19:42 Method of Notification: ED Physician Initiated Reason For Visit: SYNCOPAL EPISODE, MONSUSTAINED VENTRICULAR TACH Diagnosis Discharge Diagnosis (1) Syncope: Status: Acute Code(s): R55 - Syncope and collapse (2) Non-sustained ventricular tachycardia: Status: Acute Code(s): I47.29 - Other ventricular tachycardia (3) History of atrial fibrillation: Status: Acute Code(s): Z86.79 - Personal history of other diseases of the circulatory system (4) History of aortic valve replacement: Status: Chronic Code(s): Z95.2 - Presence of prosthetic heart valve (5) Essential (primary) hypertension: Status: Chronic Code(s): I10 - Essential (primary) hypertension (6) Nonobstructive atherosclerosis of coronary artery: Status: Chronic Code(s): I25.10 - Atherosclerotic heart disease of [place] coronary artery without angina pectoris Plan 1. Acute symptomatic bradycardia status post pacemaker 2. Non-sustained V-tach 3. Hyperlipidemia Medications at Discharge Home Medications multivitamin (One Daily Multivitamin tablet) 1 tab PO DAILY vitamin 09/09/18 amiodarone 200 mg tablet 100 mg PO DAILY heart 10/31/20 pravastatin 40 mg tablet 40 mg PO QODAY cholesterol #45 tabs 01/11/21 ascorbic acid (vitamin C) 500 mg tablet 500 mg PO DAILY supplement 03/24/21 cholecalciferol (vitamin D3) 25 mcg (1,000 unit) tablet 25 mcg PO DAILY supplement 03/24/21 furosemide 20 mg tablet 20 mg PO DAILY water 11/20/21 zinc 10 mg tablet 10 mg PO DAILY supplement 11/20/21 Hospital Course Operations None Procedures - (s/p pacemaker placement 11/22/21) Summary of Care Provided Minutes Spent on Discharge: 35 Hospital Course: 76-year-old male with past medical history of aortic valve disease, status post aortic valve replacement, paroxysmal atrial fibrillation rheumatic heart disease, nonobstructive coronary artery disease, PAD status post right carotid endarterectomy, prostate seed radiation. Patient was brought in after syncopal episode. He unloading wood at his home when the syncopal events happened. And lasted for a few seconds. He denied any chest pain or shortness of breath or nausea or lightheadedness. He denied any orthopnea or PND or leg swelling or sudden weight gain. In the ED, his EKG showed sinus rhythm with frequent PVCs. His cardiac enzymes and blood work were unremarkable. Patient did complete run of V. tach while being laid flat to check orthostatic vitals. Patient was later on found to have high-grade block in the progressive care unit. Cardiology was consulted from the emergency department and patient underwent pacemaker placement on 11/22/2021. Postprocedure, patient had no new complaint. He did very well. He was discharged to follow-up with cardiology as scheduled. He was discharged off Eliquis. He will resume it after he reviews with cardiology. Physical Exam Narrative Physical exam: General: Alert, Oriented x3, Cooperative, No apparent distress HEENT: Atraumatic Oral: Moist Mucosa Neck: Supple Lungs: Clear to auscultation Cardiovascular: HS I+II, regular, no murmurs, dressing over the left upper chest Abdomen: Bowel Sounds Present, Soft, Non Tender Extremities: No edema Skin: No rashes, No breakdown Neurological: Grossly intact Psych/Mental Status: Appropriate Weight / BMI Weight Weight: 88.451 kg Body Mass Index (BMI) 32.4 ABG / Lab / Microbiology Data Result Diagrams: 11/21/21 06:10 11/22/21 08:30 Laboratory: Laboratory Results - last 24 hr 11/22/21 08:30: Sodium 139, Potassium 3.9, Chloride 107, Carbon Dioxide 26.0, Anion Gap 6, BUN 20 H, Creatinine 1.06, Estim Creat Clear Calc 52.38, Est GFR (MDRD) Af Amer 88, Est GFR (MDRD) Non-Af 72, BUN/Creatinine Ratio 18.9, Glucose 92, Calcium 8.3 L, Total Bilirubin 0.50, AST 18, ALT 19, Alkaline Phosphatase 95, Total Protein 6.4, Albumin 3.0 L, Globulin 3.4, Albumin/Globulin Ratio 0.9 Radiography Diagnostic Testing: Radiology Impression Echocardiogram 11/21/21 07:33 Interpretation Summary Normal LV size. Left ventricular systolic function is normal. The estimated ejection fraction is 60 %. The left atrium is moderately enlarged. Bioprosthetic aortic valve. Severe concentric left ventricular hypertrophy. Contrast injection was performed. Ordering Physician: Kwabena Nelson Referring Physician: Dave Fajardo Chi Performed By: Mae Gordon RCS Chest X-Ray 11/22/21 05:55 IMPRESSION: 1. New finding of an atrioventricular pacemaker. No demonstrated pneumothorax. 2. No evidence for acute cardiopulmonary pathology. Electronically Signed: Bahman Hale MD at 6:43 EDT Reading Location ID and State: [address] [place] [address] , Service support , D/C Instructions Discharge Diet: Low fat / Low cholesterol and 2000 mg Sodium Diet May shower in (days): 3 Additional Activity Instructions: May shower or bathe on [day 3]. Do not scrub the incision or soak in the tub. Just wash with soap and let the water run over the incision. Gently pat dry with towel. Medications: Take your pain medication as directed. Refer to your discharge instruction sheet for a list of medications you are to take. Call your doctor if your incision/area has: Continuous Slow Oozing, Sudden Increased Bleeding, Increased Pain/ Swelling, Increased Redness, Foul Smelling Discharge and Swelling at the incision site Call your doctor if you observe: Fever of 101 or Higher, Shortness of breath, Dizziness, Fainting spells, Swelling in the ankles, Chest pain, Prolonged hiccupping and Increased palpitations (irregular heartbeat) Suture Line Care: Avoid Pulling/Pushing and Avoid Pinching/Bending Additional Dressing/Incision Instructions: When dressing is removed, wash and dry incision. Keep covered with a light bandage if it is rubbing against your clothing. Do not cover the incision with an airtight bandage. Change the bandage daily. Do not remove steri strips. The strips will fall off on their own. Please Follow Up With: Kwabena Nelson MD When: Pacer follow up on December 04 at 3 PM Meaningful Use Info Meaningful Use Diagnoses (Choose all that apply): None applicable Discharge Plan Admission Admit Date/Time: 11/20/21 19:39 Primary Reason for Your Visit: Acute symptomatic bradycardia Attending Provider: Vianey Aguilar Primary Care Provider: Dave Fajardo Chi Consulting Providers: Kwabena Nelson ; Pineda Sanchez Instructions Additional Instructions / Restrictions: Continue to follow per your pacemaker instructions. Continue to hold your Eliquis until follow-up with cardiology Follow-up with cardiology as scheduled Discharge Orders/Prescriptions Prescriptions: Continued multivitamin [One Daily Multivitamin] Tablet 1 tab PO DAILY cholecalciferol (vitamin D3) 25 mcg (1,000 unit) tablet 25 mcg PO DAILY ascorbic acid (vitamin C) 500 mg tablet 500 mg PO DAILY pravastatin 40 mg tablet 40 mg PO QODAY Qty: 45 3RF Rx Instructions: 40 mg PO every other day; amiodarone 200 mg tablet 100 mg PO DAILY Rx Instructions: zinc 10 mg Tablet 10 mg PO DAILY furosemide 20 mg tablet 20 mg PO DAILY Discontinued Eliquis 2.5 mg tablet 2.5 mg PO BID Referrals / Follow Up: Mary Devries [Registered Nurse] - 12/04/21 3:00 pm Dave Fajardo Chi, MD [Primary Care Provider] - 11/23/21 10:40 am Geovanna Magallanes PA [Med Staff - [facility]] - 12/06/21 2:00 pm Disposition Disposition (needs filled in before D/C Order can be placed): Home, Self Care Charges/Coding Visit Charges Inpatient E&M: 13437 Disch Hosp
--- NOTE | 2021-11-22 10:23 | PHA.DC.MR ---
Pharmacy Service has performed discharge medication reconciliation for this patient. The patient's discharge medication list was reviewed for discrepancies and discrepancies were resolved. Home Medications multivitamin (One Daily Multivitamin tablet) 1 tab PO DAILY vitamin 09/09/18 amiodarone 200 mg tablet 100 mg PO DAILY heart 10/31/20 pravastatin 40 mg tablet 40 mg PO QODAY cholesterol #45 tabs 01/11/21 ascorbic acid (vitamin C) 500 mg tablet 500 mg PO DAILY supplement 03/24/21 cholecalciferol (vitamin D3) 25 mcg (1,000 unit) tablet 25 mcg PO DAILY supplement 03/24/21 furosemide 20 mg tablet 20 mg PO DAILY water 11/20/21 zinc 10 mg tablet 10 mg PO DAILY supplement 11/20/21
== END 2021-11-22 11:38 | disposition home or self-care (01) | DRG 244 ==
LOC: ED 19:20 → PCU 19:44
PROVIDERS: Admitting Provider Family Medicine; Emergency Provider Emergency Medicine; PCP Family Medicine Geriatric Medicine; Visit Provider Internal Medicine
DX: I44.30 Unspecified atrioventricular block (principal); E66.9 Obesity, unspecified; I48.0 Paroxysmal atrial fibrillation; I73.9 Peripheral vascular disease, unspecified; I49.5 Sick sinus syndrome; E78.00 Pure hypercholesterolemia, unspecified; I45.9 Conduction disorder, unspecified; I44.7 Left bundle-branch block, unspecified; I10 Essential (primary) hypertension; I25.10 Atherosclerotic heart disease of native coronary artery without angina pectoris; I25.2 Old myocardial infarction; I47.20 Ventricular tachycardia, unspecified; Z68.32 Body mass index [BMI] 32.0-32.9, adult; I49.3 Ventricular premature depolarization; Z79.01 Long term (current) use of anticoagulants; Z79.899 Other long term (current) drug therapy; Z87.891 Personal history of nicotine dependence; Z95.2 Presence of prosthetic heart valve; Z86.16 Personal history of COVID-19
CPT/HCPCS: 33208; 36415; 70450; 71045; 71047; 80048; 80053; 83735; 84484; 85025; 85610; 93005; 93308; 99152; 99153; 99285; J7030; J7050; Q9957; A4216; C1894; C8924

== ENCOUNTER → 2021-12-04 | Outpatient (CLI) | payer MEDICARE, OTHER, SELFPAY ==
[2021-12-04 17:17] LABS: Absolute Lymphocyte Count 1.77 X10^3/uL (0.83-4.51); Absolute Neutrophil Count 4.6 X10^3/uL (2.0-7.7); Basophil# 0.04 X10^3/uL; Basophil% 0.5 % (0-1); Eosinophil# 0.25 X10^3/uL; Eosinophils% 3.4 % (0-5); Hematocrit 41.9 % (40-54); Hemoglobin 13.6 g/dL (13.0-16.5); Lymphocyte # 1.77 X10^3/ul (0.83-4.51); Lymphocyte % 23.7 % (19-41); Mean Corp Hgb Conc 32.5 g/dL (32-36); Mean Corpuscular Hgb 31.9 pg (27.0-32.0); Mean Corpuscular Volume 98.4 fL (80-94); Mean Platelet Vol. 10.1 fl (6.2-12.0); Monocyte# 0.75 X10^3/uL; Monocyte% 10.1 % (0-10); NRBC Flagged by Analyzer 0 % (0-5); Neutrophil % 61.6 % (47-70); Platelet Count 243 K/mm3 (150-450); RBC Distribution Width CV 13.9 % (11.6-14.6); RBC Distribution Width SD 50.1 fl (35.1-43.9); Red Blood Count 4.26 M/mm3 (4.6-6.2); White Blood Count 7.5 K/mm3 (4.4-11.0)
[2021-12-04 17:57] LABS: Vitamin D,25 Hydroxy 40.6 ng/mL
[2021-12-04 17:59] LABS: ALB/GLOB Ratio 1.1 RATIO (0.9-2.4); AST(SGOT) 20 U/L (15-37); Alanine Aminotransfer ALT/SGPT 20 U/L (16-61); Albumin, Serum 3.7 g/dL (3.2-5.0); Alkaline Phosphatase 113 U/L (45-117); Anion Gap 6 (5-15); BUN 27 mg/dL (7-18); BUN/Creat Ratio 22.1 RATIO (10-20); Chloride 108 mmol/L (98-107); Creatinine, Serum 1.22 mg/dL (0.70-1.30); EST Glomerular Filtration Rate 62 mL/min (>60); Est Glom Filt Rate - Afr Amer 74 mL/min (>60); Globulin 3.4 g/dL (2.2-4.2); Glucose 140 mg/dL (74-106); Potassium 3.8 mmol/L (3.5-5.1); Protein, Total 7.1 g/dL (6.4-8.2); Sodium Level 140 mmol/L (136-145); Thyroid Stim Hormone (TSH) 0.44 uIU/mL (0.358-3.74)
== END | disposition home or self-care (01) ==
LOC: POLAB3 09:39
PROVIDERS: PCP Family Medicine Geriatric Medicine; Visit Provider Family Medicine Geriatric Medicine
DX: E55.9 Vitamin D deficiency, unspecified (principal); I10 Essential (primary) hypertension
CPT/HCPCS: 36415; 80053; 82306; 84443; 85025

== ENCOUNTER → 2021-12-25 | Outpatient (CLI) | payer MEDICARE, OTHER, SELFPAY ==
[2021-12-25 11:00] LABS: Anion Gap 9 (5-15); BUN 23 mg/dL (7-18); BUN/Creat Ratio 21.1 RATIO (10-20); Calcium,Total 8.6 mg/dL (8.5-10.1); Chloride 107 mmol/L (98-107); Creatinine, Serum 1.09 mg/dL (0.70-1.30); EST Glomerular Filtration Rate 70 mL/min (>60); Est Glom Filt Rate - Afr Amer 85 mL/min (>60); Glucose 84 mg/dL (74-106); Potassium 4.2 mmol/L (3.5-5.1); Sodium Level 140 mmol/L (136-145)
== END | disposition home or self-care (01) ==
LOC: LAB 09:00
PROVIDERS: PCP Family Medicine Geriatric Medicine; Referring Provider Physician Assistant Medical; Visit Provider Physician Assistant Medical
DX: I48.0 Paroxysmal atrial fibrillation (principal); Z79.899 Other long term (current) drug therapy
CPT/HCPCS: 36415; 80048

== ENCOUNTER → 2022-01-03 | Outpatient (CLI) | payer MEDICARE, OTHER, SELFPAY ==
[2022-01-03 12:19] LABS: BNP,B-Type NATRIURETIC PEPTIDE 514.5 pg/mL (0-100)
[2022-01-03 12:25] LABS: Anion Gap 6 (5-15); BUN 32 mg/dL (7-18); BUN/Creat Ratio 28.3 RATIO (10-20); Calcium,Total 8.9 mg/dL (8.5-10.1); Chloride 106 mmol/L (98-107); Creatinine, Serum 1.13 mg/dL (0.70-1.30); EST Glomerular Filtration Rate 67 mL/min (>60); Est Glom Filt Rate - Afr Amer 81 mL/min (>60); Glucose 77 mg/dL (74-106); Potassium 4.3 mmol/L (3.5-5.1); Sodium Level 138 mmol/L (136-145)
== END | disposition home or self-care (01) ==
LOC: LAB 10:34
PROVIDERS: PCP Family Medicine Geriatric Medicine; Referring Provider Physician Assistant Medical; Visit Provider Physician Assistant Medical
DX: R06.02 Shortness of breath (principal); N18.9 Chronic kidney disease, unspecified; R63.5 Abnormal weight gain
CPT/HCPCS: 36415; 80048; 83880

== ENCOUNTER → 2022-01-11 | Outpatient (CLI) | payer MEDICARE, OTHER, SELFPAY ==
--- NOTE | 2022-01-11 09:52 | CDU_ITS ---
Reason For Study: stenosis Rt. Velocities/BP Lt. Velocities/BP Prox CCA 92.5/20.0 cm/sec. Prox CCA 104.7/26.1 cm/sec. Mid CCA 82.6/16.3 cm/sec. Mid CCA 126.6/18.8 cm/sec. Dist CCA 64.2/15.1 cm/sec. Dist CCA 113.8/18.8 cm/sec. Prox ICA 85.1/16.3 cm/sec. Prox ICA 218.5/63.0 cm/sec. Mid ICA 148.5/24.3 cm/sec. Mid ICA 151.1/50.0 cm/sec. Dist ICA 102.8/29.8 cm/sec. Dist ICA 108.3/26.1 cm/sec. Rt. ICA/CCA = 1.8. Lt. ICA/CCA = 1.7. Prox ECA 91.2/11.4 cm/sec. Prox ECA 174.1/11.5 cm/sec. Rt. Vert. 224.0/36.5 cm/sec. Right Extracranial There is heterogeneous, irregular atherosclerotic plaque noted in the right common carotid artery. There is heterogeneous, irregular atherosclerotic plaque noted in the right internal carotid artery. There is heterogeneous, irregular atherosclerotic plaque noted in the right external carotid artery. The right external carotid artery is not well visualized. Antegrade flow is noted in the right vertebral artery. Left Extracranial There is heterogeneous, irregular atherosclerotic plaque noted in the left common carotid artery. There is heterogeneous, irregular atherosclerotic plaque noted in the left internal carotid artery. There is heterogeneous, irregular atherosclerotic plaque noted in the left external carotid artery. Retrograde flow noted in the left vertebral artery. Procedure Carotid Duplex 53760. This is a Carotid Duplex examination using B-mode, color flow and specral Doppler. The exam was diagnostic. Exam performed in department. VL/Carotid Duplex Ultrasound Interpretation Summary Mild (<50%) stenosis right extracranial internal carotid. Moderate (50-69%) yadira nosis left extracranial internal carotid. Flow within the right verterbral artery is anteg rade. Flow within the left verterbral artery is retrograde, consistent with a subclavian steal phenom enon. Ordering Physician: Aries Garg Performed By: Asif Irvin RVT
== END | disposition home or self-care (01) ==
LOC: CVS 09:51
PROVIDERS: PCP Family Medicine Geriatric Medicine; Visit Provider Surgery Vascular Surgery
DX: I65.23 Occlusion and stenosis of bilateral carotid arteries (principal)
CPT/HCPCS: 93880

== ENCOUNTER → 2022-02-28 | Outpatient (CLI) | payer MEDICARE, OTHER, SELFPAY ==
[2022-02-28 10:23] LABS: Albumin, Serum 3.9 g/dL (3.2-5.0); BUN 37 mg/dL (7-18); BUN/Creat Ratio 30.8 RATIO (10-20); Calcium,Total 9.4 mg/dL (8.5-10.1); Chloride 109 mmol/L (98-107); EST Glomerular Filtration Rate 63 mL/min (>60); Est Glom Filt Rate - Afr Amer 76 mL/min (>60); Glucose 107 mg/dL (74-106); Phosphorus 3.6 mg/dL (2.5-4.9); Potassium 3.9 mmol/L (3.5-5.1); Sodium Level 141 mmol/L (136-145)
== END | disposition home or self-care (01) ==
LOC: LAB 09:09
PROVIDERS: PCP Family Medicine Geriatric Medicine; Referring Provider Internal Medicine Nephrology; Visit Provider Internal Medicine Nephrology
DX: N18.2 Chronic kidney disease, stage 2 (mild) (principal)
CPT/HCPCS: 36415; 80069

== ENCOUNTER → 2022-03-06 | Outpatient (CLI) | payer MEDICARE, OTHER, SELFPAY ==
[2022-03-06 13:25] LABS: Erythrocyte Sedimentation Rate 18 mm/hr (0-20)
[2022-03-06 13:25] LABS: Anion Gap 5 (5-15); BUN 23 mg/dL (7-18); BUN/Creat Ratio 19.7 RATIO (10-20); CRP < 2.90 mg/L (0.0-3.0); Calcium,Total 9.4 mg/dL (8.5-10.1); Chloride 108 mmol/L (98-107); Creatinine, Serum 1.17 mg/dL (0.70-1.30); EST Glomerular Filtration Rate 65 mL/min (>60); Est Glom Filt Rate - Afr Amer 78 mL/min (>60); Glucose 96 mg/dL (74-106); Potassium 4.6 mmol/L (3.5-5.1); Sodium Level 140 mmol/L (136-145); Uric Acid 7.3 mg/dL (3.5-7.2)
== END | disposition home or self-care (01) ==
LOC: POLAB3 11:59
PROVIDERS: Nurse Practitioner Family; PCP Family Medicine Geriatric Medicine; Visit Provider Family Medicine Geriatric Medicine
DX: M10.9 Gout, unspecified (principal)
CPT/HCPCS: 36415; 80048; 84550; 85652; 86140

== ENCOUNTER → 2022-03-06 | Outpatient (CLI) | payer MEDICARE, OTHER, SELFPAY ==
--- NOTE | 2022-03-06 12:25 | RAD_ITS ---
STUDY: X-RAY - RIGHT HAND, ATTENTION FIRST FINGER REASON FOR EXAM: Male, 76 years old. R THUMB PAIN TECHNIQUE: 3 view(s) of the finger were obtained. COMPARISON: None. FINDINGS: Normal metacarpal head. Normal metacarpophalangeal joint. Normal proximal phalanx. Normal middle phalanx. Normal distal phalanx. Normal proximal interphalangeal joint. Normal distal interphalangeal joint. RAD/Finger(s) Min 2 Views IMPRESSION: Normal x-ray examination of the finger. Electronically Signed: Srikanth Soto MD at 20:16 EST ,
== END | disposition home or self-care (01) ==
LOC: RAD 12:00
PROVIDERS: PCP Family Medicine Geriatric Medicine; Referring Provider Family Medicine Geriatric Medicine; Visit Provider Family Medicine Geriatric Medicine
DX: M79.644 Pain in right finger(s) (principal); M10.9 Gout, unspecified
CPT/HCPCS: 36415; 73140; 80048; 84550; 85652; 86140

== ENCOUNTER → 2022-05-15 | Outpatient (CLI) | payer MEDICARE, OTHER, SELFPAY ==
[2022-05-15 08:14] LABS: Albumin, Serum 3.5 g/dL (3.2-5.0); BUN 28 mg/dL (7-18); BUN/Creat Ratio 21.7 RATIO (10-20); Calcium,Total 8.8 mg/dL (8.5-10.1); Chloride 109 mmol/L (98-107); Creatinine, Serum 1.29 mg/dL (0.70-1.30); EST Glomerular Filtration Rate 58 mL/min (>60); Est Glom Filt Rate - Afr Amer 70 mL/min (>60); Glucose 121 mg/dL (74-106); Phosphorus 2.7 mg/dL (2.5-4.9); Potassium 4.3 mmol/L (3.5-5.1); Sodium Level 140 mmol/L (136-145)
== END | disposition home or self-care (01) ==
LOC: LAB 07:39
PROVIDERS: PCP Family Medicine; Referring Provider Internal Medicine Nephrology; Visit Provider Internal Medicine Nephrology
DX: N18.2 Chronic kidney disease, stage 2 (mild) (principal)
CPT/HCPCS: 36415; 80069

== ENCOUNTER → 2022-08-27 | Outpatient (CLI) | payer MEDICARE, OTHER, SELFPAY ==
[2022-08-27 09:55] LABS: PSA,Total- Diagnostic 0.32 ng/mL (0.0-4.0)
== END | disposition home or self-care (01) ==
LOC: LAB 08:57
PROVIDERS: PCP Family Medicine; Referring Provider Urology; Visit Provider Urology
DX: C61 Malignant neoplasm of prostate (principal)
CPT/HCPCS: 36415; 84153

== ENCOUNTER → 2022-11-28 | Outpatient (CLI) | payer MEDICARE, OTHER, SELFPAY ==
[2022-11-28 10:15] LABS: Albumin, Serum 3.3 g/dL (3.2-5.0); BUN 26 mg/dL (7-18); BUN/Creat Ratio 22.2 RATIO (10-20); Calcium,Total 8.9 mg/dL (8.5-10.1); Chloride 109 mmol/L (98-107); Creatinine, Serum 1.17 mg/dL (0.70-1.30); EST Glomerular Filtration Rate 64 mL/min (>60); Est Glom Filt Rate - Afr Amer 78 mL/min (>60); Glucose 83 mg/dL (74-106); Phosphorus 3.1 mg/dL (2.5-4.9); Potassium 4.2 mmol/L (3.5-5.1); Sodium Level 140 mmol/L (136-145)
== END | disposition home or self-care (01) ==
LOC: LAB 08:57
PROVIDERS: PCP Family Medicine; Referring Provider Internal Medicine Nephrology; Visit Provider Internal Medicine Nephrology
DX: N18.2 Chronic kidney disease, stage 2 (mild) (principal)
CPT/HCPCS: 36415; 80069

== ENCOUNTER → 2022-12-17 | Outpatient (CLI) | payer MEDICARE, OTHER, SELFPAY ==
[2022-12-17 12:25] LABS: Absolute Lymphocyte Count 1.63 X10^3/uL (0.83-4.51); Absolute Neutrophil Count 4.2 X10^3/uL (2.0-7.7); Basophil# 0.06 X10^3/uL; Basophil% 0.9 % (0-1); Eosinophil# 0.11 X10^3/uL; Eosinophils% 1.7 % (0-5); Hematocrit 41.7 % (40-54); Hemoglobin 13.2 g/dL (13.0-16.5); Lymphocyte # 1.63 X10^3/ul (0.83-4.51); Lymphocyte % 24.7 % (19-41); Mean Corp Hgb Conc 31.7 g/dL (32-36); Mean Corpuscular Hgb 32.7 pg (27.0-32.0); Mean Corpuscular Volume 103.2 fL (80-94); Mean Platelet Vol. 10.6 fl (6.2-12.0); Monocyte# 0.63 X10^3/uL; Monocyte% 9.5 % (0-10); NRBC Flagged by Analyzer 0 % (0-5); Neutrophil # 4.15 X10^3/uL (2.7-7.7); Neutrophil % 62.7 % (47-70); Platelet Count 226 K/mm3 (150-450); RBC Distribution Width CV 13.7 % (11.6-14.6); RBC Distribution Width SD 52.4 fl (35.1-43.9); Red Blood Count 4.04 M/mm3 (4.6-6.2); White Blood Count 6.6 K/mm3 (4.4-11.0)
[2022-12-17 12:56] LABS: Cholesterol 165 mg/dL (200); High Density Lipoprotein 34 mg/dL; Triglycerides 130 mg/dL; Uric Acid 7.4 mg/dL (3.5-7.2); Very Low Density Lipoprotein 26 mg/dL (5-40)
== END | disposition home or self-care (01) ==
LOC: LAB.FUTURE 09:47 → BFHLAB 09:50
PROVIDERS: PCP Family Medicine; Referring Provider Family Medicine; Visit Provider Family Medicine
DX: I12.9 Hypertensive chronic kidney disease with stage 1 through stage 4 chronic kidney disease, or unspecified chronic kidney disease (principal); N18.31 Chronic kidney disease, stage 3a; M10.9 Gout, unspecified
CPT/HCPCS: 36415; 80061; 84550; 85025

== ENCOUNTER → 2023-05-22 | Outpatient (CLI) | payer MEDICARE, OTHER, SELFPAY ==
--- NOTE | 2023-05-22 07:44 | ECHOCS_ITS ---
Reason For Study: PROSTHETIC HEART VALVE EVAL Procedure This was a 2D Doppler, Color Flow transthoracic echocardiogram. The study was technically difficult. Contrast injection was performed. Exam performed in department. Left Ventricle Normal LV size. Moderate concentric left ventricular hypertrophy. Left ventricular systolic function is normal. The estimated ejection fraction is 55 %. No regional wall motion abnormalities noted. Right Ventricle Normal RV size. ICD or pacer leads identified within the right ventricle. Normal systolic function. Atria The left atrium is moderately enlarged. Normal right atrium. Mitral Valve There is moderate mitral annular calcification. Tricuspid Valve Normal tricuspid valve. Mild to moderate (1-2+) tricuspid valve insufficiency. Pulmonary artery systolic pressure is 45 mmHg. Aortic Valve Peak aortic valve gradient 31 mmHg. Mean aortic valve gradient 16 mmHg. Bioprosthetic aortic valve. Pulmonic Valve The pulmonic valve is not well visualized. Great Vessels Normal aortic root. The pulmonary artery is normal size. Normal inferior vena cava. Pericardium/Pleural No pericardial effusion. Medication 22 gauge I.V. with prn adaptor inserted into right arm. Diluted definity 2ml given slow IV push to enhance endocardial definition. MMode/2D Measurements & Calculations LVIDd: 4.4 cm IVSd: 1.5 cm LVOT diam: 2.0 cm LVIDs: 2.2 cm LVPWd: 1.6 cm RVDd: 3.6 cm FS: 51.4 % LVOT area: 3.0 cm2 Ao root diam: 2.8 cm LAV(MOD-bp): 114.0 ml LVAd ap4: 33.8 cm2 LAV(MOD-bp) Indexed: 57.6 ml/m2 LVLd ap4: 8.7 cm LAV(MOD-sp2): 110.0 ml EDV(MOD-sp4): 107.6 ml LAV(MOD-sp4): 118.7 ml EDV(sp4-el): 111.2 ml LVAs ap4: 21.9 cm2 LVLs ap4: 8.0 cm ESV(MOD-sp4): 50.8 ml ESV(sp4-el): 51.3 ml EF(MOD-sp4): 52.8 % EF(sp4-el): 53.9 % LVAd ap2: 34.3 cm2 SV(MOD-sp4): 56.8 ml SV(MOD-sp2): 66.8 ml LVLd ap2: 8.4 cm EDV(MOD-sp2): 116.2 ml EDV(sp2-el): 119.4 ml LVAs ap2: 19.9 cm2 LVLs ap2: 6.5 cm ESV(MOD-sp2): 49.4 ml ESV(sp2-el): 51.5 ml EF(MOD-sp2): 57.5 % SV(sp4-el): 59.9 ml LA dimension(2D): 6.1 cm LA A4 area: 31.8 cm2 RA A4 area: 18.2 cm2 TAPSE: 1.5 cm Time Measurements MV dec time: 0.43 sec Doppler Measurements & Calculations MV E max bandar: 148.3 cm/sec MV V2 max: 178.6 cm/sec MV A max bandar: 166.5 cm/sec MV max P.8 mmHg MV dec slope: 341.5 cm/sec2 MV E/A: 0.89 MV V2 mean: 138.8 cm/sec MV mean P.9 mmHg MV V2 VTI: 67.7 cm MVA(VTI): 1.3 cm2 Ao V2 max: 276.2 cm/sec LV V1 max: 118.8 cm/sec SV(LVOT): 85.2 ml Ao max P.5 mmHg LV V1 max P.6 mmHg Ao V2 mean: 190.6 cm/sec LV V1 mean P.4 mmHg Ao mean P.4 mmHg LV V1 mean: 87.7 cm/sec Ao V2 VTI: 60.3 cm LV V1 VTI: 28.3 cm AV (velocity ratio): 0.47 CESAR(I,D): 1.4 cm2 CESAR(V,D): 1.3 cm2 PA V2 max: 108.3 cm/sec TR max bandar: 322.2 cm/sec PA max PG (full): 3.2 mmHg TR max P.5 mmHg ECHO/Echo Complete W/ Contrast Interpretation Summary Normal LV size. Moderate concentric left ventricular hypertrophy. Left ventricular systolic function is normal. The estimated ejection fraction is 55 %. Bioprosthetic aortic valve. Mean aortic valve gradient 16 mmHg. Contrast injection was performed. Ordering Physician: Kwabena Nelson Referring Physician: Tomi Driver Performed By: Leeann Patel RDCS
== END | disposition home or self-care (01) ==
PROVIDERS: PCP Family Medicine; Referring Provider Internal Medicine Cardiovascular Disease; Visit Provider Internal Medicine Cardiovascular Disease
DX: Z95.2 Presence of prosthetic heart valve (principal)
CPT/HCPCS: 93306; Q9957; A4216; C8929

== ENCOUNTER → 2023-08-12 | Outpatient (CLI) | payer MEDICARE, OTHER, SELFPAY ==
[2023-08-12 11:02] LABS: Absolute Lymphocyte Count 1.72 X10^3/uL (0.83-4.51); Absolute Neutrophil Count 5.3 X10^3/uL (2.0-7.7); Basophil# 0.04 X10^3/uL; Basophil% 0.5 % (0-1); Eosinophil# 0.18 X10^3/uL; Eosinophils% 2.2 % (0-5); Hemoglobin 14.2 g/dL (13.0-16.5); Lymphocyte # 1.72 X10^3/ul (0.83-4.51); Lymphocyte % 21.3 % (19-41); Mean Platelet Vol. 9.8 fl (6.2-12.0); Monocyte# 0.84 X10^3/uL; Monocyte% 10.4 % (0-10); NRBC Flagged by Analyzer 0 % (0-5); Neutrophil # 5.25 X10^3/uL (2.7-7.7); Neutrophil % 65.2 % (47-70); Platelet Count 227 K/mm3 (150-450); RBC Distribution Width CV 13.2 % (11.6-14.6); RBC Distribution Width SD 48.4 fl (35.1-43.9); White Blood Count 8.1 K/mm3 (4.4-11.0)
[2023-08-12 11:21] LABS: Anion Gap 6 (5-15); BUN 26 mg/dL (7-18); BUN/Creat Ratio 26.2 RATIO (10-20); Calcium,Total 9.1 mg/dL (8.5-10.1); Chloride 107 mmol/L (98-107); Creatinine, Serum 0.99 mg/dL (0.70-1.30); EST Glomerular Filtration Rate 78 mL/min (>60); Est Glom Filt Rate - Afr Amer 94 mL/min (>60); Glucose 84 mg/dL (74-106); Potassium 4.4 mmol/L (3.5-5.1); Sodium Level 139 mmol/L (136-145)
[2023-08-12 11:23] LABS: BNP,B-Type NATRIURETIC PEPTIDE 317.7 pg/mL (0-100)
== END | disposition home or self-care (01) ==
PROVIDERS: PCP Family Medicine; Referring Provider Nurse Practitioner Family; Visit Provider Nurse Practitioner Family
DX: R06.09 Other forms of dyspnea (principal)
CPT/HCPCS: 36415; 80048; 83880; 85025

== ENCOUNTER → 2023-09-04 | Outpatient (CLI) | payer MEDICARE, OTHER, SELFPAY ==
[2023-09-04 10:00] LABS: PSA,Total- Diagnostic 0.15 ng/mL (0.0-4.0)
== END | disposition home or self-care (01) ==
PROVIDERS: PCP Family Medicine; Referring Provider Urology; Visit Provider Urology
DX: C61 Malignant neoplasm of prostate (principal)
CPT/HCPCS: 36415; 84153

== ENCOUNTER 2023-11-25 11:03 | Day surgery (SDC) | payer MEDICARE, OTHER, SELFPAY ==
--- NOTE | 2023-11-13 09:31 | RAD_ITS ---
STUDY: X-RAY CHEST REASON FOR EXAM: Male, 78 years old. Preoperative: DCCV TECHNIQUE: PA and lateral views of the chest. COMPARISON: 11/22/2021 FINDINGS: Left subclavian pacemaker which is unchanged. Status post median sternotomy with heart valve replacement.. The lungs are clear and expanded. There is no demonstrated pleural abnormality. Normal size heart. Normal mediastinum and heber. Normal visualized pulmonary arteries. Normal visualized aortic arch and descending thoracic aorta. Normal visualized thoracic spine. Normal visualized ribs, clavicles, and shoulders. There is no demonstrated abnormality of the visualized soft tissue structures of the upper abdomen. RAD/Chest PA and Lateral IMPRESSION: No active disease. Electronically Signed: Kwaku Murillo MD at 9:47 EDT ,
[2023-11-13 11:09] LABS: Anion Gap 8 (5-15); BUN 26 mg/dL (7-18); BUN/Creat Ratio 16.1 RATIO (10-20); Calcium,Total 9.2 mg/dL (8.5-10.1); Chloride 109 mmol/L (98-107); Creatinine, Serum 1.61 mg/dL (0.70-1.30); EST Glomerular Filtration Rate 44 mL/min (>60); Est Glom Filt Rate - Afr Amer 54 mL/min (>60); Glucose 108 mg/dL (74-106); Potassium 4.6 mmol/L (3.5-5.1); Sodium Level 141 mmol/L (136-145)
--- NOTE | 2023-11-13 11:43 | PCM.HP.BLA ---
History and Physical Date of Admission: 11/25/23 MAXIMILIAN NIÑO, is a 78 M who presents here today for a cardioversion. He was admitted to [facility] on 11/21/2021 with a syncopal episode while he was unloading firewood.? He has a history of rheumatic heart disease, aortic valve disease, nonobstructive coronary artery disease, aortic valve replacement with a 21 mm Cuco Karimi Hustle magna valve in August 2012, paroxysmal atrial fibrillation, and peripheral vascular disease post right carotid endarterectomy in 2015.? He also has a history of prostate cancer with radiation therapy.?During his hospitalization he was noted to have, frequent PVCs, a short run of NSVT and high grade AV block and underwent a pacemaker implant. He denies chest, arm, jaw, or neck discomfort. He denies palpitations. He denies bilateral lower extremity edema. He denies claudication. He states an increase shortness of breath with activity. He denies shortness of breath at rest, orthopnea, or PND. He denies chronic cough. He denies significant, sudden weight gain. He denies lightheadedness, dizziness, near-syncope, or syncope. He denies blood in urine, blood in stool, or epistaxis. He denies fever with chills. He denies myalgia. He states fatigue. His exercise level has remained stable. Intake Vital Signs: See EMR Intake Visit Reasons: [facility] [employer] Librarian Required: No Is patient in pain?: No Allergies mushroom Allergy (Verified 08/12/23 10:06) Vomiting Atorvastatin (From Lipitor) Adverse Reaction (Severe, Verified 08/12/23 10:06) Severe myalgias Lisinopril Adverse Reaction (Verified 08/12/23 10:06) hyperkalemia Medications: See EMR Ejection fraction %: 55 Have you fallen in the past year?: Yes (Trip and fall) FORMERLY [facility], [facility] Medical History Stenosis of left subclavian artery Nonobstructive atherosclerosis of coronary artery Gait disturbance Wears glasses Wears hearing aid Wears dentures Arthritis Hyperlipemia Easy bruising Former smoker Rheumatic mitral stenosis with insufficiency History of non-ST elevation myocardial infarction (NSTEMI) (02/22/18) Van-tachy syndrome Paroxysmal atrial flutter Rheumatic aortic stenosis with insufficiency Prostate cancer Paroxysmal atrial fibrillation Atrial fibrillation with RVR (02/2018) Pure hypercholesterolemia Essential (primary) hypertension Occlusion and stenosis of bilateral carotid arteries Surgical History History of permanent cardiac pacemaker placement (11/21/21) H/O arthroscopic knee surgery History of right-sided carotid endarterectomy (12/14/15) History of left heart catheterization (02/2018) History of cardioversion (07/09/18) History of left leg surgeries History of appendectomy History of aortic valve replacement (08/15/12) Family History Mother , of [place] CAD (coronary artery disease) Myocardial infarctionBrother Atrial fibrillation Cancer prostateBrother Cancer prostateFather Myocardial infarction Social History Smoking Status: Former smoker how long ago did patient quit smokin alcohol intake: current alcohol intake frequency: holidays/special occasions only substance use type: does not use caffeine: No ROS Const Const: Positive for fatigue (Tires easier lately) and daytime sleepiness; Negative for weakness, headache(s), frequent falls, difficulty sleeping or excessive sweating Eyes Eyes: Negative for loss of peripheral vision, transient loss of vision, blurry vision, double vision or tunnel vision ENT ENT: Negative for headache(s), dizziness, Nosebleed/epistaxis or balance problems Cardio Chest Pain: No Palpitations: No Edema: None Muscle aches with walking: None Resp Respiratory: Positive for SOB with activity (Increased); Negative for SOB at rest, SOB orthopnea\SOB lying down, Cough or paroxysmal nocturnal dyspnea GI GI: Negative nausea, vomiting, heartburn or black,tarry stools : Negative for hematuria Musc Musc: Negative for muscle aches/ myalgia, muscle weakness, joint pain or balance problems Skin Skin: Negative non-healing lesions, rash or unusual bruising Neuro Neuro: Positive for lightheadedness (Resolved since decreasing lasix to PRN); Negative for dizziness, near syncope, syncope, frequent falls, headache(s), weakness, blurry vision, double vision or lack of coordination Tim Hematologic/Lymphatic: Negative for easy bleeding or easy bruising Endo Endo: Positive for fatigue (Tires easier lately); Negative for excessive sweating or increased thirst/drinking Psych Psych: Negative for anxiety or depression Allergy Allergy/Immunology: Negative for hives and Negative for rash Cardiology Exam Const Appearance: cooperative, healthy appearing, comfortable and no acute distress Nutritional Appearance: well nourished and obese Orientation: alert, awake and oriented x3 Head Head: normal to inspection Ears: hearing grossly normal bilaterally Nose: external nose normal Face and Sinus: face symmetric Mouth: moist mucous membranes Eyes General: appearance normal, both eyes and all related structures Eyelids: eyelids normal EOM: EOM intact bilaterally Neck Neck: normal visual inspection and no JVD Carotids: normal carotid upstroke Chest Chest inspection: normal inspection of the chest, symmetric chest movement and normal respiratory effort; Negative cough Auscultation: Bilateral: Clear to Auscultation Cardio Rate: irregular rate Rhythm: irregular rhythm Heart sounds: S1 normal, S2 normal and murmur; Negative rub or gallop Murmur: Grade 2/6 and ERNIE loudest primary aortic area GI GI: normal to inspection and obese Neuro General: patient alert, patient awake, patient oriented x3 and CN's II-XI intact bilaterally Skin Skin: no rashes or lesions noted Extremities Pulses: Normal: Right Posterior Tibial Pulse, Left Posterior Tibial Pulse, Right Radial Pulse and Left Radial Pulse Lower Extremity Edema: None: Bilateral Psych Psychological: normal affect Supplemental Info Supplemental Information Echocardiogram 05/22/2023 Interpretation Summary Normal LV size. Moderate concentric left ventricular hypertrophy. Left ventricular systolic function is normal. The estimated ejection fraction is 55 %. Bioprosthetic aortic valve. Mean aortic valve gradient 16 mmHg. Contrast injection was performed. Echocardiogram 11/21/2021: Interpretation Summary Normal LV size. Left ventricular systolic function is normal. The estimated ejection fraction is 60 %. The left atrium is moderately enlarged. Bioprosthetic aortic valve. Severe concentric left ventricular hypertrophy. Contrast injection was performed. ECHOCARDIOGRAM 12/26/2020 Interpretation Summary Normal LV size. Moderate concentric left ventricular hypertrophy. Left ventricular systolic function is normal. The estimated ejection fraction is 65 %. Pulmonary artery systolic pressure is 62 mmHg. Moderate pulmonary hypertension. Mean aortic valve gradient 20 mmHg. Compared to the previous the above parameters of the aortic valve appeared to be essentially unchanged by the right ventricular systolic pressure and pulmonary pressures are elevated. CARDIAC CATHETERIZATION 02/24/2018 CORONARY ANGIOGRAPHY CONCLUSIONS Mild nonobstructive coronary artery disease. DOMINANCE:? Left Dominant LEFT HEART ASSESSMENT Left Ventricular Ejection Fraction: by Echo 65 % Normal LV wall motion Normal Left Ventricular systolic function LEFT MAIN: Angiographically normal LEFT ANTERIOR DESCENDING ARTERY: Mild luminal irregularities less than 30% CIRCUMFLEX ARTERY: Mild luminal irregularities less than 30% OM 1: Ostial - 60 % Stenosis RIGHT CORONARY ARTERY: Mild luminal irregularities less than 30% Carotid duplex ultrasound from 01/11/2022: Interpretation Summary Mild (<50%) stenosis right extracranial internal carotid. Moderate (50-69%) stenosis left extracranial internal carotid. Flow within the right verterbral artery is antegrade. Flow within the left verterbral artery is retrograde, consistent with a subclavian steal phenomenon. Assessment and Plan Assessment and Plan (1) Dyspnea on exertion: Status: Acute Plan: This is thought to be related to his rhythm. He will proceed with cardioversion. As he is also on amiodarone, will consider pulmonary function test pending on overall progress. (2) History of aortic valve replacement: Status: Chronic Comment: AVR with 21 mm Cuco Karimi Perimount magna valve 08/15/2012 @ [facility] per Dr. Benji Dent Plan: Echocardiogram in May 2023 showed an ejection fraction of 55%, bioprosthetic aortic valve, peak aortic valve gradient 31 mm minute, and a mean aortic valve gradient of 16 mmHg. Pulmonary artery systolic pressure is noted be 45 mmHg. At this time, this appears stable. We will continue to monitor. He will continue antibiotic prophylaxis. (3) Paroxysmal atrial fibrillation: Status: Chronic Plan: Device evaluation on 10/30/2023 showed persistent atrial flutter since 10/26/2023. On account of such, he will proceed with cardioversion. Will follow response and adjust medication as needed. He will continue Eliquis for CVA protection. He was reduced from 5 mg p.o. daily previously on account of severe urinary bleeding and has previously declined returning to 5 mg. In preparation for cardioversion, however he was asked to increase to 5 mg p.o. twice daily. (4) Essential (primary) hypertension: Status: Chronic Plan: Patient's blood pressure is well-controlled. We will continue to monitor. We will not make any medication regimen changes. (5) Pure hypercholesterolemia: Status: Chronic Plan: He does have a history of hyperlipidemia. His most recent lipid profile demonstrating a total cholesterol 126, LDL of 77 and HDL of 30. No other changes will be made. He expects this to be repeated with PCP in the near future. (6) History of permanent cardiac pacemaker placement: Status: Acute Plan: Patient's device appears to be functioning appropriately. We will continue to monitor this with routine/scheduled follow-ups.
[2023-11-22 07:37] VITALS: BMI 34.6
--- NOTE | 2023-11-25 12:57 | PCM.OP.PRO ---
Procedure Report Date of Procedure: 11/25/23 DC cardioversion. 78-year-old male with a history of atrial fibrillation flutter. The patient was bradycardic catheterization lab in the postabsorptive nonsedated state. Informed consent was obtained. The patient was seen by Dr. Wayne of the critical care division. 40 mg intravenous propofol was then inserted ejected and synchronized biphasic 200 J energy were applied with prompt reversal to AV sequentially paced rhythm. Patient tolerated the procedure well. Conclusion: Successful DC cardioversion from atrial fibrillation flutter to atrial paced rhythm.
--- NOTE | 2023-11-25 13:00 | PRO.PCM_ITS ---
Procedure Report Date of Procedure: 11/25/23 CONSCIOUS SEDATION REPORT DATE OF SERVICE: November 25, 2023 BRIEF HISTORY OF PRESENT ILLNESS: The patient is a 78-year-old male who presented to [facility] for elective outpatient cardioversion due to underlying atrial fibrillation. The patient did undergo a prior cardioversion in June 2018, during which time, he required 40 mg of propofol to achieve an appropriate level of sedation. The patient is systemically anticoagulated on Eliquis. His last surface echocardiogram demonstrated an ejection fraction of approximately 55%. He denied any prior anesthetic complications. PHYSICAL EXAMINATION: VITAL SIGNS: Reviewed and were acceptable. GENERAL: The patient is a male, in no apparent distress, speaking in full sentences. HEENT: Normocephalic, atraumatic. Mucous membranes are moist and pink. Good mouth opening noted. Trachea is midline. Good neck mobility. CHEST: S1, S2 irregularly irregular. No murmurs, rubs or gallops were noted. LUNGS: Clear to auscultation bilaterally without appreciable wheezes, rales or rhonchi. ABDOMEN: Soft, nontender, nondistended. Positive bowel sounds. EXTREMITIES: There is no clubbing, cyanosis or edema. ASA Class: II DESCRIPTION OF PROCEDURE: After confirmation of informed consent, the patient's anesthesia plan was reviewed in detail. Propofol was chosen. Risks and benefits were reviewed and the patient agreed to proceed. At 1239, the patient was given 40 mg of propofol. The patient achieved an appropriate level of sedation and was given a 200 joule synchronized cardioversion by Dr. Nelson at the bedside. This was successful in achieving normal sinus rhythm. The patient was monitored until 1253, at which time he reached his baseline mental status and function. The patient tolerated the procedure well. COMPLICATIONS: None ESTIMATED BLOOD LOSS: None RECOMMENDATIONS: Okay to recover in usual fashion. Procedures Pulmonary Pulmonary Procedures /Diagnostic Testin Con Sedation
== END 2023-11-25 13:40 | disposition home or self-care (01) ==
PROVIDERS: Nurse Practitioner Family; PCP Family Medicine; Referring Provider Internal Medicine Cardiovascular Disease; Visit Provider Internal Medicine Cardiovascular Disease
DX: I48.0 Paroxysmal atrial fibrillation (principal); I25.10 Atherosclerotic heart disease of native coronary artery without angina pectoris; I10 Essential (primary) hypertension; R06.02 Shortness of breath; I73.9 Peripheral vascular disease, unspecified; I65.23 Occlusion and stenosis of bilateral carotid arteries; E78.5 Hyperlipidemia, unspecified; I05.1 Rheumatic mitral insufficiency; M19.90 Unspecified osteoarthritis, unspecified site; Z79.899 Other long term (current) drug therapy; Z95.2 Presence of prosthetic heart valve; Z85.46 Personal history of malignant neoplasm of prostate; Z95.0 Presence of cardiac pacemaker; Z87.891 Personal history of nicotine dependence
CPT/HCPCS: 36415; 71046; 80048; 92960; 93005

== ENCOUNTER → 2024-01-07 | Outpatient (CLI) | payer MEDICARE, OTHER, SELFPAY ==
[2024-01-07 12:26] LABS: Absolute Lymphocyte Count 1.97 X10^3/uL (0.83-4.51); Absolute Neutrophil Count 5.9 X10^3/uL (2.0-7.7); Basophil# 0.04 X10^3/uL; Basophil% 0.5 % (0-1); Eosinophil# 0.11 X10^3/uL; Eosinophils% 1.2 % (0-5); Hematocrit 43.1 % (40-54); Lymphocyte # 1.97 X10^3/ul (0.83-4.51); Lymphocyte % 22.3 % (19-41); Mean Corp Hgb Conc 32.5 g/dL (32-36); Mean Corpuscular Volume 101.7 fL (80-94); Mean Platelet Vol. 10.1 fl (6.2-12.0); Monocyte% 7.9 % (0-10); NRBC Flagged by Analyzer 0 % (0-5); Neutrophil # 5.94 X10^3/uL (2.7-7.7); Neutrophil % 67.4 % (47-70); Platelet Count 245 K/mm3 (150-450); RBC Distribution Width CV 13.2 % (11.6-14.6); RBC Distribution Width SD 49.5 fl (35.1-43.9); Red Blood Count 4.24 M/mm3 (4.6-6.2); White Blood Count 8.8 K/mm3 (4.4-11.0)
[2024-01-07 12:57] LABS: Vitamin B12 554 pg/mL (211-911)
[2024-01-07 13:19] LABS: ALB/GLOB Ratio 1.1 RATIO (0.9-2.4); AST(SGOT) 21 U/L (15-37); Alanine Aminotransfer ALT/SGPT 16 U/L (16-61); Albumin, Serum 3.8 g/dL (3.2-5.0); Alkaline Phosphatase 95 U/L (45-117); Anion Gap 6 (5-15); BUN 24 mg/dL (7-18); BUN/Creat Ratio 23.1 RATIO (10-20); Calcium,Total 9.2 mg/dL (8.5-10.1); Chloride 112 mmol/L (98-107); Cholesterol 170 mg/dL (200); Creatinine, Serum 1.04 mg/dL (0.70-1.30); EST Glomerular Filtration Rate 74 mL/min (>60); Est Glom Filt Rate - Afr Amer 89 mL/min (>60); Globulin 3.4 g/dL (2.2-4.2); Glucose 100 mg/dL (74-106); High Density Lipoprotein 43 mg/dL; Potassium 4.3 mmol/L (3.5-5.1); Protein, Total 7.2 g/dL (6.4-8.2); Sodium Level 144 mmol/L (136-145); Triglycerides 97 mg/dL; Uric Acid 6.5 mg/dL (3.5-7.2); Very Low Density Lipoprotein 19 mg/dL (5-40)
== END | disposition home or self-care (01) ==
LOC: BFHLAB 09:07
PROVIDERS: PCP Family Medicine; Referring Provider Family Medicine; Visit Provider Family Medicine
DX: I10 Essential (primary) hypertension (principal); M10.9 Gout, unspecified; D75.89 Other specified diseases of blood and blood-forming organs
CPT/HCPCS: 36415; 80053; 80061; 82607; 84550; 85025

== ENCOUNTER → 2024-04-08 | Outpatient (CLI) | payer MEDICARE, OTHER, SELFPAY ==
--- NOTE | 2024-04-08 09:38 | CDU_ITS ---
Reason For Study Reason For Study: Bilateral Carotid Stenosis Rt. Velocities/BP Lt. Velocities/BP Prox CCA 109.2/15.0 cm/sec. Prox CCA 107.7/18.6 cm/sec. Mid CCA 72.0/17.9 cm/sec. Mid CCA 120.8/30.1 cm/sec. Dist CCA 72.8/17.6 cm/sec. Dist CCA 128.6/24.9 cm/sec. Prox ICA 145.5/33.6 cm/sec. Prox ICA 177.8/61.2 cm/sec. Mid ICA 134.6/24.8 cm/sec. Mid ICA 110.7/19.4 cm/sec. Dist ICA 114.6/21.2 cm/sec. Dist ICA 73.2/24.8 cm/sec. Rt. ICA/CCA = 1.9. Lt. ICA/CCA = 1.5. Prox ECA 80.6/8.8 cm/sec. Prox ECA 157.2/21.1 cm/sec. Rt. Vert. 139.6/27.7 cm/sec. Lt. Vert. Retrograde flow noted. Right Extracranial There is heterogeneous, irregular atherosclerotic plaque noted in the right common carotid artery. HX CEA. There is heterogeneous, irregular atherosclerotic plaque noted in the right internal carotid artery. HX CEA. There is heterogeneous, irregular atherosclerotic plaque noted in the right external carotid artery. Antegrade flow is noted in the right vertebral artery. Left Extracranial There is heterogeneous, irregular atherosclerotic plaque noted in the left common carotid artery. There is heterogeneous, irregular atherosclerotic plaque noted in the left internal carotid artery. There is heterogeneous, irregular atherosclerotic plaque noted in the left external carotid artery. Retrograde flow noted in Lt Vertebral Artery. Procedure Carotid Duplex 60697. This is a Carotid Duplex examination using B-mode, color flow and specral Doppler. The exam was diagnostic. Exam performed in department. VL/Carotid Duplex Ultrasound Interpretation Summary Moderate (50-69%) stenosis right extracranial internal carotid. Moderate (50-69 %) stenosis left extracranial internal carotid. Flow within the right verterbral artery is antegrade. Flow within the left verterbral artery is retrograde, consistent with a subclavian steal phenomenon. Ordering Physician: Aries Garg Referring Physician: Tomi Driver Performed By: Miguelangel Hill RVT
== END | disposition home or self-care (01) ==
LOC: CVS 09:37
PROVIDERS: PCP Family Medicine; Referring Provider Surgery Vascular Surgery; Visit Provider Surgery Vascular Surgery
DX: I65.23 Occlusion and stenosis of bilateral carotid arteries (principal)
CPT/HCPCS: 93880

== ENCOUNTER → 2024-06-29 | Outpatient (CLI) | payer MEDICARE, OTHER, SELFPAY ==
[2024-06-29 10:54] LABS: Absolute Lymphocyte Count 1.75 X10^3/uL (0.83-4.51); Absolute Neutrophil Count 6.1 X10^3/uL (2.0-7.7); Basophil# 0.05 X10^3/uL; Basophil% 0.5 % (0-1); Eosinophil# 0.29 X10^3/uL; Eosinophils% 3.1 % (0-5); Hematocrit 40.2 % (40-54); Hemoglobin 13.2 g/dL (13.0-16.5); Lymphocyte # 1.75 X10^3/ul (0.83-4.51); Mean Corp Hgb Conc 32.8 g/dL (32-36); Mean Corpuscular Hgb 32.8 pg (27.0-32.0); Mean Corpuscular Volume 99.8 fL (80-94); Monocyte# 1.02 X10^3/uL; Monocyte% 11.1 % (0-10); NRBC Flagged by Analyzer 0 % (0-5); Neutrophil # 6.08 X10^3/uL (2.7-7.7); Neutrophil % 65.9 % (47-70); Platelet Count 238 K/mm3 (150-450); RBC Distribution Width CV 13.3 % (11.6-14.6); RBC Distribution Width SD 49.1 fl (35.1-43.9); Red Blood Count 4.03 M/mm3 (4.6-6.2); White Blood Count 9.2 K/mm3 (4.4-11.0)
[2024-06-29 11:41] LABS: ALB/GLOB Ratio 1.4 RATIO (0.9-2.4); AST(SGOT) 23 U/L (<=37); Alanine Aminotransfer ALT/SGPT 12 U/L (<=46); Alkaline Phosphatase 120 U/L (40-129); Anion Gap 10 (5-15); BUN 25 mg/dL (4-19); BUN/Creat Ratio 22.8 RATIO (10-20); Carbon Dioxide 22.7 mmol/L (21.0-32.0); Chloride 107 mmol/L (98-108); EST Glomerular Filtration Rate 69 (>60); Globulin 2.9 g/dL (2.2-4.2); Glucose 81 mg/dL (70-99); Potassium 4.2 mmol/L (3.3-5.1); Pro- Brain NATRIURETIC PEPTIDE 1371 pg/mL (<=1800); Protein, Total 6.9 g/dL (5.9-8.4); Sodium Level 139 mmol/L (133-145); Total Bilirubin 0.42 mg/dL (0.00-1.30)
== END | disposition home or self-care (01) ==
LOC: LAB 09:48
PROVIDERS: PCP Family Medicine; Referring Provider Nurse Practitioner Family; Visit Provider Nurse Practitioner Family
DX: R06.09 Other forms of dyspnea (principal); I48.0 Paroxysmal atrial fibrillation; E78.00 Pure hypercholesterolemia, unspecified; I10 Essential (primary) hypertension; I25.10 Atherosclerotic heart disease of native coronary artery without angina pectoris; Z79.899 Other long term (current) drug therapy
CPT/HCPCS: 36415; 80053; 83880; 84439; 84443; 85025

== ENCOUNTER → 2024-07-07 | Outpatient (CLI) | payer MEDICARE, OTHER, SELFPAY ==
--- NOTE | 2024-07-07 10:13 | RAD_ITS ---
PROCEDURE: CHEST PA AND LATERAL 07/07/2024 REASON FOR EXAM: COUGH, SOB TECHNIQUE: Frontal and lateral views of the chest. COMPARISON: None FINDINGS: Hardware: A left-sided dual-chamber pacemaker is seen. Prior CABG. Heart: Borderline cardiomegaly. Mediastinum: Calcification of the aortic arch. Lungs: Pulmonary vasculature is congested. Bones: Degenerative changes are identified within the thoracic spine. RAD/Chest PA and Lateral IMPRESSION: Mild CHF. Reading Location: [place] [id number]
== END | disposition home or self-care (01) ==
LOC: RAD 10:00
PROVIDERS: PCP Family Medicine; Referring Provider Nurse Practitioner Family; Visit Provider Nurse Practitioner Family
DX: I48.0 Paroxysmal atrial fibrillation (principal); I25.10 Atherosclerotic heart disease of native coronary artery without angina pectoris; I10 Essential (primary) hypertension; E78.00 Pure hypercholesterolemia, unspecified; R06.09 Other forms of dyspnea; R05.9 Cough, unspecified
CPT/HCPCS: 71046

== ENCOUNTER 2024-08-06 09:23 | Outpatient (RCR) | payer MEDICARE, OTHER, SELFPAY | END 2024-08-10 23:59 | LOC: NS 09:23 | PROVIDERS: PCP Family Medicine; Referring Provider Nurse Practitioner Family; Visit Provider Nurse Practitioner Family | DX: Z71.3 Dietary counseling and surveillance (principal); N18.31 Chronic kidney disease, stage 3a; E78.00 Pure hypercholesterolemia, unspecified; I12.9 Hypertensive chronic kidney disease with stage 1 through stage 4 chronic kidney disease, or unspecified chronic kidney disease; I25.10 Atherosclerotic heart disease of native coronary artery without angina pectoris; Z95.2 Presence of prosthetic heart valve | CPT/HCPCS: 97802 ==

== ENCOUNTER → 2024-08-07 | Outpatient (CLI) | payer MEDICARE, OTHER, SELFPAY ==
--- NOTE | 2024-08-07 09:49 | ECHOD_ITS ---
Reason For Study Reason For Study: ASSESS LV FUNCTION, AVR Procedure This was a 2D Doppler, Color Flow transthoracic echocardiogram. Exam performed in department. Left Ventricle Normal LV size. Severe concentric left ventricular hypertrophy. The left ventricular ejection fraction is 55 %. No regional wall motion abnormalities noted. Right Ventricle Normal RV size. Normal systolic function. Atria The left atrium is moderately enlarged. The right atrium is moderately enlarged. Mitral Valve There is mild to moderate mitral annular calcification. Tricuspid Valve Normal tricuspid valve. Moderate (2+) tricuspid valve insufficiency. Pulmonary artery systolic pressure is 46 mmHg. Aortic Valve Peak aortic valve gradient 29 mmHg. Mean aortic valve gradient 15 mmHg. Bioprosthetic aortic valve. Pulmonic Valve Normal pulmonic valve. Great Vessels Normal aortic root. The pulmonary artery is normal size. Inferior vena cava collapse with respiration. Pericardium/Pleural No pericardial effusion. MMode/2D Measurements & Calculations LVIDd: 4.3 cm IVSd: 1.7 cm LVOT diam: 1.9 cm LVIDs: 2.4 cm LVPWd: 1.9 cm LVOT area: 3.0 cm2 RVDd: 3.3 cm FS: 44.7 % Ao root diam: 3.2 cm LAV(MOD-bp): 104.3 ml LVAd ap4: 30.5 cm2 LAV(MOD-bp) Indexed: 52.1 ml/m2 LVLd ap4: 7.8 cm LAV(MOD-sp2): 90.5 ml EDV(MOD-sp4): 100.3 ml LAV(MOD-sp4): 109.0 ml EDV(sp4-el): 101.1 ml LVAs ap4: 19.6 cm2 LVLs ap4: 6.9 cm ESV(MOD-sp4): 44.4 ml ESV(sp4-el): 46.8 ml EF(MOD-sp4): 55.7 % EF(sp4-el): 53.7 % LVAd ap2: 27.4 cm2 SV(MOD-sp4): 55.8 ml SV(MOD-sp2): 45.7 ml LVLd ap2: 8.5 cm SI(MOD-sp4): 27.9 ml/m2 SI(MOD-sp2): 22.8 ml/m2 EDV(MOD-sp2): 83.5 ml EDV(sp2-el): 75.1 ml LVAs ap2: 17.6 cm2 LVLs ap2: 8.0 cm ESV(MOD-sp2): 37.8 ml ESV(sp2-el): 33.0 ml EF(MOD-sp2): 54.7 % SV(sp4-el): 54.3 ml LA dimension(2D): 5.2 cm LA A4 area: 30.5 cm2 RA A4 area: 23.7 cm2 TAPSE: 1.9 cm Doppler Measurements & Calculations MV E max andrea: 189.4 cm/sec Lat Peak E' Andrea: 5.4 cm/sec Med Peak E' Andrea: 4.4 cm/sec MV A max andrea: 165.7 cm/sec E/E' lat: 34.9 E/E' med: 42.6 MV E/A: 1.1 MV V2 max: 205.2 cm/sec MV P1/2t max andrea: 199.9 cm/sec Ao V2 max: 266.8 cm/sec MV max P.9 mmHg MV P1/2t: 129.5 msec Ao max P.5 mmHg MV V2 mean: 135.3 cm/sec MV dec slope: 452.4 cm/sec2 Ao V2 mean: 185.8 cm/sec MV mean P.9 mmHg Ao mean P.4 mmHg MV V2 VTI: 68.9 cm MVA(P1/2t): 1.7 cm2 Ao V2 VTI: 62.8 cm MVA(VTI): 1.4 cm2 AV (velocity ratio): 0.50 CESAR(I,D): 1.5 cm2 CESAR(V,D): 1.6 cm2 LV V1 max: 143.3 cm/sec SV(LVOT): 93.4 ml PA V2 max: 110.2 cm/sec LV V1 max P.5 mmHg LV V1 mean P.0 mmHg LV V1 mean: 102.9 cm/sec LV V1 VTI: 31.6 cm TR max andrea: 325.8 cm/sec TR max P.5 mmHg ECHO/Echo Complete Interpretation Summary Normal LV size. The left ventricular ejection fraction is 55 %. Severe concentric left ventricular hypertrophy. Mean aortic valve gradient 15 mmHg. Bioprosthetic aortic valve. Compared to the previous there are no changes Ordering Physician: Valentino Machado Referring Physician: Tomi Driver Performed By: Makenna Rivera RDCS
== END | disposition home or self-care (01) ==
LOC: CVS 09:48
PROVIDERS: PCP Family Medicine; Referring Provider Nurse Practitioner Family; Visit Provider Nurse Practitioner Family
DX: I06.2 Rheumatic aortic stenosis with insufficiency (principal); I48.0 Paroxysmal atrial fibrillation; R06.09 Other forms of dyspnea; E78.00 Pure hypercholesterolemia, unspecified; I10 Essential (primary) hypertension; I25.10 Atherosclerotic heart disease of native coronary artery without angina pectoris
CPT/HCPCS: 93306

== ENCOUNTER → 2024-09-25 | Outpatient (CLI) | payer MEDICARE, OTHER, SELFPAY ==
[2024-09-25 11:22] LABS: Hematocrit 42.4 % (40-54); Hemoglobin 13.9 g/dL (13.0-16.5); Immature Granulocytes Count 0.050 X10^3/uL (0.0-0.0); Mean Corp Hgb Conc 32.8 g/dL (32-36); Mean Corpuscular Volume 98.1 fL (80-94); Mean Platelet Vol. 9.8 fl (6.2-12.0); NRBC Flagged by Analyzer 0 % (0-5); Platelet Count 229 K/mm3 (150-450); RBC Distribution Width CV 13.0 % (11.6-14.6); RBC Distribution Width SD 46.8 fl (35.1-43.9); Red Blood Count 4.32 M/mm3 (4.6-6.2); White Blood Count 9.3 K/mm3 (4.4-11.0)
== END | disposition home or self-care (01) ==
PROVIDERS: PCP Family Medicine; Referring Provider Nurse Practitioner Family; Visit Provider Nurse Practitioner Family
DX: Z79.01 Long term (current) use of anticoagulants (principal); R53.83 Other fatigue
CPT/HCPCS: 36415; 84443; 85025

== ENCOUNTER → 2024-10-05 | Outpatient (CLI) | payer MEDICARE, OTHER, SELFPAY ==
[2024-10-05 11:29] LABS: Anion Gap 13 (5-15); BUN 26 mg/dL (4-19); BUN/Creat Ratio 21.0 RATIO (10-20); Calcium,Total 9.2 mg/dL (7.6-11.0); Carbon Dioxide 24.7 mmol/L (21.0-32.0); Chloride 104 mmol/L (98-108); Glucose 76 mg/dL (70-99); Potassium 4.1 mmol/L (3.3-5.1)
== END | disposition home or self-care (01) ==
LOC: LAB 09:32
PROVIDERS: PCP Family Medicine; Referring Provider Nurse Practitioner Family; Visit Provider Nurse Practitioner Family
DX: I48.0 Paroxysmal atrial fibrillation (principal); I10 Essential (primary) hypertension; Z95.0 Presence of cardiac pacemaker; Z95.2 Presence of prosthetic heart valve
CPT/HCPCS: 36415; 80048

== ENCOUNTER 2024-10-29 07:22 | Day surgery (SDC) | payer MEDICARE, OTHER, SELFPAY ==
[2024-10-28 09:12] VITALS: BMI 34.2
--- NOTE | 2024-10-29 08:38 | PCM.OP.PRO2 ---
Non-invasive Procedural Procedure Information Date of Procedure: 10/29/24 Pre-Procedure Diagnosis: Atrial fibrillation Post-Procedure Diagnosis: Atrial fibrillation Procedure Performed:: DC cardioversion Procedure Time Out: : Procedure Start Time: : Procedure Stop Time: :35 Special Medications: Intravenous propofol 40 mg Description of procedure: Patient was brought to cardiac catheterization lab in the postabsorptive nonsedated state. Informed consent was obtained. Patient was seen by Dr. Wayne of the critical care division. Anterior-posterior pads were applied. 300 J of synchronized DC cardioversion energy were applied after 40 mg of intravenous propofol was administered. The patient reverted to an AV sequentially paced rhythm. Procedure findings: Successful DC cardioversion from atrial fibrillation to sinus rhythm. Continue as per office protocol. If patient reverts back into atrial fibrillation and is symptomatic may consider an AV karyna ablation.
--- NOTE | 2024-10-29 08:53 | PCM.OP.PRO2 ---
Procedures Pulmonary Pulmonary Procedures /Diagnostic Testin Con Sedation Non-invasive Procedural Procedure Information Date of Procedure: 10/29/24 Description of procedure: CONSCIOUS SEDATION REPORT DATE OF SERVICE: October 29, 2024 BRIEF HISTORY OF PRESENT ILLNESS: The patient is a 78-year-old male who presented to [facility] for elective outpatient cardioversion due to underlying atrial fibrillation. The patient did undergo a prior cardioversion in November 2023, during which time, he required 40 mg of propofol to achieve an appropriate level of sedation. The patient is systemically anticoagulated on Eliquis. His last surface echocardiogram demonstrated an ejection fraction of approximately 55%. He denied any prior anesthetic complications. PHYSICAL EXAMINATION: VITAL SIGNS: Reviewed and were acceptable. GENERAL: The patient is a male, in no apparent distress, speaking in full sentences. HEENT: Normocephalic, atraumatic. Mucous membranes are moist and pink. Good mouth opening noted. Trachea is midline. Good neck mobility. CHEST: S1, S2 irregularly irregular. No murmurs, rubs or gallops were noted. LUNGS: Clear to auscultation bilaterally without appreciable wheezes, rales or rhonchi. ABDOMEN: Soft, nontender, nondistended. Positive bowel sounds. EXTREMITIES: There is no clubbing, cyanosis or edema. ASA Class: II DESCRIPTION OF PROCEDURE: After confirmation of informed consent, the patient's anesthesia plan was reviewed in detail. Propofol was chosen. Risks and benefits were reviewed and the patient agreed to proceed. At 0831, the patient was given 40 mg of propofol. The patient achieved an appropriate level of sedation and was given a 300 joule synchronized cardioversion by Dr. Nelson at the bedside. This was successful in achieving normal sinus rhythm. The patient was monitored until 0845, at which time he reached his baseline mental status and function. The patient tolerated the procedure well. COMPLICATIONS: None ESTIMATED BLOOD LOSS: None RECOMMENDATIONS: Okay to recover in usual fashion.
== END 2024-10-29 09:35 | disposition home or self-care (01) ==
PROVIDERS: PCP Family Medicine; Referring Provider Internal Medicine Cardiovascular Disease; Visit Provider Internal Medicine Cardiovascular Disease
DX: I48.19 Other persistent atrial fibrillation (principal); I48.0 Paroxysmal atrial fibrillation; Z79.01 Long term (current) use of anticoagulants; I25.10 Atherosclerotic heart disease of native coronary artery without angina pectoris; Z95.2 Presence of prosthetic heart valve; Z95.0 Presence of cardiac pacemaker; Z79.899 Other long term (current) drug therapy; E78.00 Pure hypercholesterolemia, unspecified; I10 Essential (primary) hypertension; Z87.891 Personal history of nicotine dependence; E66.9 Obesity, unspecified
CPT/HCPCS: 92960; 93005

== ENCOUNTER 2024-12-15 09:35 | Outpatient (CLI) | payer MEDICARE, OTHER, SELFPAY ==
[2024-12-15 11:19] LABS: AST(SGOT) 21 U/L (<=37); Alanine Aminotransfer ALT/SGPT 15 U/L (<=46); Albumin, Serum 4.1 g/dL (3.4-4.8); Alkaline Phosphatase 89 U/L (40-129); Bilirubin, Direct 0.22 mg/dL (0.00-0.30); Cholesterol 164 mg/dL (<=200); Globulin 2.7 g/dL (2.2-4.2); Low Density Lipoprotein Calc. 105 mg/dL; Triglycerides 100 mg/dL; Uric Acid 7.0 mg/dL (3.5-7.2); Very Low Density Lipoprotein 20 mg/dL (5-40); cholesterol:hdl ratio screen 4.00
== END 2024-12-15 23:59 | disposition home or self-care (01) ==
LOC: LAB 09:37
PROVIDERS: PCP Family Medicine; Referring Provider Family Medicine; Visit Provider Family Medicine
DX: I48.92 Unspecified atrial flutter (principal); I10 Essential (primary) hypertension; M10.9 Gout, unspecified
CPT/HCPCS: 36415; 80061; 80076; 84550

== ENCOUNTER → 2025-01-14 | Outpatient (CLI) | payer MEDICARE, OTHER, SELFPAY ==
[2025-01-14 13:25] LABS: PSA,Total- Diagnostic 0.19 ng/mL (0.00-4.00)
== END | disposition home or self-care (01) ==
LOC: BFHLAB 11:05
PROVIDERS: PCP Family Medicine; Visit Provider Family Medicine
DX: Z85.46 Personal history of malignant neoplasm of prostate (principal)
CPT/HCPCS: 36415; 84153